=== PATIENT | male | born 1955 | race Caucasian/White ===

== ENCOUNTER 2022-05-26 19:46 | Observation (INO) | payer MEDICARE, SELFPAY ==
--- NOTE | ~2022-05-26 | XR_ITS ---
EXAMINATION: XR CHEST CLINICAL INFORMATION: Altered mental status COMPARISON: Chest radiograph 04/16/2017 TECHNIQUE: Frontal view of the chest was obtained. FINDINGS: Lungs are mildly hypoinflated. No significant abnormality is noted involving the heart, lungs, mediastinum, bony thorax or soft tissues. There has been no interval change when compared to the prior study. XR/XR chest 1V IMPRESSION: No acute intrathoracic disease.
--- NOTE | ~2022-05-26 | CT_ITS ---
EXAMINATION: CT HEAD WITHOUT CONTRAST CLINICAL INFORMATION: Altered mental status. Fall. COMPARISON: None. TECHNIQUE: Contiguous axial imaging was performed from the skull base to vertex without intravenous contrast. This CT examination was performed using dose optimization techniques as appropriate, variously including the following: * Automated exposure control * Adjustment of mA and/or kV according to patient size (this includes techniques or standardized protocols for targeted exams where dose is matched to indication/reason for exam; i.e. extremities or head) Use of iterative reconstruction technique DLP: 839 mGy-cm. FINDINGS: There is no evidence of acute intracranial hemorrhage or territorial infarction. No abnormal mass effect or midline shift is seen. [place] to white matter differentiation is well preserved. No extra-axial fluid collections are identified. No hydrocephalus. Proportional prominence of the ventricles and sulcal spaces is consistent with mild volume loss. Dense calcification of the cerebellum. The osseous structures and soft tissues are normal. Diffuse opacification throughout the paranasal sinuses. The mastoid air cells are well aerated. CT/CT head/brain wo con IMPRESSION: No acute intracranial pathology.
[2022-05-26 20:03] VITALS: BP 138/72; BP 144/86; PULSE 112; PULSE 96; RESP 20; TEMP 37.9; O2SAT 98; BMI 25.1
--- NOTE | 2022-05-26 20:10 | ED_ITS ---
HPI - General Adult General Chief complaint: Fall Stated complaint: weakness fall Time Seen by Provider: 05/26/22 20:06 Source: patient Mode of arrival: EMS Limitations: no limitations History of Present Illness HPI narrative: Patient history of hypertension anxiety lives alone brought by ambulance for increased weakness and found in unkept condition. started 2 days ago PCP gave him Bactrim for sinus infection today felt very weak when tried to get up from the bed fell down without any significant head injury EMS found him soiled in feces and urine patient patient lost his right toenail again to patient prior to taking this medication patient was in good health and since starting medication feeling very weak does not feel any strength Related Data Previous Rx's Medication Instructions Recorded paroxetine HCl 10 mg tablet 10 mg PO DAILY 90 days #90 tabs 08/22/21 irbesartan 150 mg tablet 225 mg PO DAILY 90 days #135 tabs 11/18/21 lorazepam 1 mg tablet 1 mg PO DAILY PRN anxiety 30 days 03/13/22 #30 tabs amoxicillin 875 mg-potassium 1 tab PO BID #14 tabs 04/11/22 clavulanate 125 mg tablet pseudoephedrine HCl 120 mg 120 mg PO BID PRN nasal congestion 04/11/22 tablet,extended release (Sudafed #20 tabs 12 Hour) sodium chloride 0.65 % nasal spray 2 spray intranasal BID PRN 04/11/22 aerosol (Saline Mist) congestion #45 mL sulfamethoxazole 800 1 tab PO BID 10 days #20 tabs 05/20/22 mg-trimethoprim 160 mg tablet (Bactrim DS) Allergies Allergy/AdvReac Type Severity Reaction Status Date / Time atenolol [ATENOLOL] Allergy Unknown SEVERE Verified 04/11/22 15:50 BRADYCARDIA atenolol Allergy Unknown bradycardia Uncoded 04/11/22 15:50 zestril Allergy Unknown facial Uncoded 04/11/22 15:50 swelling Review of Systems Review of Systems: Yes all other systems are reviewed and are negative [facility] Past Medical History Surgical History History of tonsillectomy and adenoidectomy Family History Family History Father No problems noted. Mother No problems noted. Social History Social History (Reviewed 04/11/22 @ 15:10 by MELIZA [place] Housing: House Alcohol intake: current Alcohol intake frequency: a few times a week Alcohol type: beer Patient Tobacco Use Status: Never used Tobacco e-Cigarette/Vaping Use: Never Used Second Hand Smoke Exposure: No Advance Directives: No service: No Current occupational status: retired Cognitive needs: No Hearing needs: No Vision needs: Yes Physical Exam ED Vital Signs: Vital Signs - 24 hr 05/26/22 20:03 05/26/22 21:39 05/27/22 00:00 Temperature 100.3 F 99.9 F 100.9 F H Pulse Rate 112 H 98 101 H Respiratory Rate 20 16 14 Blood Pressure 138/72 142/64 H 122/55 L Pulse Oximetry 98 98 94 Oxygen Delivery Method Room Air Room Air Room Air 05/27/22 02:00 Temperature 99.8 F Pulse Rate 96 Respiratory Rate 21 H Blood Pressure 122/62 Pulse Oximetry 95 Oxygen Delivery Method Room Air BMI result Body Mass Index 25.1 Appearance: Alert. Oriented X3. No acute distress. Unkept condition Eyes: PERRLA, No Nystagmus ENT: Pharynx normal. Oral Mucosa dry Neck: Normal inspection. Neck supple. CVS: Normal heart rate and rhythm. Pulses normal. Respiratory: No respiratory distress. Equal air entry bilateral, no wheezing/rales/rhonchi Abdomen: Soft and nontender. Bowel sounds are present, no mass palpable, no CVA tenderness Skin: Skin warm and dry. Normal skin color. Normal skin turgor. Extremities: No lower extremity edema. No calf tenderness R greater toe loss of nail Neuro: Oriented X 3. No motor deficit. No sensory deficit.No cerebellar signs , cranial nerves II-XII intact Medical Decision Making MDM Narrative Medical decision making narrative: Patient with fever tachycardia source infection not clear started on empirically Rocephin also given IV fluids lactic acid improved from 2.1-to 1.2 CT scan of the head negative for acute showed dense calcification of cerebellum Lab Data Lab results reviewed: Yes I reviewed the patient's lab results. Result diagrams: 05/26/22 20:56 05/26/22 20:56 Labs: Lab Results 05/26/22 05/26/22 05/26/22 Range/Units 20:56 20:56 20:56 WBC 6.1 (4.8-10.8) X10*3/uL RBC 4.29 L (4.60-5.80) X10*6/uL Hgb 14.5 (14.0-18.0) g/dl Hct 43.3 (42.0-52.0) % MCV 100.9 H (80.0-98.0) fL MCH 33.8 H (27.0-33.0) pg MCHC 33.5 (31.0-36.0) g/dl RDW 12.8 (11.0-16.0) % Plt Count 129 L (160-400) X10*3/uL MPV 10.7 (9.4-12.4) fL Immature Gran % (Auto) 1.0 H (0.0-0.4) % Neut % (Auto) 84.0 H (45-73) % Lymph % (Auto) 6.3 L (20-40) % [place] % (Auto) 7.9 (2-11) % Eos % (Auto) 0.3 (0-4) % Baso % (Auto) 0.5 (0-2) % Lymph # (Auto) 0.4 L (1.2-4.9) X10*3/uL [place] # (Auto) 0.5 (0.1-1.2) X10*3/uL Eos # (Auto) 0.0 (0.0-0.4) X10*3/uL Baso # (Auto) 0.0 (0.0-0.2) X10*3/uL Abs Immat Gran (auto) 0.06 H (0.00-0.03) X10*3/uL Absolute Neuts (auto) 5.1 (2.0-8.3) x10*3/uL Absolute Nucleated RBC 0.000 (0.0-0.012) X10*3/uL Nucleated RBC % (auto) 0.0 (0.0-0.2) /100WBC PT (9.9-13.0) SEC INR (0.9-1.1) Sodium 132 L (135-145) mmol/L Potassium 3.9 (3.3-5.1) mmol/L Chloride 103 (96-108) mmol/L Carbon Dioxide 18 L (22-29) mmol/L Anion Gap 15 (12-20) BUN 14 (9-16) mg/dL Creatinine 1.26 (0.5-1.4) mg/dL Estim Creat Clear Calc 58.9 Estimated GFR 57 Random Glucose 148 H (60-115) mg/dL Lactic Acid 2.1 H* (0.5-2.0) mmol/L Lactic Acid F/U @ 2Hr (0.5-2.0) mmol/L Calcium 8.5 (8.4-10.2) mg/dL Magnesium 1.7 (1.6-2.6) mg/dL Total Bilirubin 0.7 (0.0-1.0) mg/dL AST 56 H (5-37) U/L ALT 33 (0-40) U/L Alkaline Phosphatase 83 (39-117) U/L Total Creatine Kinase 227 H (38-174) U/L Troponin I High Sens (<3.5-35.0) ng/L Total Protein 6.5 (6.5-8.0) g/dL Albumin 3.8 (3.5-5.0) g/dL Urine Color Urine Appearance Urine pH (5.0-8.0) Ur Specific [place] (1.005-1.025) Urine Protein (NEG-TRACE) MG/DL Urine Glucose (UA) (NEG) MG/DL Urine Ketones (NEG) MG/DL Urine Blood (NEG) Urine Nitrite (NEG) Ur Leukocyte Esterase (NEG) Urine RBC (0) /HPF Urine WBC (0-4) /HPF Ur Squamous Epith Cells /LPF Urine Bacteria /LPF Urine Mucus /LPF COVID-19 (LUCY) (Negative) COVID-19 Clin Com 05/26/22 05/26/22 05/26/22 Range/Units 20:56 20:56 20:56 WBC (4.8-10.8) X10*3/uL RBC (4.60-5.80) X10*6/uL Hgb (14.0-18.0) g/dl Hct (42.0-52.0) % MCV (80.0-98.0) fL MCH (27.0-33.0) pg MCHC (31.0-36.0) g/dl RDW (11.0-16.0) % Plt Count (160-400) X10*3/uL MPV (9.4-12.4) fL Immature Gran % (Auto) (0.0-0.4) % Neut % (Auto) (45-73) % Lymph % (Auto) (20-40) % [place] % (Auto) (2-11) % Eos % (Auto) (0-4) % Baso % (Auto) (0-2) % Lymph # (Auto) (1.2-4.9) X10*3/uL [place] # (Auto) (0.1-1.2) X10*3/uL Eos # (Auto) (0.0-0.4) X10*3/uL Baso # (Auto) (0.0-0.2) X10*3/uL Abs Immat Gran (auto) (0.00-0.03) X10*3/uL Absolute Neuts (auto) (2.0-8.3) x10*3/uL Absolute Nucleated RBC (0.0-0.012) X10*3/uL Nucleated RBC % (auto) (0.0-0.2) /100WBC PT 11.5 (9.9-13.0) SEC INR 1.0 (0.9-1.1) Sodium (135-145) mmol/L Potassium (3.3-5.1) mmol/L Chloride (96-108) mmol/L Carbon Dioxide (22-29) mmol/L Anion Gap (12-20) BUN (9-16) mg/dL Creatinine (0.5-1.4) mg/dL Estim Creat Clear Calc Estimated GFR Random Glucose (60-115) mg/dL Lactic Acid (0.5-2.0) mmol/L Lactic Acid F/U @ 2Hr (0.5-2.0) mmol/L Calcium (8.4-10.2) mg/dL Magnesium (1.6-2.6) mg/dL Total Bilirubin (0.0-1.0) mg/dL AST (5-37) U/L ALT (0-40) U/L Alkaline Phosphatase (39-117) U/L Total Creatine Kinase (38-174) U/L Troponin I High Sens 30.5 (<3.5-35.0) ng/L Total Protein (6.5-8.0) g/dL Albumin (3.5-5.0) g/dL Urine Color Urine Appearance Urine pH (5.0-8.0) Ur Specific [place] (1.005-1.025) Urine Protein (NEG-TRACE) MG/DL Urine Glucose (UA) (NEG) MG/DL Urine Ketones (NEG) MG/DL Urine Blood (NEG) Urine Nitrite (NEG) Ur Leukocyte Esterase (NEG) Urine RBC (0) /HPF Urine WBC (0-4) /HPF Ur Squamous Epith Cells /LPF Urine Bacteria /LPF Urine Mucus /LPF COVID-19 (LUCY) Negative (Negative) COVID-19 Clin Com See Note 05/26/22 05/26/22 05/27/22 Range/Units 23:38 23:38 00:31 WBC (4.8-10.8) X10*3/uL RBC (4.60-5.80) X10*6/uL Hgb (14.0-18.0) g/dl Hct (42.0-52.0) % MCV (80.0-98.0) fL MCH (27.0-33.0) pg MCHC (31.0-36.0) g/dl RDW (11.0-16.0) % Plt Count (160-400) X10*3/uL MPV (9.4-12.4) fL Immature Gran % (Auto) (0.0-0.4) % Neut % (Auto) (45-73) % Lymph % (Auto) (20-40) % [place] % (Auto) (2-11) % Eos % (Auto) (0-4) % Baso % (Auto) (0-2) % Lymph # (Auto) (1.2-4.9) X10*3/uL [place] # (Auto) (0.1-1.2) X10*3/uL Eos # (Auto) (0.0-0.4) X10*3/uL Baso # (Auto) (0.0-0.2) X10*3/uL Abs Immat Gran (auto) (0.00-0.03) X10*3/uL Absolute Neuts (auto) (2.0-8.3) x10*3/uL Absolute Nucleated RBC (0.0-0.012) X10*3/uL Nucleated RBC % (auto) (0.0-0.2) /100WBC PT (9.9-13.0) SEC INR (0.9-1.1) Sodium (135-145) mmol/L Potassium (3.3-5.1) mmol/L Chloride (96-108) mmol/L Carbon Dioxide (22-29) mmol/L Anion Gap (12-20) BUN (9-16) mg/dL Creatinine (0.5-1.4) mg/dL Estim Creat Clear Calc Estimated GFR Random Glucose (60-115) mg/dL Lactic Acid (0.5-2.0) mmol/L Lactic Acid F/U @ 2Hr 1.2 (0.5-2.0) mmol/L Calcium (8.4-10.2) mg/dL Magnesium (1.6-2.6) mg/dL Total Bilirubin (0.0-1.0) mg/dL AST (5-37) U/L ALT (0-40) U/L Alkaline Phosphatase (39-117) U/L Total Creatine Kinase (38-174) U/L Troponin I High Sens (<3.5-35.0) ng/L Total Protein (6.5-8.0) g/dL Albumin (3.5-5.0) g/dL Urine Color YELLOW Cancelled Urine Appearance CLEAR Cancelled Urine pH 6.0 Cancelled (5.0-8.0) Ur Specific [place] >= 1.030 H Cancelled (1.005-1.025) Urine Protein 1+ H Cancelled (NEG-TRACE) MG/DL Urine Glucose (UA) NEG Cancelled (NEG) MG/DL Urine Ketones 5 Cancelled (NEG) MG/DL Urine Blood TRACE Cancelled (NEG) Urine Nitrite NEG Cancelled (NEG) Ur Leukocyte Esterase NEG Cancelled (NEG) Urine RBC 0-2 (0) /HPF Urine WBC 0-2 (0-4) /HPF Ur Squamous Epith Cells 1+ /LPF Urine Bacteria TRACE /LPF Urine Mucus 1+ /LPF COVID-19 (LUCY) (Negative) COVID-19 Clin Com ECG Data Attestation: I personally reviewed and interpreted this ECG as follows: Interpretation: Patient been feeling very weak taking Bactrim at home close urology only clear unable to ambulate in the ER after hydration recheck temperature oral 100.9 lactic acid level was 2.1 will admit patient for weakness possible bacteremia from unknown source Critical Care Time Critical Care Time Critical Care Time: Yes Total Critical Care Time: 55 Attestation: I spent 55 minutes of critical care, with interventions, assessments, speaking to patient, consultants, and family. Discharge Plan Discharge Clinical Impression: Weakness, Fever Patient Disposition: Admitted As Inpatient
--- NOTE | 2022-05-26 20:12 | ECG_ITS ---
Test Reason : FALL Blood Pressure : / mmHG Vent. Rate : 113 BPM Atrial Rate : 113 BPM P-R Int : 142 ms QRS Dur : 078 ms QT Int : 344 ms P-R-T Axes : 018 -37 -38 degrees QTc Int : 471 ms Sinus tachycardia with Premature atrial complexes with Aberrant conduction Left axis deviation Nonspecific ST and T wave abnormality Abnormal ECG When compared with ECG of 16-APR-2017 10:44, Aberrant conduction is now Present Referred By: Holden Yang Electronically Signed By:THAI DUFF
[2022-05-26] MEDS: 0.9 % Sodium Chloride 1,000 ML 999 ML IV (21:00)
[2022-05-26 21:03] LABS: MANUAL DIFF FLAG NO
[2022-05-26 21:19] LABS: Alanine Aminotransferase 33 U/L (0-40); Albumin Level 3.8 g/dL (3.5-5.0); Alkaline Phosphatase 83 U/L (39-117); Anion Gap 15 (12-20); Aspartate Amino Transferase 56 U/L (5-37); Bilirubin Total 0.7 mg/dL (0.0-1.0); Blood Urea Nitrogen 14 mg/dL (9-16); Calcium 8.5 mg/dL (8.4-10.2); Carbon Dioxide 18 mmol/L (22-29); Chloride 103 mmol/L (96-108); Creatinine Clr Calc Pharmacy 58.9; Estimated Glomerular Filt Rate 57; Glucose Random 148 mg/dL (60-115); Magnesium 1.7 mg/dL (1.6-2.6); Potassium 3.9 mmol/L (3.3-5.1); Sodium 132 mmol/L (135-145); Total Protein 6.5 g/dL (6.5-8.0)
[2022-05-26 21:20] LABS: Prothrombin Time 11.5 SEC (9.9-13.0)
[2022-05-26 21:21] LABS: COVID-19 Test Negative (Negative)
[2022-05-26 21:26] LABS: Troponin-I High Sensitivity 30.5 ng/L (<3.5-35.0)
[2022-05-26 21:30] LABS: Lactic Acid 2.1 mmol/L (0.5-2.0)
[2022-05-26 21:39] VITALS: BP 142/64; PULSE 98; RESP 16; TEMP 37.7; O2SAT 98
[2022-05-26 21:43] LABS: Basophils Percent Auto 0.5 % (0-2); Eosinophils Percent Auto 0.3 % (0-4); Hematocrit 43.3 % (42.0-52.0); Hemoglobin 14.5 g/dl (14.0-18.0); Imm Gran Abs Auto 0.06 X10*3/uL (0.00-0.03); Lymphocytes Absolute Auto 0.4 X10*3/uL (1.2-4.9); Lymphocytes Percent Auto 6.3 % (20-40); Mean Corpuscular HGB Conc 33.5 g/dl (31.0-36.0); Mean Corpuscular Hemoglobin 33.8 pg (27.0-33.0); Mean Corpuscular Volume 100.9 fL (80.0-98.0); Mean Platelet Volume 10.7 fL (9.4-12.4); Monocytes Absolute Auto 0.5 X10*3/uL (0.1-1.2); Monocytes Percent Auto 7.9 % (2-11); Neutrophils Absolute Auto 5.1 x10*3/uL (2.0-8.3); Platelet Count 129 X10*3/uL (160-400); Red Blood Count 4.29 X10*6/uL (4.60-5.80); Red Cell Distribution Width 12.8 % (11.0-16.0); White Blood Count 6.1 X10*3/uL (4.8-10.8)
--- NOTE | 2022-05-26 22:00 | PC.NURSE ---
Addendum entered by Ele Jacobs 05/27/22 07:01: report given to JEFF Garcia Original Note: pt arrived alert and oriented. report weakness. pt full pf stool. incontinent care provided. changed into hospital gown. started on continuos cardiac monitoring. son by bedside
[2022-05-26 23:01] LABS: Reflex Lactate? Lactic Acid Added
[2022-05-26 23:47] LABS: Appearance Urine CLEAR; Color Urine YELLOW; Glucose Urine UA NEG (NEG); Leukocyte Esterase Urine NEG (NEG); Nitrite Urine NEG (NEG); Specific Gravity - Urine >= 1.030 (1.005-1.025); UACC Culture Trigger NO; Urine Blood TRACE (NEG); Urine Ketones 5 MG/DL (NEG); Urine Protein 1+ MG/DL (NEG-TRACE)
[2022-05-26 23:54] LABS: RBC Urine 0-2 /HPF (0); WBC Urine 0-2 /HPF (0-4)
[2022-05-26 23:55] LABS: Bacteria Urine TRACE /LPF; Mucus Urine 1+ /LPF; Squamous Epithelial Cell Urine 1+ /LPF
[2022-05-27] VITALS (9 sets, daily range): BP systolic 119–157; BP diastolic 52–76; PULSE 92–110; RESP 14–27; TEMP 37.1–38.3; O2SAT 94–98
[2022-05-27 00:45] LABS: ~Lactic Acid-LAB USE ONLY 1.2 mmol/L (0.5-2.0)
[2022-05-27] MEDS: 0.9 % Sodium Chloride 1,000 ML 999 ML IV ×2 (00:56→01:23)
[2022-05-27] MEDS: Acetaminophen 325 MG TABLET 975 MG PO (01:10)
[2022-05-27] MEDS: LORazepam 2 MG/ML VIAL 1 MG IVPUSH (01:12)
[2022-05-27] MEDS: cefTRIAXone sodium 1 GM in 0.9 % Sodium Chloride 50 ML IV (01:22)
[2022-05-27 03:00] LABS: Influenza A PCR NEGATIVE (Negative); Influenza B PCR NEGATIVE (Negative); Resp Syncy Virus RNA Qual PCR NEGATIVE (Negative); SARS COV2 PCR INHOUSE NEGATIVE (Negative)
--- NOTE | 2022-05-27 07:52 | P.HPHOSP_ITS ---
History of Present Illness Date of Service: 05/27/22 Chief Complaint: weakness, fall This is a 67-year-old male with past medical history of hypertension as well as anxiety who presents to the hospital with fall. Patient reports that he has been on antibiotics for sinusitis but has been feeling very weak. Patient reports that he had a fall without loss of consciousness , no chest pain, no palpitations, no headache or change in vision. Patient denies any not miss a weakness. Patient reports generalized weakness, poor oral intake. Patient otherwise denies any abdominal pain nausea or vomiting, no diarrhea constipation, no urinary symptoms and no lower extremity edema. Patient's vitals are significant for temperature of a 100.9 degrees, heart rate of 101, vitals otherwise stable Labs are significant for WBC count of 6.1, hemoglobin of 14.5, MCV 100.9, sodium of 132, lactic acid of 2.1, UA negative Head CT negative, chest x-ray negative Review of Systems Review of Systems: Yes all other systems are reviewed and are negative [facility] Medical History (Updated 05/27/22 @ 08:03 by Martha Ulloa MD) Anxiety Hypertension, essential Neuropathy Obesity (BMI 30-39.9) Family History Father No problems noted. Mother No problems noted. Surgical History History of tonsillectomy and adenoidectomy Social History Housing: House Alcohol intake: current Alcohol intake frequency: a few times a week Alcohol type: beer Patient Tobacco Use Status: Never used Tobacco e-Cigarette/Vaping Use: Never Used Second Hand Smoke Exposure: No Advance Directives: No service: No Current occupational status: retired Cognitive needs: No Hearing needs: No Vision needs: Yes Meds Allergies Allergy/AdvReac Type Severity Reaction Status Date / Time atenolol [ATENOLOL] Allergy Unknown SEVERE Verified 04/11/22 15:50 BRADYCARDIA atenolol Allergy Unknown bradycardia Uncoded 04/11/22 15:50 zestril Allergy Unknown facial Uncoded 04/11/22 15:50 swelling Active Medications: Current Medications Acetaminophen (Acetaminophen 325 Mg Tablet) 650 mg PO Q6H PRN PRN Reason: Pain, Mild (Pain Scale 1-3) Docusate Sodium (Docusate Sodium 100 Mg Capsule) 100 mg PO DAILY PRN PRN Reason: Constipation Enoxaparin Sodium (Enoxaparin Sodium 40 Mg/0.4 Ml Syringe) 40 mg SUBCUT Q24H THOMPSON Ondansetron HCl (Ondansetron Hcl 4 Mg/2 Ml Vial) 4 mg IVPUSH Q8H PRN PRN Reason: Nausea and Vomiting Sodium Chloride (0.9 % Sodium Chloride Flush 3 Ml Syringe) 3 ml IVFLUSH QSHIFT THOMPSON Physical Exam Vital Signs and Narrative: Vital Signs: Last Vital Signs Temp 98.7 F 05/27/22 05:38 Pulse 103 H 05/27/22 05:38 Resp 16 05/27/22 05:38 BP 137/65 05/27/22 05:38 Pulse Ox 96 05/27/22 05:38 O2 Del Method 05/27/22 05:38 BMI result Body Mass Index 25.1 Results Labs CBC and Chem 7: 05/26/22 20:56 05/26/22 20:56 Labs: Laboratory Results - last 24 hr 05/26/22 05/26/22 05/26/22 20:56 20:56 20:56 MCV 100.9 H MCH 33.8 H MCHC 33.5 RDW 12.8 Plt Count 129 L MPV 10.7 Immature Gran % (Auto) 1.0 H Neut % (Auto) 84.0 H Lymph % (Auto) 6.3 L [place] % (Auto) 7.9 Eos % (Auto) 0.3 Baso % (Auto) 0.5 Lymph # (Auto) 0.4 L [place] # (Auto) 0.5 Eos # (Auto) 0.0 Baso # (Auto) 0.0 Abs Immat Gran (auto) 0.06 H Absolute Neuts (auto) 5.1 Absolute Nucleated RBC 0.000 Nucleated RBC % (auto) 0.0 PT INR Anion Gap 15 Estim Creat Clear Calc 58.9 Estimated GFR 57 Random Glucose 148 H Lactic Acid 2.1 H* Lactic Acid F/U @ 2Hr Calcium 8.5 Magnesium 1.7 Total Bilirubin 0.7 AST 56 H ALT 33 Alkaline Phosphatase 83 Total Creatine Kinase 227 H Troponin I High Sens Total Protein 6.5 Albumin 3.8 Urine Color Urine Appearance Urine pH Ur Specific [place] Urine Protein Urine Glucose (UA) Urine Ketones Urine Blood Urine Nitrite Ur Leukocyte Esterase Urine RBC Urine WBC Ur Squamous Epith Cells Urine Bacteria Urine Mucus COVID-19 (LUCY) COVID-19 Clin Com Influenza Type A (PCR) Influenza Type B (PCR) RSV RNA Qual (PCR) SARS-CoV-2 RNA (RT-PCR) 05/26/22 05/26/22 05/26/22 20:56 20:56 20:56 MCV MCH MCHC RDW Plt Count MPV Immature Gran % (Auto) Neut % (Auto) Lymph % (Auto) [place] % (Auto) Eos % (Auto) Baso % (Auto) Lymph # (Auto) [place] # (Auto) Eos # (Auto) Baso # (Auto) Abs Immat Gran (auto) Absolute Neuts (auto) Absolute Nucleated RBC Nucleated RBC % (auto) PT 11.5 INR 1.0 Anion Gap Estim Creat Clear Calc Estimated GFR Random Glucose Lactic Acid Lactic Acid F/U @ 2Hr Calcium Magnesium Total Bilirubin AST ALT Alkaline Phosphatase Total Creatine Kinase Troponin I High Sens 30.5 Total Protein Albumin Urine Color Urine Appearance Urine pH Ur Specific [place] Urine Protein Urine Glucose (UA) Urine Ketones Urine Blood Urine Nitrite Ur Leukocyte Esterase Urine RBC Urine WBC Ur Squamous Epith Cells Urine Bacteria Urine Mucus COVID-19 (LUCY) Negative COVID-19 Clin Com See Note Influenza Type A (PCR) Influenza Type B (PCR) RSV RNA Qual (PCR) SARS-CoV-2 RNA (RT-PCR) 05/26/22 05/26/22 05/27/22 23:38 23:38 00:31 MCV MCH MCHC RDW Plt Count MPV Immature Gran % (Auto) Neut % (Auto) Lymph % (Auto) [place] % (Auto) Eos % (Auto) Baso % (Auto) Lymph # (Auto) [place] # (Auto) Eos # (Auto) Baso # (Auto) Abs Immat Gran (auto) Absolute Neuts (auto) Absolute Nucleated RBC Nucleated RBC % (auto) PT INR Anion Gap Estim Creat Clear Calc Estimated GFR Random Glucose Lactic Acid Lactic Acid F/U @ 2Hr 1.2 Calcium Magnesium Total Bilirubin AST ALT Alkaline Phosphatase Total Creatine Kinase Troponin I High Sens Total Protein Albumin Urine Color YELLOW Cancelled Urine Appearance CLEAR Cancelled Urine pH 6.0 Cancelled Ur Specific [place] >= 1.030 H Cancelled Urine Protein 1+ H Cancelled Urine Glucose (UA) NEG Cancelled Urine Ketones 5 Cancelled Urine Blood TRACE Cancelled Urine Nitrite NEG Cancelled Ur Leukocyte Esterase NEG Cancelled Urine RBC 0-2 Urine WBC 0-2 Ur Squamous Epith Cells 1+ Urine Bacteria TRACE Urine Mucus 1+ COVID-19 (LUCY) COVID-19 Clin Com Influenza Type A (PCR) Influenza Type B (PCR) RSV RNA Qual (PCR) SARS-CoV-2 RNA (RT-PCR) 05/27/22 02:15 MCV MCH MCHC RDW Plt Count MPV Immature Gran % (Auto) Neut % (Auto) Lymph % (Auto) [place] % (Auto) Eos % (Auto) Baso % (Auto) Lymph # (Auto) [place] # (Auto) Eos # (Auto) Baso # (Auto) Abs Immat Gran (auto) Absolute Neuts (auto) Absolute Nucleated RBC Nucleated RBC % (auto) PT INR Anion Gap Estim Creat Clear Calc Estimated GFR Random Glucose Lactic Acid Lactic Acid F/U @ 2Hr Calcium Magnesium Total Bilirubin AST ALT Alkaline Phosphatase Total Creatine Kinase Troponin I High Sens Total Protein Albumin Urine Color Urine Appearance Urine pH Ur Specific [place] Urine Protein Urine Glucose (UA) Urine Ketones Urine Blood Urine Nitrite Ur Leukocyte Esterase Urine RBC Urine WBC Ur Squamous Epith Cells Urine Bacteria Urine Mucus COVID-19 (LUCY) COVID-19 Clin Com Influenza Type A (PCR) NEGATIVE Influenza Type B (PCR) NEGATIVE RSV RNA Qual (PCR) NEGATIVE SARS-CoV-2 RNA (RT-PCR) NEGATIVE Imaging Radiologist's Impressions: Impressions Chest X-Ray 05/26/22 21:25 IMPRESSION: No acute intrathoracic disease. Head CT 05/27/22 01:55 IMPRESSION: No acute intracranial pathology. Assessment and Plan (1) Fever: Status: Acute (2) Weakness: Status: Acute (3) Sinusitis: Qualifiers: Sinusitis location: pansinusitis Chronicity: acute Recurrence: non- recurrent Qualified Code(s): J01.40 - Acute pansinusitis, unspecified Status: Acute (4) Fall: Status: Acute Plan 67-year-old male with recently diagnosed sinusitis on antibiotics presents to the hospital with fall and weakness found to have a fever. # fever - unknown source, UA is negative, head CT negative, chest x-ray negative - patient also has tachycardia - at this time will treat with Augmentin for the sinusitis - blood cultures drawn, will follow # weakness - vein the setting of recent infection - PT OT # sinusitis - was on Bactrim 05/09 - will switch to Augmentin # fall - mechanical - PT # hypertension - stable - continue home medications DVT prophylaxis: Lovenox Quality Stroke Does the patient have a stroke diagnosis?: No VTE Prior VTE?: No VTE Risk Level:: Medical - moderate - high VTE Device Contraindication: Treatment Not Indicated VTE Drug Contraindication: N/A - Med Ordered
--- NOTE | 2022-05-27 10:04 | MHC.CM.PN ---
PT REPORTS HE LIVES AT HOME WITH HIS SON HE REPORTS BEING INDEPENDENT WITH CARE HE HAS A CANE AND WALKER AND HIS SON IS GOIGN TO GET HIM A W/C TODAY PT REPORTS HE IS NOT COVID-19 VACCINATED PT COMPLETED A HCP TODAY NAMING HIS SON, DELONTE [phone], HIS AGENT PCP: ROBBIE BILLINGS OBSERVATION NOTICE DELIVERED, COPY SENT TO [facility] CURRENT DC PLAN IS HOME VS HOME WITH [facility] SON TO TRANSPORT
--- NOTE | 2022-05-27 10:13 | PHA.MEDREC ---
Pharmacy Consult ? Medication Reconciliation Pharmacy has completed the medication reconciliation. Spoke to patient themselves. Patient was on Bactrim for 10 doses then stopping because of side effects.
[2022-05-27 10:50] LABS: Basophils Percent Auto 0.5 % (0-2); Hematocrit 41.8 % (42.0-52.0); Hemoglobin 13.7 g/dl (14.0-18.0); Imm Gran Abs Auto 0.04 X10*3/uL (0.00-0.03); Imm Gran Pct Auto 1.1 % (0.0-0.4); Lymphocytes Absolute Auto 0.7 X10*3/uL (1.2-4.9); Lymphocytes Percent Auto 17.4 % (20-40); Mean Corpuscular HGB Conc 32.8 g/dl (31.0-36.0); Mean Corpuscular Hemoglobin 34.3 pg (27.0-33.0); Mean Corpuscular Volume 104.5 fL (80.0-98.0); Monocytes Absolute Auto 0.8 X10*3/uL (0.1-1.2); Monocytes Percent Auto 20.9 % (2-11); Neutrophils Absolute Auto 2.2 x10*3/uL (2.0-8.3); Neutrophils Percent Auto 60.1 % (45-73); Red Cell Distribution Width 12.8 % (11.0-16.0); SCAN SMEAR FLAG 1; White Blood Count 3.7 X10*3/uL (4.8-10.8)
[2022-05-27] MEDS: Amoxicillin/Potassium Clav 875 MG TABLET PO (10:50)
[2022-05-27] MEDS: Enoxaparin Sodium 40 MG/0.4 ML SYRINGE SUBCUT (10:50)
[2022-05-27] MEDS: levoFLOXacin/D5W 750 MG/150 ML PIGGYBACK 100 MG IV (10:50)
[2022-05-27] MEDS: PARoxetine HCL 10 MG TABLET PO (10:50)
[2022-05-27] MEDS: 0.9 % Sodium Chloride Flush 3 ML SYRINGE IVFLUSH ×2 (10:51→15:53)
[2022-05-27 11:01] LABS: Anion Gap 13 (12-20); Blood Urea Nitrogen 10 mg/dL (9-16); Carbon Dioxide 18 mmol/L (22-29); Chloride 109 mmol/L (96-108); Creatinine Clr Calc Pharmacy 97.7; Estimated Glomerular Filt Rate > 60; Glucose Random 106 mg/dL (60-115); MANUAL DIFF FLAG SCAN; Potassium 3.9 mmol/L (3.3-5.1); Sodium 136 mmol/L (135-145)
[2022-05-27 11:13] LABS: Mean Platelet Volume 10.5 fL (9.4-12.4); Platelet Count 89 X10*3/uL (160-400); SLIDE REVIEW VERIFIED
[2022-05-27] MEDS: Valsartan 80 MG TABLET PO (11:51)
--- NOTE | 2022-05-27 11:54 | PC.NURSE ---
Pt is alert,oriented. Needs reminders at times. Diarrhea x3, losse, brown and mucoid in appearance. Oral temp 99.5. AM meds tolerated well. General skin bruising noted, pt reports falling over past 2 days at home. SInus tach on tele, rate 110s.
--- NOTE | 2022-05-27 11:57 | PC.NURSE ---
Right great toe dsg removed, cleaned and bandaid applied. Skin macerated, red to nail bed
[2022-05-27 12:50] LABS: Lactic Acid 1.6 mmol/L (0.5-2.0)
[2022-05-27 17:13] LABS: CDiff Gene PCR NEGATIVE (Negative)
[2022-05-27 17:18] LABS: Leukocytes Stool Qualitative NEGATIVE (NEGATIVE)
--- NOTE | 2022-05-27 17:29 | PM.EVENT ---
Event Note Date of Service: 05/27/22 Event Note: Patient seen and examined-events and labs noted Patient had mild thrombocytopenia also has tachycardia Leukopenia Lactic acid is 1.6. Patient also had few episode of diarrhea . C diff and stool for WBC added Physical exam: Unchanged from before. Assessment and plan coordinated in H&P note fuo vs sepsis sec to sinusitis c diff pcr neg, stool for wbc neg Thrombocytopenia probably related to add Augmentin/Lovenox Blood culture pending Id eval , continue levquin
--- NOTE | 2022-05-27 20:06 | PC.NURSE ---
Addendum entered by Ele Jacobs 05/28/22 07:09: Report given to JEFF Estevez Original Note: report received from JEFF Butler
[2022-05-28] MEDS: LORazepam 1 MG TABLET PO (00:04)
[2022-05-28] MEDS: levoFLOXacin/D5W 750 MG/150 ML PIGGYBACK 100 MG IV (09:01)
[2022-05-28] MEDS: 0.9 % Sodium Chloride Flush 3 ML SYRINGE IVFLUSH (09:03)
[2022-05-28] MEDS: Valsartan 80 MG TABLET PO (09:04)
[2022-05-28] MEDS: PARoxetine HCL 10 MG TABLET PO (09:04)
[2022-05-28 10:22] LABS: Hematocrit 38.4 % (42.0-52.0); Mean Corpuscular HGB Conc 33.9 g/dl (31.0-36.0); Mean Corpuscular Hemoglobin 34.4 pg (27.0-33.0); Mean Corpuscular Volume 101.6 fL (80.0-98.0); Mean Platelet Volume 10.7 fL (9.4-12.4); Platelet Count 108 X10*3/uL (160-400); Red Blood Count 3.78 X10*6/uL (4.60-5.80); Red Cell Distribution Width 12.5 % (11.0-16.0); White Blood Count 3.6 X10*3/uL (4.8-10.8)
[2022-05-28 10:43] LABS: Anion Gap 12 (12-20); Blood Urea Nitrogen 10 mg/dL (9-16); Carbon Dioxide 21 mmol/L (22-29); Chloride 107 mmol/L (96-108); Creatinine Clr Calc Pharmacy 112.5; Estimated Glomerular Filt Rate > 60; Glucose Random 103 mg/dL (60-115); Potassium 3.7 mmol/L (3.3-5.1); Sodium 136 mmol/L (135-145)
[2022-05-28] MEDS: Lactated Ringers 1,000 ML 80 ML IVCONT ×2 (10:48→22:33)
--- NOTE | 2022-05-28 10:52 | PC.NURSE ---
Report received at shift change from Ele AGUILAR. Patient resting on hospital bed and reports comfort. Respirations regular and even. Skin PWD. Patient passing stool frequently on bed bender. Stool is loose and dark brown. Patient sits up on side of bed independently. Able to sit upright for 5-10 minutes at a time before needing to lay back down. Patient able to take AM medications and eat independently without difficulty. LRS infusing at 80mls/hr at this time. Will continue to monitor.
[2022-05-28 11:21] VITALS: BP 102/58; PULSE 88; RESP 18; TEMP 36.8; O2SAT 97
--- NOTE | 2022-05-28 11:57 | P.CNID_ITS ---
History of Present Illness Data of Consult Service Date: 05/27/22 Requesting physician: Cele Foy Primary Care Provider: Brandon Buck MD HPI Reason for consult: sepsis He presents with weakness for last 4-5 days and some vague dizziness and fell and came to hospital. He has sinus pressure and was on Augmentin He has thrombocytopenia and no tick exposure. CT scan bender sinusitis. Review of Systems Review of Systems: Yes all other systems are reviewed and are negative PMFSH Past Medical History Medical History Anxiety Hypertension, essential Neuropathy Obesity (BMI 30-39.9) Family History Family History Father No problems noted. Mother No problems noted. Family history: reviewed and not pertinent Surgical History Surgical History History of tonsillectomy and adenoidectomy Social History Social History Housing: House Alcohol intake: current Alcohol intake frequency: holidays/special occasions only Alcohol type: beer Patient Tobacco Use Status: Never used Tobacco e-Cigarette/Vaping Use: Never Used Second Hand Smoke Exposure: No Use of substances other than those prescribed or required for medical reasons: No Advance Directives: Yes Advance Directives on File: Yes Advance Directives Date on File: 05/27/22 service: No Current occupational status: retired Cognitive needs: No Hearing needs: No Vision needs: Yes Meds Allergies Allergy/AdvReac Type Severity Reaction Status Date / Time atenolol [ATENOLOL] Allergy Unknown SEVERE Verified 04/11/22 15:50 BRADYCARDIA atenolol Allergy Unknown bradycardia Uncoded 04/11/22 15:50 zestril Allergy Unknown facial Uncoded 04/11/22 15:50 swelling Active Medications: Current Medications Acetaminophen (Acetaminophen 325 Mg Tablet) 650 mg PO Q6H PRN PRN Reason: Pain, Mild (Pain Scale 1-3) Docusate Sodium (Docusate Sodium 100 Mg Capsule) 100 mg PO DAILY PRN PRN Reason: Constipation Levofloxacin (Levaquin) 750 mg in 150 mls @ 100 mls/hr IV Q24H [facility] Last Admin: 05/28/22 09:01 Dose: 100 mls/hr Lactated Ringer's (Lr) 1,000 mls @ 80 mls/hr IVCONT .[id number] [facility] Last Admin: 05/28/22 10:48 Dose: 80 mls/hr Lorazepam (Lorazepam 1 Mg Tablet) 1 mg PO DAILY PRN PRN Reason: anxiety Last Admin: 05/28/22 00:04 Dose: 1 mg Ondansetron HCl (Ondansetron Hcl 4 Mg/2 Ml Vial) 4 mg IVPUSH Q8H PRN PRN Reason: Nausea and Vomiting Paroxetine HCl (Paroxetine Hcl 10 Mg Tablet) 10 mg PO DAILY [facility] Last Admin: 05/28/22 09:04 Dose: 10 mg Sodium Chloride (0.9 % Sodium Chloride Flush 3 Ml Syringe) 3 ml IVFLUSH QSHIFT [facility] Last Admin: 05/28/22 09:03 Dose: 3 ml Valsartan (Valsartan 80 Mg Tablet) 80 mg PO DAILY [facility] Last Admin: 05/28/22 09:04 Dose: 80 mg Home Medications Medication Instructions Recorded Confirmed Last Taken Type irbesartan 150 mg tablet 150 mg PO DAILY 05/27/22 05/27/22 05/26/22 History Physical Exam Vital Signs: Vital Signs: Last Vital Signs Temp 98.3 F 05/28/22 11:21 Pulse 88 05/28/22 11:21 Resp 18 05/28/22 11:21 BP 102/58 L 05/28/22 11:21 Pulse Ox 97 05/28/22 11:21 O2 Del Method 05/28/22 11:21 BMI result Body Mass Index 25.1 Const: General: cooperative HEENT: Head: Yes normal to inspection Face and sinus: Yes normal facial exam Mouth: Normal oral and palatal mucosa present Teeth and gingiva: dentition normal Eyes: General: appearance normal, both eyes and all related structures Pupils: Equal, round and reactive pupils present Resp: Effort & Inspection: normal respiratory effort Cardio: Rate: regular rate Rhythm: regular rhythm GI: Palpation (GI): Soft to palpation and nontender : General: Yes no CVA tenderness Back/Spine/Pelvis: Back: no CVA tenderness Skin: General skin exam: no rashes or lesions noted Neuro: General: moves all extremities Cranial nerves: Yes Equal, round and reactive pupils present Extrem: General: Yes normal to inspection Psych: Appearance: grossly normal Results Labs CBC & Chem 7: 05/28/22 09:54 05/28/22 09:54 Labs: Short CBC 05/28/22 Range/Units 09:54 WBC 3.6 L (4.8-10.8) X10*3/uL Hgb 13.0 L (14.0-18.0) g/dl Hct 38.4 L (42.0-52.0) % Plt Count 108 L (160-400) X10*3/uL BMP 05/28/22 09:54 Sodium 136 Potassium 3.7 Chloride 107 Carbon Dioxide 21 L BUN 10 Creatinine 0.66 Calcium 8.0 L Microbiology Microbiology Results: Microbiology 05/26/22 21:07 Blood - Venous Blood Culture - Preliminary No growth after 24 hours. 05/26/22 20:55 Blood - Venous Blood Culture - Preliminary No growth after 24 hours. Assessment and Plan (1) Sepsis: Status: Acute this is likely due to pansinusitis. Sepsis criteria is fever and tachycardia There is no evidence of tick exposure. Rest of exam and CT head unremarkable. No urinary symptoms Plan Can give po Levaquin 750 mg daily for 10 d total and po Doxycycline 100 mg po bid for 10 d in case tick borne/other
[2022-05-28 15:18] VITALS: BP 102/46; PULSE 94; RESP 18; TEMP 37.2; O2SAT 97
--- NOTE | 2022-05-28 15:26 | PC.NURSE ---
Dr. Foy made aware about patients low blood pressure. No further action needed per Dr. Foy.
--- NOTE | 2022-05-28 17:08 | HO.PM.IMPN ---
Subjective Subjective Date of Service: 05/28/22 Interval History: FUO, diarrhea Review of Systems No fever overnight , diarrhea is slightly better than yesterday Physical Exam Vital Signs: Vital Signs: Last Vital Signs Temp 99.0 F 05/28/22 15:18 Pulse 94 05/28/22 15:18 Resp 18 05/28/22 15:18 BP 102/46 L 05/28/22 15:18 Pulse Ox 97 05/28/22 15:18 O2 Del Method 05/28/22 15:18 BMI result Body Mass Index 25.1 Appearance: Alert.? Oriented X3.? not in distress. cvs: rrr, [id number] , no murmur res: clear to auscultation ,no rhonchii or wheezing abd: no rebound or guarding ,nt, bs present. ext pulses present , no cyanosis . neuro: axo3 , nonfocal. Objective Data Active Medications Acetaminophen (Acetaminophen 325 Mg Tablet) 650 mg PO Q6H PRN PRN Reason: Pain, Mild (Pain Scale 1-3) Docusate Sodium (Docusate Sodium 100 Mg Capsule) 100 mg PO DAILY PRN PRN Reason: Constipation Levofloxacin (Levaquin) 750 mg in 150 mls @ 100 mls/hr IV Q24H [facility] Last Admin: 05/28/22 09:01 Dose: 100 mls/hr Documented By: ARLET Lactated Ringer's (Lr) 1,000 mls @ 80 mls/hr IVCONT .[id number] [facility] Last Admin: 05/28/22 10:48 Dose: 80 mls/hr Documented By: ARLET Lorazepam (Lorazepam 1 Mg Tablet) 1 mg PO DAILY PRN PRN Reason: anxiety Last Admin: 05/28/22 00:04 Dose: 1 mg Documented By: FELICITAS-ANICL Ondansetron HCl (Ondansetron Hcl 4 Mg/2 Ml Vial) 4 mg IVPUSH Q8H PRN PRN Reason: Nausea and Vomiting Paroxetine HCl (Paroxetine Hcl 10 Mg Tablet) 10 mg PO DAILY [facility] Last Admin: 05/28/22 09:04 Dose: 10 mg Documented By: ARLET Sodium Chloride (0.9 % Sodium Chloride Flush 3 Ml Syringe) 3 ml IVFLUSH QSHIFT [facility] Last Admin: 05/28/22 15:40 Dose: Not Given Documented By: MISSY Non-Admin Reason: IV Running Valsartan (Valsartan 80 Mg Tablet) 80 mg PO DAILY [facility] Last Admin: 05/28/22 09:04 Dose: 80 mg Documented By: ARLET Labs CBC & Chem 7: 05/28/22 09:54 05/28/22 09:54 Labs: Laboratory Results - last 24 hr 05/27/22 05/27/22 05/28/22 15:37 15:37 09:54 MCV 101.6 H MCH 34.4 H MCHC 33.9 RDW 12.5 Plt Count 108 L MPV 10.7 Absolute Nucleated RBC 0.000 Nucleated RBC % (auto) 0.0 Anion Gap Estim Creat Clear Calc Estimated GFR Random Glucose Calcium Stool Leukocytes, Qual NEGATIVE C. difficile Tox B Gene NEGATIVE 05/28/22 09:54 MCV MCH MCHC RDW Plt Count MPV Absolute Nucleated RBC Nucleated RBC % (auto) Anion Gap 12 Estim Creat Clear Calc 112.5 Estimated GFR > 60 Random Glucose 103 Calcium 8.0 L Stool Leukocytes, Qual C. difficile Tox B Gene Microbiology Microbiology Results: Microbiology 05/26/22 21:07 Blood Culture - Preliminary Blood - Venous No growth after 24 hours. 05/26/22 20:55 Blood Culture - Preliminary Blood - Venous No growth after 24 hours. Assessment and Plan (1) Fall: Status: Acute (2) Fever: Status: Acute (3) Sinusitis: Status: Acute Plan 67-year-old male with recently diagnosed sinusitis on antibiotics presents to the hospital with fall and weakness found to have a fever. fuo vs sepsis sec to sinusitis - unknown source, UA is negative, head CT negative, chest x-ray negative - patient also has tachycardia levquin for the sinusitis, blood cultures@24hrs ID eval # weakness - vein the setting of recent infection - PT OT-str # sinusitis - was on Bactrim 05/09 will continue levaquin # fall - mechanical - PT-str # hypertension - stable - continue home medications thrombocytopenia : probable sec to augmentin , seems improving after dc augmentin diarrhae: c diff and wbc neg, dirrahe still has , will add loperamide. DVT prophylaxis:? Lovenox need for inpatient: Quality Stroke Does the patient have a stroke diagnosis?: No VTE Prior VTE?: No VTE Risk Level:: Medical - moderate - high VTE Device Contraindication: Treatment Not Indicated VTE Drug Contraindication: N/A - Med Ordered
[2022-05-28 21:40] VITALS: BP 138/66; PULSE 88; RESP 18; TEMP 36.7; O2SAT 99
[2022-05-29] VITALS: BP 135/53; PULSE 96; RESP 16; TEMP 36.8; O2SAT 98
--- NOTE | 2022-05-29 00:28 | PC.NURSE ---
patient was help with bedpan ,taught he had to move his bowels ,but did not go ,
--- NOTE | 2022-05-29 00:43 | PC.NURSE ---
SMALL TRASH BAG AND TISSUE GIVEN TO PATIENT .
[2022-05-29] MEDS: Loperamide HCl 2 MG CAPSULE PO (00:46)
[2022-05-29 04:00] VITALS: BP 125/57; PULSE 86; RESP 16; TEMP 36.9; O2SAT 98
[2022-05-29 09:20] LABS: Adenovirus PCR Not Detected (Not Detect.); Bordetella parapertussis PCR Not Detected (Not Detect.); Bordetella pertussis PCR Not Detected (Not Detect.); Chlamydia pneumoniae PCR Not Detected (Not Detect.); Coronavirus 229E PCR Not Detected (Not Detect.); Coronavirus HKU1 PCR Not Detected (Not Detect.); Coronavirus NL63 PCR Not Detected (Not Detect.); Coronavirus OC43 PCR Not Detected (Not Detect.); Human metapneumovirus PCR Not Detected (Not Detect.); Influenza A PCR Not Detected (Not Detect.); Influenza B PCR Not Detected (Not Detect.); Mycoplasma pneumoniae PCR Not Detected (Not Detect.); Parainfluenza 1 PCR Not Detected (Not Detect.); Parainfluenza 2 PCR Not Detected (Not Detect.); Parainfluenza 3 PCR Not Detected (Not Detect.); Parainfluenza 4 PCR Not Detected (Not Detect.); RSV PCR Not Detected (Not Detect.); Rhino/Enterovirus PCR Not Detected (Not Detect.); SARS-CoV-2 PCR Not Detected (Not Detect.)
[2022-05-29] MEDS: PARoxetine HCL 10 MG TABLET PO (09:25)
[2022-05-29] MEDS: levoFLOXacin/D5W 750 MG/150 ML PIGGYBACK 100 MG IV (09:25)
[2022-05-29 11:24] VITALS: BP 129/72; PULSE 76; RESP 12; TEMP 36.4; O2SAT 99
--- NOTE | 2022-05-29 13:05 | MHC.CM.PN ---
Addendum entered by Tiffanie Oliveira 05/29/22 13:19: PT WILL DC HOME TODAY WITH [facility] SON TO TRANSPORT AROUND 1730 HOURS Addendum entered by Tiffanie Oliveira 05/29/22 13:08: SON/DELONTE [phone] Original Note: TRACY LEFT A VM FOR PTS SON REQUESTING A RETURN CALL TO DISCUSS PTS DC PLAN AND ENSURE HE WAS AWARE STR HAD BEEN RECOMMENDED CM LATER RECEIVED A MESSAGE FROM PTS SON INDICATING HE WAS AT WORK HOWEVER HAD SPOKEN TO THE MD AND WOULD LIKE TO TAKE THE PT HOME AT DC. HE INDICATED HE WOULD BE HERE AROUND 1730 TO TRANSPORT
--- NOTE | 2022-05-29 13:11 | P.F2F_ITS ---
Service Date Service Date: 05/29/22 Encounter Date of encounter: 05/29/22 Encounter: Fever, sepsis due to sinusitis Reasons for Services Signs and symptoms assessed: Generalized weak and fall Reason for long-term: CV/CP assess and/or care, medication management, medication treatment and teach disease management Reason for physical therapy: home safety and mobility, therapeutic exercises, restore joint function, gait/transfer training, assess need for DME, ADL training, energy conservation and other MD Overseeing Care: Brandon Buck Homebound: Leaving the home is medically contraindicated at this time without the asist of a device and/or another person due th the listed conditions above and below. Reason homebound: other Homebound supporting statement: Patient came with sepsis secondary sinusitis, generalized weak, fall-declined to go to rehab, will need VNA and PT and also need help to go to appointments. Certification: Based on the above findings, I certify that this patient is confined to the home and needs intermittent long-term care, physical therapy and/or speech therapy, or continues to need occupational therapy. The patient is under my care, and I have initiated the establishment of the plan of care. The patient will be followed by a physician who will periodically review the plan of care.
[2022-05-29 16:10] VITALS: BP 131/61; PULSE 72; RESP 16; TEMP 36.6; O2SAT 98
--- NOTE | 2022-05-30 14:30 | P.DS_ITS ---
DS: Providers Provider Date of Service: 05/29/22 Date of admission: 05/27/22 04:59 Primary care physician: Brandon Buck MD Consults: 05/27/22 12:13 Consult to Infectious Diseases Routine Consulting Provider: Varsha Holguin Reason for consultation: fuo Has provider been notified: No DS: Diagnosis Discharge Diagnosis (1) Fall: Status: Acute (2) Fever: Status: Acute (3) Sinusitis: Status: Acute DS: Summary Hospital Course Hospital Course: 67-year-old male with past medical history of hypertension as well as anxiety who presents to the hospital with fall.? Patient reports that he has been on antibiotics for sinusitis but has been feeling very weak.? Patient reports that he had a fall without loss of consciousness , no chest pain, no palpitations, no headache or change in vision.? Patient denies any not miss a weakness.? Patient reports generalized weakness, poor oral intake.? Patient otherwise denies any abdominal pain nausea or vomiting, no diarrhea constipation, no urinary symptoms and no lower extremity edema. Patient's vitals are significant for temperature of a 100.9 degrees, heart rate of 101, vitals otherwise stable Labs are significant for WBC count of 6.1, hemoglobin of 14.5, MCV 100.9, sodium of 132, lactic acid of 2.1, UA negative Head CT negative, chest x-ray negative. hospital course: Patient came to the hospital because of possible sepsis secondary to sinusitis- seems to be improving with IV antibiotics: Seen by infectious disease recommended to continue levofloxacin and added doxycycline . Blood culture negative. Also had diarrhea probably antibiotic induced which seems to be improved, C diff and stool for WBC negative. Patient was seen by PT-recommended rehab-but patient refused to go to rehab so going home with PT and VNA. plan: Complete the course of antibiotic. If patient's symptoms worsen including fever or shortness of breath or cough or any new symptoms patient is to get evaluated in nearest emergency room. Above management discussed with patient and patient's son in detail length they both understand and in agreement with the above plan, time spent 50 minutes and 50% time spent on counseling. Significant findings: As above. Procedures performed: None. Treatment and response: As above. Complications: None. Time Spent with Patient Time attestation: Total time spent providing and/or coordinating discharge services: Discharge coordination time: Greater than 30 minutes Quality: Safe Use of Opioids Does Pt have an Active Cancer Diagnosis on the Problem List?: No Quality: Stroke Does the patient have a stroke diagnosis?: No Physical Exam Vital Signs: Vital Signs: Last Vital Signs Temp 97.9 F 05/29/22 16:10 Pulse 72 05/29/22 16:10 Resp 16 05/29/22 16:10 BP 131/61 05/29/22 16:10 Pulse Ox 98 05/29/22 16:10 O2 Del Method 05/29/22 16:10 BMI result Body Mass Index 25.1 ?Appearance: Alert.? Oriented X3.? not in distress. cvs: rrr, [id number] , no murmur res: clear to auscultation ,no rhonchii or wheezing abd: no rebound or guarding ,nt, bs present. ext pulses present , no cyanosis . neuro: axo3 , nonfocal. DS: Data Data Completed and Pending Labs on day of discharge: Preliminary micro results at discharge 05/26/22 21:07 Blood Culture - Preliminary Blood - Venous No growth after 48 hours. 05/26/22 20:55 Blood Culture - Preliminary Blood - Venous No growth after 48 hours. 05/27/22 05/27/22 05/28/22 ? 15:37 15:37 09:54 MCV ? ? ?101.6 H MCH ? ? ?34.4 H MCHC ? ? ?33.9 RDW ? ? ?12.5 Plt Count ? ? ?108 L MPV ? ? ?10.7 Absolute Nucleated RBC ? ? ?0.000 Nucleated RBC % (auto) ? ? ?0.0 Anion Gap ? ? ? Estim Creat Clear Calc ? ? ? Estimated GFR ? ? ? Random Glucose ? ? ? Calcium ? ? ? Stool Leukocytes, Qual ?NEGATIVE ? ? C. difficile Tox B Gene ? ?NEGATIVE ? ? 05/28/22 ? 09:54 MCV ? MCH ? MCHC ? RDW ? Plt Count ? MPV ? Absolute Nucleated RBC ? Nucleated RBC % (auto) ? Anion Gap ?12 Estim Creat Clear Calc ?112.5 Estimated GFR ?> 60 Random Glucose ?103 Calcium ?8.0 L Stool Leukocytes, Qual ? C. difficile Tox B Gene ? CT/CT head/brain wo con IMPRESSION: No acute intracranial pathology. Discharge Plan Discharge Patient Disposition: Home Health Service Discharge Diagnosis: fall , sepsis due to sinusitis Referrals: Sum[facility] ROSENTHAL [Outside] - 1 Week Brandon Buck MD [Primary Care Provider] - 1 Week Discharge Medications: New levofloxacin 750 mg tablet 750 mg PO DAILY Qty: 7 0RF doxycycline hyclate 100 mg capsule 100 mg PO BID Qty: 20 0RF Continued paroxetine HCl 10 mg tablet 10 mg PO DAILY 90 Days Qty: 90 3RF irbesartan 150 mg Tablet 150 mg PO DAILY lorazepam 1 mg tablet 1 mg PO DAILY PRN (Reason: anxiety) 30 Days Qty: 30 0RF Rx Instructions: [facility] verified. Partial refill upon request. Saline Mist 0.65 % aerosol,spray 2 spray intranasal BID PRN (Reason: congestion) Qty: 45 0RF Discharge Orders: Discharge Order (Routine); Ordered 05/29/22 Ordered By: Cele Foy Diet: Advance to usual diet Activity on Discharge: As tolerated Stand Alone Forms: Patient Portal Discharge page Care Plan Goals: Patient came to the hospital because of possible sepsis secondary to sinusitis- seems to be improving with IV antibiotics: Seen by infectious disease recommended to continue levofloxacin/doxycycline . Blood culture negative. Also had diarrhea probably antibiotic induced which seems to be improved, C diff and stool for WBC negative. Patient was seen by PT-recommended rehab Health Concerns: Complete the course of antibiotic. If patient's symptoms worsen including fever or shortness of breath or cough or any new symptoms patient is to get evaluated in nearest emergency room. Plan of Treatment: As above. Assessment: As above. Discharge Date/Time: 05/29/22 17:33
== END 2022-05-29 17:33 | disposition home health service (06) ==
LOC: HO.ED 05-27 02:24 → HO.EDOVER 05-27 06:17
PROVIDERS: Admitting Provider Internal Medicine; Emergency Provider Internal Medicine; PCP Internal Medicine; Visit Provider Internal Medicine
DX: J01.40 Acute pansinusitis, unspecified (principal); R53.1 Weakness; R50.9 Fever, unspecified; R19.7 Diarrhea, unspecified; I10 Essential (primary) hypertension; D69.6 Thrombocytopenia, unspecified; R00.0 Tachycardia, unspecified; R42 Dizziness and giddiness; S91.201A Unspecified open wound of right great toe with damage to nail, initial encounter; W06.XXXA Fall from bed, initial encounter; Z20.822 Contact with and (suspected) exposure to COVID-19; E66.9 Obesity, unspecified; F41.9 Anxiety disorder, unspecified; Y93.89 Activity, other specified; Y92.032 Bedroom in apartment as the place of occurrence of the external cause; Y99.9 Unspecified external cause status; Z79.899 Other long term (current) drug therapy
CPT/HCPCS: 0241U; 36415; 70450; 71045; 80048; 80053; 81001; 82550; 83605; 83735; 84484; 85025; 85027; 85610; 87040; 87493; 87633; 87635; 89055; 93005; 96361; 96365; 96367; 96372; 96375; 97162; 99218; 99285; J0696; J1650; J1956; J2060

== ENCOUNTER 2022-07-19 09:07 | Outpatient (REF) | payer MEDICARE, SELFPAY ==
[2022-07-19 09:20] LABS: MANUAL DIFF FLAG NO
[2022-07-19 10:04] LABS: Basophils Percent Auto 0.5 % (0-2); Eosinophils Absolute Auto 0.1 X10*3/uL (0.0-0.4); Eosinophils Percent Auto 0.8 % (0-4); Hematocrit 46.1 % (42.0-52.0); Hemoglobin 15.7 g/dl (14.0-18.0); Imm Gran Abs Auto 0.03 X10*3/uL (0.00-0.03); Imm Gran Pct Auto 0.4 % (0.0-0.4); Lymphocytes Absolute Auto 1.2 X10*3/uL (1.2-4.9); Lymphocytes Percent Auto 16.5 % (20-40); Mean Corpuscular HGB Conc 34.1 g/dl (31.0-36.0); Mean Corpuscular Hemoglobin 33.8 pg (27.0-33.0); Mean Corpuscular Volume 99.1 fL (80.0-98.0); Monocytes Absolute Auto 0.5 X10*3/uL (0.1-1.2); Monocytes Percent Auto 7.2 % (2-11); Neutrophils Absolute Auto 5.5 x10*3/uL (2.0-8.3); Neutrophils Percent Auto 74.6 % (45-73); Platelet Count 194 X10*3/uL (160-400); Red Blood Count 4.65 X10*6/uL (4.60-5.80); Red Cell Distribution Width 13.8 % (11.0-16.0); White Blood Count 7.3 X10*3/uL (4.8-10.8)
[2022-07-19 10:10] LABS: Alanine Aminotransferase 19 U/L (0-40); Alkaline Phosphatase 65 U/L (39-117); Anion Gap 17 (12-20); Aspartate Amino Transferase 24 U/L (5-37); Bilirubin Total 0.7 mg/dL (0.0-1.0); Blood Urea Nitrogen 14 mg/dL (9-16); Calcium 9.2 mg/dL (8.4-10.2); Carbon Dioxide 23 mmol/L (22-29); Chloride 105 mmol/L (96-108); Cholesterol 181 mg/dL; Estimated Glomerular Filt Rate > 60; Glucose Fasting 102 mg/dL (60-99); HDL Cholesterol 72 mg/dL; LDL Cholesterol Calculated 93 mg/dl; Potassium 4.3 mmol/L (3.3-5.1); Sodium 141 mmol/L (135-145); Total Protein 6.8 g/dL (6.5-8.0); Triglycerides 84 mg/dL
[2022-07-19 10:34] LABS: TSH reflex Free T4 1.05 uIU/mL (0.32-4.0)
[2022-07-19 11:08] LABS: Vitamin D 25-OH Total 10.9 ng/mL (>30)
[2022-07-21 07:56] LABS: Folate 12.4 ng/mL (> or = 4.0); Vitamin B12 286 pg/mL (200-900)
== END 2022-07-19 09:08 | disposition home or self-care (01) ==
LOC: HO.LAB 09:07
PROVIDERS: PCP Internal Medicine; Visit Provider Internal Medicine
DX: Z13.89 Encounter for screening for other disorder (principal)
CPT/HCPCS: 36415; 80053; 80061; 82306; 82607; 82746; 84443; 85025

== ENCOUNTER 2022-07-19 21:58 | Emergency (ER) | payer MEDICARE, SELFPAY ==
--- NOTE | ~2022-07-19 | US_ITS ---
EXAMINATION: US VENOUS ULTRASOUND WITH DOPPLER LOWER EXTREMITY, LEFT CLINICAL INFORMATION: This is a 67-year-old male with left leg edema. Possible deep vein thrombosis. COMPARISON: None TECHNIQUE: Ultrasound of the deep veins is performed from the hip to the calf with compression sonography and color and pulse Doppler assessment. Spectral analysis with color-flow imaging is performed. FINDINGS: There is normal venous compression and respiratory variation and augmented flow. The visualized common femoral vein, superficial femoral vein, profunda femoral vein, popliteal vein, and the trifurcation region shows no evidence of deep venous thrombosis. There is no significant popliteal fossa cyst. If the patient's symptoms persist, followup ultrasound in 5 days 7 days might be of value to exclude proximal propagation from a non-visualized calf vein. US/US venous duplex LE IMPRESSION: No DVT demonstrated in the left lower extremity.
[2022-07-19 22:04] VITALS: BP 138/82; PULSE 103; O2SAT 96
[2022-07-19 22:08] VITALS: BP 141/98; PULSE 104; RESP 18; TEMP 36.6; O2SAT 100; BMI 34.2
--- NOTE | 2022-07-19 22:15 | ECG_ITS ---
Test Reason : ABDOMINAL PAIN Blood Pressure : / mmHG Vent. Rate : 106 BPM Atrial Rate : 106 BPM P-R Int : 166 ms QRS Dur : 078 ms QT Int : 344 ms P-R-T Axes : 007 -36 -27 degrees QTc Int : 456 ms Sinus tachycardia Left axis deviation T wave abnormality, consider anterior ischemia Abnormal ECG When compared with ECG of 26-MAY-2022 20:19, Aberrant conduction is no longer Present Referred By: Generic ED Physician Electronically Signed By:JAIRO NERI
[2022-07-19 22:31] LABS: MANUAL DIFF FLAG NO
[2022-07-19 22:33] LABS: Basophils Absolute Auto 0.1 X10*3/uL (0.0-0.2); Basophils Percent Auto 0.5 % (0-2); Eosinophils Absolute Auto 0.1 X10*3/uL (0.0-0.4); Eosinophils Percent Auto 1.1 % (0-4); Hematocrit 43.7 % (42.0-52.0); Imm Gran Abs Auto 0.04 X10*3/uL (0.00-0.03); Imm Gran Pct Auto 0.4 % (0.0-0.4); Lymphocytes Absolute Auto 1.9 X10*3/uL (1.2-4.9); Lymphocytes Percent Auto 20.2 % (20-40); Mean Corpuscular HGB Conc 34.3 g/dl (31.0-36.0); Mean Corpuscular Volume 96.3 fL (80.0-98.0); Mean Platelet Volume 10.1 fL (9.4-12.4); Monocytes Absolute Auto 0.7 X10*3/uL (0.1-1.2); Monocytes Percent Auto 7.8 % (2-11); Neutrophils Absolute Auto 6.4 x10*3/uL (2.0-8.3); Platelet Count 202 X10*3/uL (160-400); Red Blood Count 4.54 X10*6/uL (4.60-5.80); White Blood Count 9.2 X10*3/uL (4.8-10.8)
--- NOTE | 2022-07-19 22:39 | PC.NURSE ---
pt to us at this time.
[2022-07-19 22:46] LABS: COVID-19 Test Negative (Negative); IDNOW Serial# 16C4AD1C
[2022-07-19 22:58] LABS: Alanine Aminotransferase 18 U/L (0-40); Albumin Level 3.8 g/dL (3.5-5.0); Alkaline Phosphatase 58 U/L (39-117); Anion Gap 17 (12-20); Aspartate Amino Transferase 23 U/L (5-37); Bilirubin Total 0.6 mg/dL (0.0-1.0); Blood Urea Nitrogen 12 mg/dL (9-16); Calcium 8.9 mg/dL (8.4-10.2); Carbon Dioxide 20 mmol/L (22-29); Chloride 107 mmol/L (96-108); Creatinine Clr Calc Pharmacy 144.8; Estimated Glomerular Filt Rate > 60; Glucose Random 105 mg/dL (60-115); Potassium 3.9 mmol/L (3.3-5.1); Sodium 140 mmol/L (135-145); Total Protein 6.4 g/dL (6.5-8.0)
[2022-07-19 23:02] LABS: Troponin-I High Sensitivity < 3.5 ng/L (<3.5-35.0)
--- NOTE | 2022-07-19 23:14 | ED_ITS ---
HPI - General Adult General Chief complaint: Weakness Stated complaint: lower leg numbness Time Seen by Provider: 07/19/22 22:44 Source: patient Mode of arrival: ambulatory Limitations: no limitations History of Present Illness HPI narrative: Patient is 67 years old with history of anxiety, hypertension with increased weakness followed by PT OT at home since 16:00 unable to urinate at all. Patient denies any history of retention in the past not on any new medication in triage her bladder scan revealed more than 1 L of urine in the bladder. No vomiting no fever no flank pain patient does have weakness in the lower extremities but for last few days has more weakness on the left side seen by PT at home wooden appreciate any difference as compared in her past Related Data Home Medications Medication Instructions Recorded Confirmed irbesartan 150 mg tablet 150 mg PO DAILY 05/27/22 06/04/22 Previous Rx's Medication Instructions Recorded paroxetine HCl 10 mg tablet 10 mg PO DAILY 90 days #90 tabs 08/22/21 sodium chloride 0.65 % nasal spray 2 spray intranasal BID PRN 04/11/22 aerosol (Saline Mist) congestion #45 mL doxycycline hyclate 100 mg capsule 100 mg PO BID #20 caps 05/29/22 levofloxacin 750 mg tablet 750 mg PO DAILY #7 tabs 05/29/22 lorazepam 1 mg tablet 1 mg PO DAILY PRN anxiety 30 days 07/07/22 #30 tabs Allergies Allergy/AdvReac Type Severity Reaction Status Date / Time atenolol [ATENOLOL] Allergy Unknown SEVERE Verified 06/04/22 11:19 BRADYCARDIA atenolol Allergy Unknown bradycardia Uncoded 06/04/22 11:19 zestril Allergy Unknown facial Uncoded 06/04/22 11:19 swelling Review of Systems Review of Systems: Yes all other systems are reviewed and are negative [facility] [place] Past Medical History Medical History Anxiety Benign essential hypertension Hypertension, essential Neuropathy Obesity (BMI 30-39.9) Surgical History History of tonsillectomy and adenoidectomy Family History Family History Father No problems noted. Mother No problems noted. Social History Social History Housing: House Alcohol intake: current Alcohol intake frequency: holidays/special occasions only Alcohol type: beer Patient Tobacco Use Status: Never used Tobacco e-Cigarette/Vaping Use: Never Used Second Hand Smoke Exposure: No Advance Directives: Yes Advance Directives on File: Yes Advance Directives Date on File: 05/27/22 service: No Current occupational status: retired Cognitive needs: No Hearing needs: No Vision needs: Yes Physical Exam ED Vital Signs: Vital Signs - 24 hr 07/19/22 22:08 07/20/22 00:00 07/20/22 02:00 Temperature 97.8 F Pulse Rate 104 H 77 80 Respiratory Rate 18 16 16 Blood Pressure 141/98 H 123/70 146/75 H Pulse Oximetry 100 98 97 Oxygen Delivery Method Room Air Room Air Room Air BMI result Body Mass Index 34.2 Appearance: Alert. Oriented X3. No acute distress. Eyes: PERRLA, No Nystagmus ENT: Pharynx normal. Oral Mucosa moist Neck: Normal inspection. Neck supple. CVS: Normal heart rate and rhythm. Pulses normal. Respiratory: No respiratory distress. Equal air entry bilateral, no wheezing/rales/rhonchi Abdomen: Soft, suprapubic fullness to the umbilicus with fluid thrill+ Bowel sounds are present, , no CVA tenderness Skin: Skin warm and dry. Normal skin color. Normal skin turgor. Extremities: No lower extremity edema. No calf tenderness no swelling or tenderness of the lower extremity Neuro: Oriented X 3. No motor deficit. No sensory deficit.No cerebellar signs , cranial nerves II-XII intact Medical Decision Making MDM Narrative Medical decision making narrative: patient's acute intervention Banegas catheter was placed to drain about 1400 cc of urine discharge patient home with a leg bag is no significant swelling or weakness noticed in the extremities Lab Data Lab results reviewed: Yes I reviewed the patient's lab results. Result diagrams: 07/19/22 22:26 07/19/22 22:26 Labs: Lab Results 07/19/22 07/19/22 07/19/22 Range/Units 22:26 22:26 22:26 WBC 9.2 (4.8-10.8) X10*3/uL RBC 4.54 L (4.60-5.80) X10*6/uL Hgb 15.0 (14.0-18.0) g/dl Hct 43.7 (42.0-52.0) % MCV 96.3 (80.0-98.0) fL MCH 33.0 (27.0-33.0) pg MCHC 34.3 (31.0-36.0) g/dl RDW 14.0 (11.0-16.0) % Plt Count 202 (160-400) X10*3/uL MPV 10.1 (9.4-12.4) fL Immature Gran % (Auto) 0.4 (0.0-0.4) % Neut % (Auto) 70.0 (45-73) % Lymph % (Auto) 20.2 (20-40) % Gladwin % (Auto) 7.8 (2-11) % Eos % (Auto) 1.1 (0-4) % Baso % (Auto) 0.5 (0-2) % Lymph # (Auto) 1.9 (1.2-4.9) X10*3/uL Gladwin # (Auto) 0.7 (0.1-1.2) X10*3/uL Eos # (Auto) 0.1 (0.0-0.4) X10*3/uL Baso # (Auto) 0.1 (0.0-0.2) X10*3/uL Abs Immat Gran (auto) 0.04 H (0.00-0.03) X10*3/uL Absolute Neuts (auto) 6.4 (2.0-8.3) x10*3/uL Absolute Nucleated RBC 0.000 (0.0-0.012) X10*3/uL Nucleated RBC % (auto) 0.0 (0.0-0.2) /100WBC Sodium 140 (135-145) mmol/L Potassium 3.9 (3.3-5.1) mmol/L Chloride 107 (96-108) mmol/L Carbon Dioxide 20 L (22-29) mmol/L Anion Gap 17 (12-20) BUN 12 (9-16) mg/dL Creatinine 0.61 (0.5-1.4) mg/dL Estim Creat Clear Calc 144.8 Estimated GFR > 60 Random Glucose 105 (60-115) mg/dL Calcium 8.9 (8.4-10.2) mg/dL Total Bilirubin 0.6 (0.0-1.0) mg/dL AST 23 (5-37) U/L ALT 18 (0-40) U/L Alkaline Phosphatase 58 (39-117) U/L Troponin I High Sens < 3.5 D (<3.5-35.0) ng/L Total Protein 6.4 L (6.5-8.0) g/dL Albumin 3.8 (3.5-5.0) g/dL Urine Color Urine Appearance Urine pH (5.0-8.0) Ur Specific Bar[place] (1.005-1.025) Urine Protein (Neg-Trace) mg/dL Urine Glucose (UA) (Negative) mg/dL Urine Ketones (Negative) mg/dL Urine Blood (Negative) Urine Nitrite (Negative) Ur Leukocyte Esterase (Negative) Urine RBC (0-2) /HPF Urine WBC (0-5) /HPF Ur Squamous Epith Cells (0-2) /HPF Urine Bacteria (None Seen) Hyaline Casts (0-2) /LPF COVID-19 (LUCY) (Negative) COVID-19 Clin Com 07/19/22 07/19/22 07/20/22 Range/Units 22:26 23:41 01:11 WBC (4.8-10.8) X10*3/uL RBC (4.60-5.80) X10*6/uL Hgb (14.0-18.0) g/dl Hct (42.0-52.0) % MCV (80.0-98.0) fL MCH (27.0-33.0) pg MCHC (31.0-36.0) g/dl RDW (11.0-16.0) % Plt Count (160-400) X10*3/uL MPV (9.4-12.4) fL Immature Gran % (Auto) (0.0-0.4) % Neut % (Auto) (45-73) % Lymph % (Auto) (20-40) % Gladwin % (Auto) (2-11) % Eos % (Auto) (0-4) % Baso % (Auto) (0-2) % Lymph # (Auto) (1.2-4.9) X10*3/uL Gladwin # (Auto) (0.1-1.2) X10*3/uL Eos # (Auto) (0.0-0.4) X10*3/uL Baso # (Auto) (0.0-0.2) X10*3/uL Abs Immat Gran (auto) (0.00-0.03) X10*3/uL Absolute Neuts (auto) (2.0-8.3) x10*3/uL Absolute Nucleated RBC (0.0-0.012) X10*3/uL Nucleated RBC % (auto) (0.0-0.2) /100WBC Sodium (135-145) mmol/L Potassium (3.3-5.1) mmol/L Chloride (96-108) mmol/L Carbon Dioxide (22-29) mmol/L Anion Gap (12-20) BUN (9-16) mg/dL Creatinine (0.5-1.4) mg/dL Estim Creat Clear Calc Estimated GFR Random Glucose (60-115) mg/dL Calcium (8.4-10.2) mg/dL Total Bilirubin (0.0-1.0) mg/dL AST (5-37) U/L ALT (0-40) U/L Alkaline Phosphatase (39-117) U/L Troponin I High Sens (<3.5-35.0) ng/L Total Protein (6.5-8.0) g/dL Albumin (3.5-5.0) g/dL Urine Color Yellow Yellow Urine Appearance Clear Clear Urine pH 5.5 5.5 (5.0-8.0) Ur Specific [place] <= 1.005 <= 1.005 (1.005-1.025) Urine Protein Negative Negative (Neg-Trace) mg/dL Urine Glucose (UA) Negative Negative (Negative) mg/dL Urine Ketones Negative Negative (Negative) mg/dL Urine Blood Small (1+) H Small (1+) H (Negative) Urine Nitrite Negative Negative (Negative) Ur Leukocyte Esterase Negative Negative (Negative) Urine RBC 0-2 0-2 (0-2) /HPF Urine WBC 0-5 0-5 (0-5) /HPF Ur Squamous Epith Cells 0-2 0-2 (0-2) /HPF Urine Bacteria None Seen None Seen (None Seen) Hyaline Casts 0-2 0-2 (0-2) /LPF COVID-19 (LUCY) Negative (Negative) COVID-19 Clin Com See Note Discharge Plan Discharge Clinical Impression: Acute urinary retention, Weakness Patient Disposition: Home, Self-Care Instructions: Urinary Retention in Men (ED), Banegas Catheter Placement and Care (ED), Weakness (ED) Additional Instructions: Follow-up with urologist/PCP in 2 days for Banegas catheter removal Care as advised Drink plenty of fluids Prescriptions: No Action paroxetine HCl 10 mg tablet 10 mg PO DAILY 90 Days Qty: 90 3RF lorazepam 1 mg tablet 1 mg PO DAILY PRN (Reason: anxiety) 30 Days Qty: 30 0RF Rx Instructions: [facility] verified. Partial refill upon request. irbesartan 150 mg Tablet 150 mg PO DAILY levofloxacin 750 mg tablet 750 mg PO DAILY Qty: 7 0RF doxycycline hyclate 100 mg capsule 100 mg PO BID Qty: 20 0RF Saline Mist 0.65 % aerosol,spray 2 spray intranasal BID PRN (Reason: congestion) Qty: 45 0RF Interventions: ED Discharge Assessment Last Done: 07/20/22 05:12 Discharge Date/Time: 07/20/22 05:16
--- NOTE | 2022-07-19 23:39 | PC.NURSE ---
Pt was retaining about 1 L of urine. I inserted a ibrahim catheter without complications and will be monitoring output until discharge. stated the plan is to give him a leg bag to go home and referral to urology on Thursday.
[2022-07-19 23:52] LABS: Appearance Urine Clear; Color Urine Yellow; Glucose Urine UA Negative (Negative); Leukocyte Esterase Urine Negative (Negative); Nitrite Urine Negative (Negative); PH 5.5 (5.0-8.0); Specific Gravity - Urine <= 1.005 (1.005-1.025); Urine Blood Small (1+) (Negative); Urine Ketones Negative (Negative); Urine Protein Negative (Neg-Trace)
[2022-07-20] VITALS: BP 123/70; PULSE 77; RESP 16; O2SAT 98
[2022-07-20 00:04] LABS: Bacteria Urine None Seen (None Seen); Hyaline Casts Urine 0-2 /LPF (0-2); RBC Urine 0-2 /HPF (0-2); Squamous Epithelial Cell Urine 0-2 /HPF (0-2); WBC Urine 0-5 /HPF (0-5)
[2022-07-20 01:20] LABS: Appearance Urine Clear; Color Urine Yellow; Glucose Urine UA Negative (Negative); Leukocyte Esterase Urine Negative (Negative); Nitrite Urine Negative (Negative); PH 5.5 (5.0-8.0); Specific Gravity - Urine <= 1.005 (1.005-1.025); Urine Blood Small (1+) (Negative); Urine Ketones Negative (Negative); Urine Protein Negative (Neg-Trace)
[2022-07-20 01:28] LABS: Bacteria Urine None Seen (None Seen); Hyaline Casts Urine 0-2 /LPF (0-2); RBC Urine 0-2 /HPF (0-2); Squamous Epithelial Cell Urine 0-2 /HPF (0-2); WBC Urine 0-5 /HPF (0-5)
[2022-07-20 02:00] VITALS: BP 146/75; PULSE 80; RESP 16; O2SAT 97
== END 2022-07-20 05:16 | disposition home or self-care (01) ==
PROVIDERS: Emergency Provider Internal Medicine; PCP Internal Medicine
DX: R33.9 Retention of urine, unspecified (principal); R53.1 Weakness; I10 Essential (primary) hypertension; R60.0 Localized edema; E66.9 Obesity, unspecified; Z68.34 Body mass index [BMI] 34.0-34.9, adult; Z20.822 Contact with and (suspected) exposure to COVID-19
CPT/HCPCS: 36415; 51702; 80053; 80061; 81001; 82306; 82607; 82746; 84443; 84484; 85025; 87635; 93005; 93971; 99284; 99285

== ENCOUNTER 2022-07-26 15:50 | Inpatient (IN) | payer MEDICARE, SELFPAY ==
--- NOTE | ~2022-07-26 | CT_ITS ---
EXAMINATION: CT lumbar spine wo con, CT thoracic spine wo con CLINICAL INFORMATION: Reason for Exam left leg weakness COMPARISON: None. TECHNIQUE: Axial images were obtained through the thoracic and lumbar spine without the administration of intravenous contrast. Coronal and sagittal reformatted images were generated Intravenous Contrast: . None This CT examination was performed using dose optimization techniques as appropriate, variously including the following: *Automated exposure control *Adjustment of mA and/or kV according to patient size (this includes techniques or standardized protocols for targeted exams where dose is matched to indication/reason for exam; i.e. extremities or head) *Use of iterative reconstruction technique DLP: 2271 mGy-cm FINDINGS: CT thoracic spine: Normal alignment. No subluxation. Vertebral body heights are maintained. No acute fracture. No osseous lesion. Mild multilevel degenerative disc disease with relatively preserved intervertebral disc heights. Prominent endplate sclerosis and bulky rightward projecting endplate osteophytes in the mid and lower thoracic spine. 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 Advanced disc degenerative change at C5-C6 noted. Limited assessment of spinal canal contents due to noncontrast CT technique. At T11-T12, there is a disc bulge and facet arthrosis with large right facet osteophyte or partially calcified portion of the right ligamentum flavum contributing to canal stenosis in the moderate to severe range. Multilevel bilateral facet arthrosis noted in the mid lower thoracic spine. No paravertebral soft tissue swelling. Normal caliber abdominal aorta. Extensive LAD coronary calcifications. No mediastinal lymphadenopathy. Imaged portions of the lungs appear clear. CT lumbar spine: Partially lumbarized S1 segment with rudimentary S1-S2 intervertebral disc. Minimal retrolisthesis at L3-L4. No additional subluxation. Vertebral body heights are maintained. No acute fracture. Moderate disc height loss at L4-L5 and L5-S1 endplate sclerosis and proliferative change. Milder disc degenerative changes throughout the remainder the lumbar spine with mild disc height loss at L2-L3 and L3-L4. Multilevel vacuum disc phenomena. No pars defects. Lower lumbar facet arthrosis most prominent on the left at L4-L5. Limited assessment of spinal canal contents. Diffuse disc bulge at L2-L3 at least mild central canal stenosis. At least moderate central canal stenosis at L3-L4 with diffuse disc bulge. Similar findings at L4-L5 and L5-S1. Multilevel neural foraminal stenosis most prominently at L5-S1, moderate in severity bilaterally at that level. No paravertebral soft tissue swelling. Normal caliber abdominal aorta with mild vascular calcifications. Small exophytic left upper pole renal lesion likely a small cyst. Colonic diverticulosis. Mild SI joint degenerative change bilaterally. CT/CT thoracic spine wo con IMPRESSION: 1. No subluxation or fracture in the thoracolumbar spine. 2. Limited assessment is spinal canal contents due to noncontrast CT technique. If concern for myelopathic or radicular pathology, recommend MRI for assessment. 3. Suspected spinal canal stenosis at T11-T12 and at several levels in the lumbar spine, not optimally/reliably evaluated on this study, as above.
--- NOTE | ~2022-07-26 | CT_ITS ---
EXAMINATION: CT ABDOMEN AND PELVIS WITHOUT CONTRAST CLINICAL INFORMATION: Abdominal pain COMPARISON: None TECHNIQUE: Multidetector volumetric imaging was performed from the superior aspect of the liver through the pubic symphysis. Sagittal and coronal reformatted images were obtained on the technologist's workstation. This CT examination was performed using dose optimization techniques as appropriate, variously including the following: *Automated exposure control *Adjustment of mA and/or kV according to patient size (this includes techniques or standardized protocols for targeted exams where dose is matched to indication/reason for exam; i.e. extremities or head) *Use of iterative reconstruction technique DLP: 1497 mGy-cm FINDINGS: LUNG BASES: Minimal bibasilar atelectasis. Extensive LAD coronary calcifications. LIVER, GALLBLADDER, AND BILIARY TREE: Normal hepatic size. No liver lesion. No morphologic features of cirrhosis. No biliary ductal dilation. The gallbladder is prominently distended but otherwise unremarkable with no evidence of radiopaque gallstones, gallbladder wall thickening, or obvious pericholecystic inflammatory changes. PANCREAS: Unremarkable. SPLEEN: Unremarkable. ADRENAL GLANDS: Unremarkable. KIDNEYS AND URETERS: No radiodense renal calculi. No hydronephrosis. Few small lateral parapelvic renal cysts. Small 8 mm exophytic left upper pole renal lesion likely a small cyst as well, too small to accurately characterize. Mild symmetric perirenal fascial stranding/edema. No perinephric collection. BLADDER: Diffusely thick-walled with perifascicular fat stranding. Banegas catheter in place. Limited bladder distention. GASTROINTESTINAL TRACT: Diffuse colonic diverticulosis. No findings of acute diverticulitis. No dilated bowel loops. No bowel wall thickening. Normal appendix. No ascites or free air. ABDOMINAL WALL: Small fat-containing right inguinal hernia. LYMPH NODES: Borderline enlarged portacaval lymph node measuring 1 cm in short axis, nonspecific. No other lymphadenopathy. VASCULAR: Mild atherosclerotic vascular calcification. Normal caliber abdominal aorta. PELVIC VISCERA: Unremarkable. OSSEOUS STRUCTURES: No acute fracture or suspicious osseous lesion. Multilevel degenerative disc disease in the lower thoracic and lumbar spine. CT/CT abdomen pelvis wo con IMPRESSION: 1. Thick-walled urinary bladder with perivesicular fat stranding and Banegas catheter in place. Findings suggest cystitis. Correlate with UA and with history of prior pelvic radiation as possible etiology. 2. No acute intra-abdominal process. 3. Colonic diverticulosis. No evidence of acute diverticulitis.
--- NOTE | ~2022-07-26 | CT_ITS ---
EXAMINATION: CT ANGIOGRAM HEAD AND NECK CLINICAL INFORMATION: Left leg weakness COMPARISON: Head CT 05/19/2022 TECHNIQUE: Test bolus sequences followed by intravenous administration of 70 mL of Omnipaque 300 intravenous contrast. Helical imaging was performed in the axial plane from the mediastinum to the skull vertex. Delayed postcontrast imaging of the head was also performed. The data was processed at the chief ultrasound technologist's workstation for generation of MIP sequences. Three-dimensional volume rendered reformatted images were also generated at an offline 3-D workstation. This CT examination was performed using dose optimization techniques as appropriate, variously including the following: *Automated exposure control *Adjustment of mA and/or kV according to patient size (this includes techniques or standardized protocols for targeted exams where dose is matched to indication/reason for exam; i.e. extremities or head) *Use of iterative reconstruction technique DLP: 2764 mGy-cm FINDINGS: HEAD: No intracranial mass, intercerebral edema, hemorrhage, or midline shift is evident. The ventricles and sulci are stable in size and configuration. No extra-axial collections are appreciated. Mild patchy hypoattenuation in the supratentorial white matter, nonspecific likely sequela of mild chronic small vessel ischemia. No significant cerebral atrophy. Calcifications of the bilateral cerebellar hemispheres and mild basal ganglia calcifications noted. The paranasal sinuses are well aerated and clear. SOFT TISSUES AND LUNG APICES: Major salivary glands and thyroid gland are unremarkable. No mucosal space mass identified. Symmetric normal appearance of the parapharyngeal fat. No cervical lymphadenopathy or mass identified. Extensive LAD coronary calcifications. Visualized upper lungs grossly clear. Multilevel degenerative disc disease most advanced at C5-C6. NECK CTA: Normal caliber aortic arch. Normal three-vessel arch configuration. Arch origins are patent. Cervical segments of the vertebral arteries are widely patent Course calcifications of the bilateral carotid bifurcations. Approximately 30% diameter stenosis of the right ICA origin due to course calcified plaque. Approximately 30-40% diameter stenosis of the distal right common carotid artery at the carotid bifurcation due to calcified plaque. Left common carotid artery widely patent. Cervical segments of the ICAs patent. CRANIAL CTA: Posterior circulation: Vertebral and basilar arteries patent. Patent bilateral AICAs and SCA's. Bilateral immigration consultant and posterior communicating arteries are patent. Anterior circulation: Mild atherosclerotic vascular calcifications of the cavernous ICAs. Petrous and cavernous segments are widely patent. ACAs and MCA's widely patent. No aneurysm. Anterior communicating artery is also patent without aneurysm. No vascular malformation identified. Major dural venous sinuses enhance normally. Left transverse and sigmoid sinus are hypoplastic/atretic. Absent left internal jugular vein. CT/CT angio head neck IMPRESSION: 1. No acute edematous territorial infarct. No intracranial hemorrhage or other acute intracranial abnormality. 2. No hemodynamically significant stenosis within the intracranial or extracranial arterial circulation. No vascular cut off/occlusion. 3. No intracranial aneurysm or vascular malformation.
--- NOTE | 2022-07-26 16:16 | ED_ITS ---
HPI - Weakness General Chief complaint: General Medical Stated complaint: leg numbness unable to walk Time Seen by Provider: 07/26/22 16:15 Source: patient and EMS Mode of arrival: EMS Limitations: no limitations History of Present Illness HPI Narrative: 67-year-old male presents via EMS for numbness and weakness in both legs left worse than the right, intermittent fevers, and feeling of anxiety. Patient states that he has gradually gotten worse over the past week, but today was unable to use his walker to stand. He states that he cannot sit up, and has not eaten all day. He does have a Banegas cath in place. MD Complaint: focal weakness and difficulty walking Onset (ago): week(s) (1) Duration: progressively worsening Location: generalized and LLE Migration: none Severity: moderate Quality: numbness Relieving factors: none Exacerbating factors: movement and exertion Context: recent illness Associated symptoms: fever/chills Related Data Home Medications Medication Instructions Recorded Confirmed irbesartan 150 mg tablet 150 mg PO DAILY 05/27/22 07/22/22 Previous Rx's Medication Instructions Recorded paroxetine HCl 10 mg tablet 10 mg PO DAILY 90 days #90 tabs 08/22/21 sodium chloride 0.65 % nasal spray 2 spray intranasal BID PRN 04/11/22 aerosol (Saline Mist) congestion #45 mL doxycycline hyclate 100 mg capsule 100 mg PO BID #20 caps 05/29/22 levofloxacin 750 mg tablet 750 mg PO DAILY #7 tabs 05/29/22 lorazepam 1 mg tablet 1 mg PO DAILY PRN anxiety 30 days 07/07/22 #30 tabs LIGHTWEIGHT WHEELCHAIR #1 ea 07/22/22 cholecalciferol (vitamin D3) 50 50 mcg PO DAILY 90 days #90 caps 07/22/22 mcg (2,000 unit) capsule tamsulosin 0.4 mg capsule 0.4 mg PO BEDTIME 90 days #90 caps 07/22/22 Allergies Allergy/AdvReac Type Severity Reaction Status Date / Time atenolol [ATENOLOL] Allergy Unknown SEVERE Verified 07/22/22 12:45 BRADYCARDIA atenolol Allergy Unknown bradycardia Uncoded 07/22/22 12:45 zestril Allergy Unknown facial Uncoded 07/22/22 12:45 swelling Review of Systems Review of Systems: Constitutional: Positive Fever, No Chills ENT/Mouth: No Ear Pain, No Hoarseness, No sore throat Eyes: No Eye Pain, No Swelling, No Redness, No Foreign Body Cardiovascular: No Chest Pain, No SOB Respiratory: No Cough, No Dyspnea Gastrointestinal: No Nausea, No Vomiting, No Diarrhea, No abdominal Pain Genitourinary: No Dysuria, No Hematuria Musculoskeletal: No joint pain, No Myalgias, No Joint Swelling Skin: No Skin lacerations, No rash Neuro: Positive Weakness, positive Numbness, positive Paresthesias, No Loss of Consciousness, No Dizziness, No Headache Psych: Positive Anxiety, No Depression Heme/Lymph: no easy bruising, no Lymphadenopathy Endocrine: No Polyuria, No Polydipsia Yes all other systems are reviewed and are negative [facility] Past Medical History Attestation statement: The following information was validated with the patient. Source: old records reviewed Medical History Anxiety Benign essential hypertension Hypertension, essential Neuropathy Obesity (BMI 30-39.9) Vitamin D deficiency Surgical History History of tonsillectomy and adenoidectomy Family History Family History Father No problems noted. Mother No problems noted. Social History Social History Housing: House Alcohol intake: current Alcohol intake frequency: holidays/special occasions only Alcohol type: beer Patient Tobacco Use Status: Never used Tobacco e-Cigarette/Vaping Use: Never Used Second Hand Smoke Exposure: No Use of substances other than those prescribed or required for medical reasons: No Advance Directives: Yes Advance Directives on File: Yes Advance Directives Date on File: 05/27/22 service: No Current occupational status: retired Cognitive needs: No Hearing needs: No Vision needs: Yes Physical Exam Vital Signs: Vital Signs: Last Vital Signs Temp 98.2 F 07/26/22 16:34 Pulse 104 H 07/26/22 16:34 Resp 16 07/26/22 16:34 BP 139/70 07/26/22 16:34 Pulse Ox 95 07/26/22 16:34 O2 Del Method 07/26/22 16:34 BMI result Body Mass Index 34.2 Appearance: Alert. Oriented X3. Moderate distress. Eyes: Pupils equal, round and reactive to light. EOMI. ENT: Pharynx normal. Moist mucous membranes. Neck: Normal inspection. Neck supple. No vertebral tenderness or step-offs. No nuchal rigidity. CVS: Tachycardic heart rate and rhythm. Pulses normal. Respiratory: No respiratory distress. Breath sounds normal. Abdomen: Soft and diffusely tender. Genitourinary: Banegas catheter in place. Skin: Skin warm and dry. Normal skin color. Normal skin turgor. Extremities: No lower extremity edema. Weakness to bilateral lower extremities. Unable to lift his left leg off the bed, is able to bend his knee, able to lift the right leg off of his bed, moves upper extremities without difficulty, equal grasps, brisk capillary refill and equal pulses to all extremities. Neuro: No motor deficit. No sensory deficit. Cranial nerves 2-12 intact. NIH Stroke Scale Internal: Initial- Upon Arrival Level of Consciousness: Alert Level of Consciousness Questions: Answers both questions correctly Level of Consciousness Commands: Performs both tasks correctly Best Gaze: Normal Visual: No visual loss Facial Palsy: Normal Motor Arm (Right): No drift Motor Arm (Left): No drift Motor Leg (Right): Some effort against gravity Motor Leg (Left): No effort against gravity Limb Ataxia: Present in one limb (lle) Sensory: Mild to moderate sensory loss Best Language: No aphasia Dysarthia: Normal Extinction and Inattention: No abnormality Score: 7 Course Course Course Narrative: 67-year-old male presents with chief complaint of weakness and numbness in his extremities particularly his left leg, inability to walk, and fever. Patient has had these symptoms for over a week, have gradually gotten worse, outside of the tPA window. NIH Stroke Scale on arrival is 7. Will order CTA of head and neck, labs, lactic, cultures, CT of thoracic and lumbar spine with abdomen and pelvis. Patient is anxious, requires emotional support from this BACK JOINER as well as RN. 17:53 patient states to have severe significant anxiety going to the CT scan, order for diazepam 2.5 mg IV push. 19:20 CT scan head cervical spine negative for acute findings. Does show some stenosis to the bilateral bifurcations of the carotids. Urinalysis positive for UTI. Order for Levaquin as patient does have cauti 20:20 CT scan of thoracic lumbar and abdomen are negative for acute findings. Does show some spinal canal stenosis, suboptimal study as this did not contain contrast as CT angio of head neck required contrast. Patient requires MRI for further study. 20:37 discussion with hospitalist, plan of care is to admit for catheters so catheter associated UTI, and for MRI for lumbar spine follow-up on spinal stenosis and left lower extremity weakness. Hospitalist requests LP and will manage care and follow CSF, consent obtained by this BACK JOINER with patient, patient did verbalize understanding of and agrees to plan, has significant anxiety regarding the outcome of this procedure. Dr. Gardner in to assist. Dr. Roy in to assist, successful LP. 00:30 protein positive in CSF. I did discuss the details with hospitalist, hospitalist ordered IVIG. MDM - Weakness MDM Narrative Medical decision making narrative: Guillain-[place]ingerfield, ALS, Lyme Differential Diagnosis Differential diagnosis: Likely UTI, hypoglycemia, sepsis and dehydration Medical Records Attestation: I reviewed the patient's medical records. Lab Data Attestation: I reviewed the patient's lab results. Result diagrams: 07/26/22 16:42 07/26/22 16:42 Labs: Lab Results 07/26/22 07/26/22 07/26/22 Range/Units 16:42 16:42 16:42 WBC (4.8-10.8) X10*3/uL RBC (4.60-5.80) X10*6/uL Hgb (14.0-18.0) g/dl Hct (42.0-52.0) % MCV (80.0-98.0) fL MCH (27.0-33.0) pg MCHC (31.0-36.0) g/dl RDW (11.0-16.0) % Plt Count (160-400) X10*3/uL MPV (9.4-12.4) fL Immature Gran % (Auto) (0.0-0.4) % Neut % (Auto) (45-73) % Lymph % (Auto) (20-40) % [place] % (Auto) (2-11) % Eos % (Auto) (0-4) % Baso % (Auto) (0-2) % Lymph # (Auto) (1.2-4.9) X10*3/uL [place] # (Auto) (0.1-1.2) X10*3/uL Eos # (Auto) (0.0-0.4) X10*3/uL Baso # (Auto) (0.0-0.2) X10*3/uL Abs Immat Gran (auto) (0.00-0.03) X10*3/uL Absolute Neuts (auto) (2.0-8.3) x10*3/uL Absolute Nucleated RBC (0.0-0.012) X10*3/uL Nucleated RBC % (auto) (0.0-0.2) /100WBC PT 12.2 (10.0-13.1) SEC INR 1.1 (0.9-1.1) APTT (26.0-36.4) SEC Sodium 135 (135-145) mmol/L Potassium 4.5 (3.3-5.1) mmol/L Chloride 102 (96-108) mmol/L Carbon Dioxide 21 L (22-29) mmol/L Anion Gap 17 (12-20) BUN 10 (9-16) mg/dL Creatinine 0.61 (0.5-1.4) mg/dL Estim Creat Clear Calc 144.8 Estimated GFR > 60 Random Glucose 124 H (60-115) mg/dL Lactic Acid (0.5-2.0) mmol/L Calcium 8.5 (8.4-10.2) mg/dL Magnesium 1.7 (1.6-2.6) mg/dL Total Bilirubin 1.5 H (0.0-1.0) mg/dL Direct Bilirubin 0.4 (0.0-0.5) mg/dL AST 33 D (5-37) U/L ALT 17 (0-40) U/L Alkaline Phosphatase 67 (39-117) U/L Troponin I High Sens 4.5 (<3.5-35.0) ng/L Total Protein 6.6 (6.5-8.0) g/dL Albumin 3.6 (3.5-5.0) g/dL Lipase 6 L (8-78) U/L Urine Color Urine Appearance Urine pH (5.0-8.0) Ur Specific [place] (1.005-1.025) Urine Protein (Neg-Trace) mg/dL Urine Glucose (UA) (Negative) mg/dL Urine Ketones (Negative) mg/dL Urine Blood (Negative) Urine Nitrite (Negative) Ur Leukocyte Esterase (Negative) Urine RBC (0-2) /HPF Urine WBC (0-5) /HPF Ur Squamous Epith Cells (0-2) /HPF Urine Bacteria (None Seen) Hyaline Casts (0-2) /LPF CSF Tube Number CSF Volume ML CSF Appearance CSF Color CSF WBC MM*3 CSF RBC MM*3 CSF Appearance (b) CSF Glucose mg/dL CSF Total Protein (15-45) mg/dL Urine Opiates Screen (Not Detect) Urine Fentanyl Screen (Not Detect) Ur Barbiturates Screen (Not Detect) Ur Phencyclidine Scrn (Not Detect) Ur Amphetamines Screen (Not Detect) U Benzodiazepines Scrn (Not Detect) Urine Cocaine Screen (Not Detect) U Marijuana (THC) Screen (Not Detect) Ethyl Alcohol mg/dL Influenza Type A (PCR) (Negative) Influenza Type B (PCR) (Negative) RSV RNA Qual (PCR) (Negative) SARS-CoV-2 RNA (RT-PCR) (Negative) 07/26/22 07/26/22 07/26/22 Range/Units 16:42 16:42 16:42 WBC 10.9 H (4.8-10.8) X10*3/uL RBC 4.35 L (4.60-5.80) X10*6/uL Hgb 14.2 (14.0-18.0) g/dl Hct 41.6 L (42.0-52.0) % MCV 95.6 (80.0-98.0) fL MCH 32.6 (27.0-33.0) pg MCHC 34.1 (31.0-36.0) g/dl RDW 13.7 (11.0-16.0) % Plt Count 148 L D (160-400) X10*3/uL MPV 10.1 (9.4-12.4) fL Immature Gran % (Auto) 0.3 (0.0-0.4) % Neut % (Auto) 89.2 H (45-73) % Lymph % (Auto) 4.4 L (20-40) % [place] % (Auto) 5.8 (2-11) % Eos % (Auto) 0.2 (0-4) % Baso % (Auto) 0.1 (0-2) % Lymph # (Auto) 0.5 L (1.2-4.9) X10*3/uL [place] # (Auto) 0.6 (0.1-1.2) X10*3/uL Eos # (Auto) 0.0 (0.0-0.4) X10*3/uL Baso # (Auto) 0.0 (0.0-0.2) X10*3/uL Abs Immat Gran (auto) 0.03 (0.00-0.03) X10*3/uL Absolute Neuts (auto) 9.7 H (2.0-8.3) x10*3/uL Absolute Nucleated RBC 0.000 (0.0-0.012) X10*3/uL Nucleated RBC % (auto) 0.0 (0.0-0.2) /100WBC PT (10.0-13.1) SEC INR (0.9-1.1) APTT 33.3 (26.0-36.4) SEC Sodium (135-145) mmol/L Potassium (3.3-5.1) mmol/L Chloride (96-108) mmol/L Carbon Dioxide (22-29) mmol/L Anion Gap (12-20) BUN (9-16) mg/dL Creatinine (0.5-1.4) mg/dL Estim Creat Clear Calc Estimated GFR Random Glucose (60-115) mg/dL Lactic Acid 0.8 (0.5-2.0) mmol/L Calcium (8.4-10.2) mg/dL Magnesium (1.6-2.6) mg/dL Total Bilirubin (0.0-1.0) mg/dL Direct Bilirubin (0.0-0.5) mg/dL AST (5-37) U/L ALT (0-40) U/L Alkaline Phosphatase (39-117) U/L Troponin I High Sens (<3.5-35.0) ng/L Total Protein (6.5-8.0) g/dL Albumin (3.5-5.0) g/dL Lipase (8-78) U/L Urine Color Urine Appearance Urine pH (5.0-8.0) Ur Specific [place] (1.005-1.025) Urine Protein (Neg-Trace) mg/dL Urine Glucose (UA) (Negative) mg/dL Urine Ketones (Negative) mg/dL Urine Blood (Negative) Urine Nitrite (Negative) Ur Leukocyte Esterase (Negative) Urine RBC (0-2) /HPF Urine WBC (0-5) /HPF Ur Squamous Epith Cells (0-2) /HPF Urine Bacteria (None Seen) Hyaline Casts (0-2) /LPF CSF Tube Number CSF Volume ML CSF Appearance CSF Color CSF WBC MM*3 CSF RBC MM*3 CSF Appearance (b) CSF Glucose mg/dL CSF Total Protein (15-45) mg/dL Urine Opiates Screen (Not Detect) Urine Fentanyl Screen (Not Detect) Ur Barbiturates Screen (Not Detect) Ur Phencyclidine Scrn (Not Detect) Ur Amphetamines Screen (Not Detect) U Benzodiazepines Scrn (Not Detect) Urine Cocaine Screen (Not Detect) U Marijuana (THC) Screen (Not Detect) Ethyl Alcohol mg/dL Influenza Type A (PCR) (Negative) Influenza Type B (PCR) (Negative) RSV RNA Qual (PCR) (Negative) SARS-CoV-2 RNA (RT-PCR) (Negative) 07/26/22 07/26/22 07/26/22 Range/Units 16:42 16:42 16:47 WBC (4.8-10.8) X10*3/uL RBC (4.60-5.80) X10*6/uL Hgb (14.0-18.0) g/dl Hct (42.0-52.0) % MCV (80.0-98.0) fL MCH (27.0-33.0) pg MCHC (31.0-36.0) g/dl RDW (11.0-16.0) % Plt Count (160-400) X10*3/uL MPV (9.4-12.4) fL Immature Gran % (Auto) (0.0-0.4) % Neut % (Auto) (45-73) % Lymph % (Auto) (20-40) % [place] % (Auto) (2-11) % Eos % (Auto) (0-4) % Baso % (Auto) (0-2) % Lymph # (Auto) (1.2-4.9) X10*3/uL [place] # (Auto) (0.1-1.2) X10*3/uL Eos # (Auto) (0.0-0.4) X10*3/uL Baso # (Auto) (0.0-0.2) X10*3/uL Abs Immat Gran (auto) (0.00-0.03) X10*3/uL Absolute Neuts (auto) (2.0-8.3) x10*3/uL Absolute Nucleated RBC (0.0-0.012) X10*3/uL Nucleated RBC % (auto) (0.0-0.2) /100WBC PT (10.0-13.1) SEC INR (0.9-1.1) APTT (26.0-36.4) SEC Sodium (135-145) mmol/L Potassium (3.3-5.1) mmol/L Chloride (96-108) mmol/L Carbon Dioxide (22-29) mmol/L Anion Gap (12-20) BUN (9-16) mg/dL Creatinine (0.5-1.4) mg/dL Estim Creat Clear Calc Estimated GFR Random Glucose (60-115) mg/dL Lactic Acid (0.5-2.0) mmol/L Calcium (8.4-10.2) mg/dL Magnesium (1.6-2.6) mg/dL Total Bilirubin (0.0-1.0) mg/dL Direct Bilirubin (0.0-0.5) mg/dL AST (5-37) U/L ALT (0-40) U/L Alkaline Phosphatase (39-117) U/L Troponin I High Sens (<3.5-35.0) ng/L Total Protein (6.5-8.0) g/dL Albumin (3.5-5.0) g/dL Lipase (8-78) U/L Urine Color [place] A Urine Appearance Turbid Urine pH >= 9.0 H (5.0-8.0) Ur Specific [place] 1.020 (1.005-1.025) Urine Protein 100 (2+) H (Neg-Trace) mg/dL Urine Glucose (UA) Negative (Negative) mg/dL Urine Ketones Negative (Negative) mg/dL Urine Blood Large (3+) H (Negative) Urine Nitrite Positive H (Negative) Ur Leukocyte Esterase Large (3+) H (Negative) Urine RBC >20 H (0-2) /HPF Urine WBC 21-50 H (0-5) /HPF Ur Squamous Epith Cells 6-10 (0-2) /HPF Urine Bacteria 4+ (None Seen) Hyaline Casts 11-20 (0-2) /LPF CSF Tube Number CSF Volume ML CSF Appearance CSF Color CSF WBC MM*3 CSF RBC MM*3 CSF Appearance (b) CSF Glucose mg/dL CSF Total Protein (15-45) mg/dL Urine Opiates Screen (Not Detect) Urine Fentanyl Screen (Not Detect) Ur Barbiturates Screen (Not Detect) Ur Phencyclidine Scrn (Not Detect) Ur Amphetamines Screen (Not Detect) U Benzodiazepines Scrn (Not Detect) Urine Cocaine Screen (Not Detect) U Marijuana (THC) Screen (Not Detect) Ethyl Alcohol < 10 mg/dL Influenza Type A (PCR) NEGATIVE (Negative) Influenza Type B (PCR) NEGATIVE (Negative) RSV RNA Qual (PCR) NEGATIVE (Negative) SARS-CoV-2 RNA (RT-PCR) NEGATIVE (Negative) 07/26/22 07/26/22 07/26/22 Range/Units 16:48 23:30 23:30 WBC (4.8-10.8) X10*3/uL RBC (4.60-5.80) X10*6/uL Hgb (14.0-18.0) g/dl Hct (42.0-52.0) % MCV (80.0-98.0) fL MCH (27.0-33.0) pg MCHC (31.0-36.0) g/dl RDW (11.0-16.0) % Plt Count (160-400) X10*3/uL MPV (9.4-12.4) fL Immature Gran % (Auto) (0.0-0.4) % Neut % (Auto) (45-73) % Lymph % (Auto) (20-40) % [place] % (Auto) (2-11) % Eos % (Auto) (0-4) % Baso % (Auto) (0-2) % Lymph # (Auto) (1.2-4.9) X10*3/uL [place] # (Auto) (0.1-1.2) X10*3/uL Eos # (Auto) (0.0-0.4) X10*3/uL Baso # (Auto) (0.0-0.2) X10*3/uL Abs Immat Gran (auto) (0.00-0.03) X10*3/uL Absolute Neuts (auto) (2.0-8.3) x10*3/uL Absolute Nucleated RBC (0.0-0.012) X10*3/uL Nucleated RBC % (auto) (0.0-0.2) /100WBC PT (10.0-13.1) SEC INR (0.9-1.1) APTT (26.0-36.4) SEC Sodium (135-145) mmol/L Potassium (3.3-5.1) mmol/L Chloride (96-108) mmol/L Carbon Dioxide (22-29) mmol/L Anion Gap (12-20) BUN (9-16) mg/dL Creatinine (0.5-1.4) mg/dL Estim Creat Clear Calc Estimated GFR Random Glucose (60-115) mg/dL Lactic Acid (0.5-2.0) mmol/L Calcium (8.4-10.2) mg/dL Magnesium (1.6-2.6) mg/dL Total Bilirubin (0.0-1.0) mg/dL Direct Bilirubin (0.0-0.5) mg/dL AST (5-37) U/L ALT (0-40) U/L Alkaline Phosphatase (39-117) U/L Troponin I High Sens (<3.5-35.0) ng/L Total Protein (6.5-8.0) g/dL Albumin (3.5-5.0) g/dL Lipase (8-78) U/L Urine Color Urine Appearance Urine pH (5.0-8.0) Ur Specific [place] (1.005-1.025) Urine Protein (Neg-Trace) mg/dL Urine Glucose (UA) (Negative) mg/dL Urine Ketones (Negative) mg/dL Urine Blood (Negative) Urine Nitrite (Negative) Ur Leukocyte Esterase (Negative) Urine RBC (0-2) /HPF Urine WBC (0-5) /HPF Ur Squamous Epith Cells (0-2) /HPF Urine Bacteria (None Seen) Hyaline Casts (0-2) /LPF CSF Tube Number 2 4 CSF Volume 1.0 ML CSF Appearance CLEAR CSF Color COLORLESS CSF WBC 0 MM*3 CSF RBC 0 MM*3 CSF Appearance (b) Clear, Colorless CSF Glucose 65 mg/dL CSF Total Protein 63.2 H (15-45) mg/dL Urine Opiates Screen Not Detected (Not Detect) Urine Fentanyl Screen Not Detected (Not Detect) Ur Barbiturates Screen Not Detected (Not Detect) Ur Phencyclidine Scrn Not Detected (Not Detect) Ur Amphetamines Screen Not Detected (Not Detect) U Benzodiazepines Scrn Not Detected (Not Detect) Urine Cocaine Screen Not Detected (Not Detect) U Marijuana (THC) Screen Not Detected (Not Detect) Ethyl Alcohol mg/dL Influenza Type A (PCR) (Negative) Influenza Type B (PCR) (Negative) RSV RNA Qual (PCR) (Negative) SARS-CoV-2 RNA (RT-PCR) (Negative) 07/26/22 Range/Units 23:30 WBC (4.8-10.8) X10*3/uL RBC (4.60-5.80) X10*6/uL Hgb (14.0-18.0) g/dl Hct (42.0-52.0) % MCV (80.0-98.0) fL MCH (27.0-33.0) pg MCHC (31.0-36.0) g/dl RDW (11.0-16.0) % Plt Count (160-400) X10*3/uL MPV (9.4-12.4) fL Immature Gran % (Auto) (0.0-0.4) % Neut % (Auto) (45-73) % Lymph % (Auto) (20-40) % [place] % (Auto) (2-11) % Eos % (Auto) (0-4) % Baso % (Auto) (0-2) % Lymph # (Auto) (1.2-4.9) X10*3/uL [place] # (Auto) (0.1-1.2) X10*3/uL Eos # (Auto) (0.0-0.4) X10*3/uL Baso # (Auto) (0.0-0.2) X10*3/uL Abs Immat Gran (auto) (0.00-0.03) X10*3/uL Absolute Neuts (auto) (2.0-8.3) x10*3/uL Absolute Nucleated RBC (0.0-0.012) X10*3/uL Nucleated RBC % (auto) (0.0-0.2) /100WBC PT (10.0-13.1) SEC INR (0.9-1.1) APTT (26.0-36.4) SEC Sodium (135-145) mmol/L Potassium (3.3-5.1) mmol/L Chloride (96-108) mmol/L Carbon Dioxide (22-29) mmol/L Anion Gap (12-20) BUN (9-16) mg/dL Creatinine (0.5-1.4) mg/dL Estim Creat Clear Calc Estimated GFR Random Glucose (60-115) mg/dL Lactic Acid (0.5-2.0) mmol/L Calcium (8.4-10.2) mg/dL Magnesium (1.6-2.6) mg/dL Total Bilirubin (0.0-1.0) mg/dL Direct Bilirubin (0.0-0.5) mg/dL AST (5-37) U/L ALT (0-40) U/L Alkaline Phosphatase (39-117) U/L Troponin I High Sens (<3.5-35.0) ng/L Total Protein (6.5-8.0) g/dL Albumin (3.5-5.0) g/dL Lipase (8-78) U/L Urine Color Urine Appearance Urine pH (5.0-8.0) Ur Specific [place] (1.005-1.025) Urine Protein (Neg-Trace) mg/dL Urine Glucose (UA) (Negative) mg/dL Urine Ketones (Negative) mg/dL Urine Blood (Negative) Urine Nitrite (Negative) Ur Leukocyte Esterase (Negative) Urine RBC (0-2) /HPF Urine WBC (0-5) /HPF Ur Squamous Epith Cells (0-2) /HPF Urine Bacteria (None Seen) Hyaline Casts (0-2) /LPF CSF Tube Number 1 CSF Volume 1.0 ML CSF Appearance CLEAR CSF Color COLORLESS CSF WBC 0 MM*3 CSF RBC 7 MM*3 CSF Appearance (b) CSF Glucose mg/dL CSF Total Protein (15-45) mg/dL Urine Opiates Screen (Not Detect) Urine Fentanyl Screen (Not Detect) Ur Barbiturates Screen (Not Detect) Ur Phencyclidine Scrn (Not Detect) Ur Amphetamines Screen (Not Detect) U Benzodiazepines Scrn (Not Detect) Urine Cocaine Screen (Not Detect) U Marijuana (THC) Screen (Not Detect) Ethyl Alcohol mg/dL Influenza Type A (PCR) (Negative) Influenza Type B (PCR) (Negative) RSV RNA Qual (PCR) (Negative) SARS-CoV-2 RNA (RT-PCR) (Negative) Imaging Data CT angio head neck, lumbar thoracic and abdominal CT: Attestation: I personally reviewed and interpreted this imaging study as follows: Radiologist's impression: EXAMINATION: CT ABDOMEN AND PELVIS WITHOUT CONTRAST? CLINICAL INFORMATION: Abdominal pain? COMPARISON: None? TECHNIQUE: Multidetector volumetric imaging was performed from the superior aspect of the liver through the pubic symphysis. Sagittal and coronal reformatted images were obtained on the technologist's workstation.? This CT examination was performed using dose optimization techniques as appropriate, variously including the following: *Automated exposure control *Adjustment of mA and/or kV according to patient size (this includes techniques or standardized protocols for targeted exams where dose is matched to indication/reason for exam; i.e. extremities or head) *Use of iterative reconstruction technique DLP: 1497 mGy-cm FINDINGS: LUNG BASES: Minimal bibasilar atelectasis. Extensive LAD coronary calcifications.? LIVER, GALLBLADDER, AND BILIARY TREE: Normal hepatic size. No liver lesion. No morphologic features of cirrhosis. No biliary ductal dilation. The gallbladder is prominently distended but otherwise unremarkable with no evidence of radiopaque gallstones, gallbladder wall thickening, or obvious pericholecystic inflammatory changes.? PANCREAS: Unremarkable.? SPLEEN: Unremarkable.? ADRENAL GLANDS: Unremarkable.? KIDNEYS AND URETERS: No radiodense renal calculi. No hydronephrosis. Few small lateral parapelvic renal cysts. Small 8 mm exophytic left upper pole renal lesion likely a small cyst as well, too small to accurately characterize. Mild symmetric perirenal fascial stranding/edema. No perinephric collection.? BLADDER: Diffusely thick-walled with perifascicular fat stranding. Banegas catheter in place. Limited bladder distention.? GASTROINTESTINAL TRACT: Diffuse colonic diverticulosis. No findings of acute diverticulitis. No dilated bowel loops. No bowel wall thickening. Normal appendix. No ascites or free air.? ABDOMINAL WALL: Small fat-containing right inguinal hernia.? LYMPH NODES: Borderline enlarged portacaval lymph node measuring 1 cm in short axis, nonspecific. No other lymphadenopathy. VASCULAR: Mild atherosclerotic vascular calcification. Normal caliber abdominal aorta. PELVIC VISCERA: Unremarkable.? OSSEOUS STRUCTURES: No acute fracture or suspicious osseous lesion. Multilevel degenerative disc disease in the lower thoracic and lumbar spine.? CT/CT abdomen pelvis wo con IMPRESSION: ? 1. Thick-walled urinary bladder with perivesicular fat stranding and Banegas catheter in place. Findings suggest cystitis. Correlate with UA and with history of prior pelvic radiation as possible etiology. 2. No acute intra-abdominal process. 3. Colonic diverticulosis. No evidence of acute diverticulitis. FINDINGS: CT thoracic spine: Normal alignment. No subluxation. Vertebral body heights are maintained. No acute fracture. No osseous lesion. Mild multilevel degenerative disc disease with relatively preserved intervertebral disc heights. Prominent endplate sclerosis and bulky rightward projecting endplate osteophytes in the mid and lower thoracic spine. 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 Advanced disc degenerative change at C5-C6 noted. Limited assessment of spinal canal contents due to noncontrast CT technique. At T11-T12, there is a disc bulge and facet arthrosis with large right facet osteophyte or partially calcified portion of the right ligamentum flavum contributing to canal stenosis in the moderate to severe range. Multilevel bilateral facet arthrosis noted in the mid lower thoracic spine. No paravertebral soft tissue swelling. Normal caliber abdominal aorta. Extensive LAD coronary calcifications. No mediastinal lymphadenopathy. Imaged portions of the lungs appear clear. CT lumbar spine: Partially lumbarized S1 segment with rudimentary S1-S2 intervertebral disc. Minimal retrolisthesis at L3-L4. No additional subluxation. Vertebral body heights are maintained. No acute fracture. Moderate disc height loss at L4-L5 and L5-S1 endplate sclerosis and proliferative change. Milder disc degenerative changes throughout the remainder the lumbar spine with mild disc height loss at L2-L3 and L3-L4. Multilevel vacuum disc phenomena. No pars defects. Lower lumbar facet arthrosis most prominent on the left at L4-L5. Limited assessment of spinal canal contents. Diffuse disc bulge at L2-L3 at least mild central canal stenosis. At least moderate central canal stenosis at L3-L4 with diffuse disc bulge. Similar findings at L4-L5 and L5-S1. Multilevel neural foraminal stenosis most prominently at L5-S1, moderate in severity bilaterally at that level. No paravertebral soft tissue swelling. Normal caliber abdominal aorta with mild vascular calcifications. Small exophytic left upper pole renal lesion likely a small cyst. Colonic diverticulosis. Mild SI joint degenerative change bilaterally. CT/CT lumbar spine wo con IMPRESSION: ? 1. No subluxation or fracture in the thoracolumbar spine. 2. Limited assessment is spinal canal contents due to noncontrast CT technique. If concern for myelopathic or radicular pathology, recommend MRI for assessment. 3. Suspected spinal canal stenosis at T11-T12 and at several levels in the lumbar spine, not optimally/reliably evaluated on this study, as above.? FINDINGS: LUNG BASES: Minimal bibasilar atelectasis. Extensive LAD coronary calcifications.? LIVER, GALLBLADDER, AND BILIARY TREE: Normal hepatic size. No liver lesion. No morphologic features of cirrhosis. No biliary ductal dilation. The gallbladder is prominently distended but otherwise unremarkable with no evidence of radiopaque gallstones, gallbladder wall thickening, or obvious pericholecystic inflammatory changes.? PANCREAS: Unremarkable.? SPLEEN: Unremarkable.? ADRENAL GLANDS: Unremarkable.? KIDNEYS AND URETERS: No radiodense renal calculi. No hydronephrosis. Few small lateral parapelvic renal cysts. Small 8 mm exophytic left upper pole renal lesion likely a small cyst as well, too small to accurately characterize. Mild symmetric perirenal fascial stranding/edema. No perinephric collection.? BLADDER: Diffusely thick-walled with perifascicular fat stranding. Banegas catheter in place. Limited bladder distention.? GASTROINTESTINAL TRACT: Diffuse colonic diverticulosis. No findings of acute diverticulitis. No dilated bowel loops. No bowel wall thickening. Normal appendix. No ascites or free air.? ABDOMINAL WALL: Small fat-containing right inguinal hernia.? LYMPH NODES: Borderline enlarged portacaval lymph node measuring 1 cm in short axis, nonspecific. No other lymphadenopathy. VASCULAR: Mild atherosclerotic vascular calcification. Normal caliber abdominal aorta. PELVIC VISCERA: Unremarkable.? OSSEOUS STRUCTURES: No acute fracture or suspicious osseous lesion. Multilevel degenerative disc disease in the lower thoracic and lumbar spine.? CT/CT abdomen pelvis wo con IMPRESSION: ? 1. Thick-walled urinary bladder with perivesicular fat stranding and Banegas catheter in place. Findings suggest cystitis. Correlate with UA and with history of prior pelvic radiation as possible etiology. 2. No acute intra-abdominal process. 3. Colonic diverticulosis. No evidence of acute diverticulitis. ? ?? ECG Data Attestation: I personally reviewed and interpreted this ECG as follows: ECG interpretation date: 07/26/22 ECG interpretation time: 16:50 Prior ECG tracings: available for review Interpretation: Vent. rate 107 BPM UT interval 136 ms QRS duration 80 ms QT/QTc 328/437 ms P-R-T axes 0 -19 -57 Sinus tachycardia with Premature atrial complexes T wave abnormality, consider anterolateral ischemia Abnormal ECG When compared with ECG of 19-JUL-2022 22:58, Premature atrial complexes are now Present Critical Care Time Critical Care Time Critical Care Time: Yes Total Critical Care Time: 45 Attestation: I have personally provided critical care time exclusive of time spent on separately billable procedures. Time includes review of laboratory data, radi ology results, discussion with consultants, and monitoring for potential decompensation. Interventions were performed as documented. Discharge Plan Discharge Clinical Impression: Catheter-associated urinary tract infection, Weakness Patient Disposition: Admitted As Inpatient
--- NOTE | 2022-07-26 16:24 | ECG_ITS ---
Test Reason : NUMBNESS Blood Pressure : / mmHG Vent. Rate : 107 BPM Atrial Rate : 107 BPM P-R Int : 136 ms QRS Dur : 080 ms QT Int : 328 ms P-R-T Axes : 000 -19 -57 degrees QTc Int : 437 ms Sinus tachycardia with Premature atrial complexes T wave abnormality, consider anterolateral ischemia Abnormal ECG When compared with ECG of 19-JUL-2022 22:58, Premature atrial complexes are now Present Referred By: Ursula Grove Electronically Signed By:JAIRO NERI
[2022-07-26 16:25] VITALS: BP 139/70; BP 152/90; PULSE 104; PULSE 98; RESP 16; TEMP 36.8; O2SAT 96; O2SAT 99; BMI 34.2
[2022-07-26 16:34] VITALS: BP 139/70; PULSE 104; RESP 16; TEMP 36.8; O2SAT 95
[2022-07-26 16:59] LABS: Appearance Urine Turbid; Color Urine Orange; Glucose Urine UA Negative (Negative); Leukocyte Esterase Urine Large (3+) (Negative); Nitrite Urine Positive (Negative); PH >= 9.0 (5.0-8.0); Urine Blood Large (3+) (Negative); Urine Ketones Negative (Negative); Urine Protein 100 (2+) mg/dL (Neg-Trace)
[2022-07-26 17:00] LABS: MANUAL DIFF FLAG NO
[2022-07-26 17:02] LABS: Basophils Percent Auto 0.1 % (0-2); Eosinophils Percent Auto 0.2 % (0-4); Hematocrit 41.6 % (42.0-52.0); Hemoglobin 14.2 g/dl (14.0-18.0); Imm Gran Abs Auto 0.03 X10*3/uL (0.00-0.03); Imm Gran Pct Auto 0.3 % (0.0-0.4); Lymphocytes Absolute Auto 0.5 X10*3/uL (1.2-4.9); Lymphocytes Percent Auto 4.4 % (20-40); Mean Corpuscular HGB Conc 34.1 g/dl (31.0-36.0); Mean Corpuscular Hemoglobin 32.6 pg (27.0-33.0); Mean Corpuscular Volume 95.6 fL (80.0-98.0); Mean Platelet Volume 10.1 fL (9.4-12.4); Monocytes Absolute Auto 0.6 X10*3/uL (0.1-1.2); Monocytes Percent Auto 5.8 % (2-11); Neutrophils Absolute Auto 9.7 x10*3/uL (2.0-8.3); Neutrophils Percent Auto 89.2 % (45-73); Platelet Count 148 X10*3/uL (160-400); Red Blood Count 4.35 X10*6/uL (4.60-5.80); Red Cell Distribution Width 13.7 % (11.0-16.0); White Blood Count 10.9 X10*3/uL (4.8-10.8)
--- NOTE | 2022-07-26 17:06 | PC.NURSE ---
Pt c/o numbness in his legs and hands. Denies any pain. Pt very anxious. EMS stated that pt normally has visiting nurses but have no longer been providing services.
[2022-07-26 17:14] LABS: INTERNATIONAL NORM RATIO 1.1 (0.9-1.1); Prothrombin Time 12.2 SEC (10.0-13.1)
[2022-07-26 17:16] LABS: Amphetamine Screen Urine Not Detected (Not Detect); Barbiturates, Urine Not Detected (Not Detect); Benzodiazepines Screen Urine Not Detected (Not Detect); Cannabinoid Screen Urine Not Detected (Not Detect); Cocaine Screen Urine Not Detected (Not Detect); Fentanyl, urine Not Detected (Not Detect); Opiate Screen Urine Not Detected (Not Detect); Phencyclidine Screen Urine Not Detected (Not Detect)
[2022-07-26 17:20] LABS: Lactic Acid 0.8 mmol/L (0.5-2.0)
[2022-07-26 17:23] LABS: Bacteria Urine 4+ (None Seen); RBC Urine >20 /HPF (0-2); UACC Culture Trigger YES; WBC Urine 21-50 /HPF (0-5)
[2022-07-26 17:25] LABS: Partial Thromboplastin Time 33.3 SEC (26.0-36.4)
[2022-07-26 17:26] LABS: Ethanol < 10 mg/dL
[2022-07-26 17:30] LABS: Alanine Aminotransferase 17 U/L (0-40); Albumin Level 3.6 g/dL (3.5-5.0); Alkaline Phosphatase 67 U/L (39-117); Anion Gap 17 (12-20); Aspartate Amino Transferase 33 U/L (5-37); Bilirubin Direct 0.4 mg/dL (0.0-0.5); Bilirubin Total 1.5 mg/dL (0.0-1.0); Blood Urea Nitrogen 10 mg/dL (9-16); Calcium 8.5 mg/dL (8.4-10.2); Carbon Dioxide 21 mmol/L (22-29); Chloride 102 mmol/L (96-108); Creatinine Clr Calc Pharmacy 144.8; Estimated Glomerular Filt Rate > 60; Glucose Random 124 mg/dL (60-115); Lipase 6 U/L (8-78); Magnesium 1.7 mg/dL (1.6-2.6); Potassium 4.5 mmol/L (3.3-5.1); Sodium 135 mmol/L (135-145); Total Protein 6.6 g/dL (6.5-8.0)
[2022-07-26 17:31] LABS: Troponin-I High Sensitivity 4.5 ng/L (<3.5-35.0)
[2022-07-26 17:53] LABS: Influenza A PCR NEGATIVE (Negative); Influenza B PCR NEGATIVE (Negative); Resp Syncy Virus RNA Qual PCR NEGATIVE (Negative); SARS COV2 PCR INHOUSE NEGATIVE (Negative)
[2022-07-26] MEDS: iohexoL 350 MG/ML 100 ML INFUS..BTL IV (18:21)
[2022-07-26] MEDS: levoFLOXacin/D5W 750 MG/150 ML PIGGYBACK 100 MG IV (18:22)
[2022-07-26] MEDS: diazePAM 10 MG/2 ML CARTRIDGE 2.5 MG IVPUSH (18:22)
--- NOTE | 2022-07-26 19:50 | PC.NURSE ---
manager wholesale to bedside per [employer] request as IV antibiotics were noted to not be infusing. RN found IV pump off with battery drained. Pump connected to power source and IV antibiotics resumed with 1 hour and 2 mins left
[2022-07-27 00:11] LABS: Glucose CSF 65 mg/dL; Total Protein CSF 63.2 mg/dL (15-45)
[2022-07-27 00:20] LABS: CSF Appearance Clear, Colorless; CSF Tube # 2
[2022-07-27 00:44] LABS: Appearance CSF CLEAR; CSF Tube # 4; Color CSF COLORLESS; Red Blood Cell CSF 0 MM*3
[2022-07-27 00:45] LABS: Appearance CSF CLEAR; CSF Tube # 1; Color CSF COLORLESS; Red Blood Cell CSF 7 MM*3
--- NOTE | 2022-07-27 00:52 | P.HPHOSP_ITS ---
History of Present Illness Date of Service: 07/27/22 Chief Complaint: Lower extremity weakness 67-year-old male with past medical history of HTN, obesity, vitamin-D deficiency, presents to the hospital with complaints of lower extremity weakness bilaterally. Patient reports that his symptoms started about 1 week ago, he was seen in the hospital for urinary retention, was found to have urinary retention, Banegas catheter was placed, and patient was discharged home. He reports that that is when his leg weakness started, the leg weakness worse on the left, he has now gotten to the point where he cannot get up and ambulate around his house. He reports that just a day prior to that he was walking with physical therapy and had very minimal difficulty with ambulating. He reports numbness and tingling in his left upper extremity. No difficulty swallowing, no shortness of breath, no chest pain, no change in vision, no blurry vision or double vision, no headache. No abdominal pain nausea vomiting, he reports that he had a fever and some chills with no urinary symptoms. No diarrhea constipation. He reports no loss of bowel control. Of note patient was discharged from the hospital in May after being treated for sepsis secondary to sinusitis On arrival to the ED patient hemodynamically stable with no significant abnormal vitals Labs are significant for WBC count of 10.9, hemoglobin of 14.2, hematocrit 41.6, total bili of 1.5, UA that is positive for leukocyte esterase, nitrites, WBC, Patient underwent LP which showed normal cell counts and elevated protein of 63.2. CTA head and neck is negative for any acute infarct or hemorrhage, no evidence of significant stenosis within the intracranial or extracranial arterial circulation. CT of the thoracic, lumbar, region showed no subluxation or fracture in the thoracolumbar spine, limited assessment due to lack of contrast, suspected spinal canal stenosis at T11-12 and at several levels in the lumbar spine Review of Systems Review of Systems: Yes all other systems are reviewed and are negative [facility] Medical History Anxiety Benign essential hypertension Hypertension, essential Neuropathy Obesity (BMI 30-39.9) Vitamin D deficiency Family History Father No problems noted. Mother No problems noted. Surgical History History of tonsillectomy and adenoidectomy Social History Household Members: Children Housing: Apartment Do you presently have visiting nurse or other home services: No Alcohol intake: current Alcohol intake frequency: holidays/special occasions only Alcohol type: beer Patient Tobacco Use Status: Never used Tobacco e-Cigarette/Vaping Use: Never Used Second Hand Smoke Exposure: No Use of substances other than those prescribed or required for medical reasons: No Currently Displaying Signs/Symptoms of Drug Intoxication Withdrawal: No Any prior treatment program specific to substance use: No Have you been hit, kicked, punched, or otherwise hurt by someone within the past year? If so, by whom?: No Do you feel safe in your current relationship?: No Current Relationship Is there a partner from a previous relationship who is making you feel unsafe now?: No Are you made to feel afraid or neglected: No Advance Directives: Yes Advance Directives Information Provided: Yes Advance Directives on File: Yes Advance Directives Date on File: 05/27/22 Do you have thoughts of harming others: None Do you have a plan to hurt others: No Plan Recently lost weight without trying: No Eating poorly because of decreased appetite: Yes Nutrition Risks: No Nutritional Risk service: No Current occupational status: retired Cognitive needs: No Hearing needs: No Vision needs: Yes Meds Allergies Allergy/AdvReac Type Severity Reaction Status Date / Time atenolol [ATENOLOL] Allergy Unknown SEVERE Verified 07/22/22 12:45 BRADYCARDIA atenolol Allergy Unknown bradycardia Uncoded 07/22/22 12:45 zestril Allergy Unknown facial Uncoded 07/22/22 12:45 swelling Active Medications: Current Medications Pharmacy Consult (Consult Rx Perform Med Rec) 1 each MISCELLANE ONCE STA Stop: 07/26/22 20:41 Home Medications Medication Instructions Recorded Confirmed Last Taken Type irbesartan 150 mg tablet 150 mg PO DAILY 05/27/22 07/27/22 05/26/22 History Physical Exam Vital Signs and Narrative: Vital Signs: Last Vital Signs Temp 98.2 F 07/26/22 16:34 Pulse 104 H 07/26/22 16:34 Resp 16 07/26/22 16:34 BP 139/70 08/27/22 16:34 Pulse Ox 95 07/26/22 16:34 O2 Del Method 07/26/22 16:34 BMI result Body Mass Index 34.2 Const: General: cooperative and no acute distress Orientation/consciousness: patient oriented x3 Eyes: General: appearance normal, both eyes and all related structures Resp: Effort & Inspection: normal respiratory effort Auscultation: clear to auscultation bilaterally Cardio: Rate: regular rate Rhythm: regular rhythm GI: Palpation (GI): Soft to palpation Auscultation: normal bowel sounds Skin: General skin exam: no rashes or lesions noted Neuro: Other: Diminished reflexes in the lower extremities 2/5 strength in both lower extremities, 4/5 in upper extremities General: patient oriented x3 Cognition (Neuro): normal cognition Extrem: General: Yes normal to inspection and Yes no pedal edema Results Labs CBC and Chem 7: 07/26/22 16:42 07/26/22 16:42 Labs: Laboratory Results - last 24 hr 07/26/22 07/26/22 07/26/22 16:42 16:42 16:42 MCV 95.6 MCH 32.6 MCHC 34.1 RDW 13.7 Plt Count 148 L D MPV 10.1 Immature Gran % (Auto) 0.3 Neut % (Auto) 89.2 H Lymph % (Auto) 4.4 L [place] % (Auto) 5.8 Eos % (Auto) 0.2 Baso % (Auto) 0.1 Lymph # (Auto) 0.5 L [place] # (Auto) 0.6 Eos # (Auto) 0.0 Baso # (Auto) 0.0 Abs Immat Gran (auto) 0.03 Absolute Neuts (auto) 9.7 H Absolute Nucleated RBC 0.000 Nucleated RBC % (auto) 0.0 PT 12.2 INR 1.1 APTT Anion Gap 17 Estim Creat Clear Calc 144.8 Estimated GFR > 60 Random Glucose 124 H Lactic Acid Calcium 8.5 Magnesium 1.7 Total Bilirubin 1.5 H Direct Bilirubin 0.4 AST 33 D ALT 17 Alkaline Phosphatase 67 Total Protein 6.6 Albumin 3.6 Lipase 6 L Urine Color Urine Appearance Urine pH Ur Specific [place] Urine Protein Urine Glucose (UA) Urine Ketones Urine Blood Urine Nitrite Ur Leukocyte Esterase Urine RBC Urine WBC Ur Squamous Epith Cells Urine Bacteria Hyaline Casts CSF Tube Number CSF Volume CSF Appearance CSF Color CSF WBC CSF RBC CSF Appearance (b) CSF Glucose CSF Total Protein Urine Opiates Screen Urine Fentanyl Screen Ur Barbiturates Screen Ur Phencyclidine Scrn Ur Amphetamines Screen U Benzodiazepines Scrn Urine Cocaine Screen U Marijuana (THC) Screen Ethyl Alcohol Influenza Type A (PCR) Influenza Type B (PCR) RSV RNA Qual (PCR) SARS-CoV-2 RNA (RT-PCR) 07/26/22 07/26/22 07/26/22 16:42 16:42 16:42 MCV MCH MCHC RDW Plt Count MPV Immature Gran % (Auto) Neut % (Auto) Lymph % (Auto) [place] % (Auto) Eos % (Auto) Baso % (Auto) Lymph # (Auto) [place] # (Auto) Eos # (Auto) Baso # (Auto) Abs Immat Gran (auto) Absolute Neuts (auto) Absolute Nucleated RBC Nucleated RBC % (auto) PT INR APTT 33.3 Anion Gap Estim Creat Clear Calc Estimated GFR Random Glucose Lactic Acid 0.8 Calcium Magnesium Total Bilirubin Direct Bilirubin AST ALT Alkaline Phosphatase Total Protein Albumin Lipase Urine Color Urine Appearance Urine pH Ur Specific [place] Urine Protein Urine Glucose (UA) Urine Ketones Urine Blood Urine Nitrite Ur Leukocyte Esterase Urine RBC Urine WBC Ur Squamous Epith Cells Urine Bacteria Hyaline Casts CSF Tube Number CSF Volume CSF Appearance CSF Color CSF WBC CSF RBC CSF Appearance (b) CSF Glucose CSF Total Protein Urine Opiates Screen Urine Fentanyl Screen Ur Barbiturates Screen Ur Phencyclidine Scrn Ur Amphetamines Screen U Benzodiazepines Scrn Urine Cocaine Screen U Marijuana (THC) Screen Ethyl Alcohol Influenza Type A (PCR) NEGATIVE Influenza Type B (PCR) NEGATIVE RSV RNA Qual (PCR) NEGATIVE SARS-CoV-2 RNA (RT-PCR) NEGATIVE 07/26/22 07/26/22 07/26/22 16:42 16:47 16:48 MCV MCH MCHC RDW Plt Count MPV Immature Gran % (Auto) Neut % (Auto) Lymph % (Auto) [place] % (Auto) Eos % (Auto) Baso % (Auto) Lymph # (Auto) [place] # (Auto) Eos # (Auto) Baso # (Auto) Abs Immat Gran (auto) Absolute Neuts (auto) Absolute Nucleated RBC Nucleated RBC % (auto) PT INR APTT Anion Gap Estim Creat Clear Calc Estimated GFR Random Glucose Lactic Acid Calcium Magnesium Total Bilirubin Direct Bilirubin AST ALT Alkaline Phosphatase Total Protein Albumin Lipase Urine Color [place] A Urine Appearance Turbid Urine pH >= 9.0 H Ur Specific [place] 1.020 Urine Protein 100 (2+) H Urine Glucose (UA) Negative Urine Ketones Negative Urine Blood Large (3+) H Urine Nitrite Positive H Ur Leukocyte Esterase Large (3+) H Urine RBC >20 H Urine WBC 21-50 H Ur Squamous Epith Cells 6-10 Urine Bacteria 4+ Hyaline Casts 11-20 CSF Tube Number CSF Volume CSF Appearance CSF Color CSF WBC CSF RBC CSF Appearance (b) CSF Glucose CSF Total Protein Urine Opiates Screen Not Detected Urine Fentanyl Screen Not Detected Ur Barbiturates Screen Not Detected Ur Phencyclidine Scrn Not Detected Ur Amphetamines Screen Not Detected U Benzodiazepines Scrn Not Detected Urine Cocaine Screen Not Detected U Marijuana (THC) Screen Not Detected Ethyl Alcohol < 10 Influenza Type A (PCR) Influenza Type B (PCR) RSV RNA Qual (PCR) SARS-CoV-2 RNA (RT-PCR) 07/26/22 07/26/22 07/26/22 23:30 23:30 23:30 MCV MCH MCHC RDW Plt Count MPV Immature Gran % (Auto) Neut % (Auto) Lymph % (Auto) [place] % (Auto) Eos % (Auto) Baso % (Auto) Lymph # (Auto) [place] # (Auto) Eos # (Auto) Baso # (Auto) Abs Immat Gran (auto) Absolute Neuts (auto) Absolute Nucleated RBC Nucleated RBC % (auto) PT INR APTT Anion Gap Estim Creat Clear Calc Estimated GFR Random Glucose Lactic Acid Calcium Magnesium Total Bilirubin Direct Bilirubin AST ALT Alkaline Phosphatase Total Protein Albumin Lipase Urine Color Urine Appearance Urine pH Ur Specific [place] Urine Protein Urine Glucose (UA) Urine Ketones Urine Blood Urine Nitrite Ur Leukocyte Esterase Urine RBC Urine WBC Ur Squamous Epith Cells Urine Bacteria Hyaline Casts CSF Tube Number 2 4 1 CSF Volume 1.0 1.0 CSF Appearance CLEAR CLEAR CSF Color COLORLESS COLORLESS CSF WBC 0 0 CSF RBC 0 7 CSF Appearance (b) Clear, Colorless CSF Glucose 65 CSF Total Protein 63.2 H Urine Opiates Screen Urine Fentanyl Screen Ur Barbiturates Screen Ur Phencyclidine Scrn Ur Amphetamines Screen U Benzodiazepines Scrn Urine Cocaine Screen U Marijuana (THC) Screen Ethyl Alcohol Influenza Type A (PCR) Influenza Type B (PCR) RSV RNA Qual (PCR) SARS-CoV-2 RNA (RT-PCR) Imaging Radiologist's Impressions: Impressions Head/Neck CTA 07/26/22 18:30 IMPRESSION: 1. No acute edematous territorial infarct. No intracranial hemorrhage or other acute intracranial abnormality. 2. No hemodynamically significant stenosis within the intracranial or extracranial arterial circulation. No vascular cut off/occlusion. 3. No intracranial aneurysm or vascular malformation. Abdomen/Pelvis CT 07/26/22 18:51 IMPRESSION: 1. Thick-walled urinary bladder with perivesicular fat stranding and Banegas catheter in place. Findings suggest cystitis. Correlate with UA and with history of prior pelvic radiation as possible etiology. 2. No acute intra-abdominal process. 3. Colonic diverticulosis. No evidence of acute diverticulitis. Lumbar Spine CT 07/26/22 18:52 IMPRESSION: 1. No subluxation or fracture in the thoracolumbar spine. 2. Limited assessment is spinal canal contents due to noncontrast CT technique. If concern for myelopathic or radicular pathology, recommend MRI for assessment. 3. Suspected spinal canal stenosis at T11-T12 and at several levels in the lumbar spine, not optimally/reliably evaluated on this study, as above. Thoracic Spine CT 07/26/22 18:57 IMPRESSION: 1. No subluxation or fracture in the thoracolumbar spine. 2. Limited assessment is spinal canal contents due to noncontrast CT technique. If concern for myelopathic or radicular pathology, recommend MRI for assessment. 3. Suspected spinal canal stenosis at T11-T12 and at several levels in the lumbar spine, not optimally/reliably evaluated on this study, as above. 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 (2) Lower extremity weakness: Status: Acute (3) Catheter-associated urinary tract infection: Status: Acute Plan 67-year-old male with recent hospitalization in May secondary to sinus infection and sepsis, presents to the hospital with complaints of lower extremity weakness found to have likely GBS # lower extremity weakness/GBS - patient has complete diminished reflexes in lower extremities, he has progressive ascending weakness, has elevated protein on CSF study, with recent illness making GBS a very highly likely diagnosis - discussed case with neurologist, who recommended to start IVIG - MRI is also ordered, B12 and folic acid - will continue IVIG x5 days - neurology on consult # UTI - setting of Banegas catheter - retention was likely secondary to above - will treat with IV antibiotics as patient reported fever and has leukocytosis - follow cultures DVT prophylaxis: Lovenox Given the need for IVIG patient will require minimal 5 days hospital stay for further management and treatment Quality Stroke Does the patient have a stroke diagnosis?: No VTE Prior VTE?: No VTE Risk Level:: Medical - moderate - high VTE Device Contraindication: Treatment Not Indicated VTE Drug Contraindication: N/A - Med Ordered
[2022-07-27] MEDS: methylPREDNISolone Sod Succ 125 MG/2 ML VIAL IVPUSH (00:55)
[2022-07-27] MEDS: diphenhydrAMINE HCL 50 MG/ML VIAL IVPUSH (00:55)
[2022-07-27 01:09] LABS: Glucose, Whole Blood 111 mg/dL (60-115)
[2022-07-27] MEDS: Acetaminophen 325 MG TABLET 650 MG PO (02:15)
[2022-07-27 03:51] VITALS: BP 141/65; PULSE 68; RESP 18; TEMP 36.7; O2SAT 95
[2022-07-27] MEDS: 0.9 % Sodium Chloride 1,000 ML 999 ML IVCONT (04:02)
[2022-07-27 04:18] VITALS: BMI 35.5
[2022-07-27] MEDS: Immun Glob G(IgG)/Gly/IGA Ov50 200 ML IV ×2 (05:36→11:15)
[2022-07-27 07:31] LABS: Basophils Percent Auto 0.1 % (0-2); Hemoglobin 13.8 g/dl (14.0-18.0); Imm Gran Abs Auto 0.04 X10*3/uL (0.00-0.03); Imm Gran Pct Auto 0.5 % (0.0-0.4); Lymphocytes Absolute Auto 0.4 X10*3/uL (1.2-4.9); Lymphocytes Percent Auto 4.2 % (20-40); MANUAL DIFF FLAG SCAN; Mean Corpuscular HGB Conc 33.7 g/dl (31.0-36.0); Mean Corpuscular Volume 98.1 fL (80.0-98.0); Mean Platelet Volume 11.1 fL (9.4-12.4); Monocytes Absolute Auto 0.1 X10*3/uL (0.1-1.2); Monocytes Percent Auto 1.6 % (2-11); Neutrophils Absolute Auto 7.7 x10*3/uL (2.0-8.3); Neutrophils Percent Auto 93.6 % (45-73); Platelet Count 133 X10*3/uL (160-400); Red Blood Count 4.18 X10*6/uL (4.60-5.80); SCAN SMEAR FLAG 1; White Blood Count 8.3 X10*3/uL (4.8-10.8)
[2022-07-27 07:39] LABS: Anion Gap 13 (12-20); Blood Urea Nitrogen 9 mg/dL (9-16); Calcium 8.6 mg/dL (8.4-10.2); Carbon Dioxide 23 mmol/L (22-29); Chloride 108 mmol/L (96-108); Creatinine Clr Calc Pharmacy 138.6; Estimated Glomerular Filt Rate > 60; Glucose Random 142 mg/dL (60-115); Potassium 4.2 mmol/L (3.3-5.1); Sodium 140 mmol/L (135-145)
[2022-07-27 07:43] VITALS: BP 136/75; PULSE 60; RESP 20; TEMP 36.2; O2SAT 98
[2022-07-27 07:49] LABS: SLIDE REVIEW VERIFIED
--- NOTE | 2022-07-27 08:42 | PHA.MEDREC ---
Pharmacy Consult ? Medication Reconciliation Pharmacy has completed the medication reconciliation. Spoke with patient on [facility]. Patient take irbesartan 150 mg daily ( not 225 mg like rx is filled for). patient was prescribed tamsulosin and has bottle at home but has not started.
[2022-07-27] MEDS: Heparin Sodium,Porcine 5,000 UNIT/ML VIAL 5000 UNIT SUBCUT ×2 (09:01→20:40)
[2022-07-27] MEDS: 0.9 % Sodium Chloride Flush 3 ML SYRINGE IVFLUSH ×2 (09:02→16:44)
[2022-07-27] MEDS: 0.9 % Sodium Chloride 1,000 ML 999 ML IV (09:07)
--- NOTE | 2022-07-27 11:05 | PM.EVENT ---
Event Note Date of Service: 07/27/22 Event Note: patient seen and evaluated this morning Complaining of bilateral lower extremity weakness more on the left side Able to hold both of his legs against gravity started on IV steroids and IVIG Pending urology consult
[2022-07-27 15:35] VITALS: BP 154/78; PULSE 67; RESP 18; TEMP 36.9; O2SAT 95
[2022-07-27] MEDS: Cyanocobalamin (Vitamin B-12) 1,000 MCG TABLET 1000 MCG PO (16:44)
[2022-07-27] MEDS: Cholecalciferol (Vitamin D3) 25 MCG TABLET 50 MCG PO (16:44)
[2022-07-27 19:21] VITALS: BP 160/89; PULSE 65; RESP 18; TEMP 37.1; O2SAT 98
[2022-07-27] MEDS: Tamsulosin HCL 0.4 MG CAPSULE PO (20:41)
[2022-07-27] MEDS: LORazepam 1 MG TABLET PO (20:42)
[2022-07-27 23:13] VITALS: BP 185/84; PULSE 67; RESP 20; TEMP 37.1; O2SAT 98
[2022-07-27 23:55] VITALS: BP 154/52
[2022-07-28] MEDS: 0.9 % Sodium Chloride Flush 3 ML SYRINGE IVFLUSH ×3 (00:13→21:00)
[2022-07-28 05:40] LABS: Folate 14.4 ng/mL (> or = 4.0); Vitamin B12 360 pg/mL (200-900)
[2022-07-28 05:59] LABS: Hemoglobin 13.3 g/dl (14.0-18.0); Mean Corpuscular HGB Conc 33.3 g/dl (31.0-36.0); Mean Corpuscular Hemoglobin 32.8 pg (27.0-33.0); Mean Corpuscular Volume 98.5 fL (80.0-98.0); Mean Platelet Volume 10.6 fL (9.4-12.4); Platelet Count 148 X10*3/uL (160-400); Red Blood Count 4.06 X10*6/uL (4.60-5.80); Red Cell Distribution Width 13.6 % (11.0-16.0); White Blood Count 7.3 X10*3/uL (4.8-10.8)
[2022-07-28 06:27] LABS: Anion Gap 12 (12-20); Blood Urea Nitrogen 15 mg/dL (9-16); Calcium 8.7 mg/dL (8.4-10.2); Carbon Dioxide 24 mmol/L (22-29); Chloride 110 mmol/L (96-108); Creatinine Clr Calc Pharmacy 147.7; Estimated Glomerular Filt Rate > 60; Glucose Random 100 mg/dL (60-115); Potassium 3.9 mmol/L (3.3-5.1); Sodium 142 mmol/L (135-145)
[2022-07-28 07:47] VITALS: BP 132/66; PULSE 68; RESP 18; TEMP 36.4; O2SAT 97
[2022-07-28 08:45] LABS: White Blood Cell CSF 3 MM*3
[2022-07-28 08:46] LABS: CSF Monos 5 %; Lymphocytes CSF 93 %; Neutrophils CSF 2 %
[2022-07-28 08:47] LABS: CSF Monos 9 %; Lymphocytes CSF 91 %; White Blood Cell CSF 4 MM*3
[2022-07-28] MEDS: Valsartan 80 MG TABLET PO (09:00)
[2022-07-28] MEDS: methylPREDNISolone Sod Succ 40 MG/ML VIAL IVPUSH (09:00)
[2022-07-28] MEDS: PARoxetine HCL 10 MG TABLET PO (09:00)
[2022-07-28] MEDS: Heparin Sodium,Porcine 5,000 UNIT/ML VIAL 5000 UNIT SUBCUT ×2 (09:01→20:59)
[2022-07-28] MEDS: diphenhydrAMINE HCL 50 MG/ML VIAL 25 MG IVPUSH (09:01)
--- NOTE | 2022-07-28 10:03 | MHC.CM.PN ---
met with pt whose son lives with him ,he has no services in his home at this time,he is not covid vaccinated his son is his hcp he will have own transport home
[2022-07-28] MEDS: LORazepam 1 MG TABLET PO ×2 (10:05→18:40)
[2022-07-28] MEDS: Immun Glob G(IgG)/Gly/IGA Ov50 200 ML IV ×2 (10:51→13:46)
--- NOTE | 2022-07-28 12:07 | MHC.CLN ---
RE: CONSULT NOTED REDNESS TO BILAT BUTTOCKS PO INTKAE 50% X 1 MEAL MONITOR PO INTAKE CLOSELY IF PO POOR; RECOMMEND ADDING ENSURE SUPPLEMENT BID TO INCREASE KCALS
--- NOTE | 2022-07-28 12:24 | PM.NEUROCN ---
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 He said that his problem started around October last year. Before that he was suffering from sinus infections. He started having numbness and weakness of his legs, which slowly progressed to the point that he has difficulty walking and doing day-to-day things. He had suffered from back pain in the past treated with prednisone. In emergency room, Guillain-Vaucl[place] syndrome was suspected and a lumbar puncture was performed, which showed high protein and he was treated with IVIG. Review of Systems Review of Systems: No loss of bowel bladder control PMFSH Past Medical History Medical History Anxiety Benign essential hypertension Hypertension, essential Neuropathy Obesity (BMI 30-39.9) Vitamin D deficiency Family History Family History Father No problems noted. Mother No problems noted. Surgical History Surgical History History of tonsillectomy and adenoidectomy Social History Social History Household Members: Children Housing: Apartment Do you presently have visiting nurse or other home services: No Alcohol intake: current Alcohol intake frequency: holidays/special occasions only Alcohol type: beer Patient Tobacco Use Status: Never used Tobacco e-Cigarette/Vaping Use: Never Used Second Hand Smoke Exposure: No Use of substances other than those prescribed or required for medical reasons: No Currently Displaying Signs/Symptoms of Drug Intoxication Withdrawal: No Any prior treatment program specific to substance use: No Have you been hit, kicked, punched, or otherwise hurt by someone within the past year? If so, by whom?: No Do you feel safe in your current relationship?: No Current Relationship Is there a partner from a previous relationship who is making you feel unsafe now?: No Are you made to feel afraid or neglected: No Advance Directives: Yes Advance Directives Information Provided: Yes Advance Directives on File: Yes Advance Directives Date on File: 05/27/22 Do you have thoughts of harming others: None Do you have a plan to hurt others: No Plan Recently lost weight without trying: No Eating poorly because of decreased appetite: Yes Nutrition Risks: No Nutritional Risk service: No Current occupational status: retired Cognitive needs: No Hearing needs: No Vision needs: Yes Meds Allergies Allergy/AdvReac Type Severity Reaction Status Date / Time atenolol [ATENOLOL] Allergy Unknown SEVERE Verified 07/22/22 12:45 BRADYCARDIA atenolol Allergy Unknown bradycardia Uncoded 07/22/22 12:45 zestril Allergy Unknown facial Uncoded 07/22/22 12:45 swelling Active Medications: Current Medications Acetaminophen (Acetaminophen 325 Mg Tablet) 650 mg PO Q6H PRN PRN Reason: Pain, Mild (Pain Scale 1-3) Last Admin: 07/27/22 02:15 Dose: 650 mg Cyanocobalamin (Cyanocobalamin (Vitamin B-12) 1,000 Mcg Tablet) 1,000 mcg PO DAILY@1700 [facility] Last Admin: 07/27/22 16:44 Dose: 1,000 mcg Diphenhydramine HCl (Diphenhydramine Hcl 50 Mg/Ml Vial) 25 mg IVPUSH DAILY@0730 [facility] Stop: 07/31/22 07:31 Last Admin: 07/28/22 09:01 Dose: 25 mg Docusate Sodium (Docusate Sodium 100 Mg Capsule) 100 mg PO DAILY PRN PRN Reason: Constipation Heparin Sodium (Porcine) (Heparin Sodium,Porcine 5,000 Unit/Ml Vial) 5,000 unit SUBCUT Q12H [facility] Last Admin: 07/28/22 09:01 Dose: 5,000 unit Immune Globulin (Gammagard 10%) 50 mls @ 56 mls/hr IV DAILY@0800 [facility] Stop: 07/31/22 08:54 Last Infusion: 07/28/22 10:52 Dose: Infused Immune Globulin (Gammagard 10%) 200 mls @ 56 mls/hr IV DAILY@0900 [facility] Stop: 07/31/22 12:35 Last Admin: 07/28/22 10:51 Dose: 56 mls/hr Immune Globulin (Gammagard 10%) 200 mls @ 56 mls/hr IV DAILY@1235 [facility] Stop: 07/31/22 16:10 Lorazepam (Lorazepam 1 Mg Tablet) 1 mg PO BEDTIME PRN PRN Reason: anxiety Last Admin: 07/27/22 20:42 Dose: 1 mg Lorazepam (Lorazepam 1 Mg Tablet) 1 mg PO ONCE PRN PRN Reason: anxiety/restlessness Last Admin: 07/28/22 10:05 Dose: 1 mg Methylprednisolone Sodium Succinate (Methylprednisolone Sod Succ 40 Mg/Ml Vial) 40 mg IVPUSH DAILY@0730 [facility] Stop: 07/31/22 07:31 Last Admin: 07/28/22 09:00 Dose: 40 mg Ondansetron HCl (Ondansetron Hcl 4 Mg/2 Ml Vial) 4 mg IVPUSH Q8H PRN PRN Reason: Nausea and Vomiting Paroxetine HCl (Paroxetine Hcl 10 Mg Tablet) 10 mg PO DAILY [facility] Last Admin: 07/28/22 09:00 Dose: 10 mg Sodium Chloride (0.9 % Sodium Chloride Flush 3 Ml Syringe) 3 ml IVFLUSH QSHIFT [facility] Last Admin: 07/28/22 09:02 Dose: 3 ml Sodium Chloride (Sodium Chloride 0.65 % Nasal 44 Ml Sprbtl) 2 spray NOSTRIL-B BID PRN PRN Reason: congestion Tamsulosin HCl (Tamsulosin Hcl 0.4 Mg Capsule) 0.4 mg PO BEDTIME [facility] Last Admin: 07/27/22 20:41 Dose: 0.4 mg Valsartan (Valsartan 80 Mg Tablet) 80 mg PO DAILY [facility] Last Admin: 07/28/22 09:00 Dose: 80 mg Vitamin D (Cholecalciferol (Vitamin D3) 25 Mcg Tablet) 50 mcg PO DAILY@1700 [facility] Last Admin: 07/27/22 16:44 Dose: 50 mcg Home Medications Medication Instructions Recorded Confirmed Last Taken Type irbesartan 150 mg tablet 150 mg PO DAILY 05/27/22 07/27/22 05/26/22 History cholecalciferol (vitamin D3) 50 50 mcg PO DAILY@1700 07/27/22 07/27/22 Unknown History mcg (2,000 unit) capsule cyanocobalamin (vitamin B-12) 1,000 mcg PO DAILY@1700 07/27/22 07/27/22 Unknown History 1,000 mcg tablet (Vitamin B-12) lorazepam 1 mg tablet 1 mg PO BEDTIME PRN anxiety 07/27/22 07/27/22 Unknown History Physical Exam Vital Signs: Vital Signs: Last Vital Signs Temp 97.6 F 07/28/22 07:47 Pulse 68 07/28/22 07:47 Resp 18 07/28/22 07:47 BP 132/66 07/28/22 07:47 Pulse Ox 97 07/28/22 07:47 O2 Del Method 07/28/22 07:47 BMI result Body Mass Index 35.5 Neuro: Other: Alert and awake with normal spontaneity of speech fluency comprehension and anxious affect. Face was symmetrical. There was no ptosis. Arm strength was good. He was able to lift his legs against gravity but legs were weak. Deep tendon reflexes were absent with flexor plantars. Hyperflexion deformity of toes was noted. Results Labs CBC & Chem 7: 07/28/22 05:34 07/28/22 05:34 Labs: Short CBC 07/28/22 Range/Units 05:34 WBC 7.3 (4.8-10.8) X10*3/uL Hgb 13.3 L (14.0-18.0) g/dl Hct 40.0 L (42.0-52.0) % Plt Count 148 L (160-400) X10*3/uL BMP 07/28/22 05:34 Sodium 142 Potassium 3.9 Chloride 110 H Carbon Dioxide 24 BUN 15 D Creatinine 0.61 Calcium 8[address] did not reveal any significant abnormality. CT of lumbar and thoracic spine revealed degenerative changes and moderate foraminal stenosis at L5-S1. Microbiology Microbiology Results: Microbiology 07/26/22 Unknown Urine clean catch - Urine [place] top Urine Culture - Preliminary Culture in progress. 07/26/22 23:30 Cerebrospinal Fluid Gram Stain - Final 07/26/22 23:30 Cerebrospinal Fluid CSF Examination - Final 07/26/22 23:30 Cerebrospinal Fluid Fluid Description - Final 07/26/22 23:30 Cerebrospinal Fluid CSF Culture - Preliminary No growth after 1 day 07/26/22 16:59 Blood - Venous Blood Culture - Preliminary No growth after 24 hours. 07/26/22 16:54 Blood - Venous Blood Culture - Preliminary No growth after 24 hours. 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 At this time my recommendation is to continue I IVIG treatment for 5 days and then also start him on prednisone 20 mg twice a day. PT OT consultation possible transfer to rehab might be needed. Any EMG nerve conduction study can help to define nature in a and extent of neuropathy. Procedures Date of Service Date of Service: 07/28/22
--- NOTE | 2022-07-28 12:54 | P.PNIM_ITS ---
Subjective Subjective Date of Service: 07/28/22 Interval History: the patient was seen and evaluated this morning Laying in bed, feels mild improvement in the power of his lower extremities Denies any fever, chills or shortness of breath No reported other overnight events. Systemic review: No fever, chills but reported lower extremities weakness No chest pain, palpitation No shortness of breath or coughing No abdominal pain, nausea or vomiting Banegas catheter in place No any rash or wounds Physical Exam Vital Signs: Vital Signs: Last Vital Signs Temp 97.6 F 07/28/22 07:47 Pulse 68 07/28/22 07:47 Resp 18 07/28/22 07:47 BP 132/66 07/28/22 07:47 Pulse Ox 97 07/28/22 07:47 O2 Del Method 07/28/22 07:47 BMI result Body Mass Index 35.5 Const: Other: Constitutional : Alert, oriented, not in distress Neck : Normal inspection, Supple Cardiovascular : RRR, no JVP, no lower extremity edema Respiratory : fair bilateral air entry, no crackles, wheezes or rhonchi Gastrointestinal: soft, lax, Normal bowel sounds, Non tender Skin : Warm, Dry Neurological : Alert & oriented x3, No focal deficit , normal speech, CN 2-12 within normal, decreased deep tendon reflexes, raise legs against gravity but weak Objective Data Active Medications Acetaminophen (Acetaminophen 325 Mg Tablet) 650 mg PO Q6H PRN PRN Reason: Pain, Mild (Pain Scale 1-3) Last Admin: 07/27/22 02:15 Dose: 650 mg Documented By: ARABELLA Cyanocobalamin (Cyanocobalamin (Vitamin B-12) 1,000 Mcg Tablet) 1,000 mcg PO DAILY@1700 [facility] Last Admin: 07/27/22 16:44 Dose: 1,000 mcg Documented By: DENISSE Diphenhydramine HCl (Diphenhydramine Hcl 50 Mg/Ml Vial) 25 mg IVPUSH DAILY@0730 [facility] Stop: 07/31/22 07:31 Last Admin: 07/28/22 09:01 Dose: 25 mg Documented By: FELICITA Docusate Sodium (Docusate Sodium 100 Mg Capsule) 100 mg PO DAILY PRN PRN Reason: Constipation Heparin Sodium (Porcine) (Heparin Sodium,Porcine 5,000 Unit/Ml Vial) 5,000 unit SUBCUT Q12H [facility] Last Admin: 07/28/22 09:01 Dose: 5,000 unit Documented By: FELICITA Immune Globulin (Gammagard 10%) 50 mls @ 56 mls/hr IV DAILY@0800 [facility] Stop: 07/31/22 08:54 Last Infusion: 07/28/22 10:52 Dose: 0 mls/hr Documented By: FELICITA Immune Globulin (Gammagard 10%) 200 mls @ 56 mls/hr IV DAILY@0900 [facility] Stop: 07/31/22 12:35 Last Admin: 07/28/22 10:51 Dose: 56 mls/hr Documented By: FELICITA Immune Globulin (Gammagard 10%) 200 mls @ 56 mls/hr IV DAILY@1235 [facility] Stop: 07/31/22 16:10 Lorazepam (Lorazepam 1 Mg Tablet) 1 mg PO BEDTIME PRN PRN Reason: anxiety Last Admin: 07/27/22 20:42 Dose: 1 mg Documented By: ALLEN Lorazepam (Lorazepam 1 Mg Tablet) 1 mg PO ONCE PRN PRN Reason: anxiety/restlessness Last Admin: 07/28/22 10:05 Dose: 1 mg Documented By: FELICITA Methylprednisolone Sodium Succinate (Methylprednisolone Sod Succ 40 Mg/Ml Vial) 40 mg IVPUSH DAILY@0730 [facility] Stop: 07/31/22 07:31 Last Admin: 07/28/22 09:00 Dose: 40 mg Documented By: FELICITA Ondansetron HCl (Ondansetron Hcl 4 Mg/2 Ml Vial) 4 mg IVPUSH Q8H PRN PRN Reason: Nausea and Vomiting Paroxetine HCl (Paroxetine Hcl 10 Mg Tablet) 10 mg PO DAILY [facility] Last Admin: 07/28/22 09:00 Dose: 10 mg Documented By: FELICITA Sodium Chloride (0.9 % Sodium Chloride Flush 3 Ml Syringe) 3 ml IVFLUSH QSHIFT [facility] Last Admin: 07/28/22 09:02 Dose: 3 ml Documented By: FELICITA Sodium Chloride (Sodium Chloride 0.65 % Nasal 44 Ml Sprbtl) 2 spray NOSTRIL-B BID PRN PRN Reason: congestion Tamsulosin HCl (Tamsulosin Hcl 0.4 Mg Capsule) 0.4 mg PO BEDTIME [facility] Last Admin: 07/27/22 20:41 Dose: 0.4 mg Documented By: ODRISWilian Valsartan (Valsartan 80 Mg Tablet) 80 mg PO DAILY [facility] Last Admin: 07/28/22 09:00 Dose: 80 mg Documented By: FELICITA Vitamin D (Cholecalciferol (Vitamin D3) 25 Mcg Tablet) 50 mcg PO DAILY@1700 [facility] Last Admin: 07/27/22 16:44 Dose: 50 mcg Documented By: DENISSE Labs CBC & Chem 7: 07/28/22 05:34 07/28/22 05:34 Labs: Laboratory Results - last 24 hr 07/26/22 07/26/22 07/27/22 23:30 23:30 06:23 MCV MCH MCHC RDW Plt Count MPV Absolute Nucleated RBC Nucleated RBC % (auto) Anion Gap Estim Creat Clear Calc Estimated GFR Random Glucose Calcium Vitamin B12 360 Folate 14.4 CSF WBC 4 3 CSF Neutrophils 2 CSF Lymphocytes 91 93 CSF Monocytes % 9 5 07/28/22 07/28/22 05:34 05:34 MCV 98.5 H MCH 32.8 MCHC 33.3 RDW 13.6 Plt Count 148 L MPV 10.6 Absolute Nucleated RBC 0.000 Nucleated RBC % (auto) 0.0 Anion Gap 12 Estim Creat Clear Calc 147.7 Estimated GFR > 60 Random Glucose 100 Calcium 8.7 Vitamin B12 Folate CSF WBC CSF Neutrophils CSF Lymphocytes CSF Monocytes % Microbiology Microbiology Results: Microbiology 07/26/22 Unknown Urine Culture - Preliminary Urine clean catch - Urine latham top Culture in progress. 07/26/22 23:30 Gram Stain - Final Cerebrospinal Fluid CSF Examination - Final Fluid Description - Final CSF Culture - Preliminary No growth after 1 day 07/26/22 16:59 Blood Culture - Preliminary Blood - Venous No growth after 24 hours. 07/26/22 16:54 Blood Culture - Preliminary Blood - Venous No growth after 24 hours. 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 prednisone PT OT to do EMG nerve conduction study # Urine retention Banegas catheter placed Increase tamsulosin to 0.8 mg daily Voiding trials to DC the catheter # UTI urine culture pending continue oral Ceftin DVT prophylaxis Lovenox Given the need for IVIG patient will require minimal 5 days hospital stay for further management and treatment Quality Stroke Does the patient have a stroke diagnosis?: No VTE Prior VTE?: No VTE Risk Level:: Medical - moderate - high VTE Device Contraindication: Treatment Not Indicated VTE Drug Contraindication: N/A - Med Ordered
[2022-07-28 16:00] VITALS: BP 156/95; PULSE 80; RESP 16; TEMP 37; O2SAT 95
[2022-07-28] MEDS: Docusate Sodium 100 MG CAPSULE PO (17:28)
[2022-07-28] MEDS: Cyanocobalamin (Vitamin B-12) 1,000 MCG TABLET 1000 MCG PO (17:28)
[2022-07-28] MEDS: predniSONE 20 MG TABLET PO (17:28)
[2022-07-28] MEDS: Cholecalciferol (Vitamin D3) 25 MCG TABLET 50 MCG PO (17:28)
--- NOTE | 2022-07-28 18:45 | PC.NURSE ---
FC removed at 1050, patient was able to void 300 and felt abd pressure after few hrs . Bladder scanned for over 900 ml, FC reinserted. Dr Martinez notified.
[2022-07-28] MEDS: Tamsulosin HCL 0.4 MG CAPSULE 0.8 MG PO (20:59)
[2022-07-28 23:29] VITALS: BP 156/80; PULSE 62; RESP 20; TEMP 36.4; O2SAT 98
[2022-07-29 06:31] LABS: Hematocrit 38.1 % (42.0-52.0); Hemoglobin 12.7 g/dl (14.0-18.0); Mean Corpuscular HGB Conc 33.3 g/dl (31.0-36.0); Mean Corpuscular Hemoglobin 32.7 pg (27.0-33.0); Mean Corpuscular Volume 98.2 fL (80.0-98.0); Mean Platelet Volume 10.3 fL (9.4-12.4); Platelet Count 168 X10*3/uL (160-400); Red Blood Count 3.88 X10*6/uL (4.60-5.80); Red Cell Distribution Width 13.3 % (11.0-16.0); White Blood Count 5.5 X10*3/uL (4.8-10.8)
[2022-07-29 06:43] LABS: Anion Gap 11 (12-20); Blood Urea Nitrogen 12 mg/dL (9-16); Calcium 8.5 mg/dL (8.4-10.2); Carbon Dioxide 26 mmol/L (22-29); Chloride 108 mmol/L (96-108); Creatinine Clr Calc Pharmacy 152.7; Estimated Glomerular Filt Rate > 60; Glucose Random 105 mg/dL (60-115); Potassium 3.9 mmol/L (3.3-5.1); Sodium 141 mmol/L (135-145)
[2022-07-29 07:12] LABS: Prostate Specific Antigen 5.35 ng/mL (<0.05-4.0)
[2022-07-29 07:36] VITALS: BP 151/87; PULSE 68; RESP 18; TEMP 36.7; O2SAT 98
[2022-07-29] MEDS: Heparin Sodium,Porcine 5,000 UNIT/ML VIAL 5000 UNIT SUBCUT ×2 (07:54→19:54)
[2022-07-29] MEDS: diphenhydrAMINE HCL 50 MG/ML VIAL 25 MG IVPUSH (07:55)
[2022-07-29] MEDS: 0.9 % Sodium Chloride Flush 3 ML SYRINGE IVFLUSH ×3 (07:55→20:00)
[2022-07-29] MEDS: predniSONE 20 MG TABLET PO ×2 (07:56→18:00)
[2022-07-29] MEDS: PARoxetine HCL 10 MG TABLET PO (07:56)
[2022-07-29] MEDS: Valsartan 80 MG TABLET PO (07:56)
[2022-07-29] MEDS: Finasteride 5 MG TABLET PO (09:11)
[2022-07-29] MEDS: Immun Glob G(IgG)/Gly/IGA Ov50 200 ML IV ×2 (09:27→13:07)
--- NOTE | 2022-07-29 11:03 | P.PNIM_ITS ---
Subjective Subjective Date of Service: 07/29/22 Interval History: seen and evaluated this morning Laying in bed, feels mild improvement in the power of his lower extremities Doing better with physical therapy Denies any fever, chills or shortness of breath No reported other overnight events. Systemic review: No fever, chills but reported lower extremities weakness No chest pain, palpitation No shortness of breath or coughing No abdominal pain, nausea or vomiting Banegas catheter placed again after removal for retention of 900 cc No any rash or wounds Physical Exam Vital Signs: Vital Signs: Last Vital Signs Temp 98.0 F 07/29/22 07:36 Pulse 68 07/29/22 07:36 Resp 18 07/29/22 07:36 BP 151/87 H 07/29/22 07:36 Pulse Ox 98 07/29/22 07:36 O2 Del Method 07/29/22 07:36 BMI result Body Mass Index 35.5 Const: Other: Constitutional : Alert, oriented, not in distress Neck : Normal inspection, Supple Cardiovascular : RRR, no JVP, no lower extremity edema Respiratory : fair bilateral air entry, no crackles, wheezes or rhonchi Gastrointestinal: soft, lax, Normal bowel sounds, Non tender Skin : Warm, Dry Neurological : Alert & oriented x3, No focal deficit , normal speech, CN 2-12 within normal, decreased deep tendon reflexes, raise legs against gravity but weak Objective Data Active Medications Acetaminophen (Acetaminophen 325 Mg Tablet) 650 mg PO Q6H PRN PRN Reason: Pain, Mild (Pain Scale 1-3) Last Admin: 07/27/22 02:15 Dose: 650 mg Documented By: ARABELLA Cefuroxime Axetil (Cefuroxime Axetil 250 Mg Tablet) 250 mg PO BID [facility] Stop: 07/31/22 21:01 Last Admin: 07/29/22 07:56 Dose: 250 mg Documented By: ALBA Cyanocobalamin (Cyanocobalamin (Vitamin B-12) 1,000 Mcg Tablet) 1,000 mcg PO DAILY@1700 [facility] Last Admin: 07/28/22 17:28 Dose: 1,000 mcg Documented By: FELICITA Diphenhydramine HCl (Diphenhydramine Hcl 50 Mg/Ml Vial) 25 mg IVPUSH DAILY@0730 [facility] Stop: 07/31/22 07:31 Last Admin: 07/29/22 07:55 Dose: 25 mg Documented By: STACYENOAL Docusate Sodium (Docusate Sodium 100 Mg Capsule) 100 mg PO DAILY PRN PRN Reason: Constipation Last Admin: 07/28/22 17:28 Dose: 100 mg Documented By: FELICITA Finasteride (Finasteride 5 Mg Tablet) 5 mg PO DAILY [facility] Last Admin: 07/29/22 09:11 Dose: 5 mg Documented By: JANINA Heparin Sodium (Porcine) (Heparin Sodium,Porcine 5,000 Unit/Ml Vial) 5,000 unit SUBCUT Q12H [facility] Last Admin: 07/29/22 07:54 Dose: 5,000 unit Documented By: STACYENOAL Immune Globulin (Gammagard 10%) 50 mls @ 56 mls/hr IV DAILY@0800 [facility] Stop: 07/31/22 08:54 Last Infusion: 07/29/22 09:22 Dose: 0 mls/hr Documented By: STACYENOAL Immune Globulin (Gammagard 10%) 200 mls @ 56 mls/hr IV DAILY@0900 [facility] Stop: 07/31/22 12:35 Last Admin: 07/29/22 09:27 Dose: 56 mls/hr Documented By: NGENOAL Immune Globulin (Gammagard 10%) 200 mls @ 56 mls/hr IV DAILY@1235 [facility] Stop: 07/31/22 16:10 Last Infusion: 07/28/22 17:29 Dose: 0 mls/hr Documented By: FELICITA Lorazepam (Lorazepam 1 Mg Tablet) 1 mg PO BEDTIME PRN PRN Reason: anxiety Last Admin: 07/27/22 20:42 Dose: 1 mg Documented By: ODRISM Lorazepam (Lorazepam 1 Mg Tablet) 1 mg PO ONCE PRN PRN Reason: anxiety/restlessness Last Admin: 07/28/22 10:05 Dose: 1 mg Documented By: LYSBird Lorazepam (Lorazepam 1 Mg Tablet) 1 mg PO ONCE PRN PRN Reason: anxiety/restlessness Last Admin: 07/28/22 18:40 Dose: 1 mg Documented By: FELICITA Ondansetron HCl (Ondansetron Hcl 4 Mg/2 Ml Vial) 4 mg IVPUSH Q8H PRN PRN Reason: Nausea and Vomiting Paroxetine HCl (Paroxetine Hcl 10 Mg Tablet) 10 mg PO DAILY [facility] Last Admin: 07/29/22 07:56 Dose: 10 mg Documented By: ALBA Prednisone (Prednisone 20 Mg Tablet) 20 mg PO BIDWM [facility] Last Admin: 07/29/22 07:56 Dose: 20 mg Documented By: ALBA Sodium Chloride (0.9 % Sodium Chloride Flush 3 Ml Syringe) 3 ml IVFLUSH QSHIFT [facility] Last Admin: 07/29/22 07:55 Dose: 3 ml Documented By: ALBA Sodium Chloride (Sodium Chloride 0.65 % Nasal 44 Ml Sprbtl) 2 spray NOSTRIL-B BID PRN PRN Reason: congestion Tamsulosin HCl (Tamsulosin Hcl 0.4 Mg Capsule) 0.8 mg PO BEDTIME [facility] Last Admin: 07/28/22 20:59 Dose: 0.8 mg Documented By: ARIEL Valsartan (Valsartan 80 Mg Tablet) 80 mg PO DAILY [facility] Last Admin: 07/29/22 07:56 Dose: 80 mg Documented By: ALBA Vitamin D (Cholecalciferol (Vitamin D3) 25 Mcg Tablet) 50 mcg PO DAILY@1700 [facility] Last Admin: 07/28/22 17:28 Dose: 50 mcg Documented By: FELICITA Labs CBC & Chem 7: 07/29/22 06:07 07/29/22 06:07 Labs: Laboratory Results - last 24 hr 07/29/22 07/29/22 07/29/22 06:07 06:07 06:07 MCV 98.2 H MCH 32.7 MCHC 33.3 RDW 13.3 Plt Count 168 MPV 10.3 Absolute Nucleated RBC 0.000 Nucleated RBC % (auto) 0.0 Anion Gap 11 L Estim Creat Clear Calc 152.7 Estimated GFR > 60 Random Glucose 105 Calcium 8.5 Prostate Specific Ag Cancelled 5.35 H Microbiology Microbiology Results: Microbiology 07/26/22 23:30 Gram Stain - Final Cerebrospinal Fluid CSF Examination - Final Fluid Description - Final CSF Culture - Preliminary No growth after 2 days 07/26/22 Unknown Urine Culture - Final Urine clean catch - Urine [place] top 07/26/22 16:59 Blood Culture - Preliminary Blood - Venous No growth after 48 hours. 07/26/22 16:54 Blood Culture - Preliminary Blood - Venous No growth after 48 hours. 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 prednisone PT OT to do EMG nerve conduction study as outpatient # Urine retention Failed voiding trials, Banegas catheter placed again Increase tamsulosin to 0.8 mg daily Start finasteride # UTI urine culture pending continue oral Ceftin # physical deconditioning Secondary to ongoing neuropathy PT OT with recommendations for SNF placement DVT prophylaxis Lovenox Given the need for IVIG patient will require minimal 5 days hospital stay for further management and treatment Quality Stroke Does the patient have a stroke diagnosis?: No VTE Prior VTE?: No VTE Risk Level:: Medical - moderate - high VTE Device Contraindication: Treatment Not Indicated VTE Drug Contraindication: N/A - Med Ordered
[2022-07-29 15:29] VITALS: BP 132/74; PULSE 77; RESP 20; TEMP 36.9; O2SAT 98
[2022-07-29] MEDS: Cyanocobalamin (Vitamin B-12) 1,000 MCG TABLET 1000 MCG PO (18:00)
[2022-07-29] MEDS: Cholecalciferol (Vitamin D3) 25 MCG TABLET 50 MCG PO (18:00)
[2022-07-29] MEDS: LORazepam 1 MG TABLET PO (18:06)
[2022-07-29] MEDS: Docusate Sodium 100 MG CAPSULE PO (18:40)
[2022-07-29] MEDS: Tamsulosin HCL 0.4 MG CAPSULE 0.8 MG PO (19:59)
[2022-07-29 23:11] VITALS: BP 177/70; PULSE 53; RESP 20; TEMP 36.4; O2SAT 96
[2022-07-30] VITALS (7 sets, daily range): BP systolic 128–176; BP diastolic 68–92; PULSE 52–96; RESP 16–18; TEMP 36.3–36.9; O2SAT 95–100
[2022-07-30 06:47] LABS: Hematocrit 40.6 % (42.0-52.0); Hemoglobin 13.5 g/dl (14.0-18.0); Mean Corpuscular HGB Conc 33.3 g/dl (31.0-36.0); Mean Corpuscular Hemoglobin 32.8 pg (27.0-33.0); Mean Corpuscular Volume 98.8 fL (80.0-98.0); Mean Platelet Volume 10.3 fL (9.4-12.4); Platelet Count 173 X10*3/uL (160-400); Red Blood Count 4.11 X10*6/uL (4.60-5.80); Red Cell Distribution Width 13.2 % (11.0-16.0); White Blood Count 4.4 X10*3/uL (4.8-10.8)
[2022-07-30 06:58] LABS: Anion Gap 11 (12-20); Blood Urea Nitrogen 13 mg/dL (9-16); Calcium 8.4 mg/dL (8.4-10.2); Carbon Dioxide 25 mmol/L (22-29); Chloride 107 mmol/L (96-108); Creatinine Clr Calc Pharmacy 147.7; Estimated Glomerular Filt Rate > 60; Glucose Random 88 mg/dL (60-115); Potassium 3.7 mmol/L (3.3-5.1); Sodium 139 mmol/L (135-145)
[2022-07-30] MEDS: diphenhydrAMINE HCL 50 MG/ML VIAL 25 MG IVPUSH (08:41)
[2022-07-30] MEDS: 0.9 % Sodium Chloride Flush 3 ML SYRINGE IVFLUSH ×3 (08:41→21:06)
[2022-07-30] MEDS: Finasteride 5 MG TABLET PO (08:41)
[2022-07-30] MEDS: PARoxetine HCL 10 MG TABLET PO (08:42)
[2022-07-30] MEDS: Heparin Sodium,Porcine 5,000 UNIT/ML VIAL 5000 UNIT SUBCUT ×2 (08:42→21:04)
[2022-07-30] MEDS: Valsartan 80 MG TABLET PO (08:42)
[2022-07-30] MEDS: predniSONE 20 MG TABLET PO ×2 (08:42→16:30)
[2022-07-30] MEDS: Acetaminophen 325 MG TABLET 650 MG PO ×2 (08:49→21:10)
[2022-07-30] MEDS: Immun Glob G(IgG)/Gly/IGA Ov50 200 ML IV ×2 (09:46→12:58)
--- NOTE | 2022-07-30 12:39 | HO.PM.IMPN ---
Subjective Subjective Date of Service: 07/30/22 Interval History: seen and evaluated this morning mild improvement in the power of his lower extremities Doing better with physical therapy Denies any fever, chills or shortness of breath No reported other overnight events. Systemic review: No fever, chills but reported lower extremities weakness No chest pain, palpitation No shortness of breath or coughing No abdominal pain, nausea or vomiting Banegas catheter in place No any rash or wounds Physical Exam Vital Signs: Vital Signs: Last Vital Signs Temp 97.8 F 07/30/22 11:32 Pulse 52 07/30/22 11:32 Resp 17 07/30/22 11:32 BP 176/74 H 07/30/22 11:32 Pulse Ox 98 07/30/22 11:32 O2 Del Method 07/30/22 11:32 BMI result Body Mass Index 35.5 Const: Other: Constitutional : Alert, oriented, not in distress Neck : Normal inspection, Supple Cardiovascular : RRR, no JVP, no lower extremity edema Respiratory : fair bilateral air entry, no crackles, wheezes or rhonchi Gastrointestinal: soft, lax, Normal bowel sounds, Non tender Skin : Warm, Dry Urology: Banegas catheter in place, clear urine Neurological : Alert & oriented x3, No focal deficit , normal speech, CN 2-12 within normal, decreased deep tendon reflexes, raise legs against gravity but still weak Objective Data Active Medications Acetaminophen (Acetaminophen 325 Mg Tablet) 650 mg PO Q6H PRN PRN Reason: Pain, Mild (Pain Scale 1-3) Last Admin: 07/30/22 08:49 Dose: 650 mg Documented By: ALBA Cefuroxime Axetil (Cefuroxime Axetil 250 Mg Tablet) 250 mg PO BID [facility] Stop: 07/31/22 21:01 Last Admin: 07/30/22 08:42 Dose: 250 mg Documented By: ALBA Cyanocobalamin (Cyanocobalamin (Vitamin B-12) 1,000 Mcg Tablet) 1,000 mcg PO DAILY@1700 [facility] Last Admin: 07/29/22 18:00 Dose: 1,000 mcg Documented By: JANINA Diphenhydramine HCl (Diphenhydramine Hcl 50 Mg/Ml Vial) 25 mg IVPUSH DAILY@0730 [facility] Stop: 07/31/22 07:31 Last Admin: 07/30/22 08:41 Dose: 25 mg Documented By: ALBA Docusate Sodium (Docusate Sodium 100 Mg Capsule) 100 mg PO DAILY PRN PRN Reason: Constipation Last Admin: 07/29/22 18:40 Dose: 100 mg Documented By: JANINA Finasteride (Finasteride 5 Mg Tablet) 5 mg PO DAILY [facility] Last Admin: 07/30/22 08:41 Dose: 5 mg Documented By: ALBA Heparin Sodium (Porcine) (Heparin Sodium,Porcine 5,000 Unit/Ml Vial) 5,000 unit SUBCUT Q12H [facility] Last Admin: 07/30/22 08:42 Dose: 5,000 unit Documented By: ALBA Immune Globulin (Gammagard 10%) 50 mls @ 56 mls/hr IV DAILY@0800 [facility] Stop: 07/31/22 08:54 Last Infusion: 07/30/22 10:04 Dose: 0 mls/hr Documented By: STACYENOAL Immune Globulin (Gammagard 10%) 200 mls @ 56 mls/hr IV DAILY@0900 [facility] Stop: 07/31/22 12:35 Last Admin: 07/30/22 09:46 Dose: 56 mls/hr Documented By: STACYENOAL Immune Globulin (Gammagard 10%) 200 mls @ 56 mls/hr IV DAILY@1235 [facility] Stop: 07/31/22 16:10 Last Infusion: 07/29/22 17:31 Dose: 56 mls/hr Documented By: JANINA Lorazepam (Lorazepam 1 Mg Tablet) 1 mg PO BEDTIME PRN PRN Reason: anxiety Last Admin: 07/27/22 20:42 Dose: 1 mg Documented By: ODRISM Lorazepam (Lorazepam 1 Mg Tablet) 1 mg PO ONCE PRN PRN Reason: anxiety/restlessness Last Admin: 07/28/22 10:05 Dose: 1 mg Documented By: LYSZ Lorazepam (Lorazepam 1 Mg Tablet) 1 mg PO ONCE PRN PRN Reason: anxiety/restlessness Last Admin: 07/29/22 18:06 Dose: 1 mg Documented By: ALBA Lorazepam (Lorazepam 1 Mg Tablet) 1 mg PO DAILY PRN PRN Reason: anxiety/restlessness Ondansetron HCl (Ondansetron Hcl 4 Mg/2 Ml Vial) 4 mg IVPUSH Q8H PRN PRN Reason: Nausea and Vomiting Paroxetine HCl (Paroxetine Hcl 10 Mg Tablet) 10 mg PO DAILY [facility] Last Admin: 07/30/22 08:42 Dose: 10 mg Documented By: ALBA Prednisone (Prednisone 20 Mg Tablet) 20 mg PO BIDWM [facility] Last Admin: 07/30/22 08:42 Dose: 20 mg Documented By: ALBA Sodium Chloride (0.9 % Sodium Chloride Flush 3 Ml Syringe) 3 ml IVFLUSH QSHIFT [facility] Last Admin: 07/30/22 08:41 Dose: 3 ml Documented By: ALBA Sodium Chloride (Sodium Chloride 0.65 % Nasal 44 Ml Sprbtl) 2 spray NOSTRIL-B BID PRN PRN Reason: congestion Tamsulosin HCl (Tamsulosin Hcl 0.4 Mg Capsule) 0.8 mg PO BEDTIME [facility] Last Admin: 07/29/22 19:59 Dose: 0.8 mg Documented By: MARTINA Valsartan (Valsartan 80 Mg Tablet) 80 mg PO DAILY [facility] Last Admin: 07/30/22 08:42 Dose: 80 mg Documented By: ALBA Vitamin D (Cholecalciferol (Vitamin D3) 25 Mcg Tablet) 50 mcg PO DAILY@1700 [facility] Last Admin: 07/29/22 18:00 Dose: 50 mcg Documented By: JANINA Labs CBC & Chem 7: 07/30/22 06:08 07/30/22 06:08 Labs: Laboratory Results - last 24 hr 07/30/22 07/30/22 06:08 06:08 MCV 98.8 H MCH 32.8 MCHC 33.3 RDW 13.2 Plt Count 173 MPV 10.3 Absolute Nucleated RBC 0.000 Nucleated RBC % (auto) 0.0 Anion Gap 11 L Estim Creat Clear Calc 147.7 Estimated GFR > 60 Random Glucose 88 Calcium 8.4 Microbiology Microbiology Results: Microbiology 07/26/22 23:30 Gram Stain - Final Cerebrospinal Fluid CSF Examination - Final Fluid Description - Final CSF Culture - Preliminary No growth after 2 days Assessment and Plan (1) Urine retention: Status: Acute (2) UTI (urinary tract infection): Status: Acute (3) Lower extremity weakness: Status: Acute Plan 67-year-old male with recent hospitalization in May secondary to sinus infection and sepsis, presents to the hospital with complaints of 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 prednisone PT OT to do EMG nerve conduction study as outpatient # Urine retention Failed voiding trials, Banegas catheter placed again Increase tamsulosin to 0.8 mg daily Start finasteride Patient will need to be discharged on Banegas catheter to finish 2 weeks of the current medical regimen before voiding trials again # UTI urine culture negative continue oral Ceftin # physical deconditioning Secondary to ongoing neuropathy PT OT with recommendations for SNF placement DVT prophylaxis Lovenox Given the need for IVIG patient will require minimal 5 days hospital stay for further management and treatment Quality Stroke Does the patient have a stroke diagnosis?: No VTE Prior VTE?: No VTE Risk Level:: Medical - moderate - high VTE Device Contraindication: Treatment Not Indicated VTE Drug Contraindication: N/A - Med Ordered
--- NOTE | 2022-07-30 15:26 | MHC.CM.PN ---
[facility] accepted [facility] can accept pt tomorrow notified
[2022-07-30] MEDS: Cholecalciferol (Vitamin D3) 25 MCG TABLET 50 MCG PO (16:29)
[2022-07-30] MEDS: Lactulose 20 GM/30 ML SOLUTION PO (16:29)
[2022-07-30] MEDS: Cyanocobalamin (Vitamin B-12) 1,000 MCG TABLET 1000 MCG PO (16:30)
[2022-07-30] MEDS: LORazepam 1 MG TABLET PO (16:30)
[2022-07-30] MEDS: Tamsulosin HCL 0.4 MG CAPSULE 0.8 MG PO (21:04)
[2022-07-31] MEDS: Docusate Sodium 100 MG CAPSULE PO (05:35)
[2022-07-31 07:27] VITALS: BP 172/98; PULSE 73; RESP 20; TEMP 36.7; O2SAT 99
[2022-07-31] MEDS: Heparin Sodium,Porcine 5,000 UNIT/ML VIAL 5000 UNIT SUBCUT ×2 (08:26→20:49)
[2022-07-31] MEDS: 0.9 % Sodium Chloride Flush 3 ML SYRINGE IVFLUSH ×3 (08:28→20:51)
[2022-07-31] MEDS: Finasteride 5 MG TABLET PO (08:28)
[2022-07-31] MEDS: Valsartan 80 MG TABLET PO (08:28)
[2022-07-31] MEDS: diphenhydrAMINE HCL 50 MG/ML VIAL 25 MG IVPUSH (08:28)
[2022-07-31] MEDS: Lactulose 20 GM/30 ML SOLUTION PO (08:29)
[2022-07-31] MEDS: predniSONE 20 MG TABLET PO ×2 (08:29→16:14)
[2022-07-31] MEDS: PARoxetine HCL 10 MG TABLET PO (08:29)
[2022-07-31] MEDS: Immun Glob G(IgG)/Gly/IGA Ov50 200 ML IV ×2 (10:03→14:02)
[2022-07-31 10:45] VITALS: BP 172/98; PULSE 73; O2SAT 99
--- NOTE | 2022-07-31 14:58 | P.PNIM_ITS ---
Subjective Subjective Date of Service: 07/31/22 Interval History: seen and examined this morning follow up for leg weakness, today is day 5 of IVIG Frustrated, does not feel ready to leave the hospital. Does not want to go to acute rehab denies chest pain, shortness of breath, abdominal pain Review of Systems Review of Systems: Yes all other systems are reviewed and are negative Constitutional Constitutional: Denies chills and Denies fever(s) Cardiovascular Cardiovascular: Denies chest pain, Denies palpitations and Denies dyspnea Respiratory Respiratory: Denies cough and Denies dyspnea Gastrointestinal Gastrointestinal: Denies abdominal pain and Reports constipation Endocrine Endocrine: Denies palpitations Physical Exam Vital Signs: Vital Signs: Last Vital Signs Temp 98.0 F 07/31/22 07:27 Pulse 73 07/31/22 10:45 Resp 20 07/31/22 07:27 BP 172/98 H 07/31/22 10:45 Pulse Ox 99 07/31/22 10:45 O2 Del Method 07/30/22 23:19 BMI result Body Mass Index 35.5 Const: General: no acute distress, alert and awake Nutritional Appearance: overweight Orientation/consciousness: patient oriented x3 Resp: Effort & Inspection: normal respiratory effort and able to speak in complete sentences Cardio: Rate: regular rate Heart sounds: S1 normal heart sound present and S2 normal heart sound present GI: Other: ibrahim draining clear urine Inspection: No distended Palpation (GI): Soft to palpation and nontender Neuro: General: patient oriented x3 Extrem: Other: able to move legs but weak General: Yes no pedal edema Objective Data Active Medications Acetaminophen (Acetaminophen 325 Mg Tablet) 650 mg PO Q6H PRN PRN Reason: Pain, Mild (Pain Scale 1-3) Last Admin: 07/30/22 21:10 Dose: 650 mg Documented By: MARTINA Cefuroxime Axetil (Cefuroxime Axetil 250 Mg Tablet) 250 mg PO BID THOMPSON Stop: 07/31/22 21:01 Last Admin: 07/31/22 08:29 Dose: 250 mg Documented By: DENISSE Cyanocobalamin (Cyanocobalamin (Vitamin B-12) 1,000 Mcg Tablet) 1,000 mcg PO DAILY@1700 THOMPSON Last Admin: 07/30/22 16:30 Dose: 1,000 mcg Documented By: ALBA Docusate Sodium (Docusate Sodium 100 Mg Capsule) 100 mg PO DAILY PRN PRN Reason: Constipation Last Admin: 07/31/22 05:35 Dose: 100 mg Documented By: MARTINA Finasteride (Finasteride 5 Mg Tablet) 5 mg PO DAILY [facility] Last Admin: 07/31/22 08:28 Dose: 5 mg Documented By: DENISSE Heparin Sodium (Porcine) (Heparin Sodium,Porcine 5,000 Unit/Ml Vial) 5,000 unit SUBCUT Q12H [facility] Last Admin: 07/31/22 08:26 Dose: 5,000 unit Documented By: DENISSE Immune Globulin (Gammagard 10%) 200 mls @ 56 mls/hr IV DAILY@1235 [facility] Stop: 07/31/22 16:10 Last Admin: 07/31/22 14:02 Dose: 56 mls/hr Documented By: DENISSE Lactulose (Lactulose 20 Gm/30 Ml Solution) 20 gm PO DAILY [facility] Last Admin: 07/31/22 08:29 Dose: 20 gm Documented By: DENISSE Lorazepam (Lorazepam 1 Mg Tablet) 1 mg PO BEDTIME PRN PRN Reason: anxiety Last Admin: 07/30/22 16:30 Dose: 1 mg Documented By: ALBA Lorazepam (Lorazepam 1 Mg Tablet) 1 mg PO ONCE PRN PRN Reason: anxiety/restlessness Last Admin: 07/28/22 10:05 Dose: 1 mg Documented By: FELICITA Lorazepam (Lorazepam 1 Mg Tablet) 1 mg PO ONCE PRN PRN Reason: anxiety/restlessness Last Admin: 07/29/22 18:06 Dose: 1 mg Documented By: ALBA Lorazepam (Lorazepam 1 Mg Tablet) 1 mg PO DAILY PRN PRN Reason: anxiety/restlessness Ondansetron HCl (Ondansetron Hcl 4 Mg/2 Ml Vial) 4 mg IVPUSH Q8H PRN PRN Reason: Nausea and Vomiting Paroxetine HCl (Paroxetine Hcl 10 Mg Tablet) 10 mg PO DAILY [facility] Last Admin: 07/31/22 08:29 Dose: 10 mg Documented By: DENISSE Polyethylene Glycol (Polyethylene Glycol 3350 17 Gm Powd.Pack) 17 gm PO DAILY [facility] Prednisone (Prednisone 20 Mg Tablet) 20 mg PO BIDWM [facility] Last Admin: 07/31/22 08:29 Dose: 20 mg Documented By: DENISSE Sodium Chloride (0.9 % Sodium Chloride Flush 3 Ml Syringe) 3 ml IVFLUSH QSHIFT [facility] Last Admin: 07/31/22 08:28 Dose: 3 ml Documented By: DENISSE Sodium Chloride (Sodium Chloride 0.65 % Nasal 44 Ml Sprbtl) 2 spray NOSTRIL-B BID PRN PRN Reason: congestion Tamsulosin HCl (Tamsulosin Hcl 0.4 Mg Capsule) 0.8 mg PO BEDTIME [facility] Last Admin: 07/30/22 21:04 Dose: 0.8 mg Documented By: MARTINA Valsartan (Valsartan 80 Mg Tablet) 80 mg PO DAILY [facility] Last Admin: 07/31/22 08:28 Dose: 80 mg Documented By: DENISSE Vitamin D (Cholecalciferol (Vitamin D3) 25 Mcg Tablet) 50 mcg PO DAILY@1700 [facility] Last Admin: 07/30/22 16:29 Dose: 50 mcg Documented By: STACYENOOVIDIO Labs CBC & Chem 7: 07/30/22 06:08 07/30/22 06:08 Microbiology Microbiology Results: Microbiology 07/26/22 23:30 Gram Stain - Final Cerebrospinal Fluid CSF Examination - Final Fluid Description - Final CSF Culture - Final No growth after 3 days. 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 prednisone - will discuss with Neurology about need for continuing prednisone on discharge PT OT- rec STR to do EMG nerve conduction study as outpatient # Urine retention Failed voiding trials, Ibrahim catheter placed again Increase tamsulosin to 0.8 mg daily Start finasteride Patient will need to be discharged on Ibrahim catheter to finish 2 weeks of the current medical regimen before voiding trials again # UTI urine culture negative continue oral Ceftin # physical deconditioning Secondary to ongoing neuropathy PT OT with recommendations for SNF placement DVT prophylaxis Lovenox attending - dr. ball patient needs ongoing inpatient hospitalization to receive IVIG, safe dispo Quality Stroke Does the patient have a stroke diagnosis?: No VTE Prior VTE?: No VTE Risk Level:: Medical - moderate - high VTE Device Contraindication: Treatment Not Indicated VTE Drug Contraindication: N/A - Med Ordered
[2022-07-31 15:07] VITALS: BP 159/80; PULSE 77; RESP 17; TEMP 36.7; O2SAT 97
[2022-07-31] MEDS: Cyanocobalamin (Vitamin B-12) 1,000 MCG TABLET 1000 MCG PO (16:14)
[2022-07-31] MEDS: Cholecalciferol (Vitamin D3) 25 MCG TABLET 50 MCG PO (16:14)
--- NOTE | 2022-07-31 16:29 | MHC.CM.PN ---
TRACY MET WITH PT WHO WAS VERY UPSET ABOUT THE IDEA OF BEING DISCHARGED SOON HE DISCUSSED MANY CONCERNS INCLUDING NOT UNDERSTANDING WHAT IS HAPPENING WITH HIM HE ALSO REPORTS HE DOES NOT FEEL HE WILL BE ABLE TO DO THREE HOURS OF THERAPY AT [facility] HOWEVER HE DOES NOT PROVIDE A RESPONSE WHEN TRACY ASKS IF HE WOULD PREFER STR REFERRALS, HE INSTEAD RESTATES HIS CONCERNS ABOUT DC AND THAT HE NEEDS TO STAY. CM ROLE EXPLAINED MULTIPLE TIMES, HOWEVER PT NEVER PROVIDED AN ANSWER TO HIS DC PLANNING PREFERENCE TRACY LATER RECEIVED A MESSAGE FROM THE PROVIDER INDICATING HE HAD STATED A PREFERENCE FOR STR AT [facility] REFERRAL FOR [facility] WAS ALREADY IN, HOWEVER THEY DO NOT EXPECT TO HAVE A BED
[2022-07-31 19:07] VITALS: BP 151/65; PULSE 70; RESP 18; TEMP 36.7; O2SAT 96
[2022-07-31] MEDS: LORazepam 1 MG TABLET PO (20:48)
[2022-07-31] MEDS: Tamsulosin HCL 0.4 MG CAPSULE 0.8 MG PO (20:49)
[2022-08-01] MEDS: PARoxetine HCL 10 MG TABLET PO (07:11)
[2022-08-01] MEDS: Finasteride 5 MG TABLET PO (07:11)
[2022-08-01] MEDS: 0.9 % Sodium Chloride Flush 3 ML SYRINGE IVFLUSH (07:11)
[2022-08-01] MEDS: predniSONE 20 MG TABLET PO (07:11)
[2022-08-01] MEDS: Valsartan 80 MG TABLET PO (07:11)
[2022-08-01] MEDS: Heparin Sodium,Porcine 5,000 UNIT/ML VIAL 5000 UNIT SUBCUT (07:12)
[2022-08-01 07:45] VITALS: BP 150/70; PULSE 89; RESP 20; TEMP 36.5; O2SAT 99
[2022-08-01 09:48] VITALS: BP 150/70; PULSE 89; O2SAT 99
--- NOTE | 2022-08-01 10:42 | P.CDIC_ITS ---
CDI Concurrent Query Documentation Clarification: PHYSICIAN'S DOCUMENTATION REQUEST Date of Query: 08/01/22 1042 Patient Name: Shane Hsu Admit Date: 07/27/22 Dear Doctor, A review of the medical record indicates additional documentation may be needed. Please review below and update the documentation accordingly. Clinical Indicators: Other Clinical Notes Supporting Significance of the BMI: Risk Factors/Clinical Indicators/Treatments Per progress notes & H&P: BMI - 35.5 Height - 5ft 11in Weight - 115.5kg If possible, please provide an associated diagnosis related to the abnormal BMI, such as: BMI: * Obesity * Due to excess calories * Drug induced * Due to other cause * Severe or Morbid Obesity * Overweight Or: * BMI is not significant * Other (please specify) * Unable to determine Use of terms such as suspected, likely, concern for, or probable (associated with a specific diagnosis that is being evaluated, monitored, or treated as if it exists) are acceptable and can be coded in the inpatient setting, when documented at the time of discharge. Thank you, Ailin Prasad MS, RN, CCRN Extension: [phone] Please use your independent medical judgment in providing your response. THIS QUERY IS PART OF THE PERMANENT MEDICAL RECORD Provider Response: Obesity
--- NOTE | 2022-08-01 14:40 | MHC.CM.PN ---
BED OFFERS WERE PRESENTED TO PT AFTER SOME DISCUSSION, HE REQUESTS TRANSFER TO [facility] INFORMED A NEW COVID TEST WILL BE REQUIRED PT WILL BE TRANSPORTED BY [facility] AT 1600 HOURS
--- NOTE | 2022-08-01 15:08 | P.DS_ITS ---
DS: Providers Provider Date of Service: 08/01/22 Date of admission: 07/27/22 00:48 Date of discharge: 08/01/22 Primary care physician: Brandon Buck MD Consults: 07/27/22 00:43 Consult to Neurology Routine Consulting Provider: [facility] Reason for consultation: GBS Has provider been notified: Yes Attending physician on discharge: Ish Reddy Discharging clinician: Mayela Monroy DS: Diagnosis Discharge Diagnosis (1) UTI (urinary tract infection): Status: Acute (2) Lower extremity weakness: Status: Acute DS: Summary Hospital Course Hospital Course: From H&P on day of admission 67-year-old male with past medical history of HTN, obesity, vitamin-D deficiency, presents to the hospital with complaints of lower extremity weakness bilaterally.? Patient reports that his symptoms started about 1 week ago, he was seen in the hospital for urinary retention, was found to have urinary retention, Ibrahim catheter was placed, and patient was discharged home.? He reports that that is when his leg weakness started, the leg weakness worse on the left, he has now gotten to the point where he cannot get up and ambulate around his house. ?He reports that just a day prior to that he was walking with physical therapy and had very minimal difficulty with ambulating.? He reports numbness and tingling in his left upper extremity.? No difficulty swallowing, no shortness of breath, no chest pain, no change in vision, no blurry vision or double vision, n o headache.? No abdominal pain nausea vomiting, he reports that he had a fever and some chills with no urinary symptoms.? No diarrhea constipation.? He reports no loss of bowel control. Of note patient was discharged from the hospital in May after being treated for sepsis secondary to sinusitis On arrival to the ED patient hemodynamically stable with no significant abnormal vitals Labs are significant for WBC count of 10.9, hemoglobin of 14.2, hematocrit 41.6, total bili of 1.5, UA that is positive for leukocyte esterase, nitrites, WBC, Patient underwent LP which showed normal cell counts and elevated protein of 63.2. CTA head and neck is negative for any acute infarct or hemorrhage, no evidence of significant stenosis within the intracranial or extracranial arterial circulation. CT of the thoracic, lumbar, region showed no subluxation or fracture in the thoracolumbar spine, limited assessment due to lack of contrast, suspected spinal canal stenosis at T11-12 and at several levels in the lumbar spine lower extremity weakness.?concerning for possible GBS vs CIDP elevated protein on CSF study. Thoracic, lumbar spine CT scan negative for any acute findings Head and neck CTA negative for any acute findings MRI cancelled as the patient could not tolerate staying in the machine due to claustrophobia seen by Neurology. Was treated with 5 days of IVIG as well as prednisone ?PT OT- was evaluated by Physical therapy who recommended short-term rehab. Was initially offered acute rehab and was accepted at [place] but patient felt that 3 hours of physical therapy daily was too intense and opted for short- term rehab. Patient will need outpatient follow-up with Neurology in 2 weeks. He should continue prednisone 20 mg twice daily until follow-up with Neurology. Will need outpatient EMG studies. Urine retention - Failed voiding trial, Ibrahim catheter placed again Increase tamsulosin to 0.8 mg daily. Started on finasteride Patient will need to be discharged on Ibrahim catheter to finish 2 weeks of the current medical regimen before voiding trials again Anticipate less than 30 day stay at [facility] Time Spent with Patient Time attestation: Total time spent providing and/or coordinating discharge services: Discharge coordination time: Greater than 30 minutes Quality: Safe Use of Opioids Does Pt have an Active Cancer Diagnosis on the Problem List?: No Quality: Stroke Does the patient have a stroke diagnosis?: No Physical Exam Vital Signs: Vital Signs: Last Vital Signs Temp 97.7 F 08/01/22 07:45 Pulse 89 08/01/22 09:48 Resp 20 08/01/22 07:45 BP 150/70 H 08/01/22 09:48 Pulse Ox 99 08/01/22 09:48 O2 Del Method 08/01/22 07:45 BMI result Body Mass Index 35.5 Const: General: no acute distress, alert and awake Nutritional Appearance: overweight Orientation/consciousness: patient oriented x3 Resp: Effort & Inspection: normal respiratory effort and able to speak in complete sentences Cardio: Rate: regular rate Heart sounds: S1 normal heart sound present and S2 normal heart sound present GI: Other: ibrahim draining clear urine Inspection: No distended Palpation (GI): Soft to palpation and nontender Neuro: General: patient oriented x3 Extrem: Other: able to move legs but weak General: Yes no pedal edema Discharge Plan Discharge Patient Disposition: Xfer SNF Discharge Diagnosis: leg weakness urinary retention Referrals: [facility] [Outside] - 1 Week Brandon Buck MD [Primary Care Provider] - 1 Week Donato London MD [Physician] - 2 Weeks Discharge Medications: New prednisone 20 mg Tablet 20 mg PO BIDWM 14 Days Qty: 28 0RF finasteride [Proscar] 5 mg Tablet 5 mg PO DAILY 30 Days Qty: 30 0RF Continued paroxetine HCl 10 mg tablet 10 mg PO DAILY 90 Days Qty: 90 3RF irbesartan 150 mg Tablet 150 mg PO DAILY cyanocobalamin (vitamin B-12) [Vitamin B-12] 1,000 mcg Tablet 1,000 mcg PO DAILY@1700 lorazepam 1 mg tablet 1 mg PO BEDTIME PRN (Reason: anxiety) Rx Instructions: [facility] verified. Partial refill upon request. cholecalciferol (vitamin D3) 50 mcg (2,000 unit) capsule 50 mcg PO DAILY@1700 Saline Mist 0.65 % aerosol,spray 2 spray intranasal BID PRN (Reason: congestion) Qty: 45 0RF Changed tamsulosin 0.4 mg capsule 0.8 mg PO BEDTIME 90 Days Qty: 90 1RF No Action acetaminophen [Tylenol] 325 mg Tablet 650 mg PO Q6H PRN (Reason: Mild Pain (Scale Score 1-4)) Fleet Enema 19-7 gram/118 mL Enema 118 ml DC DAILY PRN (Reason: Constipation) cefuroxime axetil 250 mg tablet 250 mg PO BID 10 Days Qty: 20 0RF (DME) LIGHTWEIGHT WHEELCHAIR See Rx Instructions .Route .MEDSUPPLY Qty: 1 0RF Rx Instructions: As directed Discharge Orders: Discharge Order (Routine); Ordered 08/01/22 Ordered By: Mayela Monroy Activity on Discharge: As tolerated Stand Alone Forms: Patient Portal Discharge page Care Plan Goals: see below Health Concerns: leg weakness- 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 Continue prednisone 20 mg twice daily until follow-up with Neurology. Will need outpatient nerve conduction studies Urinary retention- failed voiding trial. Continue tamsulosin, finasteride. May need outpatient follow-up with Urology UTI-completed course of treatment Assessment: see discharge summary Discharge Date/Time: 08/01/22 16:35
[2022-08-01 15:21] VITALS: BP 130/82; PULSE 76; RESP 18; TEMP 36.6; O2SAT 98
[2022-08-01 16:00] LABS: COVID-19 Test Negative (Negative); IDNOW Serial# 16C4AD1C
== END 2022-08-01 16:35 | disposition skilled nursing facility (03) | DRG 95 ==
LOC: HO.ED 07-27 01:02 → HO.EDOVER 07-27 01:07 → HO.IMC 07-27 01:51
PROVIDERS: Hospitalist; Nurse Practitioner Family; Student in an Organized Health Care Education/Training Program; Admitting Provider Internal Medicine; Emergency Provider Emergency Medicine; PCP Internal Medicine; Visit Provider Physician Assistant Medical
DX: G61.0 Guillain-Barre syndrome (principal); G61.81 Chronic inflammatory demyelinating polyneuritis; T83.511A Infection and inflammatory reaction due to indwelling urethral catheter, initial encounter; N39.0 Urinary tract infection, site not specified; F41.9 Anxiety disorder, unspecified; M48.061 Spinal stenosis, lumbar region without neurogenic claudication; Z20.822 Contact with and (suspected) exposure to COVID-19; E66.9 Obesity, unspecified; Z68.35 Body mass index [BMI] 35.0-35.9, adult; E55.9 Vitamin D deficiency, unspecified; R33.9 Retention of urine, unspecified; Z88.8 Allergy status to other drugs, medicaments and biological substances; Z79.899 Other long term (current) drug therapy
CPT/HCPCS: 0241U; 36415; 70496; 70498; 72128; 72131; 74176; 80048; 80076; 80307; 81001; 81003; 82077; 82607; 82746; 82945; 82947; 83605; 83690; 83735; 84153; 84157; 84484; 85025; 85027; 85610; 85730; 87015; 87040; 87070; 87086; 87205; 87635; 89051; 93005; 94010; 97110; 97163; 97167; 97530; 99285; C1758; J1200; J1569; J1956; J2920; J2930; J3360; Q9967

== ENCOUNTER 2022-08-02 09:58 | Emergency (ER) | payer MEDICARE, SELFPAY ==
--- NOTE | ~2022-08-02 | CT_ITS ---
EXAMINATION: CT ABDOMEN AND PELVIS WITHOUT CONTRAST CLINICAL INFORMATION: Abdominal pain. Constipation. COMPARISON: Previous CT of the abdomen and pelvis most recent June 2022 TECHNIQUE: Multidetector volumetric imaging was performed from the superior aspect of the liver through the pubic symphysis. Sagittal and coronal reformatted images were obtained on the technologist's workstation. This CT examination was performed using dose optimization techniques as appropriate, variously including the following: *Automated exposure control *Adjustment of mA and/or kV according to patient size (this includes techniques or standardized protocols for targeted exams where dose is matched to indication/reason for exam; i.e. extremities or head) *Use of iterative reconstruction technique DLP: 858 mGy-cm FINDINGS: LUNG BASES: The visualized lung bases are unremarkable. LIVER, GALLBLADDER, AND BILIARY TREE: The liver is normal in size, shape, and attenuation. No focal hepatic lesion or biliary ductal dilatation is present. The gallbladder is unremarkable with no evidence of radiopaque gallstones, gallbladder wall thickening, or obvious pericholecystic inflammatory changes. PANCREAS: Unremarkable. SPLEEN: The spleen is slightly enlarged measuring 14 cm in length. ADRENAL GLANDS: Unremarkable. KIDNEYS AND URETERS: The kidneys are normal in size, shape, and attenuation. No hydronephrosis, hydroureter, or calculi seen. Small low-attenuation lesion exophytic to the upper pole of the left kidney probably representing a cyst that is stable. BLADDER: There is a Banegas catheter in the bladder. The bladder is collapsed. There may be mild diffuse bladder wall thickening and some stranding of the perivesicular fat. This is similar to June 2022 exam. GASTROINTESTINAL TRACT: There is diverticulosis of the colon. No evidence of diverticulitis is seen. There is stool throughout the colon suggestive of constipation. There is no evidence of obstruction. The appendix is normal. The stomach is not optimally distended. ABDOMINAL WALL: No significant hernia is appreciated. LYMPH NODES: Normal. VASCULAR: Unremarkable. PELVIC VISCERA: The prostate gland does not appear enlarged. There is mild fat stranding or small amount of fluid in the presacral space. This is increased from previous exam. OSSEOUS STRUCTURES: Degenerative changes of the spine and hip joints. CT/CT abdomen pelvis wo IV con IMPRESSION: Diverticulosis. No evidence of diverticulitis. Constipation. Banegas catheter in the bladder. Small amount of air in the bladder presumably related to Banegas catheter placement. Question mild diffuse bladder wall thickening and stranding of the perivesicular fat similar to previous exam. New small amount of fluid in the posterior pelvis/presacral space. Fleischner guidelines were followed.
--- NOTE | 2022-08-02 10:28 | ED.ANXIETY ---
HPI - Anxiety General Chief Complaint: Abdominal Pain Stated Complaint: ANXIETY Time Seen by Provider: 08/02/22 10:26 Source: patient and old records reviewed Mode of arrival: EMS Limitations: no limitations History of Present Illness HPI narrative: 67 yo male with severe anxiety, UTI, HTN, obesity, recent admission 07/27 to 08/01 for GBS - LE weakness treated with 5 days of IVIG as well as he is on chronic prednisone. Sent to [facility] facility yesterday. He comes in with c/o constipation for 3 days, lower abdominal pain. He also states the staff isn't treating him well or giving him his anxiety medications - he needs his lorazepam. He states he is distraught and no one is helping him. He refuses to go back to [facility]. complaint: anxiety Onset (ago): year(s) Symptoms: other (constipation, recent GBS, has chronic ibrahim in place) Severity: moderate Quality: intermittent Place: other (SNF) History of similar episodes: Yes Provoking factors: emotional stress and other (recent illness) Relieving factors: nothing Exacerbating factors: thinking about event Associated symptoms: other (lower abdominal pain) Related Data Home Medications Medication Instructions Recorded Confirmed irbesartan 150 mg tablet 150 mg PO DAILY 05/27/22 07/27/22 cholecalciferol (vitamin D3) 50 50 mcg PO DAILY@1700 07/27/22 07/27/22 mcg (2,000 unit) capsule cyanocobalamin (vitamin B-12) 1,000 mcg PO DAILY@1700 07/27/22 07/27/22 1,000 mcg tablet (Vitamin B-12) lorazepam 1 mg tablet 1 mg PO BEDTIME PRN anxiety 07/27/22 07/27/22 Previous Rx's Medication Instructions Recorded paroxetine HCl 10 mg tablet 10 mg PO DAILY 90 days #90 tabs 08/22/21 sodium chloride 0.65 % nasal spray 2 spray intranasal BID PRN 04/11/22 aerosol (Saline Mist) congestion #45 mL LIGHTWEIGHT WHEELCHAIR #1 ea 07/22/22 finasteride 5 mg tablet (Proscar) 5 mg PO DAILY 30 days #30 tabs 08/01/22 prednisone 20 mg tablet 20 mg PO BIDWM 14 days #28 tabs 08/01/22 tamsulosin 0.4 mg capsule 0.8 mg PO BEDTIME 90 days #90 caps 08/01/22 Allergies Allergy/AdvReac Type Severity Reaction Status Date / Time atenolol [ATENOLOL] Allergy Unknown SEVERE Verified 07/22/22 12:45 BRADYCARDIA atenolol Allergy Unknown bradycardia Uncoded 07/22/22 12:45 zestril Allergy Unknown facial Uncoded 07/22/22 12:45 swelling Review of Systems Review of Systems: Constitutional : No Weight loss, No Fever, No Chills ENT/Mouth : No sore throat, No Rhinorrhea Eyes: No Swelling, No Redness Cardiovascular : No Chest Pain, No SOB, NoEdema Respiratory : No Cough, No Sputum, No Wheezing Gastrointestinal : no Nausea, no Vomiting, no Diarrhea, positive abdominal Pain, No Hematochezia, No Melena, pos constipation Genitourinary : No Dysuria, No Urinary Frequency, No Hematuria, No Urgency Musculoskeletal : No joint pain, No Myalgias, No Joint Swelling Skin : No Skin Lesions, No rash Neuro : pos Weakness, No Numbness, No Dizziness, No Headache Psych : pos Anxiety/Panic, No Depression Heme/Lymph: No Bruising, No Lymphadenopathy Endocrine : No Polyuria, No Polydipsia All other systems reviewed and are negative. [facility] Past Medical History Attestation statement: The following information was validated with the patient. Medical History Anxiety Benign essential hypertension Catheter-associated urinary tract infection GBS (Guillain Welcome syndrome) Hypertension, essential Neuropathy Obesity (BMI 30-39.9) Vitamin D deficiency Surgical History History of tonsillectomy and adenoidectomy Family History Family History Father No problems noted. Mother No problems noted. Social History Social History Household Members: Children Housing: Apartment Do you presently have visiting nurse or other home services: No Alcohol intake: current Alcohol intake frequency: does not drink Alcohol type: beer Patient Tobacco Use Status: Never used Tobacco e-Cigarette/Vaping Use: Never Used Second Hand Smoke Exposure: No Use of substances other than those prescribed or required for medical reasons: No Advance Directives: Yes Advance Directives on File: Yes Advance Directives Date on File: 05/27/22 service: No Current occupational status: retired Cognitive needs: No Hearing needs: No Vision needs: Yes Physical Exam Vital Signs: Vital Signs: Last Vital Signs Temp 97.9 F 08/02/22 10:31 Pulse 72 08/02/22 10:31 Resp 20 08/02/22 10:31 BP 140/81 H 08/02/22 10:31 Pulse Ox 97 08/02/22 10:31 O2 Del Method 08/02/22 10:31 BMI result Body Mass Index 38.0 Appearance: Alert. Oriented X3. No acute distress. very anxious, upset with [place] Eyes: Pupils equal, round and reactive to light. ENT: Pharynx normal. Neck: Normal inspection. Neck supple. CVS: Normal heart rate and rhythm. Pulses normal. Respiratory: No respiratory distress. Breath sounds normal. Abdomen: Soft and obese, mild lower abdominal ttp no rebound Skin: Skin warm and dry. Normal skin color. Normal skin turgor. Extremities: No lower extremity edema. No calf ttp Neuro: Oriented X 3. weak in lower extremities but he can raise legs and wiggle toes which is improved from when I saw him last. No sensory deficit. Course Course Course Narrative: urine was taken out of ibrahim bag - contaminated no WBC count no fevers CT scan similar - no fevers, no WBC count was on ceftin for UTI but culture negative urine shows mild leuks, no nitrates, CT scan unchanged, no WBC count, no fevers, trace bacteria will wait for culture - taken off of ibrahim Patient placed in physician observation at 1220pm. The indication for observation is that the patient needs more time to for CM to place him at different facility per his request. At this time the patient is well developed well nourished, lungs clear, CV RRR, abd nontender, neuro is improved from prior visit. MDM - Anxiety MDM Narrative Medical decision making narrative: 67 yo male with severe anxiety, UTI, HTN, obesity, recent admission 07/27 to 08/01 for GBS - LE weakness treated with 5 days of IVIG as well as he is on chronic prednisone at this time his main complaint is severe anxiety - PO ativan ordered. He wants a different acute rehab will involve CM. He also c/o lower abdominal pain could be UTI could be constipation - labs, UA and CT scan ordered. Dispo per results and findings. Lab Data Result diagrams: 08/02/22 10:36 08/02/22 10:36 Labs: Lab Results 08/02/22 08/02/22 08/02/22 Range/Units 10:36 10:36 10:36 WBC 7.2 (4.8-10.8) X10*3/uL RBC 4.33 L (4.60-5.80) X10*6/uL Hgb 14.1 (14.0-18.0) g/dl Hct 41.4 L (42.0-52.0) % MCV 95.6 (80.0-98.0) fL MCH 32.6 (27.0-33.0) pg MCHC 34.1 (31.0-36.0) g/dl RDW 13.4 (11.0-16.0) % Plt Count 188 (160-400) X10*3/uL MPV 9.7 (9.4-12.4) fL Immature Gran % (Auto) 1.3 H (0.0-0.4) % Neut % (Auto) 67.6 (45-73) % Lymph % (Auto) 20.9 (20-40) % [place] % (Auto) 9.2 (2-11) % Eos % (Auto) 0.7 (0-4) % Baso % (Auto) 0.3 (0-2) % Lymph # (Auto) 1.5 (1.2-4.9) X10*3/uL [place] # (Auto) 0.7 (0.1-1.2) X10*3/uL Eos # (Auto) 0.1 (0.0-0.4) X10*3/uL Baso # (Auto) 0.0 (0.0-0.2) X10*3/uL Abs Immat Gran (auto) 0.09 H (0.00-0.03) X10*3/uL Absolute Neuts (auto) 4.9 (2.0-8.3) x10*3/uL Absolute Nucleated RBC 0.000 (0.0-0.012) X10*3/uL Nucleated RBC % (auto) 0.0 (0.0-0.2) /100WBC Smear Tech's Comments VERIFIED Sodium 138 (135-145) mmol/L Potassium 3.8 (3.3-5.1) mmol/L Chloride 105 (96-108) mmol/L Carbon Dioxide 23 (22-29) mmol/L Anion Gap 14 (12-20) BUN 14 (9-16) mg/dL Creatinine 0.65 (0.5-1.4) mg/dL Estim Creat Clear Calc 135.2 Estimated GFR > 60 Random Glucose 97 (60-115) mg/dL Calcium 8.5 (8.4-10.2) mg/dL Magnesium 1.8 (1.6-2.6) mg/dL Total Bilirubin 0.4 (0.0-1.0) mg/dL Direct Bilirubin 0.2 (0.0-0.5) mg/dL AST 52 H (5-37) U/L ALT 73 H (0-40) U/L Alkaline Phosphatase 43 D (39-117) U/L Total Protein 7.8 (6.5-8.0) g/dL Albumin 3.1 L (3.5-5.0) g/dL Lipase 20 (8-78) U/L Urine Color Urine Appearance Urine pH (5.0-9.0) Ur Specific Coello (1.005-1.025) Urine Protein (Neg-Trace) mg/dL Urine Glucose (UA) (Negative) mg/dL Urine Ketones (Negative) mg/dL Urine Blood (Negative) Urine Nitrite (Negative) Ur Leukocyte Esterase (Negative) Urine RBC (0-2) /HPF Urine WBC (0-5) /HPF Ur Squamous Epith Cells (0-2) /HPF Urine Bacteria (None Seen) Hyaline Casts (0-2) /LPF COVID-19 (LUCY) Negative (Negative) COVID-19 Clin Com See Note 08/02/22 08/02/22 Range/Units 10:44 11:51 WBC (4.8-10.8) X10*3/uL RBC (4.60-5.80) X10*6/uL Hgb (14.0-18.0) g/dl Hct (42.0-52.0) % MCV (80.0-98.0) fL MCH (27.0-33.0) pg MCHC (31.0-36.0) g/dl RDW (11.0-16.0) % Plt Count (160-400) X10*3/uL MPV (9.4-12.4) fL Immature Gran % (Auto) (0.0-0.4) % Neut % (Auto) (45-73) % Lymph % (Auto) (20-40) % [place] % (Auto) (2-11) % Eos % (Auto) (0-4) % Baso % (Auto) (0-2) % Lymph # (Auto) (1.2-4.9) X10*3/uL [place] # (Auto) (0.1-1.2) X10*3/uL Eos # (Auto) (0.0-0.4) X10*3/uL Baso # (Auto) (0.0-0.2) X10*3/uL Abs Immat Gran (auto) (0.00-0.03) X10*3/uL Absolute Neuts (auto) (2.0-8.3) x10*3/uL Absolute Nucleated RBC (0.0-0.012) X10*3/uL Nucleated RBC % (auto) (0.0-0.2) /100WBC Smear Tech's Comments Sodium (135-145) mmol/L Potassium (3.3-5.1) mmol/L Chloride (96-108) mmol/L Carbon Dioxide (22-29) mmol/L Anion Gap (12-20) BUN (9-16) mg/dL Creatinine (0.5-1.4) mg/dL Estim Creat Clear Calc Estimated GFR Random Glucose (60-115) mg/dL Calcium (8.4-10.2) mg/dL Magnesium (1.6-2.6) mg/dL Total Bilirubin (0.0-1.0) mg/dL Direct Bilirubin (0.0-0.5) mg/dL AST (5-37) U/L ALT (0-40) U/L Alkaline Phosphatase (39-117) U/L Total Protein (6.5-8.0) g/dL Albumin (3.5-5.0) g/dL Lipase (8-78) U/L Urine Color Yellow Yellow Urine Appearance Cloudy Clear Urine pH 7.0 7.5 (5.0-9.0) Ur Specific Coello 1.015 <= 1.005 (1.005-1.025) Urine Protein Negative Negative (Neg-Trace) mg/dL Urine Glucose (UA) Negative Negative (Negative) mg/dL Urine Ketones Negative Negative (Negative) mg/dL Urine Blood Large (3+) H Large (3+) H (Negative) Urine Nitrite Negative Negative (Negative) Ur Leukocyte Esterase Large (3+) H Large (3+) H (Negative) Urine RBC >20 H >20 H (0-2) /HPF Urine WBC >50 H 21-50 H (0-5) /HPF Ur Squamous Epith Cells 0-2 0-2 (0-2) /HPF Urine Bacteria 4+ 1+ (None Seen) Hyaline Casts 0-2 0-2 (0-2) /LPF COVID-19 (LUCY) (Negative) COVID-19 Clin Com Discharge Plan Discharge Clinical Impression: Anxiety, Constipation Patient Disposition: Still a Patient Prescriptions: No Action paroxetine HCl 10 mg tablet 10 mg PO DAILY 90 Days Qty: 90 3RF irbesartan 150 mg Tablet 150 mg PO DAILY cyanocobalamin (vitamin B-12) [Vitamin B-12] 1,000 mcg Tablet 1,000 mcg PO DAILY@1700 lorazepam 1 mg tablet 1 mg PO BEDTIME PRN (Reason: anxiety) Rx Instructions: [facility] verified. Partial refill upon request. cholecalciferol (vitamin D3) 50 mcg (2,000 unit) capsule 50 mcg PO DAILY@1700 prednisone 20 mg Tablet 20 mg PO BIDWM 14 Days Qty: 28 0RF finasteride [Proscar] 5 mg Tablet 5 mg PO DAILY 30 Days Qty: 30 0RF tamsulosin 0.4 mg capsule 0.8 mg PO BEDTIME 90 Days Qty: 90 1RF (DME) LIGHTWEIGHT WHEELCHAIR See Rx Instructions .Route .MEDSUPPLY Qty: 1 0RF Rx Instructions: As directed Saline Mist 0.65 % aerosol,spray 2 spray intranasal BID PRN (Reason: congestion) Qty: 45 0RF
[2022-08-02 10:31] VITALS: BP 140/81; BP 185/77; PULSE 66; PULSE 72; RESP 20; TEMP 36.6; O2SAT 97; O2SAT 98; BMI 38.0
[2022-08-02] MEDS: LORazepam 1 MG TABLET PO (10:45)
[2022-08-02 10:49] LABS: Basophils Percent Auto 0.3 % (0-2); Eosinophils Absolute Auto 0.1 X10*3/uL (0.0-0.4); Eosinophils Percent Auto 0.7 % (0-4); Hematocrit 41.4 % (42.0-52.0); Hemoglobin 14.1 g/dl (14.0-18.0); Imm Gran Abs Auto 0.09 X10*3/uL (0.00-0.03); Imm Gran Pct Auto 1.3 % (0.0-0.4); Lymphocytes Absolute Auto 1.5 X10*3/uL (1.2-4.9); Lymphocytes Percent Auto 20.9 % (20-40); MANUAL DIFF FLAG SCAN; Mean Corpuscular HGB Conc 34.1 g/dl (31.0-36.0); Mean Corpuscular Hemoglobin 32.6 pg (27.0-33.0); Mean Corpuscular Volume 95.6 fL (80.0-98.0); Mean Platelet Volume 9.7 fL (9.4-12.4); Monocytes Absolute Auto 0.7 X10*3/uL (0.1-1.2); Monocytes Percent Auto 9.2 % (2-11); Neutrophils Absolute Auto 4.9 x10*3/uL (2.0-8.3); Neutrophils Percent Auto 67.6 % (45-73); Platelet Count 188 X10*3/uL (160-400); Red Blood Count 4.33 X10*6/uL (4.60-5.80); Red Cell Distribution Width 13.4 % (11.0-16.0); SCAN SMEAR FLAG 1; White Blood Count 7.2 X10*3/uL (4.8-10.8)
[2022-08-02 10:51] LABS: Appearance Urine Cloudy; Color Urine Yellow; Glucose Urine UA Negative (Negative); Leukocyte Esterase Urine Large (3+) (Negative); Nitrite Urine Negative (Negative); Specific Gravity - Urine 1.015 (1.005-1.025); Urine Blood Large (3+) (Negative); Urine Ketones Negative (Negative); Urine Protein Negative (Neg-Trace)
[2022-08-02 10:57] LABS: Bacteria Urine 4+ (None Seen); Hyaline Casts Urine 0-2 /LPF (0-2); RBC Urine >20 /HPF (0-2); Squamous Epithelial Cell Urine 0-2 /HPF (0-2); UACC Culture Trigger YES; WBC Urine >50 /HPF (0-5)
[2022-08-02 11:03] LABS: Alanine Aminotransferase 73 U/L (0-40); Albumin Level 3.1 g/dL (3.5-5.0); Alkaline Phosphatase 43 U/L (39-117); Anion Gap 14 (12-20); Aspartate Amino Transferase 52 U/L (5-37); Bilirubin Direct 0.2 mg/dL (0.0-0.5); Bilirubin Total 0.4 mg/dL (0.0-1.0); Blood Urea Nitrogen 14 mg/dL (9-16); Calcium 8.5 mg/dL (8.4-10.2); Carbon Dioxide 23 mmol/L (22-29); Chloride 105 mmol/L (96-108); Creatinine Clr Calc Pharmacy 135.2; Estimated Glomerular Filt Rate > 60; Glucose Random 97 mg/dL (60-115); Lipase 20 U/L (8-78); Magnesium 1.8 mg/dL (1.6-2.6); Potassium 3.8 mmol/L (3.3-5.1); Sodium 138 mmol/L (135-145); Total Protein 7.8 g/dL (6.5-8.0)
[2022-08-02 11:06] LABS: COVID-19 Test Negative (Negative)
[2022-08-02 11:12] LABS: SLIDE REVIEW VERIFIED
[2022-08-02 12:04] LABS: Appearance Urine Clear; Color Urine Yellow; Glucose Urine UA Negative (Negative); Leukocyte Esterase Urine Large (3+) (Negative); Nitrite Urine Negative (Negative); PH 7.5 (5.0-9.0); Specific Gravity - Urine <= 1.005 (1.005-1.025); Urine Blood Large (3+) (Negative); Urine Ketones Negative (Negative); Urine Protein Negative (Neg-Trace)
[2022-08-02 12:06] LABS: Bacteria Urine 1+ (None Seen); Hyaline Casts Urine 0-2 /LPF (0-2); RBC Urine >20 /HPF (0-2); Squamous Epithelial Cell Urine 0-2 /HPF (0-2); UACC Culture Trigger YES; WBC Urine 21-50 /HPF (0-5)
--- NOTE | 2022-08-02 13:21 | PHA.MEDREC ---
Pharmacy Consult ? Medication Reconciliation Pharmacy has completed the medication reconciliation.
--- NOTE | 2022-08-02 13:31 | MHC.CM.ED ---
PATIENT REFUSES TO RETURN TO [facility]. HE IS AGREEABLE TO [facility] IN [place]. [facility] IS REVIEWING FOR A BED OFFER ON Thursday08/03/22. CASE MANAGEMENT FOLLOWING.
--- NOTE | 2022-08-02 14:57 | MHC.CM.PN ---
[facility] REQUESTING UPDATED P.T. EVAL. MADE MADE AWARE.
[2022-08-02] MEDS: Sennosides 8.6 MG TABLET PO (15:47)
[2022-08-02 15:51] VITALS: BP 148/89; PULSE 62; RESP 18; TEMP 36.8; O2SAT 98
[2022-08-02] MEDS: predniSONE 20 MG TABLET PO (18:57)
[2022-08-02] MEDS: Cyanocobalamin (Vitamin B-12) 1,000 MCG TABLET 1000 MCG PO (18:57)
[2022-08-02] MEDS: Cholecalciferol (Vitamin D3) 25 MCG TABLET 50 MCG PO (18:57)
[2022-08-02 20:00] VITALS: BP 149/68; PULSE 77; RESP 16; TEMP 36.7; O2SAT 96
[2022-08-02] MEDS: Tamsulosin HCL 0.4 MG CAPSULE 0.8 MG PO (21:11)
[2022-08-02] MEDS: Docusate Sodium 100 MG CAPSULE PO (21:11)
[2022-08-02 21:12] VITALS: BP 132/76; PULSE 81; RESP 17; O2SAT 96
[2022-08-03] MEDS: Sodium Phosphate,Mono-Dibasic 133 ML ENEMA PR (00:43)
[2022-08-03] MEDS: Acetaminophen 325 MG TABLET 650 MG PO ×2 (00:48→14:56)
[2022-08-03 02:15] VITALS: BP 160/92; PULSE 87; RESP 16; TEMP 36.7; O2SAT 97
[2022-08-03 06:00] VITALS: BP 144/90; PULSE 78; RESP 16; TEMP 36.5; O2SAT 97
--- NOTE | 2022-08-03 06:06 | PC.NURSE ---
PATIENT FAUST CATHETER OUT PUT WAS 1000 ML .
[2022-08-03] MEDS: Finasteride 5 MG TABLET PO (08:42)
[2022-08-03] MEDS: predniSONE 20 MG TABLET PO (08:42)
[2022-08-03 09:09] VITALS: BP 149/90
[2022-08-03] MEDS: Valsartan 80 MG TABLET PO (09:11)
[2022-08-03] MEDS: PARoxetine HCL 10 MG TABLET PO (09:11)
[2022-08-03 11:22] VITALS: BP 161/96; PULSE 67; RESP 16; O2SAT 95
--- NOTE | 2022-08-03 13:30 | MHC.CM.ED ---
Addendum entered by Shaniqua Sofia 08/03/22 13:32: PATIENT AWARE AND AGREEABLE TO PLAN. Original Note: PATIENT TO TRANSFER TO [facility] IN [place] VIA [facility] SERVICE REQUEST WAS FOR 1330 FROM [facility]; HOWEVER, [facility] IS UNABLE to ARRIVE UNTIL AN ETA OF 1630. CASE MANAGEMENT FOLLOWING ANY CHANGES IN [facility] time.
--- NOTE | 2022-08-03 15:02 | PC.NURSE ---
given prn tylenol for leg pain, pt tolerating po. able to reposition self on own in stretcher.
== END 2022-08-03 17:44 ==
PROVIDERS: Emergency Provider Emergency Medicine; PCP Internal Medicine
DX: F41.9 Anxiety disorder, unspecified (principal); K59.00 Constipation, unspecified; T83.511A Infection and inflammatory reaction due to indwelling urethral catheter, initial encounter; N39.0 Urinary tract infection, site not specified; Z20.822 Contact with and (suspected) exposure to COVID-19; I10 Essential (primary) hypertension; E66.9 Obesity, unspecified; Z68.38 Body mass index [BMI] 38.0-38.9, adult
CPT/HCPCS: 74176; 80048; 80076; 81001; 81003; 83690; 83735; 85025; 87086; 87088; 87186; 87635; 99284; 99285

== ENCOUNTER → 2022-08-26 10:36 | Outpatient (BNVA) | payer MEDICARE, SELFPAY | PROVIDERS: PCP Internal Medicine; Visit Provider Urology | DX: R33.9 Retention of urine, unspecified (principal) | CPT/HCPCS: 51700; 51798 ==

== ENCOUNTER 2023-02-18 10:58 | Outpatient (REF) | payer MEDICARE, SELFPAY ==
[2023-02-18 11:09] LABS: MANUAL DIFF FLAG NO
[2023-02-18 12:01] LABS: Basophils Percent Auto 0.6 % (0-2); Eosinophils Percent Auto 0.4 % (0-4); Hematocrit 42.3 % (42.0-52.0); Imm Gran Abs Auto 0.07 X10*3/uL (0.00-0.03); Imm Gran Pct Auto 1.3 % (0.0-0.4); Lymphocytes Absolute Auto 0.9 X10*3/uL (1.2-4.9); Lymphocytes Percent Auto 17.3 % (20-40); Mean Corpuscular HGB Conc 33.1 g/dl (31.0-36.0); Mean Corpuscular Hemoglobin 35.4 pg (27.0-33.0); Mean Corpuscular Volume 107.1 fL (80.0-98.0); Mean Platelet Volume 10.2 fL (9.4-12.4); Monocytes Absolute Auto 0.7 X10*3/uL (0.1-1.2); Monocytes Percent Auto 12.5 % (2-11); Neutrophils Absolute Auto 3.5 x10*3/uL (2.0-8.3); Neutrophils Percent Auto 67.9 % (45-73); Platelet Count 124 X10*3/uL (160-400); Red Blood Count 3.95 X10*6/uL (4.60-5.80); Red Cell Distribution Width 14.3 % (11.0-16.0); White Blood Count 5.2 X10*3/uL (4.8-10.8)
[2023-02-18 12:50] LABS: Estimated Average Glucose 91 mg/dL; Hemoglobin A1c % 4.8 %
[2023-02-18 14:42] LABS: Alanine Aminotransferase 81 U/L (0-40); Albumin Level 3.5 g/dL (3.5-5.0); Alkaline Phosphatase 82 U/L (39-117); Anion Gap 17 (12-20); Aspartate Amino Transferase 82 U/L (5-37); Bilirubin Total 0.9 mg/dL (0.0-1.0); Blood Urea Nitrogen 21 mg/dL (9-16); Calcium 8.6 mg/dL (8.4-10.2); Carbon Dioxide 22 mmol/L (22-29); Chloride 107 mmol/L (96-108); Cholesterol 264 mg/dL; Estimated Glomerular Filt Rate > 60; Glucose Fasting 73 mg/dL (60-99); HDL Cholesterol 166 mg/dL; Potassium 4.1 mmol/L (3.3-5.1); Sodium 142 mmol/L (135-145); Total Protein 5.7 g/dL (6.5-8.0); Triglycerides 548 mg/dL
[2023-02-18 15:21] LABS: Folate 10.2 ng/mL (> or = 4.0); TSH reflex Free T4 1.18 uIU/mL (0.32-4.0); Vitamin D 25-OH Total 26.5 ng/mL (>30)
[2023-02-19 06:43] LABS: Vitamin B12 360 pg/mL (200-900)
== END 2023-02-18 10:59 | disposition home or self-care (01) ==
LOC: HO.LAB 10:58
PROVIDERS: PCP Internal Medicine; Visit Provider Internal Medicine
DX: E53.8 Deficiency of other specified B group vitamins (principal); I10 Essential (primary) hypertension; E55.9 Vitamin D deficiency, unspecified; R73.9 Hyperglycemia, unspecified; E78.00 Pure hypercholesterolemia, unspecified
CPT/HCPCS: 36415; 80053; 80061; 82306; 82607; 82746; 83036; 84443; 85025

== ENCOUNTER 2023-06-24 09:39 | Outpatient (REF) | payer MEDICARE, SELFPAY ==
[2023-06-24 10:36] LABS: Basophils Absolute Auto 0.1 X10*3/uL (0.0-0.2); Basophils Percent Auto 0.7 % (0-2); Eosinophils Percent Auto 0.3 % (0-4); Hematocrit 43.2 % (42.0-52.0); Hemoglobin 14.5 g/dl (14.0-18.0); Imm Gran Pct Auto 1.2 % (0.0-0.4); Lymphocytes Absolute Auto 1.2 X10*3/uL (1.2-4.9); Lymphocytes Percent Auto 13.7 % (20-40); MANUAL DIFF FLAG SCAN; Mean Corpuscular HGB Conc 33.6 g/dl (31.0-36.0); Mean Corpuscular Hemoglobin 36.3 pg (27.0-33.0); Monocytes Absolute Auto 0.7 X10*3/uL (0.1-1.2); Monocytes Percent Auto 7.5 % (2-11); Neutrophils Absolute Auto 6.7 x10*3/uL (2.0-8.3); Neutrophils Percent Auto 76.6 % (45-73); PLT CLUMP 1; Red Cell Distribution Width 13.6 % (11.0-16.0); SCAN SMEAR FLAG 1
[2023-06-24 10:43] LABS: Platelet Count 120 X10*3/uL (160-400); White Blood Count 8.7 X10*3/uL (4.8-10.8)
[2023-06-24 10:44] LABS: SLIDE REVIEW VERIFIED
[2023-06-24 10:47] LABS: Estimated Average Glucose 80 mg/dL; Hemoglobin A1C 95.9702 umol/L; Hemoglobin A1c % 4.4 %
[2023-06-24 11:26] LABS: Alanine Aminotransferase 103 U/L (0-40); Albumin Level 3.6 g/dL (3.5-5.0); Alkaline Phosphatase 72 U/L (39-117); Anion Gap 16 (12-20); Aspartate Amino Transferase 173 U/L (5-37); Bilirubin Total 1.2 mg/dL (0.0-1.0); Blood Urea Nitrogen 14 mg/dL (9-16); Calcium 9.2 mg/dL (8.4-10.2); Carbon Dioxide 24 mmol/L (22-29); Chloride 104 mmol/L (96-108); Cholesterol 209 mg/dL; Estimated Glomerular Filt Rate > 60; Glucose Fasting 76 mg/dL (60-99); HDL Cholesterol 133 mg/dL; LDL Cholesterol Calculated 59 mg/dl; Potassium 4.2 mmol/L (3.3-5.1); Sodium 140 mmol/L (135-145); Total Protein 6.4 g/dL (6.5-8.0); Triglycerides 87 mg/dL
[2023-06-24 11:29] LABS: TSH reflex Free T4 1.25 uIU/mL (0.32-4.0); Vitamin D 25-OH Total 28.4 ng/mL (>30)
== END 2023-06-24 09:40 | disposition home or self-care (01) ==
LOC: HO.LAB 09:39
PROVIDERS: PCP Internal Medicine; Visit Provider Internal Medicine
DX: E55.9 Vitamin D deficiency, unspecified (principal); E78.00 Pure hypercholesterolemia, unspecified; E11.9 Type 2 diabetes mellitus without complications; I10 Essential (primary) hypertension
CPT/HCPCS: 36415; 80053; 80061; 82306; 83036; 84443; 85025

== ENCOUNTER 2023-06-30 12:03 | Outpatient (AMB) | payer MEDICARE, SELFPAY ==
[2023-06-30 12:32] VITALS: BP 124/80; PULSE 96; O2SAT 98
--- NOTE | 2023-06-30 12:32 | MHC.PC.OV ---
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 Accompanied by: Self / Same As Patient Allergies atenolol [ATENOLOL] Allergy (Unknown, Verified 06/30/23 12:43) SEVERE BRADYCARDIA atenolol Allergy (Unknown, Uncoded 06/30/23 12:43) bradycardia zestril Allergy (Unknown, Uncoded 06/30/23 12:43) facial swelling Medication List - Last Reconciled 06/30/23 by Brandon Buck MD acetaminophen (Tylenol) 650 mg PO Q6H PRN cholecalciferol (vitamin D3) (Vitamin D3) 50 mcg PO DAILY cyanocobalamin (vitamin B-12) (Vitamin B-12) 1,000 mcg PO DAILY@1700 fenofibrate nanocrystallized 48 mg PO DAILY 30 days finasteride (Proscar) 5 mg PO DAILY 90 days irbesartan 75 mg (1/2 x 150 mg) PO DAILY 90 days [LIGHTWEIGHT WHEELCHAIR As directed] lorazepam Take 1 to 1.5 tablets orally at bedtime PRN for increased anxiety paroxetine HCl 10 mg PO DAILY 90 days prednisone 20 mg PO BID 30 days sodium chloride 0.65% (Saline Mist) 2 sprays intranasal BID PRN sodium phosphates 19-7 gram/118 mL (Fleet Enema) 118 mL AL DAILY PRN tamsulosin Take 1 capsule by mouth at bedtime Tobacco use date assessed: 06/30/23 Fall risk assessment: No Falls in past year Last assessed Fall Risk: 06/30/23 Dental Screening Dental Screen Date: 06/30/23 Did you have a dental visit in the last 12 months?: No Did you have a dental problem in the last 6 months where you did not have access to dental care?: No Was dental information given to patient?: No HPI GBS, hyperlipidemia, elevated LFTs HPI Details Patient comes in today for his follow up visit States that he feels okay He denies any headaches or dizziness Denies any chest pains, no SOB No nausea/vomiting, no abdominal pain No change in bowel habits noted States that he continues to have weakness of both legs Is able to get up and walk and move around with a walker but is not able to walk unassisted Received PT/OT last year and states that they were completed sometime last fall and that he has been doing the exercises that he was previously taught on his own regularly since then but still has not recovered/improved enough that he can get up on his own and walk around without the use of assistive devices Is still on Prednisone but states that he has cut back on his dose recently - was on 20 mg QD and started cutting his tablet in half (10 mg QD) about a week ago Needs a couple of his Rx refilled Had his follow up labs done last week - to discuss his results [facility] Medical History Anxiety 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 Mother No problems noted. Social History Household Members: Children Housing: Apartment Do you presently have visiting nurse or other home services: No Alcohol intake: current Alcohol intake frequency: does not drink Alcohol type: beer Patient Tobacco Use Status: Never used Tobacco e-Cigarette/Vaping Use: Never Used Second Hand Smoke Exposure: No Advance Directives Date on File: 05/27/22 service: No Current occupational status: retired Cognitive needs: No Hearing needs: No Vision needs: Yes Questionnaire PHQ-9 Over the last 2 weeks, how often have you been bothered by any of the following problems? 1. Little interest or pleasure in doing things: not at all 2. Feeling down, depressed, or hopeless: not at all 3. Trouble falling or staying asleep, or sleeping too much: not at all 4. Feeling tired or having little energy: not at all 5. Poor appetite or overeating: not at all 6. Feeling bad about yourself - or that you are a failure or have let yourself or your family down: not at all 7. Trouble concentrating on things, such as reading the newspaper or watching television: not at all 8. Moving or speaking so slowly that other people could have noticed. Or the opposite - being so fidgety or restless that you have been moving around a lot more than usual: not at all 9. Thoughts that you would be better off or of hurting yourself in some way: not at all Total score: 0 Depression Screening Interpretation: Negative 08341 - PHQ-9 Billing: Yes Source: Developed by Drs. Umang Rod, Isabella Julien, Marshall Gonzalez and colleagues, with an educational patricia from [employer]. Thrive Questionnaire Date Thrive assessed: 06/30/23 I am a: Patient What is your living situation today?: I have a steady place to live Within the past 12 months, did the food you bought not last and you didn't have the money to get more?: Never true Within the past 12 months, did you worry whether your food would run out before you got money to buy more?: Never true Do you have trouble paying for medicines?: No Do you have trouble getting transportation to medical appointments?: No Do you have trouble paying your heating and electricity bill?: No Do you have trouble taking care of your child, family member or friend?: No Do you have trouble with day-to-day activities such as bathing, preparing meals, shopping, managing finances, etc.?: No Are you currently unemployed and looking for a job?: No Are you interested in more education?: No Please select the resources that you would like help with: None Currently or been in a relationship where the following occur: no concerns reported AUDIT C Alcohol Use Questionnaire (AUDIT-C) 1. How often do you have a drink containing alcohol?: Monthly or less 2. How many drinks containing alcohol do you have on a typical day when you are drinking?: 1 or 2 3. How often do you have six or more drinks on one occasion?: Never Total Score: 1 Score Reviewed/Action Taken: Yes MARIA D-7 AMB Questionnaire MARIA D-7 Date MARIA D - 7 assessed: 06/30/23 Feeling nervous, anxious, or on edge: 0 = Not at all Not being able to stop or control worryin = Not at all Worrying too much about different things: 0 = Not at all Trouble relaxin = Not at all Being so restless that it is hard to sit still: 0 = Not at all Becoming easily annoyed or irritable: 0 = Not at all Feeling afraid as if something awful might happen: 0 = Not at all Total MARIA D-7 score (0-4 normal; 5-9 mild; 10-14 moderate; 15-21 severe): 0 Source: Developed by Drs. Umang Rod, Isabella Julien, Marshall Gonzalez and colleagues, with an educational patricia from [employer]. Review of Systems Const Reports fatigue, Denies fever(s) and Denies headache(s) ENT Denies dysphagia, Denies headache(s), Reports nasal congestion (recurrent - worse in the morning), Denies sinus pain and Denies sore throat Card Denies chest pain, Denies palpitations and Denies dyspnea Resp Denies cough and Denies dyspnea GI Denies abdominal pain, Denies constipation, Denies dysphagia, Denies heartburn, Denies diarrhea, Denies nausea and Denies vomiting Denies hematuria, Denies difficulty urinating (resolved) and Denies urinary frequency Musc Details: unsteady gait; (+) bilateral leg weakness - ambulates with walker but is not able to move around without the use of assistive devices Skin/Breast Denies lesions and Denies rash Neuro Denies headache(s) Endo Reports fatigue and Denies palpitations Physical exam (Primary Care) Vital Signs: Last Vital Signs Pulse 96 06/30/23 12:32 BP 124/80 06/30/23 12:32 Pulse Ox 98 06/30/23 12:32 Oxygen Delivery Method Room Air 06/30/23 12:32 Tobacco/Smoking Status: Tobacco use Status Tobacco use date assessed 06/30/23 06/30/23 12:39 Patient Tobacco Use Status Never used Tobacco 06/30/23 12:39 e-Cigarette/Vaping Use Never Used 06/30/23 12:39 PHQ-9: PHQ-9 Score PHQ-9: Total score 0 06/30/23 12:39 Depression Screening Interpretation: Negative Thrive Assessment: Date of Thrive Assessment Date Thrive assessed 06/30/23 06/30/23 12:39 Currently or been in a relationship where the following occur: no concerns reported Const General: no acute distress and alert Limitations: wheelchair [facility] Ears: TM's normal bilaterally and EAC's normal Throat: Yes posterior oropharynx normal and Yes tonsils normal (no TP congestion) Neck Neck: Yes no lymphadenopathy and Yes supple Resp Auscultation: clear to auscultation bilaterally, no rales and no wheezes Cardio Rate: regular rate Rhythm: regular rhythm Heart sounds: no murmurs GI Palpation (GI): Soft to palpation and nontender Auscultation: normal bowel sounds Skin General skin exam: no rashes or lesions noted Extrem General: Yes no clubbing, cyanosis or edema and No muscle atrophy Results Reviewed Results Reviewed: Laboratory Tests 06/24/23 06/24/23 06/24/23 10:04 10:04 10:04 WBC 8.7 Hgb 14.5 Hct 43.2 Plt Count 120 L Sodium 140 Potassium 4.2 Creatinine 0.67 Estimated GFR > 60 Fasting Glucose 76 Hemoglobin A1c % 4.4 AST 173 H ALT 103 H Triglycerides 87 Cholesterol 209 LDL Cholesterol, Calc 59 HDL Cholesterol 133 25-OH Vitamin D Total 28.4 TSH 1.25 Assessment and Plan Assessment & Plan (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 and he has been repeatedly advised that oral Prednisone is NOT a emt intermediate solution or the recommended treatment for GBS and should work on coming down and off the Rx Was on 20 mg BID previously but states that he has since cut it back to 20 mg QD and started cutting his tablets in half to 10 mg QD last week Is instructed to continue on 10 mg QD for a few days then down to 5 mg QD for another few days then to STOP the Rx completely Was seeing neurology previously but he has not been back to see them in a while Was referred back to neurology for follow up and continuing management a few months ago but states that he has not yet heard back from them about an appointment scheduled for him - will have office staff follow up on this HEATHER as he needs to be seen by neurology for follow up HEATHER for further recommendations regarding his GBS and recovery (2) Neuropathy: Code(s): G62.9 - Polyneuropathy, unspecified Plan: Is most likely contributing to his unsteady gait; his recent bout with GB syndrome also most likely played a role in this States that he has received some physical therapy at home recently that seemed to have helped with his symptoms somewhat and that he continues to do the exercises that he was previously taught regularly on his own (3) Acute urinary retention: Code(s): R33.8 - Other retention of urine Plan: Resolved; no longer has indwelling catheter and states that he has no acute urinary issues Continue Tamsulosin 0.4 mg Q HS and Finasteride 5 mg QD (Rx refilled) Follow up with urology as scheduled (4) Hypertension, essential: Code(s): I10 - Essential (primary) hypertension Plan: Reinforced low sodium diet - goal is systolic BP of at least 130 mm or less Continue Irbesartan 150 mg at 1/2 tablet (75 mg) QD Patient instructed to continue monitoring his blood pressure regularly (5) Mixed hyperlipidemia: Code(s): E78.2 - Mixed hyperlipidemia Plan: Results of his labs done last week reviewed and discussed with patient - lipids have improved significantly from previous Reinforced low cholesterol diet Continue Fenofibrate 48 mg QD Will recheck his labs again in 3 months for follow up (6) Elevated LFTs: Code(s): R79.89 - Other specified abnormal findings of blood chemistry Plan: Advised that his LFTs have increased significantly from previous and both his ALT and AST are over 100 Patient admits to drinking alcohol (beer) regularly lately - is encouraged to quit Will send him for abdominal US for further evaluation (7) Vitamin D deficiency: Code(s): E55.9 - Vitamin D deficiency, unspecified Plan: Continue Vitamin D3 2000 units QD (8) Anxiety: Code(s): F41.9 - Anxiety disorder, unspecified Plan: Continue Paroxetine 10 mg QD and Lorazepam 1 mg QD PRN (9) Obesity (BMI 30-39.9): Code(s): E66.9 - Obesity, unspecified Plan: Reinforced diet and weight loss; exercise is somewhat unrealistic due to patient's unsteadiness and weakness at this time Plan Follow up in 3 months Orders: Orders US abdomen complete Today R79.89 - Other specified abnormal findings of blood chemistry Comprehensive [place]. Panel Fast 3 Months E78.00 - Pure hypercholesterolemia, unspecified Complete Blood Count Auto Diff 3 Months I10 - Essential (primary) hypertension TSH reflex Free T4 3 Months E78.00 - Pure hypercholesterolemia, unspecified UA CC w/rflx Micro + Cult 3 Months R30.0 - Dysuria Vitamin D 25-OH Total 3 Months E55.9 - Vitamin D deficiency, unspecified Lipid Panel 3 Months E78.00 - Pure hypercholesterolemia, unspecified Medications: Refilled finasteride (Proscar) 5 mg PO DAILY 90 days 90 tabs 1RF fenofibrate nanocrystallized 48 mg PO DAILY 30 days 30 tabs 3RF Coding Level of Care Code Est Pt Level 4 (36371) Diagnoses 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
== END 2023-06-30 13:11 | disposition home or self-care (01) ==
PROVIDERS: PCP Internal Medicine; Visit Provider Internal Medicine
DX: G61.0 Guillain-Barre syndrome (principal); G62.9 Polyneuropathy, unspecified; R33.8 Other retention of urine; I10 Essential (primary) hypertension; E78.2 Mixed hyperlipidemia; R79.89 Other specified abnormal findings of blood chemistry; E55.9 Vitamin D deficiency, unspecified; F41.9 Anxiety disorder, unspecified; E66.9 Obesity, unspecified
CPT/HCPCS: 99214

== ENCOUNTER 2023-07-30 10:13 | Outpatient (REF) | payer MEDICARE, SELFPAY ==
--- NOTE | ~2023-07-30 | US_ITS ---
EXAMINATION: US ABDOMEN COMPLETE CLINICAL INFORMATION: Other specified abnormal findings of blood chemistry. COMPARISON: CT abdomen and pelvis 08/02/2022. TECHNIQUE: Real-time imaging of the abdominal viscera. FINDINGS: PANCREAS: Normal. ABDOMINAL AORTA: The proximal, mid, and distal segments are normal in caliber. INFERIOR VENA CAVA: Visualized portions are normal. LIVER: The liver is normal in size. The liver contour is normal. The liver is of increased parenchymal echotexture. No focal hepatic lesion. There is no intrahepatic biliary duct dilatation seen. GALLBLADDER: Normal. The gallbladder is physiologically distended without evidence of stones, sludge, polyps, wall thickening or pericholecystic fluid. COMMON BILE DUCT: The common bile duct is not seen. RIGHT KIDNEY: Normal. No hydronephrosis. No renal calculi or focal parenchymal lesions. The kidney measures 12.5 cm in maximum dimension. LEFT KIDNEY: No hydronephrosis or renal calculi. The kidney measures 10.9 cm in maximum dimension. There is a 1.3 cm cyst upper pole left kidney. SPLEEN: Normal. The spleen measures 11.4 cm in maximum dimension. FREE FLUID: None. US/US abdomen complete IMPRESSION: 1. Fatty infiltration of the liver. 2. No gallstones or biliary dilatation. There is a 1.3 cm simple cyst upper pole left kidney for which follow up is not needed.
== END 2023-07-30 10:14 | disposition home or self-care (01) ==
LOC: HO.US 10:13
PROVIDERS: PCP Internal Medicine; Visit Provider Internal Medicine
DX: R79.89 Other specified abnormal findings of blood chemistry (principal)
CPT/HCPCS: 76700

== ENCOUNTER 2023-12-04 16:56 | Inpatient (IN) | payer MEDICARE, SELFPAY ==
[2023-12-04] VITALS (10 sets, daily range): BP systolic 90–137; BP diastolic 35–80; PULSE 80–98; RESP 16–31; TEMP 36.3–36.6; O2SAT 90–100; BMI 37.2
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
[2023-12-04] MEDS: 0.9 % Sodium Chloride 1,000 ML 999 ML IV (17:59)
--- NOTE | 2023-12-04 18:15 | MHC.EDTECH ---
PT 12.5 INR 0.9. Nurse Davida, and Provide Dr. Roy, both aware. Documentation was sent down to the lab. I requested to have an order put in so I can properly document in the chart. I am waiting on the order. Documented in tech note for now. SG
--- NOTE | 2023-12-04 18:27 | PC.NURSE ---
Patient more alert, reports may have taken BP meds more than once today by accident. Denies SI/HI
--- NOTE | 2023-12-04 18:30 | PC.NURSE ---
x1 attempt made to straight cath- unsuccessful , patient stating he has a large prostate
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
--- NOTE | 2023-12-04 19:37 | PC.NURSE ---
pt in CT
--- NOTE | 2023-12-04 20:08 | PC.NURSE ---
IVF finished, Baneg[place] in place. UA sent
--- NOTE | 2023-12-04 20:32 | PHA.MEDREC ---
Pharmacy Consult ? Medication Reconciliation Pharmacy has completed the medication reconciliation. Patient confused/altered. [employer] claim history and medical record for med rec. Pratibha GnocalvesD
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
--- NOTE | 2023-12-05 01:25 | PC.NURSE ---
RN and additional staff assisted pt to a hospital bed for comfort.
[2023-12-05 02:33] VITALS: BP 119/59; PULSE 103; RESP 20; O2SAT 98
[2023-12-05 06:06] VITALS: BP 129/66; PULSE 98; RESP 18; TEMP 36.8; O2SAT 99
[2023-12-05 07:58] LABS: Anion Gap 16 (12-20); Blood Urea Nitrogen 19 mg/dL (9-16); Calcium 8.5 mg/dL (8.4-10.2); Carbon Dioxide 21 mmol/L (22-29); Chloride 102 mmol/L (96-108); Creatinine Clr Calc Pharmacy 131.8; Estimated Glomerular Filt Rate > 60; Glucose Random 85 mg/dL (60-115); Potassium 4.1 mmol/L (3.3-5.1); Sodium 135 mmol/L (135-145)
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
[2023-12-05 13:08] VITALS: BP 131/67; PULSE 71; O2SAT 96
[2023-12-05 14:01] VITALS: BP 131/77; PULSE 88; RESP 20; TEMP 36.4; O2SAT 97
--- NOTE | 2023-12-05 14:05 | PC.NURSE ---
Patient sleeping, skin pwd, resp even and non labored. awakens easily to verbal stimuli. speaking in full, clear sentences. denies pain. 100cc of dark raman urine drained from ibrahim bag at this time, hospitalist made aware of decreased urine output.
[2023-12-05 19:28] VITALS: BP 157/77; PULSE 84; RESP 18; TEMP 36.5; O2SAT 99
--- NOTE | 2023-12-05 22:24 | PC.NURSE ---
pt only wanted 0.5mg of ativan. 0.5mg wasted.
[2023-12-05 23:25] VITALS: BMI 37.2
[2023-12-06 03:46] VITALS: BP 138/60; PULSE 84; RESP 16; TEMP 36.3; O2SAT 99
[2023-12-06 07:31] VITALS: BP 157/87; PULSE 81; RESP 18; TEMP 36; O2SAT 99
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
--- NOTE | 2023-12-06 15:13 | MHC.CM.PN ---
Interview conducted w/Pt: lives alone, owns 2-wheeled walker, WC, shower chair and BSC, says he does not use BSC and that he can go to the bathroom w/assistance of ADs. New HCP not furnished in chart; Pt had original + copies in his possession, made 2 copies of original, replaced original back in Pt's envelope, furnished 2 copies in paper chart. PT eval recommending STR; Pt adamantly refusing to go to any inpatient rehab. He is requesting to be D/C'd home w/VNA services. Specifically, he is requesting [facility], he states he had them over a year ago and really liked them. Reported his declining STR choice to [facility]. Referral sent to [facility] in the meantime. CM to follow.
--- NOTE | 2023-12-06 15:34 | MHC.CM.PN ---
Upon referring to [facility], was met with an immediate no from the agency (even prior to attaching any clinical material for them because they didn't go through the first time). If the VNA responds to this CM's inquiries as to the why, will note. Notified medical of current outcome. CM to follow.
[2023-12-06 16:00] VITALS: BP 152/84; PULSE 80; RESP 18; TEMP 36.1; O2SAT 99
--- NOTE | 2023-12-06 17:15 | PC.NURSE ---
pt complaining of nausea. Refusing PRN ondansetron. Cold cloth placed on pts forehead at pts request. Pt states some nausea relief after the cold cloth.
[2023-12-06 20:00] VITALS: BP 168/85; PULSE 90; RESP 20; TEMP 36.1; O2SAT 95
[2023-12-07 03:55] VITALS: BP 152/76; PULSE 88; RESP 18; TEMP 36.3; O2SAT 98
[2023-12-07 07:39] VITALS: BP 157/92; PULSE 80; RESP 16; TEMP 36.1; O2SAT 97
--- NOTE | 2023-12-07 08:29 | MHC.CM.PN ---
Addendum entered by Tiffanie Oliveira 12/07/23 09:23: CM AND HOSPITALIST MET WITH PT TO DISCUSS DC PLAN HE IS AWARE HE WILL BE SEEN BY PT HOWEVER CONTINUES TO REFUSE STR PT STATES HE WENT TO [place] IN THE PAST AND THEY HAVE TAUGHT HIM THE CORRECT WAY TO DO THINGS HE ALSO STATES HIS SON WILL TRANSPORT HIM AT DC. HE SAYS HIS SON ASSISTS HIM INTO THE CAR AND HE DOES NOT TRUST OTHERS TO PROVIDE SUCH CARE PT IS AWARE [facility] WILL PROVIDE [facility] SERVICES CM CALLED PTS SON, DELONTE [phone] HE REPORTS HE WAS AWARE THE PT MAY DC TODAY AND WAS EXPECTING THE CALL HE IS AWARE THE PT IS REFUSING STR AND THE PLAN IS HOME WITH VNA DELONTE REPORTS BEING IN AGREEMENT WITH THE CURRENT DC PLAN HE REPORTS HE CAN PICK PT UP AT 1200 HOURS TODAY Addendum entered by Tiffanie Oliveira 12/07/23 08:37: [facility] ACCEPT[facility] REFERRAL Original Note: PER CM NOTES, PT REFUSING STR AND RE[facility]ED [facility] TO [facility] UNABLE TO ACCEPT REFERRAL PT INFORMED, PER DISCUSSION, REFERRAL MADE TO [facility]
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
--- NOTE | 2023-12-07 10:50 | W.MHC.F2F ---
Service Date Service Date: 12/07/23 Encounter Date of encounter: 12/07/23 Reasons for Services Signs and symptoms assessed: UTI, sepsis, weakness Reason for fci: CV/CP assess and/or care Homebound: Leaving the home is medically contraindicated at this time without the asist of a device and/or another person due th the listed conditions above and below. Reason homebound: unsteady gait / fall risk Certification: Based on the above findings, I certify that this patient is confined to the home and needs intermittent fci care, physical therapy and/or speech therapy, or continues to need occupational therapy. The patient is under my care, and I have initiated the establishment of the plan of care. The patient will be followed by a physician who will periodically review the plan of care. Time Spent With Patient Time: Total time managing care of this patient today ____ minutes.
== END 2023-12-07 12:30 | disposition home health service (06) | DRG 872 ==
LOC: HO.ED 20:26 → HO.EDOVER 21:26 → HO.S3 12-05 17:42
PROVIDERS: Admitting Provider Student in an Organized Health Care Education/Training Program; Emergency Provider Emergency Medicine; PCP Internal Medicine; Visit Provider Nurse Practitioner Acute Care
DX: A41.9 Sepsis, unspecified organism (principal); T76.91XA Unspecified adult maltreatment, suspected, initial encounter; E87.21 Acute metabolic acidosis; N39.0 Urinary tract infection, site not specified; E78.2 Mixed hyperlipidemia; N40.1 Benign prostatic hyperplasia with lower urinary tract symptoms; E66.09 Other obesity due to excess calories; Z68.37 Body mass index [BMI] 37.0-37.9, adult; F10.90 Alcohol use, unspecified, uncomplicated; Z71.41 Alcohol abuse counseling and surveillance of alcoholic; I95.9 Hypotension, unspecified; R33.8 Other retention of urine; E83.42 Hypomagnesemia; K76.0 Fatty (change of) liver, not elsewhere classified; Z20.822 Contact with and (suspected) exposure to COVID-19; Z99.3 Dependence on wheelchair; Z79.899 Other long term (current) drug therapy
CPT/HCPCS: 0241U; 36415; 70450; 71250; 76705; 80048; 80076; 80143; 80307; 81001; 82140; 82550; 82803; 82947; 83605; 83690; 83735; 83880; 84145; 84443; 84484; 85025; 85610; 87040; 87086; 93005; 97162; 99285; C1758; J0696; J1650; J2060; J3411; J3475

== ENCOUNTER → 2023-12-04 17:05 | Outpatient (BNV) | payer MEDICARE, SELFPAY | PROVIDERS: Admitting Provider Student in an Organized Health Care Education/Training Program; Emergency Provider Emergency Medicine; Visit Provider Internal Medicine Cardiovascular Disease | DX: I49.1 Atrial premature depolarization (principal) | CPT/HCPCS: 93010 ==

== ENCOUNTER → 2023-12-04 21:23 | Outpatient (BNV) | payer MEDICARE, SELFPAY | PROVIDERS: Admitting Provider Student in an Organized Health Care Education/Training Program; Emergency Provider Emergency Medicine; Visit Provider Student in an Organized Health Care Education/Training Program | DX: E83.42 Hypomagnesemia (principal) | CPT/HCPCS: 99223; 99232; 99239; G0180 ==

== ENCOUNTER 2024-01-06 09:50 | Outpatient (AMB) | payer MEDICARE, SELFPAY ==
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
[2024-01-06 09:53] VITALS: BP 94/60; PULSE 76; O2SAT 98; BMI 35.1
[2024-01-06 10:54] VITALS: BP 80/50; BP 82/46
== END 2024-01-06 11:19 | disposition home or self-care (01) ==
PROVIDERS: PCP Internal Medicine; Visit Provider Physician Assistant
DX: R41.82 Altered mental status, unspecified (principal); R47.81 Slurred speech; N39.0 Urinary tract infection, site not specified; T83.511A Infection and inflammatory reaction due to indwelling urethral catheter, initial encounter
CPT/HCPCS: 99215

== ENCOUNTER 2024-01-06 10:59 | Emergency (ER) | payer MEDICARE, SELFPAY ==
--- NOTE | ~2024-01-06 | XR_ITS ---
EXAMINATION: XR CHEST CLINICAL INFORMATION: Weakness. COMPARISON: CT chest dated 12/04/2023; chest radiograph dated 05/26/2022. TECHNIQUE: Frontal view of the chest was obtained. FINDINGS: No significant abnormality is noted involving the heart, lungs, mediastinum, bony thorax or soft tissues. XR/XR chest 1V IMPRESSION: Unremarkable examination.
--- NOTE | 2024-01-06 11:06 | ECG_ITS ---
Test Reason : HYPOTENSION Blood Pressure : / mmHG Vent. Rate : 098 BPM Atrial Rate : 098 BPM P-R Int : 144 ms QRS Dur : 074 ms QT Int : 358 ms P-R-T Axes : 012 -25 -15 degrees QTc Int : 457 ms Sinus rhythm with marked sinus arrhythmia pvc vs aberrant conduction When compared with ECG of 04-DEC-2023 17:23, No significant change was found Referred By: Amanda Roy Electronically Signed By:THAI DUFF
[2024-01-06 11:12] VITALS: BP 100/58; BP 96/58; PULSE 100; PULSE 118; RESP 16; TEMP 36.8; O2SAT 95; O2SAT 96; BMI 34.9
--- NOTE | 2024-01-06 11:26 | ED_ITS ---
HPI - General Adult General Chief complaint: General Medical Stated complaint: LOW BP 90/42, ?UTI,H/O UTI,FROM MD OFFICE PER EMS Time Seen by Provider: 01/06/24 11:05 Source: patient and old records reviewed Mode of arrival: EMS Limitations: no limitations History of Present Illness HPI narrative: 68 yo male with PMH of HLD, GBS with chronic LE weakness, alcohol use disorder that has worsened since unexpected loss of his end of October, UTI recently treated start on November on ceftin 12/04, just admitted here for weakness, social issues with son, ETOH use and transaminitis, UTI, lactic acidosis. He comes today after going to PCP they report his BP 80s/50s with slurred speech. They wrote a section 12 on him but EMS note he was not hypotensive for him above 90 and alert and oriented x 3. The section 12 wast not filled out just signed. The patient did not want to come to the ED. On arrival to the ED I spoke to Shane as I cared for him last time he states he feels fine but agrees to labs and workup. He denies ETOH use. He states things with his son are not great but he is not being harmed. MD complaint: low BPs Onset (ago): day(s) (today) Radiation: non-radiation Severity: moderate Quality: aching Relieving factors: none Exacerbating factors: none Associated symptoms: denies other symptoms Treatments prior to arrival: none Related Data Home Medications Medication Instructions Recorded Confirmed cyanocobalamin (vitamin B-12) 1,000 mcg PO DAILY@1700 07/27/22 12/04/23 1,000 mcg tablet (Vitamin B-12) lorazepam 1 mg tablet 1 - 1.5 mg PO BEDTIME PRN anxiety 12/04/23 12/04/23 prednisone 20 mg tablet 20 mg PO BID 01/06/24 Previous Rx's Medication Instructions Recorded sodium chloride 0.65 % nasal spray 2 spray intranasal BID PRN 04/11/22 aerosol (Saline Mist) congestion #45 mL LIGHTWEIGHT WHEELCHAIR #1 ea 07/22/22 fenofibrate nanocrystallized 48 mg 48 mg PO DAILY 30 days #30 tabs 06/30/23 tablet finasteride 5 mg tablet (Proscar) 5 mg PO DAILY 90 days #90 tabs 06/30/23 paroxetine HCl 10 mg tablet 10 mg PO DAILY 90 days #90 tabs 10/08/23 cholecalciferol (vitamin D3) 50 50 mcg PO DAILY #90 caps 12/09/23 mcg (2,000 unit) capsule (Vitamin D3) lorazepam 1 mg tablet See Rx Instructions PO BEDTIME PRN 12/09/23 anxiety #40 tabs tamsulosin 0.4 mg capsule 0.4 mg PO BEDTIME #90 caps 12/09/23 irbesartan 75 mg tablet 75 mg PO DAILY 90 days #90 tabs 12/22/23 Allergies Allergy/AdvReac Type Severity Reaction Status Date / Time atenolol [ATENOLOL] Allergy Unknown SEVERE Verified 01/06/24 11:12 BRADYCARDIA atenolol Allergy Unknown bradycardia Uncoded 06/30/23 12:43 zestril Allergy Unknown facial Uncoded 06/30/23 12:43 swelling Review of Systems 2 Review of Systems: Constitutional : No Fever, No Chills, No Fatigue ENT/Mouth : No sore throat, No Rhinorrhea Eyes: No Eye Pain, No Swelling, No Redness Cardiovascular : No Chest Pain, No SOB, No Dyspnea on Exertion Respiratory : No Cough, No Sputum Gastrointestinal : No Nausea, No Vomiting, No Diarrhea, No abdominal Pain Genitourinary : No Dysuria, No Urinary Frequency, No Hematuria, Musculoskeletal : No joint pain, No Myalgias, No Joint Swelling Skin : No Skin Lesions, No rash Neuro : No Weakness, No Numbness, No Dizziness, no Headache Psych : No Anxiety/Panic, No Depression Heme/Lymph: No Bruising, No Bleeding,No Lymphadenopathy Endocrine : No Polyuria, No Polydipsia All other systems reviewed and are negative [facility] Past Medical History Medical History 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 Mother No problems noted. Social History Social History Household Members: None Housing: House Do you presently have visiting nurse or other home services: No Alcohol intake: current Alcohol intake frequency: 0-2 drinks per day Alcohol type: beer Patient Tobacco Use Status: Never used Tobacco Smoked in Last 30 Days: No e-Cigarette/Vaping Use: Never Used Second Hand Smoke Exposure: No Use of substances other than those prescribed or required for medical reasons: No Advance Directives: Yes Advance Directives on File: Yes Advance Directives Date on File: 05/27/22 service: No Current occupational status: retired Cognitive needs: No Hearing needs: No Vision needs: Yes Physical Exam ED Vital Signs: Vital Signs - 24 hr 01/06/24 11:12 01/06/24 12:42 01/06/24 14:00 Temperature 98.2 F 97.5 F 97.9 F Pulse Rate 118 H 87 89 Respiratory Rate 16 18 16 Blood Pressure 100/58 L 131/71 140/80 H Pulse Oximetry 96 98 100 Oxygen Delivery Method Room Air Room Air Room Air 01/06/24 14:38 01/06/24 14:39 Temperature Pulse Rate 85 95 Respiratory Rate Blood Pressure 130/68 132/78 Pulse Oximetry Oxygen Delivery Method BMI result Body Mass Index 34.9 Appearance: Alert. Oriented X3. No acute distress. Eyes: Pupils equal, round and reactive to light. ENT: Pharynx normal. atraumatic Neck: Normal inspection. Neck supple. CVS: Normal heart rate and rhythm. Pulses normal. Respiratory: No respiratory distress. Breath sounds normal. Abdomen: Soft and nontender. Skin: Skin warm and dry. Normal skin color. Normal skin turgor. Extremities: 1+ pitting lower extremity edema. No calf ttp Neuro: Oriented X 3. No motor deficit. No sensory deficit. Course Course Course Narrative: chronic lactic acidosis likely due to ETOH and liver issues not infection or sepsis IVF ordered Medications Administered Discontinued Medications Generic Name Dose Route Start Last Admin Trade Name Freq PRN Reason Stop Dose Admin Thiamine HCl 200 mg/ Sodium 102 mls @ 204 mls/hr 01/06/24 11:05 01/06/24 12:16 Chloride IV 01/06/24 11:34 Infused ONCE ONE Infusion Sodium Chloride 1,000 mls @ 999 mls/hr 01/06/24 12:30 01/06/24 13:46 Ns IV 01/06/24 13:30 Infused .Q1H1M [facility] Infusion Medical Decision Making Medical Decision Making MDM Narrative: 68 yo male with PMH of HLD, GBS with chronic LE weakness, alcohol use disorder that has worsened since unexpected loss of his end of October, UTI here with no complaints - sent on section 12 though not filled out he is alert and oriented x 3 and with EMS BP not low with EMS. He has no complaints he agrees to workup wiht me in the ED as I took care of him last time. Will obtain labs, UA and lytes. Possible dehydration, UTI, lyte abnormality Differential Diagnosis Differential Diagnoses: The differential diagnosis associated with the presentation includes dehydration, UTI, lyte abnormality Admission/Observation Consideration of admission/observation: Escalation of care including admission/observation considered patient is alert and oriented x 3, lactic cleared no UTI, labs reassuring BP stable here he states he is fine and wants to go home has been oriented with me and EMS Lab Data [facility] Lab Attestation statement: I reviewed the patient's lab results. 01/06/24 11:37 01/06/24 11:37 Labs: Lab Results 01/06/24 01/06/24 01/06/24 Range/Units 11:37 12:40 14:21 WBC 11.2 H (4.8-10.8) X10*3/uL RBC 3.98 L (4.60-5.80) X10*6/uL Hgb 14.6 (14.0-18.0) g/dl Hct 42.9 (42.0-52.0) % MCV 107.8 H (80.0-98.0) fL MCH 36.7 H (27.0-33.0) pg MCHC 34.0 (31.0-36.0) g/dl RDW 12.6 (11.0-16.0) % Plt Count 127 L D (160-400) X10*3/uL MPV 11.1 (9.4-12.4) fL Immature Gran % (Auto) 0.4 (0.0-0.4) % Neut % (Auto) 84.0 H (45-73) % Lymph % (Auto) 8.6 L (20-40) % Chambers % (Auto) 6.2 (2-11) % Eos % (Auto) 0.4 (0-4) % Baso % (Auto) 0.4 (0-2) % Lymph # (Auto) 1.0 L (1.2-4.9) X10*3/uL Chambers # (Auto) 0.7 (0.1-1.2) X10*3/uL Eos # (Auto) 0.1 (0.0-0.4) X10*3/uL Baso # (Auto) 0.0 (0.0-0.2) X10*3/uL Abs Immat Gran (auto) 0.05 H (0.00-0.03) X10*3/uL Absolute Neuts (auto) 9.4 H (2.0-8.3) x10*3/uL Absolute Nucleated RBC 0.000 (0.0-0.012) X10*3/uL Nucleated RBC % (auto) 0.0 (0.0-0.2) /100WBC PT 11.5 (11.1-13.3) SEC INR 0.9 (0.9-1.1) Sodium 140 (135-145) mmol/L Potassium 4.4 (3.3-5.1) mmol/L Chloride 106 (96-108) mmol/L Carbon Dioxide 24 (22-29) mmol/L Anion Gap 14 (12-20) BUN 17 H (9-16) mg/dL Creatinine 0.72 (0.5-1.4) mg/dL Estim Creat Clear Calc 122.2 Estimated GFR > 60 Random Glucose 101 (60-115) mg/dL Lactic Acid 2.3 H* (0.5-2.0) mmol/L Lactic Acid F/U @ 2Hr (0.5-2.0) mmol/L Calcium 9.0 (8.4-10.2) mg/dL Magnesium 1.6 (1.6-2.6) mg/dL Total Bilirubin 1.1 H (0.0-1.0) mg/dL Direct Bilirubin 0.4 (0.0-0.5) mg/dL AST 45 H (5-37) U/L ALT 40 (0-40) U/L Alkaline Phosphatase 70 (39-117) U/L Ammonia 33 (13-55) umol/L Troponin I High Sens 3.5 D (<3.5-35.0) ng/L B-Natriuretic Peptide 60 (<100) pg/mL Total Protein 6.0 L (6.5-8.0) g/dL Albumin 3.2 L (3.5-5.0) g/dL Lipase 12 (8-78) U/L Procalcitonin 0.10 ng/mL TSH 1.64 (0.32-4.0) uIU/mL Urine Color Dark Yellow Urine Appearance Clear Urine pH 7.0 (5.0-9.0) Ur Specific [place] 1.020 (1.005-1.025) Urine Protein Trace (Neg-Trace) mg/dL Urine Glucose (UA) Negative (Negative) mg/dL Urine Ketones Negative (Negative) mg/dL Urine Blood Negative (Negative) Urine Nitrite Negative (Negative) Ur Leukocyte Esterase Negative (Negative) Ethyl Alcohol < 10 mg/dL COVID-19 (LUCY) Negative (Negative) COVID-19 Clin Com See Note 01/06/24 Range/Units 14:34 WBC (4.8-10.8) X10*3/uL RBC (4.60-5.80) X10*6/uL Hgb (14.0-18.0) g/dl Hct (42.0-52.0) % MCV (80.0-98.0) fL MCH (27.0-33.0) pg MCHC (31.0-36.0) g/dl RDW (11.0-16.0) % Plt Count (160-400) X10*3/uL MPV (9.4-12.4) fL Immature Gran % (Auto) (0.0-0.4) % Neut % (Auto) (45-73) % Lymph % (Auto) (20-40) % Chambers % (Auto) (2-11) % Eos % (Auto) (0-4) % Baso % (Auto) (0-2) % Lymph # (Auto) (1.2-4.9) X10*3/uL Chambers # (Auto) (0.1-1.2) X10*3/uL Eos # (Auto) (0.0-0.4) X10*3/uL Baso # (Auto) (0.0-0.2) X10*3/uL Abs Immat Gran (auto) (0.00-0.03) X10*3/uL Absolute Neuts (auto) (2.0-8.3) x10*3/uL Absolute Nucleated RBC (0.0-0.012) X10*3/uL Nucleated RBC % (auto) (0.0-0.2) /100WBC PT (11.1-13.3) SEC INR (0.9-1.1) Sodium (135-145) mmol/L Potassium (3.3-5.1) mmol/L Chloride (96-108) mmol/L Carbon Dioxide (22-29) mmol/L Anion Gap (12-20) BUN (9-16) mg/dL Creatinine (0.5-1.4) mg/dL Estim Creat Clear Calc Estimated GFR Random Glucose (60-115) mg/dL Lactic Acid (0.5-2.0) mmol/L Lactic Acid F/U @ 2Hr 1.1 (0.5-2.0) mmol/L Calcium (8.4-10.2) mg/dL Magnesium (1.6-2.6) mg/dL Total Bilirubin (0.0-1.0) mg/dL Direct Bilirubin (0.0-0.5) mg/dL AST (5-37) U/L ALT (0-40) U/L Alkaline Phosphatase (39-117) U/L Ammonia (13-55) umol/L Troponin I High Sens (<3.5-35.0) ng/L B-Natriuretic Peptide (<100) pg/mL Total Protein (6.5-8.0) g/dL Albumin (3.5-5.0) g/dL Lipase (8-78) U/L Procalcitonin ng/mL TSH (0.32-4.0) uIU/mL Urine Color Urine Appearance Urine pH (5.0-9.0) Ur Specific [place] (1.005-1.025) Urine Protein (Neg-Trace) mg/dL Urine Glucose (UA) (Negative) mg/dL Urine Ketones (Negative) mg/dL Urine Blood (Negative) Urine Nitrite (Negative) Ur Leukocyte Esterase (Negative) Ethyl Alcohol mg/dL COVID-19 (LUCY) (Negative) COVID-19 Clin Com Independent Interpretation I performed an independent interpretation of an: EKG and Plain X-Ray Interpretation: Rate: 98 Rhythm: NSR [place]: left Normal P waves. Normal MARIA ALEJANDRA. Normal QRS complex. ST T wave : nonspecific no JOE qTC: 457 prior studies: no acute ischemia The study has been interpreted contemporaneously by me. . Radiology Impression Discussion of test interpretation with radiology: I have reviewed the radiologist's reading. Independent Historian Clinical information obtained from an independent historian. History obtained from or confirmed by: EMS External Record Review External record reviewed: Inpatient record Discharge Plan Discharge Clinical Impression: Acute dehydration Patient Disposition: Home, Self-Care Instructions: Dehydration (ED) Additional Instructions: you were given fluids in the ED. if you feel weak dizzy short of breath have a fever please know you can come back at any time to get checked out. Prescriptions: No Action paroxetine HCl 10 mg tablet 10 mg PO DAILY 90 Days Qty: 90 3RF cholecalciferol (vitamin D3) [Vitamin D3] 50 mcg (2,000 unit) capsule 50 mcg PO DAILY Qty: 90 3RF tamsulosin 0.4 mg capsule 0.4 mg PO BEDTIME Qty: 90 1RF Rx Instructions: Take 1 capsule by mouth at bedtime lorazepam 1 mg tablet See Rx Instructions PO BEDTIME PRN (Reason: anxiety) Qty: 40 0RF Rx Instructions: Take 1 to 1.5 tablets orally at bedtime PRN for increased anxiety irbesartan 75 mg tablet 75 mg PO DAILY 90 Days Qty: 90 1RF cyanocobalamin (vitamin B-12) [Vitamin B-12] 1,000 mcg Tablet 1,000 mcg PO DAILY@1700 lorazepam 1 mg tablet 1 - 1.5 mg PO BEDTIME PRN (Reason: anxiety) Rx Instructions: Take 1 to 1.5 tablets orally at bedtime PRN for increased anxiety (DME) LIGHTWEIGHT WHEELCHAIR See Rx Instructions .Route .MEDSUPPLY Qty: 1 0RF Rx Instructions: As directed finasteride [Proscar] 5 mg tablet 5 mg PO DAILY 90 Days Qty: 90 1RF fenofibrate nanocrystallized 48 mg tablet 48 mg PO DAILY 30 Days Qty: 30 3RF prednisone 20 mg tablet 20 mg PO BID Saline Mist 0.65 % aerosol,spray 2 spray intranasal BID PRN (Reason: congestion) Qty: 45 0RF Interventions: ED Discharge Assessment Last Done: 01/06/24 16:15 Discharge Date/Time: 01/06/24 16:16
[2024-01-06] MEDS: Thiamine HCL 200 MG in 0.9 % Sodium Chloride 100 ML 204 MG IV (11:46)
[2024-01-06 11:49] LABS: MANUAL DIFF FLAG NO
--- NOTE | 2024-01-06 11:50 | PC.NURSE ---
22gIV placed in the right hand - labs obtained/sent to lab. medication administered per provider order.
[2024-01-06 11:52] LABS: Basophils Percent Auto 0.4 % (0-2); Eosinophils Absolute Auto 0.1 X10*3/uL (0.0-0.4); Eosinophils Percent Auto 0.4 % (0-4); Hematocrit 42.9 % (42.0-52.0); Hemoglobin 14.6 g/dl (14.0-18.0); Imm Gran Abs Auto 0.05 X10*3/uL (0.00-0.03); Imm Gran Pct Auto 0.4 % (0.0-0.4); Lymphocytes Percent Auto 8.6 % (20-40); Mean Corpuscular Hemoglobin 36.7 pg (27.0-33.0); Mean Corpuscular Volume 107.8 fL (80.0-98.0); Mean Platelet Volume 11.1 fL (9.4-12.4); Monocytes Absolute Auto 0.7 X10*3/uL (0.1-1.2); Monocytes Percent Auto 6.2 % (2-11); Neutrophils Absolute Auto 9.4 x10*3/uL (2.0-8.3); Platelet Count 127 X10*3/uL (160-400); Red Blood Count 3.98 X10*6/uL (4.60-5.80); Red Cell Distribution Width 12.6 % (11.0-16.0); White Blood Count 11.2 X10*3/uL (4.8-10.8)
[2024-01-06 11:56] LABS: INTERNATIONAL NORM RATIO 0.9 (0.9-1.1); Prothrombin Time 11.5 SEC (11.1-13.3)
[2024-01-06 12:04] LABS: COVID-19 Test Negative (Negative); IDNOW Serial# 152EDE1D
[2024-01-06 12:14] LABS: B Type Natriuretic Peptide 60 pg/mL (<100)
[2024-01-06 12:16] LABS: Lactic Acid 2.3 mmol/L (0.5-2.0); Troponin-I High Sensitivity 3.5 ng/L (<3.5-35.0)
[2024-01-06 12:24] LABS: Alanine Aminotransferase 40 U/L (0-40); Albumin Level 3.2 g/dL (3.5-5.0); Alkaline Phosphatase 70 U/L (39-117); Anion Gap 14 (12-20); Aspartate Amino Transferase 45 U/L (5-37); Bilirubin Direct 0.4 mg/dL (0.0-0.5); Bilirubin Total 1.1 mg/dL (0.0-1.0); Blood Urea Nitrogen 17 mg/dL (9-16); Carbon Dioxide 24 mmol/L (22-29); Chloride 106 mmol/L (96-108); Creatinine Clr Calc Pharmacy 122.2; Estimated Glomerular Filt Rate > 60; Ethanol < 10 mg/dL; Glucose Random 101 mg/dL (60-115); Lipase 12 U/L (8-78); Magnesium 1.6 mg/dL (1.6-2.6); Potassium 4.4 mmol/L (3.3-5.1); Sodium 140 mmol/L (135-145)
[2024-01-06 12:29] LABS: TSH reflex Free T4 1.64 uIU/mL (0.32-4.0)
[2024-01-06 12:42] VITALS: BP 131/71; PULSE 87; RESP 18; TEMP 36.4; O2SAT 98
[2024-01-06] MEDS: 0.9 % Sodium Chloride 1,000 ML 999 ML IV (12:45)
--- NOTE | 2024-01-06 12:46 | PC.NURSE ---
vss and up to date at this time. pt's BP seems to be improving. 2nd set of cultures obtained/sent to lab by tech. IVF administered per provider order. respirations remain even and unlabored. call urban placed within reach.
[2024-01-06 13:21] LABS: Ammonia 33 umol/L (13-55)
[2024-01-06 13:46] LABS: Reflex Lactate? Lactic Acid Added
[2024-01-06 14:00] VITALS: BP 140/80; PULSE 89; RESP 16; TEMP 36.6; O2SAT 100
[2024-01-06 14:30] LABS: Appearance Urine Clear; Color Urine Dark Yellow; Glucose Urine UA Negative (Negative); Leukocyte Esterase Urine Negative (Negative); Nitrite Urine Negative (Negative); Urine Blood Negative (Negative); Urine Ketones Negative (Negative); Urine Protein Trace mg/dL (Neg-Trace)
[2024-01-06 14:38] VITALS: BP 130/68; PULSE 85
[2024-01-06 14:39] VITALS: BP 132/78; PULSE 95
--- NOTE | 2024-01-06 14:53 | PC.NURSE ---
tech attempted to obtain orthostatic vital signs. tech states that orthos were unable to be fully completed d/t pt needing walker to position himself upward. pt seemingly too weak to stand up on his own/complete. ED provider notified at this time. plan of care ongoing.
[2024-01-06 14:57] LABS: ~Lactic Acid-LAB USE ONLY 1.1 mmol/L (0.5-2.0)
== END 2024-01-06 16:16 | disposition home or self-care (01) ==
PROVIDERS: Emergency Provider Emergency Medicine; PCP Internal Medicine
DX: E86.0 Dehydration (principal); Z11.52 Encounter for screening for COVID-19; R47.81 Slurred speech; R41.82 Altered mental status, unspecified; R53.1 Weakness; R60.0 Localized edema; R79.89 Other specified abnormal findings of blood chemistry; E78.2 Mixed hyperlipidemia; I10 Essential (primary) hypertension; G61.0 Guillain-Barre syndrome; Z79.899 Other long term (current) drug therapy
CPT/HCPCS: 36415; 71045; 80048; 80076; 80307; 81003; 82140; 83605; 83690; 83735; 83880; 84145; 84443; 84484; 85025; 85610; 87040; 87635; 93005; 96361; 96365; 99285; J3411

== ENCOUNTER → 2024-01-06 11:06 | Outpatient (BNV) | payer MEDICARE, SELFPAY | PROVIDERS: Emergency Provider Emergency Medicine; PCP Internal Medicine; Visit Provider Internal Medicine | DX: I49.3 Ventricular premature depolarization (principal) | CPT/HCPCS: 93010 ==

== ENCOUNTER 2024-09-06 13:55 | Outpatient (AMB) | payer MEDICARE, SELFPAY ==
[2024-09-06 13:58] VITALS: BP 108/76; PULSE 108; O2SAT 98
--- NOTE | 2024-09-06 13:58 | MHC.PC.OV ---
Vital Signs 09/06/24 13:58 Height 5 ft 11 in BMI Reason not done Patient refused/unable BP 108/76 Blood Pressure Location Lt brachial Position Sitting Pulse 108 H Pulse Source Pulse Oximeter Pulse Oximetry (%) 98 Oxygen Delivery Method Room Air Intake Visit Reasons: nichelle visit [employer] Required: No Accompanied by: Self / Same As Patient Allergies atenolol [ATENOLOL] Allergy (Unknown, Verified 09/06/24 14:33) SEVERE BRADYCARDIA atenolol Allergy (Unknown, Uncoded 09/06/24 14:33) bradycardia zestril Allergy (Unknown, Uncoded 09/06/24 14:33) facial swelling Medication List - Last Reconciled 09/06/24 by Brandon Buck MD cholecalciferol (vitamin D3) (Vitamin D3) 50 mcg PO DAILY cyanocobalamin (vitamin B-12) (Vitamin B-12) 1,000 mcg PO DAILY@1700 fenofibrate nanocrystallized 48 mg PO DAILY 30 days finasteride (Proscar) 5 mg PO DAILY 90 days irbesartan 75 mg PO DAILY 90 days [LIGHTWEIGHT WHEELCHAIR As directed] lorazepam 1 - 1.5 mg PO BEDTIME PRN lorazepam Take 1 to 1.5 tablets orally at bedtime PRN for increased anxiety paroxetine HCl 10 mg PO DAILY 90 days prednisone 20 mg PO BID sodium chloride 0.65% (Saline Mist) 2 sprays intranasal BID PRN tamsulosin 0.4 mg PO BEDTIME Tobacco use date assessed: 09/06/24 Fall risk assessment: No Falls in past year Last assessed Fall Risk: 09/06/24 Dental Screening Dental Screen Date: 09/06/24 Did you have a dental visit in the last 12 months?: No Did you have a dental problem in the last 6 months where you did not have access to dental care?: No Was dental information given to patient?: No HPI rutine visit HPI Details Patient comes in today for his follow up visit - was last seen by me over a year ago on 06/30/2023 Patient states that 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, 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 He is able to get up and walk and move around for a short amount of time with a walker but is not able to move around on his own unassisted He is currently still taking oral Prednisone 20 mg BID that he feels will help keep his GBS from flaring up He has not seen neurology for follow up at all since he was discharged from the hospital earlier this year in November 2023 He presently denies any headaches or dizziness Denies any chest pains, no increased SOB No nausea/vomiting, no abdominal pain No change in bowel habits noted [facility] Medical History (Updated 01/03/25 @ 13:10 by Brandon Buck MD) Mixed hyperlipidemia 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 Mother No problems noted. Social History Household Members: None Housing: House Do you presently have visiting nurse or other home services: No Alcohol intake: current Alcohol intake frequency: 0-2 drinks per day Alcohol type: beer Patient Tobacco Use Status: Never used Tobacco e-Cigarette/Vaping Use: Never Used Second Hand Smoke Exposure: No Advance Directives Date on File: 05/27/22 service: No Current occupational status: retired Cognitive needs: No Hearing needs: No Vision needs: Yes Questionnaire PHQ-9 Over the last 2 weeks, how often have you been bothered by any of the following problems? 1. Little interest or pleasure in doing things: not at all 2. Feeling down, depressed, or hopeless: not at all 3. Trouble falling or staying asleep, or sleeping too much: not at all 4. Feeling tired or having little energy: not at all 5. Poor appetite or overeating: not at all 6. Feeling bad about yourself - or that you are a failure or have let yourself or your family down: not at all 7. Trouble concentrating on things, such as reading the newspaper or watching television: not at all 8. Moving or speaking so slowly that other people could have noticed. Or the opposite - being so fidgety or restless that you have been moving around a lot more than usual: not at all 9. Thoughts that you would be better off or of hurting yourself in some way: not at all Total score: 0 Depression Screening Interpretation: Negative Depression Screening Done: Yes [id number] - PHQ-9 Billing: Yes Source: Developed by Drs. Umang Rod, Isabella Julien, Marshall Gonzalez and colleagues, with an educational patricia from [employer]. Thrive Questionnaire Date Thrive assessed: 09/06/24 I am a: Patient What is your living situation today?: I have a steady place to live Within the past 12 months, did the food you bought not last and you didn't have the money to get more?: Never true Within the past 12 months, did you worry whether your food would run out before you got money to buy more?: Never true Do you have trouble paying for medicines?: No Do you have trouble getting transportation to medical appointments?: No Do you have trouble paying your heating and electricity bill?: No Do you have trouble taking care of your child, family member or friend?: No Do you have trouble with day-to-day activities such as bathing, preparing meals, shopping, managing finances, etc.?: No Are you currently unemployed and looking for a job?: I choose not to answer this question Are you interested in more education?: No Please select the resources that you would like help with: None Currently or been in a relationship where the following occur: No concerns reported THRIVE Score: 0 AUDIT C Alcohol Use Questionnaire (AUDIT-C) 1. How often do you have a drink containing alcohol?: Monthly or less 2. How many drinks containing alcohol do you have on a typical day when you are drinking?: 1 or 2 3. How often do you have six or more drinks on one occasion?: Never Total Score: 1 Score Reviewed/Action Taken: Yes MARIA D-7 AMB Questionnaire MARIA D-7 Date MARIA D - 7 assessed: 09/06/24 Feeling nervous, anxious, or on edge: 3 = Nearly every day Not being able to stop or control worryin = Not at all Worrying too much about different things: 1 = Several days Trouble relaxin = Not at all Being so restless that it is hard to sit still: 0 = Not at all Becoming easily annoyed or irritable: 0 = Not at all Feeling afraid as if something awful might happen: 0 = Not at all Total MARIA D-7 score (0-4 normal; 5-9 mild; 10-14 moderate; 15-21 severe): 4 Source: Developed by Drs. Umang Rod, Isabella Julien, Marshall Gonzalez and colleagues, with an educational patricia from [employer]. Review of Systems Const Denies chills, Reports fatigue, Denies fever(s), Denies headache(s) and Reports weakness (especially in both legs) ENT Denies dysphagia, Denies dizziness, Denies otalgia, Denies headache(s), Denies neck pain, Denies odynophagia and Denies sore throat Card Denies chest pain, Denies palpitations and Reports dyspnea on exertion (mostly due to his overall weakness and weight gain recently) Resp Denies chest congestion, Denies cough and Reports dyspnea on exertion (mostly due to his overall weakness and weight gain recently) GI Denies abdominal pain, Denies constipation, Denies dysphagia, Denies heartburn, Denies diarrhea, Denies nausea, Denies odynophagia and Denies vomiting Denies hematuria, Denies difficulty urinating (resolved) and Denies urinary frequency Musc Details: unsteady gait; (+) bilateral leg weakness - ambulates with walker but is not able to move around without the use of assistive devices Denies back pain, Reports muscle weakness and Denies neck pain Skin/Breast Denies lesions and Denies rash Neuro Denies dizziness, Denies headache(s) and Reports weakness (especially in both legs) Endo Reports fatigue and Denies palpitations Physical exam (Primary Care) Vital Signs: Last Vital Signs Pulse 108 H 09/06/24 13:58 BP 108/76 09/06/24 13:58 Pulse Ox 98 09/06/24 13:58 Oxygen Delivery Method Room Air 09/06/24 13:58 Tobacco/Smoking Status: Tobacco use Status Tobacco use date assessed 09/06/24 09/06/24 14:04 Patient Tobacco Use Status Never used Tobacco 09/06/24 14:04 e-Cigarette/Vaping Use Never Used 09/06/24 14:04 PHQ-9: PHQ-9 Score PHQ-9: Total score 0 01/03/25 12:49 Depression Screening Interpretation: Negative Thrive Assessment: Date of Thrive Assessment Date Thrive assessed 09/06/24 09/06/24 14:04 Currently or been in a relationship where the following occur: No concerns reported Const General: no acute distress and alert Orientation/consciousness: patient oriented x3 Limitations: wheelchair HENMT Ears: TM's normal bilaterally and EAC's normal Throat: Yes posterior oropharynx normal and Yes tonsils normal (no TP congestion) Neck Neck: Yes supple and No lymphadenopathy Thyroid: Thyroid normal Resp Auscultation: clear to auscultation bilaterally, no rales and no wheezes Cardio Rate: regular rate Rhythm: regular rhythm Heart sounds: no murmurs GI Palpation (GI): Soft to palpation and nontender Auscultation: normal bowel sounds Skin Rashes: no rashes Neuro General: patient oriented x3 Cognition (Neuro): normal cognition Extrem General: Yes no clubbing, cyanosis or edema and No muscle atrophy Coding Level of Care Code Est Pt Level 4 (53669) Complex EM visit Add On G2211 Diagnoses 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: Code(s): G61.0 - Guillain-[place] syndrome Category: Medical Plan: Patient is currently still on Prednisone 20 mg BID He has not seen neurology at all since he was discharged from the hospital over the past year Will refer him to neurology for follow up and further recommendations regarding his GBS As he has not had any labs done in a while now, will send him to get some follow up labs done HEATHER (2) Lower extremity weakness: Code(s): R29.898 - Other symptoms and signs involving the musculoskeletal system Category: Medical Qualifiers: Laterality: bilateral Qualified Code(s): R29.898 - Other symptoms and signs involving the musculoskeletal system Plan: Will refer patient to [facility] for in-home PT/OT and gait training/strengthening as he continues to have significant bilateral lower extremity weakness and difficulty with mobility (3) Benign essential hypertension: Code(s): I10 - Essential (primary) hypertension Category: Medical Plan: Reinforced low sodium diet - goal is systolic BP of at least 130 mm or less Continue Irbesartan 150 mg at 1/2 tablet (75 mg) QD Patient is reminded to continue monitoring his blood pressure regularly (4) Mixed hyperlipidemia: Code(s): E78.2 - Mixed hyperlipidemia Category: Medical Plan: Reinforced low cholesterol diet Continue Fenofibrate 48 mg QD Will recheck his labs and fasting lipids HEATHER for follow up (5) Neuropathy: Code(s): G62.9 - Polyneuropathy, unspecified Category: Medical Plan: Patient is again advised that this is also likely contributing to his unsteady gait; his recent bout with GB syndrome also possibly played a role in this States that he has received some physical therapy at home before that seemed to have helped with his symptoms somewhat and that he continues to do the exercises that he was previously taught regularly on his own (6) Elevated LFTs: Code(s): R79.89 - Other specified abnormal findings of blood chemistry Category: Medical Plan: His AST and ALT have improved to 45 and 40 respectively when they were last checked in December 2023 Abdominal US done last year (November 2023) revealed (+) increased hepatic parenchymal echogenicity, which is nonspecific but most commonly on the basis of diffuse hepatocellular disease such as hepatic steatosis. There is also (+) gallbladder sludge without sonographic evidence of acute cholecystitis Patient admitted that drinking alcohol (beer) regularly before and has been able to cut down a lot since Will continue to monitor his LFTs regularly (7) Vitamin D deficiency: Code(s): E55.9 - Vitamin D deficiency, unspecified Category: Medical Plan: Continue Vitamin D3 2000 units QD (8) Urine retention: Code(s): R33.9 - Retention of urine, unspecified Category: Medical Plan: Follow up with urology as scheduled (9) Anxiety: Code(s): F41.9 - Anxiety disorder, unspecified Category: Medical Plan: Continue Paroxetine 10 mg QD and Lorazepam 1 mg QD PRN (10) Obesity (BMI 30-39.9): Code(s): E66.9 - Obesity, unspecified Category: Medical Plan: Reinforced diet and weight loss; exercise is unrealistic due to patient's unsteadiness and weakness at this time Plan Follow up in January 2025 Orders: Orders Complete Blood Count Auto Diff 09/06/24 D64.9 - Anemia, unspecified Lipid Panel 09/06/24 E78.00 - Pure hypercholesterolemia, unspecified UA CC w/rflx Micro + Cult 09/06/24 R30.0 - Dysuria Comprehensive Ellis. Panel Fast 09/06/24 E78.00 - Pure hypercholesterolemia, unspecified Hemoglobin A1c 09/06/24 E11.9 - Type 2 diabetes mellitus without complications TSH reflex Free T4 09/06/24 E78.00 - Pure hypercholesterolemia, unspecified Vitamin D 25-OH Total 09/06/24 E55.9 - Vitamin D deficiency, unspecified Vitamin B12 and Folate 09/06/24 E53.8 - Deficiency of other specified B group vitamins Referrals Neurology Referral G61.0 - Guillain-[place] syndrome [facility] Referral G61.0 - Guillain-[place] syndrome
== END 2024-09-06 14:49 | disposition home or self-care (01) ==
PROVIDERS: PCP Internal Medicine; Visit Provider Internal Medicine
DX: G61.0 Guillain-Barre syndrome (principal); R29.898 Other symptoms and signs involving the musculoskeletal system; I10 Essential (primary) hypertension; E78.2 Mixed hyperlipidemia; G62.9 Polyneuropathy, unspecified; R79.89 Other specified abnormal findings of blood chemistry; E55.9 Vitamin D deficiency, unspecified; R33.9 Retention of urine, unspecified; F41.9 Anxiety disorder, unspecified; E66.9 Obesity, unspecified

== ENCOUNTER → 2024-09-06 13:55 | Outpatient (BNVA) | payer MEDICARE, SELFPAY | PROVIDERS: PCP Internal Medicine; Visit Provider Internal Medicine | DX: G61.0 Guillain-Barre syndrome (principal) | CPT/HCPCS: 96127; 99212 ==

== ENCOUNTER 2025-03-13 15:39 | Inpatient (IN) | payer MEDICARE, SELFPAY ==
[2025-03-13] VITALS (16 sets, daily range): BP systolic 74–147; BP diastolic 38–99; PULSE 56–100; RESP 18–27; TEMP 31.9–37.1; O2SAT 94–100; BMI 38.7
--- NOTE | ~2025-03-13 | XR_ITS ---
CLINICAL HISTORY: CVC placement 1 view chest x-ray Comparison: Chest x-ray from 03/13/2025 Findings: Small bilateral pleural effusions with worsening bibasilar atelectasis/pneumonitis, right worse than left. No pneumothorax. Left IJ region approach central line with indeterminate termination likely in the superior vena cava and right lateral direction of the time of the imaging. Imaged mediastinum is otherwise unchanged No osseous change in the [id number]. IMPRESSION: 1. Laterally directed central line likely terminates in the superior vena cava. Please consider mildly repositioning, if clinically indicated and if clinically able. 2. Worsening bibasilar atelectasis. This document has been electronically signed by: Kulwant Poon MD on 03/13/2025 23:32:14
--- NOTE | ~2025-03-13 | XR_ITS ---
CLINICAL HISTORY: low O2 Single view of the chest. Comparison 01/06/2024. Findings: The lungs are under ventilated. Body habitus limits the study. There is mild elevation right hemidiaphragm. Heart size is upper limits of normal. Impression: Under ventilated lungs. No definite consolidation or pleural effusion. Mild elevation right hemidiaphragm. This document has been electronically signed by: Franco Chambers MD on 03/13/2025 18:26:39
--- NOTE | ~2025-03-13 | CT_ITS ---
CLINICAL HISTORY: L mouth droop, aphasia, dysarthria CT of the head without contrast. Comparison 12/04/2023. Findings: There is mild atrophy and white matter changes. Dense nonspecific parenchymal calcification is seen in the cerebellum. No acute hemorrhage or definite acute infarct is seen. There is no hydrocephalus or mass effect. There is prominent right mastoiditis. Impression: No acute hemorrhage or definite acute infarct. CT angiogram of the head and neck. Multiplanar MIPS were obtained. Comparison 07/26/2022. Findings: Artifact significantly limits the study. The right common carotid artery is suboptimally evaluated. There is densely calcified plaque involving the right carotid bifurcation with possible high-grade stenosis of the carotid bulb and origin of the internal carotid artery. The left common carotid artery is suboptimally evaluated. There is prominent calcified plaque of the bifurcation of the common carotid artery without definite hemodynamically significant stenosis. Artifact significantly limits evaluation of the vertebral arteries. No definite occlusion is seen. The left vertebral artery is dominant. The basilar artery is patent. Motion artifact significantly limits the intracranial portion of the study. No definite large vessel occlusion or focal stenosis is seen. There is a right pleural effusion. Large amount of fluid right mastoid air cells. Impression: Motion artifact significantly limits evaluation. Possible high-grade narrowing right carotid bulb and proximal internal carotid artery. Right pleural effusion. Right mastoiditis. Other findings as above. This document has been electronically signed by: Franco Chambers MD on 03/13/2025 19:13:10
--- NOTE | ~2025-03-13 | FL_ITS ---
EXAMINATION: Modified Barium Swallow. CLINICAL INFORMATION: Dysphagia. COMPARISON: None. TECHNIQUE: Modified barium swallow was performed under lateral fluoroscopy with patient in standing position. Barium mixed with solids and liquids of different consistencies was administered by the speech pathologist. Examination was recorded in the fluoroscopy suite. FINDINGS: No laryngeal penetration, glottic or subglottic aspiration. FLUOROSCOPY TIME: 2 minutes, 0 seconds. Number of Spot Images: N/A DOSE AREA PRODUCT: 1387 uGy-m2 (microgray-meter squared) FL/FL Modified Barium Swallow IMPRESSION: No laryngeal penetration, glottic or subglottic aspiration. Refer to the speech therapy report for further details. Electronically signed by: Jose A Dorado MD 03/23/2025 12:37 PM EDT
--- NOTE | ~2025-03-13 | CT_ITS ---
CLINICAL HISTORY: Sepsis r o obstructive uropathy CT abdomen and pelvis without contrast Comparison: CT of the abdomen and pelvis from 08/02/2022 Findings: New [id number] right and small-minimal left pleural effusions with underlying atelectasis/consolidation, right worse than left. Differential considerations include pneumonia of the lung bases. Mild cardiomegaly by noncontrast imaging. Mild liver surface nodularity as can be seen with cirrhosis. Cholelithiasis versus artifact by CT in the distended gallbladder. Multiple artifacts including related to positioning of the upper extremities. The adrenal glands are normal. The spleen is nonenlarged. Moderate volume loss of the pancreas noted. No hydronephrosis. Perinephric stranding is nonspecific. Mild free fluid in the abdomen pelvis nonspecific. No free intraperitoneal air. Wall thickening of the large intestine is nonspecific and can be seen with colitis. No small bowel obstruction. The appendix is not definitively seen. Mild wall thickening of the urinary bladder is nonspecific and may reflect cystitis with gas and Banegas catheter in the bladder. Transitional vertebral anatomy of the lumbosacral junction with CT findings of spinal stenosis. Facet arthropathy is multifocal. Mild pelvis deformities appear old chronic. 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 Diffuse muscle volume loss noted. IMPRESSION: 1. No hydronephrosis. 2. Nonspecific wall thickening of the urinary bladder. 3. Bilateral pleural effusions with underlying atelectasis/consolidation, right worse than left. Recommend attention on follow-up to ensure resolution. This document has been electronically signed by: Kulwant Poon MD on 03/14/2025 02:06:43
--- NOTE | ~2025-03-13 | XR_ITS ---
EXAMINATION: XR CHEST CLINICAL INFORMATION: ogt placement COMPARISON: 03/13/2025 TECHNIQUE: AP view of the chest was obtained. FINDINGS: Left-sided central venous catheter in place, terminating in the SVC. This is stable. Orogastric tube extends into the stomach, however the sidehole is supradiaphragmatic. This device should be advanced slightly. Cardiomediastinal silhouette is stable. Prominent pulmonary arteries. Rightward rotation. Patchy opacities right base, unchanged. Linear opacity right midlung, unchanged. Small right effusion, and trace left effusion. No perceptible pneumothorax. XR/XR chest 1V IMPRESSION: 1. Stable left central venous catheter terminating in the SVC. 2. Enteric tube, tip just below the GE junction. This should be advanced slightly for optimal placement. 3. Pulmonary abnormalities with right basilar opacity, and right greater than left small effusions unchanged. No pneumothorax. Electronically signed by: Jose A Dorado MD 03/14/2025 10:54 AM EDT
--- NOTE | 2025-03-13 15:56 | ECG_ITS ---
Test Reason : chest pain Blood Pressure : */* mmHG Vent. Rate : 65 BPM Atrial Rate : 65 BPM P-R Int : 196 ms QRS Dur : 92 ms QT Int : 454 ms P-R-T Axes : 84 -9 -23 degrees QTcB Int : 472 ms Sinus rhythm with Premature atrial complexes Low voltage QRS Borderline ECG When compared with ECG of 06-Jan-2024 11:13, Premature atrial complexes are now Present Vent. rate has decreased by 33 bpm Questionable change in QRS duration Referred By: Teresa Gardner Electronically Signed By: MARCELINO STAFFORD MD
--- NOTE | 2025-03-13 16:05 | ED.GENADULT ---
HPI - General Adult General Chief complaint: Altered Mental Status Stated complaint: AMS, SOB, 15L/MIN NRB, bed bugs, POC 67 Time Seen by Provider: 03/13/25 15:45 Source: patient and EMS Mode of arrival: EMS Limitations: altered mental status History of Present Illness ED Provider: Dr. Teresa Gardner HPI narrative: Patient comes to the emergency room via EMS. Her mental status, unable to give significant history. According to EMS, the patient's son called because the patient has been altered for over 2 days, has not moved from the couch. According to EMS, the patient was sitting in stool, covered in sheets and they saw bed bugs crawling. According to EMS, the patient was found in filthy conditions. The house extremely filthy. According to EMS, they have filed multiple times in a different District. However, seems that the patient's family has not allowed any services to get inside of the house to help them evaluate the situation and get him help. Related Data Home Medications ?Medication ?Instructions ?Recorded ?Confirmed cyanocobalamin (vitamin B-12) 1,000 mcg PO DAILY@1700 07/27/22 09/06/24 1,000 mcg tablet (Vitamin B-12) lorazepam 1 mg tablet 1 - 1.5 mg PO BEDTIME PRN anxiety 12/04/23 09/06/24 Previous Rx's ?Medication ?Instructions ?Recorded sodium chloride 0.65 % nasal spray 2 spray intranasal BID PRN 04/11/22 aerosol (Saline Mist) congestion #45 mL LIGHTWEIGHT WHEELCHAIR #1 ea 07/22/22 fenofibrate nanocrystallized 48 mg 48 mg PO DAILY 30 days #30 tabs 10/16/24 tablet cholecalciferol (vitamin D3) 50 50 mcg PO DAILY #90 caps 12/12/24 mcg (2,000 unit) capsule (Vitamin D3) paroxetine HCl 10 mg tablet 10 mg PO DAILY 90 days #90 tabs 01/05/25 tamsulosin 0.4 mg capsule 0.4 mg PO BEDTIME #90 caps 01/31/25 prednisone 20 mg tablet 20 mg PO BID #60 tabs 02/12/25 finasteride 5 mg tablet (Proscar) 5 mg PO DAILY 90 days #90 tabs 02/18/25 irbesartan 75 mg tablet 75 mg PO DAILY 90 days #90 tabs 02/18/25 lorazepam 1 mg tablet See Rx Instructions PO BEDTIME PRN 02/27/25 anxiety #40 tabs Allergies Allergy/AdvReac Type Severity Reaction Status Date / Time atenolol [ATENOLOL] Allergy Unknown SEVERE Verified 03/13/25 17:13 BRADYCARDIA atenolol Allergy Unknown bradycardia Uncoded 03/13/25 17:13 zestril Allergy Unknown facial Uncoded 03/13/25 17:13 swelling Review of Systems Review of Systems: Yes Unobtainable due to mental status [facility] Past Medical History Medical History 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 Mother No problems noted. Social History Social History Household Members: None Housing: House Do you presently have visiting nurse or other home services: No Alcohol intake: current Alcohol intake frequency: 0-2 drinks per day Alcohol type: beer Patient Tobacco Use Status: Never used Tobacco e-Cigarette/Vaping Use: Never Used Second Hand Smoke Exposure: No Advance Directives: Yes Advance Directives on File: Yes Advance Directives Date on File: 05/27/22 service: No Current occupational status: retired Cognitive needs: No Hearing needs: No Vision needs: Yes Physical Exam ED Vital Signs: Vital Signs - 24 hr 03/13/25 17:03 03/13/25 17:12 03/13/25 19:37 Temperature 98.7 F 90.5 F L 89.4 F L Pulse Rate 82 56 67 Respiratory Rate 18 20 27 H Blood Pressure 80/52 L 130/99 H 115/96 H Pulse Oximetry 100 94 94 Oxygen Delivery Method Room Air Room Air Room Air BMI result Body Mass Index 38.7 Const Other: Appearance: Alert. Oriented x1, patient's seems very confused. Patient is disheveled, covered in stool Eyes: Pupils equal, round and reactive to light. ENT: Pharynx normal. Neck: Normal inspection. Neck supple. No lymph nodes noted. No crepitus CVS: Patient bradycardic, very distant heart sounds Respiratory: No respiratory distress. Breath sounds normal. No Wheezing. No rales Abdomen: Soft, slightly distended, does not seem to have pain to palpation in the abdomen Skin: Skin warm with the lower extremities are cool to touch bilaterally, anasarca Extremities: +3 pitting edema bilaterally Neuro: Is noted that patient has significant slurred speech and aphasia. Noted to have left-sided mouth droop, Patient has trouble following commands. Psych: Confused, calm, tries to be cooperative Course Course Course Narrative: It is difficult due do a NIH assessment, patient has trouble following commands. It is obvious that the patient has aphasia , dysarthria and left-sided mouth droop. I reviewed patient's past medical records, there are no records of patient having strokes in the past or residual deficits. Patient is extremely feel the. EMS reports that the patient was covered in bed bugs, they tried to clean him as best as they could before bringing him to the emergency room. I discussed the patient with our clinical case manager Iqra Overall, all of patient's labs and imaging are pending. It is very likely the patient had a stroke within the last couple of days According to EMS, the last time the patient was seen okay was over 2 days ago. Medications Administered Generic Name Dose Route Start Last Admin Trade Name Freq PRN Reason Stop Dose Admin Albumin Human 100 mls @ 133.333 mls/hr 03/13/25 19:30 03/13/25 19:34 Kedbumin 25 % IV 03/13/25 21:14 133.33 mls/hr Q1H THOMPSON Administration Discontinued Medications Generic Name Dose Route Start Last Admin Trade Name Freq PRN Reason Stop Dose Admin Ceftriaxone Sodium 1 gm 03/13/25 17:03 03/13/25 17:28 Ceftriaxone Sodium 1 Gm Vial IVPUSH 03/13/25 17:04 1 gm ONCE ONE Administration Sodium Chloride 1,000 mls @ 999 mls/hr 03/13/25 17:03 03/13/25 17:22 Ns IVCONT 03/13/25 18:03 999 mls/hr .Q1H1M ONE Administration Sodium Chloride 1,500 mls @ 999 mls/hr 03/13/25 17:26 03/13/25 17:31 Ns IVCONT 03/13/25 18:56 999 mls/hr .Q1H31M ONE Administration Medical Decision Making Medical Decision Making [facility] Narrative: 17:05, Patient is empirically being treated with IV fluids and ceftriaxone. Patient is receiving IV fluids based on ideal weight of 72 kg. Patient was also given a dose of ceftriaxone. At this time, 17:25, I was informed by the patient's nurse that the patient's rectal temperature is 90.5 Earlier today, a blood pressure of 80/52 was recorded. However, within a few minutes, I asked the nurse to recheck it and it was 130/99. EMS did not report any episodes of hypotension either. Patient's white blood cell count 24.6, rest of hematology at baseline. Normal coagulation times. Chemistry is still pending at this time 17:45. Lactic acid 1.1, ammonia 53, BNP within normal limits. Urinalysis shows a large amount of blood in the urine, leukocyte esterase and white blood cells, negative for nitrite. Of note, patient's urine always looks like this. Patient has had multiple microbiology reports, no specific growth. The last time the patient had a positive UTI was in 2021 when patient's urine grew Morganella morganii, susceptible to ceftriaxone, gentamicin and Bactrim This x-ray: Under ventilated lungs, no definitive consolidation or pleural effusion, mild elevation of right hemidiaphragm At this time, 19:20, I was informed by the patient's nurse that the blood pressure is in the 60s systolic. All of chemistry still pending. Patient already received IV fluids based on ideal weight and also antibiotics. Zosyn was added to have more broad coverage. At this time we will start patient on Levophed. My colleague MARCO ANTONIO Walters will insert the central line. 19:20, sepsis is suspected. At this time, 19:30 labs are back. Patient's sodium is 116, creatinine 5.6, creatinine 5.95 told him 6.6. Troponin within normal limits, LFTs normal, albumin 1.9 Patient is chemistry had to be drawn several times to do getting hemolyzed. Before we received the chemistry results, patient had already received fluids. I discussed the above-mentioned with Dr. Amador from the ICU, patient being admitted. Charge nurse is aware Head CT: Motion artifact significantly limits evaluation, possible high-grade narrowing by carotid bulb and proximal internal carotid artery, right pleural effusion, right mastoiditis 19:55, focused exam done. At this time, the patient going over to the ICU Differential Diagnosis Differential Diagnoses: The differential diagnosis associated with the presentation includes (CVA, UTI, pneumonia) Admission/Observation Consideration of admission/observation: Escalation of care including admission/observation considered Consult Healthcare Provider Management of the patient was discussed with: Hospitalist Lab Data MDM Lab Attestation statement: I reviewed the patient's lab results. 03/13/25 16:18 03/13/25 18:59 Labs: Lab Results 03/13/25 03/13/25 03/13/25 Range/Units 16:18 16:19 16:56 WBC 24.6 H (4.8-10.8) X10*3/uL RBC 3.80 L (4.60-5.80) X10*6/uL Hgb 13.4 L (14.0-18.0) g/dl Hct 36.5 L (42.0-52.0) % MCV 96.1 (80.0-98.0) fL MCH 35.3 H (27.0-33.0) pg MCHC 36.7 H (31.0-36.0) g/dl RDW 12.3 (11.0-16.0) % Plt Count 178 D (160-400) X10*3/uL MPV 10.3 (9.4-12.4) fL Immature Gran % (Auto) Cancelled Neut % (Auto) Cancelled Lymph % (Auto) Cancelled Titus % (Auto) Cancelled Eos % (Auto) Cancelled Baso % (Auto) Cancelled Lymph # (Auto) Cancelled [place] # (Auto) Cancelled Eos # (Auto) Cancelled Baso # (Auto) Cancelled Abs Immat Gran (auto) Cancelled Absolute Neuts (auto) Cancelled Absolute Nucleated RBC 0.000 (0.0-0.012) X10*3/uL Nucleated RBC % (auto) 0.0 (0.0-0.2) /100WBC Neutrophils % (Manual) 95 H (45-73) % Band Neutrophils % 0 L (3-5) % Lymphocytes % (Manual) 3 L (20-40) % Monocytes % (Manual) 1 L (2-11) % Basophils % (Manual) 1 (0-2) % Abs Neuts (Manual) 23.4 H (2.0-8.3) X10*3/uL Lymphocytes # (Manual) 0.7 L (1.2-4.9) X10*3/uL Monocytes # (Manual) 0.2 (0.1-1.2) X10*3/uL Basophils # (Manual) 0.2 (0.0-0.2) X10*3/uL Toxic Vacuolation PRESENT Platelet Estimate NORMAL (NORMAL) Plt Morphology Comment NORMAL RBC Morphology NOTED Acanthocytes (Spur) 2+ (3-5) /OIF Smear Tech's Comments MANUAL DIFF PT 12.4 (10.9-12.4) SEC INR 1.1 (0.9-1.1) VBG pH (7.32-7.43) VBG pCO2 mmHg VBG pO2 mmHg VBG HCO3 (22-26) mmol/L VBG O2 Saturation % VBG Base Excess mmol/L Sodium (135-145) mmol/L Potassium (3.3-5.1) mmol/L Chloride (96-108) mmol/L Carbon Dioxide (22-29) mmol/L Anion Gap (12-20) BUN (9-16) mg/dL Creatinine (0.5-1.4) mg/dL Estim Creat Clear Calc Estimated GFR POC Glucose (60-115) mg/dL Random Glucose (60-115) mg/dL Lactic Acid 1.4 (0.5-2.0) mmol/L Calcium (8.4-10.2) mg/dL Magnesium (1.6-2.6) mg/dL Total Bilirubin (0.0-1.0) mg/dL Direct Bilirubin (0.0-0.5) mg/dL AST (5-37) U/L ALT (0-40) U/L Alkaline Phosphatase (39-117) U/L Ammonia 53 (13-55) umol/L Troponin I High Sens (<3.5-35.0) ng/L B-Natriuretic Peptide 13 (<100) pg/mL Total Protein (6.5-8.0) g/dL Albumin (3.5-5.0) g/dL TSH (0.32-4.0) uIU/mL Urine Color Dark Yellow Urine Appearance Cloudy Urine pH 5.5 (5.0-9.0) Ur Specific [place] 1.015 (1.005-1.025) Urine Protein 30 (1+) H (Neg-Trace) mg/dL Urine Glucose (UA) Negative (Negative) mg/dL Urine Ketones Trace (Negative) mg/dL Urine Blood Large (3+) H (Negative) Urine Nitrite Negative (Negative) Ur Leukocyte Esterase Large (3+) H (Negative) Urine RBC >20 H (0-2) /HPF Urine WBC >50 H (0-5) /HPF Ur Squamous Epith Cells 0-2 (0-2) /HPF Urine Bacteria None Seen (None Seen) Hyaline Casts 0-2 (0-2) /LPF Urine Opiates Screen Not Detected (Not Detect) Ur Buprenorphine Scrn Not Detected (Not Detect) ng/mL Ur Oxycodone Screen Not Detected (Not Detect) ng/mL Urine Methadone Screen Not Detected (Not Detect) ng/mL Urine Fentanyl Screen Not Detected (Not Detect) Ur Barbiturates Screen Not Detected (Not Detect) Ur Phencyclidine Scrn Not Detected (Not Detect) Ur Amphetamines Screen Not Detected (Not Detect) U Benzodiazepines Scrn Not Detected (Not Detect) Urine Cocaine Screen Not Detected (Not Detect) U Marijuana (THC) Screen Not Detected (Not Detect) Ethyl Alcohol mg/dL Influenza Type A (PCR) NEGATIVE (Negative) Influenza Type B (PCR) NEGATIVE (Negative) RSV RNA Qual (PCR) NEGATIVE (Negative) SARS-CoV-2 RNA (RT-PCR) NEGATIVE (Negative) 03/13/25 03/13/25 03/13/25 Range/Units 17:52 18:59 19:05 WBC (4.8-10.8) X10*3/uL RBC (4.60-5.80) X10*6/uL Hgb (14.0-18.0) g/dl Hct (42.0-52.0) % MCV (80.0-98.0) fL MCH (27.0-33.0) pg MCHC (31.0-36.0) g/dl RDW (11.0-16.0) % Plt Count (160-400) X10*3/uL MPV (9.4-12.4) fL Immature Gran % (Auto) Neut % (Auto) Lymph % (Auto) [place] % (Auto) Eos % (Auto) Baso % (Auto) Lymph # (Auto) [place] # (Auto) Eos # (Auto) Baso # (Auto) Abs Immat Gran (auto) Absolute Neuts (auto) Absolute Nucleated RBC (0.0-0.012) X10*3/uL Nucleated RBC % (auto) (0.0-0.2) /100WBC Neutrophils % (Manual) (45-73) % Band Neutrophils % (3-5) % Lymphocytes % (Manual) (20-40) % Monocytes % (Manual) (2-11) % Basophils % (Manual) (0-2) % Abs Neuts (Manual) (2.0-8.3) X10*3/uL Lymphocytes # (Manual) (1.2-4.9) X10*3/uL Monocytes # (Manual) (0.1-1.2) X10*3/uL Basophils # (Manual) (0.0-0.2) X10*3/uL Toxic Vacuolation Platelet Estimate (NORMAL) Plt Morphology Comment RBC Morphology Acanthocytes (Spur) /OIF Smear Tech's Comments PT (10.9-12.4) SEC INR (0.9-1.1) VBG pH 7.22 L (7.32-7.43) VBG pCO2 21 mmHg VBG pO2 230 mmHg VBG HCO3 9 L (22-26) mmol/L VBG O2 Saturation 99.0 % VBG Base Excess -16.4 mmol/L Sodium 116 L* (135-145) mmol/L Potassium 5.6 H D (3.3-5.1) mmol/L Chloride 93 L (96-108) mmol/L Carbon Dioxide 12 L (22-29) mmol/L Anion Gap 17 (12-20) BUN 132 H (9-16) mg/dL Creatinine 5.95 H* (0.5-1.4) mg/dL Estim Creat Clear Calc 15.1 Estimated GFR 9 POC Glucose 81 (60-115) mg/dL Random Glucose 68 (60-115) mg/dL Lactic Acid (0.5-2.0) mmol/L Calcium 6.6 L D (8.4-10.2) mg/dL Magnesium 1.8 (1.6-2.6) mg/dL Total Bilirubin 0.6 (0.0-1.0) mg/dL Direct Bilirubin 0.4 (0.0-0.5) mg/dL AST 35 (5-37) U/L ALT 11 (0-40) U/L Alkaline Phosphatase 74 (39-117) U/L Ammonia (13-55) umol/L Troponin I High Sens 5.2 (<3.5-35.0) ng/L B-Natriuretic Peptide (<100) pg/mL Total Protein 4.1 L (6.5-8.0) g/dL Albumin 1.9 L (3.5-5.0) g/dL TSH 1.81 (0.32-4.0) uIU/mL Urine Color Urine Appearance Urine pH (5.0-9.0) Ur Specific [place] (1.005-1.025) Urine Protein (Neg-Trace) mg/dL Urine Glucose (UA) (Negative) mg/dL Urine Ketones (Negative) mg/dL Urine Blood (Negative) Urine Nitrite (Negative) Ur Leukocyte Esterase (Negative) Urine RBC (0-2) /HPF Urine WBC (0-5) /HPF Ur Squamous Epith Cells (0-2) /HPF Urine Bacteria (None Seen) Hyaline Casts (0-2) /LPF Urine Opiates Screen (Not Detect) Ur Buprenorphine Scrn (Not Detect) ng/mL Ur Oxycodone Screen (Not Detect) ng/mL Urine Methadone Screen (Not Detect) ng/mL Urine Fentanyl Screen (Not Detect) Ur Barbiturates Screen (Not Detect) Ur Phencyclidine Scrn (Not Detect) Ur Amphetamines Screen (Not Detect) U Benzodiazepines Scrn (Not Detect) Urine Cocaine Screen (Not Detect) U Marijuana (THC) Screen (Not Detect) Ethyl Alcohol < 10 mg/dL Influenza Type A (PCR) (Negative) Influenza Type B (PCR) (Negative) RSV RNA Qual (PCR) (Negative) SARS-CoV-2 RNA (RT-PCR) (Negative) Independent Interpretation I performed an independent interpretation of an: Plain X-Ray and CT Scan Radiology Impression Discussion of test interpretation with radiology: I have reviewed the radiologist's reading. Radiologist Impression: Findings: There is mild atrophy and white matter changes. Dense nonspecific parenchymal calcification is seen in the cerebellum. No acute hemorrhage or definite acute infarct is seen. There is no hydrocephalus or mass effect. There is prominent right mastoiditis. Impression: No acute hemorrhage or definite acute infarct. CT angiogram of the head and neck. Multiplanar MIPS were obtained. Comparison 07/26/2022. Findings: Artifact significantly limits the study. The right common carotid artery is suboptimally evaluated. There is densely calcified plaque involving the right carotid bifurcation with possible high-grade stenosis of the carotid bulb and origin of the internal carotid artery. The left common carotid artery is suboptimally evaluated. There is prominent calcified plaque of the bifurcation of the common carotid artery without definite hemodynamically significant stenosis. Artifact significantly limits evaluation of the vertebral arteries. No definite occlusion is seen. The left vertebral artery is dominant. The basilar artery is patent. Motion artifact significantly limits the intracranial portion of the study. No definite large vessel occlusion or focal stenosis is seen. There is a right pleural effusion. Large amount of fluid right mastoid air cells. Impression: Motion artifact significantly limits evaluation. Possible high-grade narrowing right carotid bulb and proximal internal carotid artery. Right pleural effusion. Right mastoiditis. Other findings as above. The lungs are under ventilated. Body habitus limits the study. There is mild elevation right hemidiaphragm. Heart size is upper limits of normal. Impression: Under ventilated lungs. No definite consolidation or pleural effusion. Mild elevation right hemidiaphragm. Independent Historian Clinical information obtained from an independent historian. History obtained from or confirmed by: EMS Critical Care Time Critical Care Time Critical Care Time: Yes Total Critical Care Time: 75 Attestation: I have personally provided critical care time. Time includes review of lab data, radiology results, discussion with consultants, and monitoring for potential decompensation. Intervention performed as documented. Discharge Plan Discharge Clinical Impression: Acute hyponatremia, Sepsis, Renal failure, Malnutrition Patient Disposition: Admitted As Inpatient Prescriptions: No Action fenofibrate nanocrystallized 48 mg tablet 48 mg PO DAILY 30 Days Qty: 30 2RF amoxicillin 500 mg capsule 500 mg PO Q8H 7 Days Qty: 21 0RF cholecalciferol (vitamin D3) [Vitamin D3] 50 mcg (2,000 unit) capsule 50 mcg PO DAILY Qty: 90 0RF paroxetine HCl 10 mg tablet 10 mg PO DAILY 90 Days Qty: 90 0RF tamsulosin 0.4 mg capsule 0.4 mg PO BEDTIME Qty: 90 0RF Rx Instructions: Take 1 capsule by mouth at bedtime prednisone 20 mg tablet 20 mg PO BID Qty: 60 0RF finasteride [Proscar] 5 mg tablet 5 mg PO DAILY 90 Days Qty: 90 0RF irbesartan 75 mg tablet 75 mg PO DAILY 90 Days Qty: 90 0RF lorazepam 1 mg tablet See Rx Instructions PO BEDTIME PRN (Reason: anxiety) Qty: 40 0RF Rx Instructions: Take 1 to 1.5 tablets orally at bedtime PRN for increased anxiety cyanocobalamin (vitamin B-12) [Vitamin B-12] 1,000 mcg Tablet 1,000 mcg PO DAILY@1700 lorazepam 1 mg tablet 1 - 1.5 mg PO BEDTIME PRN (Reason: anxiety) Rx Instructions: Take 1 to 1.5 tablets orally at bedtime PRN for increased anxiety (DME) LIGHTWEIGHT WHEELCHAIR See Rx Instructions .Route .MEDSUPPLY Qty: 1 0RF Rx Instructions: As directed Saline Mist 0.65 % aerosol,spray 2 spray intranasal BID PRN (Reason: congestion) Qty: 45 0RF Print Language: Romanian
[2025-03-13 16:42] LABS: INTERNATIONAL NORM RATIO 1.1 (0.9-1.1); Prothrombin Time 12.4 SEC (10.9-12.4)
[2025-03-13 16:45] LABS: Hematocrit 36.5 % (42.0-52.0); Hemoglobin 13.4 g/dl (14.0-18.0); Mean Corpuscular HGB Conc 36.7 g/dl (31.0-36.0); Mean Corpuscular Hemoglobin 35.3 pg (27.0-33.0); Mean Corpuscular Volume 96.1 fL (80.0-98.0); Mean Platelet Volume 10.3 fL (9.4-12.4); Platelet Count 178 X10*3/uL (160-400); Red Cell Distribution Width 12.3 % (11.0-16.0); White Blood Count 24.6 X10*3/uL (4.8-10.8)
[2025-03-13 16:46] LABS: Appearance Urine Cloudy; Color Urine Dark Yellow; Glucose Urine UA Negative (Negative); Leukocyte Esterase Urine Large (3+) (Negative); Nitrite Urine Negative (Negative); PH 5.5 (5.0-9.0); Specific Gravity - Urine 1.015 (1.005-1.025); UMIC TRIGGER UACC YES; Urine Blood Large (3+) (Negative); Urine Ketones Trace mg/dL (Negative); Urine Protein 30 (1+) mg/dL (Neg-Trace)
[2025-03-13 16:51] LABS: Bacteria Urine None Seen (None Seen); Hyaline Casts Urine 0-2 /LPF (0-2); RBC Urine >20 /HPF (0-2); Squamous Epithelial Cell Urine 0-2 /HPF (0-2); UACC Culture Trigger YES; WBC Urine >50 /HPF (0-5)
[2025-03-13 16:55] LABS: Amphetamine Screen Urine Not Detected (Not Detect); Barbiturates, Urine Not Detected (Not Detect); Benzodiazepines Screen Urine Not Detected (Not Detect); Buprenorphine Scr Not Detected (Not Detect); Cannabinoid Screen Urine Not Detected (Not Detect); Cocaine Screen Urine Not Detected (Not Detect); Fentanyl, urine Not Detected (Not Detect); Methadone Screen, Urine Not Detected (Not Detect); Opiate Screen Urine Not Detected (Not Detect); Oxycodone Screen Urine Not Detected (Not Detect); Phencyclidine Screen Urine Not Detected (Not Detect)
[2025-03-13 16:57] LABS: B Type Natriuretic Peptide 13 pg/mL (<100)
[2025-03-13 17:09] LABS: SLIDE REVIEW MANUAL DIFF
[2025-03-13 17:12] LABS: Ammonia 53 umol/L (13-55)
[2025-03-13 17:14] LABS: Basophils Abs Manual 0.2 X10*3/uL (0.0-0.2); Basophils Percent Manual 1 % (0-2); Lymphocytes Absolute Manual 0.7 X10*3/uL (1.2-4.9); Lymphocytes Percent Manual 3 % (20-40); Monocytes Absolute Manual 0.2 X10*3/uL (0.1-1.2); Monocytes Percent Manual 1 % (2-11); Neutrophils Percent Manual 95 % (45-73)
[2025-03-13 17:16] LABS: Acanthocytes 2+ (3-5) /OIF; RBC Morphology NOTED; Toxic Vacuolation PRESENT
[2025-03-13 17:17] LABS: Band Neutrophils Percent 0 % (3-5); Neutrophils Absolute Manual 23.4 X10*3/uL (2.0-8.3); Platelet Estimate NORMAL (NORMAL); Platelet Morphology Comment NORMAL
[2025-03-13 17:22] LABS: Influenza A PCR NEGATIVE (Negative); Influenza B PCR NEGATIVE (Negative); Resp Syncy Virus RNA Qual PCR NEGATIVE (Negative); SARS COV2 PCR INHOUSE NEGATIVE (Negative)
[2025-03-13] MEDS: 0.9 % Sodium Chloride 1,000 ML 999 ML IVCONT (17:22)
[2025-03-13] MEDS: cefTRIAXone sodium 1 GM VIAL IVPUSH (17:28)
[2025-03-13] MEDS: 0.9 % Sodium Chloride 1,500 ML 999 ML IVCONT (17:31)
[2025-03-13 17:34] LABS: Lactic Acid 1.4 mmol/L (0.5-2.0)
[2025-03-13 17:57] LABS: Glucose, Whole Blood 81 mg/dL (60-115)
[2025-03-13 19:11] LABS: VBG Base Excess -16.4 mmol/L; VBG HCO3 9 mmol/L (22-26); VBG pCO2 21 mmHg; VBG pH 7.22 (7.32-7.43); VBG pO2 230 mmHg
[2025-03-13 19:12] LABS: Venous Blood Gas Refer to POC result
[2025-03-13 19:22] LABS: Alanine Aminotransferase 11 U/L (0-40); Albumin Level 1.9 g/dL (3.5-5.0); Alkaline Phosphatase 74 U/L (39-117); Anion Gap 17 (12-20); Aspartate Amino Transferase 35 U/L (5-37); Bilirubin Direct 0.4 mg/dL (0.0-0.5); Bilirubin Total 0.6 mg/dL (0.0-1.0); Calcium 6.6 mg/dL (8.4-10.2); Carbon Dioxide 12 mmol/L (22-29); Chloride 93 mmol/L (96-108); Creatinine Clr Calc Pharmacy 15.1; Estimated Glomerular Filt Rate 9; Ethanol < 10 mg/dL; Glucose Random 68 mg/dL (60-115); Magnesium 1.8 mg/dL (1.6-2.6); Potassium 5.6 mmol/L (3.3-5.1); Sodium 116 mmol/L (135-145); Total Protein 4.1 g/dL (6.5-8.0)
[2025-03-13 19:26] LABS: Troponin-I High Sensitivity 5.2 ng/L (<3.5-35.0)
[2025-03-13 19:32] LABS: Blood Urea Nitrogen 132 mg/dL (9-16)
[2025-03-13] MEDS: Albumin Human 25 % 100 ML 133.33 ML IV ×4 (19:34→22:54)
[2025-03-13 19:41] LABS: TSH reflex Free T4 1.81 uIU/mL (0.32-4.0)
--- NOTE | 2025-03-13 19:53 | PC.NURSE ---
verbal nurse to nurse report given to ICU nurse JEFF Ashford
[2025-03-13] MEDS: Norepinephrine Bitartrate/D5W 8 MG/250 ML PLAST..BAG 11.81 MG IVCONT (20:30)
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
[2025-03-13] MEDS: Piperacillin Sodium/Tazobactam 3.375 GM in 0.9 % Sodium Chloride 50 ML IV (21:08)
--- NOTE | 2025-03-13 21:26 | PHA.MEDREC ---
Addendum entered by Antonio Isidro RPh 03/13/25 21:56: MED REC CHECKED BY [facility] Original Note: Pharmacy Consult ? Medication Reconciliation Pharmacy has completed the medication reconciliation. Patient is AMS. Patient had a bag of Rx bottles with him. Utilized claims and Rx bottles to confirm med list.
--- NOTE | 2025-03-13 22:50 | W.PM.CCHP ---
Procedures Date of Service Date of Service: 03/13/25 Central Line Placement Left IJ: Consent for Procedure: Elective - informed consent obtained (from patient's son Tristan over the phone and as a witnessed his RN Justus) Time out performed: Yes Sterile Technique Used: Yes Patient placed on monitor/pulse ox: Yes MD prep: mask, gown, gloves and other Central line prep: Chlorhexidine scrub Local anesthesia used: lidocaine 1% Amount of anesthesia used (ml): 5 Ultrasound used for placement: Yes Central line lumen inserted: triple (16 cm) Post procedure: sutured in place, good blood return, all ports aspirated, flushed, capped and sterile dressing applied Post procedure x-ray: tip of catheter in good position and no pneumothorax seen Patient tolerated procedure: well and no complications Complications: none
[2025-03-13] MEDS: Sodium Bicarbonate 8.4% 150 MEQ in Dextrose 5 % 850 ML 50 MEQ IV (22:52)
[2025-03-13] MEDS: Calcium Gluconate/NaCl,Iso-Osm 1 GM/50 ML PLAST..BAG IV (22:52)
[2025-03-13] MEDS: Lidocaine HCl 2 % Urojet 10 ML JEL.PF.APP TOPICAL (22:53)
[2025-03-13] MEDS: Heparin Sodium,Porcine 5,000 UNIT/ML VIAL 5000 UNIT SUBCUT (22:54)
--- NOTE | 2025-03-13 22:54 | HO.HCP ---
Health Care Proxy Invocation Health Care Proxy Declaration: I, __Leland Walters PAC , on the date cited below, have determined that, Shane Hsu , lacks the capacity to make or communicate, informed health care decision. This determination is made in accordance with accepted standards of medical judgment and pursuant to [place] c. 201[place], the [place] Health Care Proxy Law. The cause, nature, extent and probable duration of the patient's inapacity are described below: Cause: Metabolic encephalopathy Nature: Sepsis Extent: Undetermined but predict improvement Probable Duration of Patient's Incapacity: days The above was discussed with the patient's HCP his son Tristan over the phone, he is aware of the patient's current clinical status, consented for placement of the central line, risks and benefits were discussed in detail with the patient's son, his nurse Justus was the witnessed for this conversation. He also reiterated that the patient is FULL CODE
[2025-03-13] MEDS: Hydrocortisone Sod Succ/PF 100 MG VIAL IVPUSH (22:56)
[2025-03-13] MEDS: Magnesium Sulfate/H2O 2 GM/50 ML PIGGYBACK IV (22:56)
[2025-03-13] MEDS: HYDROmorphone HCl 0.5 MG/0.5 ML SYRINGE IVPUSH (23:40)
[2025-03-13 23:56] LABS: Hematocrit 30.9 % (42.0-52.0); Hemoglobin 11.1 g/dl (14.0-18.0); Mean Corpuscular HGB Conc 35.9 g/dl (31.0-36.0); Mean Corpuscular Volume 97.5 fL (80.0-98.0); Mean Platelet Volume 9.6 fL (9.4-12.4); Platelet Count 169 X10*3/uL (160-400); Red Blood Count 3.17 X10*6/uL (4.60-5.80); Red Cell Distribution Width 12.1 % (11.0-16.0); Venous Blood Gas Refer to POC result
[2025-03-14] VITALS (36 sets, daily range): BP systolic 94–152; BP diastolic 51–84; PULSE 75–104; RESP 16–23; TEMP 33.9–36.4; O2SAT 91–99; BMI 38.7
[2025-03-14 00:17] LABS: B Type Natriuretic Peptide 45 pg/mL (<100)
[2025-03-14 00:19] LABS: Alanine Aminotransferase 13 U/L (0-40); Albumin Level 3.5 g/dL (3.5-5.0); Alkaline Phosphatase 65 U/L (39-117); Anion Gap 21 (12-20); Aspartate Amino Transferase 41 U/L (5-37); Bilirubin Total 0.7 mg/dL (0.0-1.0); Calcium 7.4 mg/dL (8.4-10.2); Carbon Dioxide 10 mmol/L (22-29); Chloride 92 mmol/L (96-108); Creatinine Clr Calc Pharmacy 15.8; Estimated Glomerular Filt Rate 10; Glucose Random 96 mg/dL (60-115); Potassium 5.5 mmol/L (3.3-5.1); Sodium 117 mmol/L (135-145); Total Protein 5.5 g/dL (6.5-8.0)
[2025-03-14] MEDS: Lactated Ringers 1,000 ML 50 ML IVCONT (00:19)
[2025-03-14] MEDS: Norepinephrine Bitartrate/D5W 8 MG/250 ML PLAST..BAG 44.89 MG IVCONT ×2 (00:26→05:13)
[2025-03-14 00:30] LABS: Blood Urea Nitrogen 123 mg/dL (9-16)
[2025-03-14 00:37] LABS: Band Neutrophils Percent 25 % (3-5); Lymphocytes Absolute Manual 0.6 X10*3/uL (1.2-4.9); Lymphocytes Percent Manual 2 % (20-40); Metamyelocytes Absolute 0.6 X10*3/uL; Metamyelocytes Percent 2 %; Monocytes Absolute Manual 1.2 X10*3/uL (0.1-1.2); Monocytes Percent Manual 4 % (2-11); Neutrophils Absolute Manual 27.6 X10*3/uL (2.0-8.3); Neutrophils Percent Manual 67 % (45-73)
[2025-03-14 00:38] LABS: Burr Cells 2+ (3-5) /OIF; Platelet Estimate NORMAL (NORMAL); Platelet Morphology Comment NORMAL; RBC Morphology NOTED; Toxic Vacuolation PRESENT
[2025-03-14] MEDS: HYDROmorphone HCl 1 MG/ML SYRINGE IVPUSH (01:30)
[2025-03-14] MEDS: Piperacillin Sodium/Tazobactam 2.25 GM in 0.9 % Sodium Chloride 50 ML IV ×4 (01:31→17:35)
--- NOTE | 2025-03-14 03:21 | HO.SKINPHOTO ---
Location: B/L buttocks and upper posterior thighs Category: ?MASD/IAD Provider aware of skin integrity- wound consult placed. Barrier cream applied, repositioned in bed q2hr with wedges/pillows
[2025-03-14 04:31] LABS: VBG Base Excess -13.9 mmol/L; VBG HCO3 12 mmol/L (22-26); VBG pCO2 29 mmHg; VBG pH 7.21 (7.32-7.43); VBG pO2 55 mmHg
[2025-03-14 05:11] LABS: Venous Blood Gas Refer to POC result
[2025-03-14 05:13] LABS: Hematocrit 32.1 % (42.0-52.0); Hemoglobin 11.5 g/dl (14.0-18.0); Mean Corpuscular HGB Conc 35.8 g/dl (31.0-36.0); Mean Corpuscular Hemoglobin 35.2 pg (27.0-33.0); Mean Corpuscular Volume 98.2 fL (80.0-98.0); Mean Platelet Volume 9.7 fL (9.4-12.4); Platelet Count 200 X10*3/uL (160-400); Red Blood Count 3.27 X10*6/uL (4.60-5.80); Red Cell Distribution Width 12.1 % (11.0-16.0)
[2025-03-14] MEDS: Pantoprazole Sodium 40 MG/10 ML VIAL IVPUSH (05:13)
[2025-03-14] MEDS: Hydrocortisone Sod Succ/PF 100 MG VIAL IVPUSH ×3 (05:13→21:09)
[2025-03-14 05:17] LABS: White Blood Count 34.2 X10*3/uL (4.8-10.8)
[2025-03-14 05:43] LABS: Alanine Aminotransferase 13 U/L (0-40); Albumin Level 3.4 g/dL (3.5-5.0); Alkaline Phosphatase 66 U/L (39-117); Anion Gap 21 (12-20); Aspartate Amino Transferase 38 U/L (5-37); Bilirubin Total 0.7 mg/dL (0.0-1.0); Calcium 7.1 mg/dL (8.4-10.2); Carbon Dioxide 10 mmol/L (22-29); Chloride 93 mmol/L (96-108); Creatinine Clr Calc Pharmacy 17.8; Estimated Glomerular Filt Rate 11; Glucose Random 125 mg/dL (60-115); Magnesium 2.1 mg/dL (1.6-2.6); Phosphorus 8.3 mg/dL (2.7-4.5); Potassium 5.5 mmol/L (3.3-5.1); Sodium 118 mmol/L (135-145); Total Protein 5.4 g/dL (6.5-8.0)
[2025-03-14 05:48] LABS: Blood Urea Nitrogen 130 mg/dL (9-16)
[2025-03-14 05:53] LABS: Band Neutrophils Percent 14 % (3-5); Monocytes Absolute Manual 0.7 X10*3/uL (0.1-1.2); Monocytes Percent Manual 2 % (2-11); Neutrophils Absolute Manual 33.5 X10*3/uL (2.0-8.3); Neutrophils Percent Manual 84 % (45-73)
[2025-03-14 05:55] LABS: Platelet Estimate NORMAL (NORMAL); Platelet Morphology Comment NORMAL; RBC Morphology NOTED; Spherocytes 1+ (0-2) /OIF
[2025-03-14 05:56] LABS: Burr Cells 2+ (3-5) /OIF; Pappenheimer Bodies PRESENT; Tear Drop Cells 1+ (0-2) /OIF; Toxic Vacuolation PRESENT
--- NOTE | 2025-03-14 06:45 | PC.ADMIT ---
Pt admitted to ICU from ED at approx 1999. Upon initial assessment- pt A&Ox1/2, garbled speech, reaching for lines/tubes but increasing lethargic throughout shift. Moaning in pain, given dilaudid IV x2 per JAN. Temp 89.4 rectally, be hugger applied. +3 BLE edema to thighs. NSR on tele, HR 70-90s. SBP 70s, MAP 50s- levophed gtt ordered and titrated per JAN. TLC placed to L IJ by MARCO ANTONIO Walters at approx 2245. Given albumin 100mL IV x3, magnesium sulfate 2 mg IV x1, calcium gluconate 1 gm IV x1, and bicarb gtt ordered and administered per JAN. Bladder scan done for approx 1400 mL, ibrahim catheter inserted per MARCO ANTONIO. Tea-colored urine upon insertion, but becoming bloody throughout shift and becoming oliguric- PA aware. Brought for abd/pelvis CT at approx 0045 without incident. NPO d/t AMS. No BM. Multiple skin integrity concerns- wound consult placed and picture upload to chart. Repositioned in bed q2hrs with wedges/pillows. Bed locked in lowest position, alarm on. See EMR/flowsheet for further details.
--- NOTE | 2025-03-14 07:00 | CA_ITS ---
Transthoracic Echocardiogram Patient (Last, First, Middle): Shane Hsu J Gender: Male Date of : 1955 Age: 70 Procedure Date: 03/14/2025 Procedure Type: Transthoracic Echocardiogram Location: ICU Height: 180.34 cm Weight: 125.65 kg BSA: 2.42 m2 Heart Rate: bpm BP: 114 / 68 mmHg Biomedical Specialist: ROSEMARY Referring MD: Leland BERNARD Cleater: Francisco Vicente MD Symptoms: ANTIONETTE edema EJ valvs Study Quality: Technically Difficult, contrast ECG Rhythm: Sinus Conclusions: - 1. Normal LV ejection fraction of 65-70% with impaired relaxation filling pattern 2. Mild aortic regurgitation 3. Mildly dilated ascending aorta at 3.9 cm 4. Normal RV systolic pressure 5. No pericardial effusion Findings Procedure Information Contrast agent, definity, is being given per protocol without apparent complications. Left Ventricle Normal left ventricular size, thickness, and systolic function. The visually estimated ejection fraction is between 65-70%. Spectral Doppler is indicative of an impaired relaxation filling pattern. E/E prime ratio is between 8 and 15 consistent with indeterminate filling pressures. Right Ventricle Mildly increased right ventricular cavity size. There is normal right ventricular systolic function. Atria The left atrium is normal in size. Interatrial shunt cannot be excluded. The right atrium was not well visualized. Aortic Valve There is mild calcification of the aortic valve. There is no aortic valve stenosis. There is mild aortic valve regurgitation. Mitral Valve There is mild anterior mitral leaflet thickening. There is mild mitral valve regurgitation. There is no mitral valve stenosis. Pulmonic Valve The pulmonic valve was not well visualized. Tricuspid Valve Likely normal tricuspid valve structure and function. There is mild tricuspid valve regurgitation. The right ventricular systolic pressure is normal. The right ventricular systolic pressure is 30 mmHg. Normal right atrial pressure. There is no evidence of pulmonary hypertension. Great Vessels The pulmonary artery was not well visualized. There is mild dilatation of the ascending aorta measuring 3.90 cm. Venous The inferior vena cava is normal in size and collapses greater than 50% with inspiration. Pericardium/Pleural There is no evidence of pericardial effusion. Prior Study Comparison No prior study available for comparison. Measurements 2D Linear Measurements IVSd: 1.03 0.6-0.9/0.6-1.0 cm LVIDd: 5.26 3.9-5.3/4.2-5.9 cm LVIDd Index: 2.17 2.4-3.2/2.2-3.1 cm/m2 LVIDs: 3.44 2.0-3.6 cm LA Diam: 3.60 2.7-3.8/3.0-4.0 cm LAIDs Index: 1.49 1.5-2.3 cm/m2 LVOT Diam: 2.60 3.0+(-)1.3 cm 2D Systolic Function EF 4C: 65.40 >55% EF 2C: 72.20 >55% EF BiP: 68.30 >55% Mitral Valve MV Pk E: 0.64 MV PK A: 1.15 MV Decel Time: 104.00 E/A: 0.60 E'Lateral: 5.11 E'Medial: 5.44 E/E' Med: 11.70 E/E' Lat: 12.50 PHT: 31.00 MVA PHT: 7.10 Decel [place]: 6.12 Aortic Valve AoV Pk Singh: 1.54 AoV Pk Grad: 9.00 LVOT LVOT Pk Singh: 1.09 LVOT Mn Singh: 0.72 LVOT VTI: 0.20 LVOT Pk Grad: 5.00 LVOT Mn Grad: 2.00 LVOT Diam: 2.60 LVOT Area: 5.31 Diastolic Function MV Pk E: 0.64 MV Pk A: 1.15 E/A: 0.60 E'Medial: 5.44 E/E' Med: 11.70 E' Laterial: 5.11 E/E' Lat: 12.50 Right Ventricle TVS' Singh: 12.70 Tricuspid Valve TR Pk Singh: 2.35 TR Pk Grad: 22.00 RA Press: 8.00 RVSP: 30.00 Great Vessels Aorta Sinus of Valsalva: 4.40 2.0-3.5 cm Ao Asc: 3.90 2.1-3.4 cm Pulmonary Valve PV Pk Singh: 1.07 Peak PV Grad: 5.00 NM Pk Singh: 2.17 Updated in Other Vendor System with Status of Final Francisco Vicente MD electronically signed on 03/14/2025 10:20:55 AM with status of Final
[2025-03-14] MEDS: 0.9 % Sodium Chloride Flush 3 ML SYRINGE IVFLUSH ×2 (07:32→14:39)
--- NOTE | 2025-03-14 08:12 | PM.CNNEP ---
History of Present Illness Reason for Consult Consult date: 03/14/25 Reason for consult: ANTIONETTE Chief Complaint Chief complaint: septic shock History of Present Illness Narrative: 70-year-old patient with underlying history of morbid obesity, malnutrition, hypertension, left lower extremity wound, Guillain-Lovell syndrome and lower extremity weakness, UTIs, urinary retention, hyperlipidemia, presented to the emergency room via EMS with reported complaints of acute mental status changes, shortness of breath blood glucose of 69 and possible bedbug infestation.? According to EMS personnel, the patient had mental status changes for the past 2 days and [facility] Upon arrival they noted the patient was sitting in his own stools and covered with sheets the had bedbugs in it. At admission, pt found to have ANTIONETTE with severe hyponatremia- Na 116.with acidosis and hyperkalemia Overnight, Na is up to 118 K is 5.5 Urien is drak/bloody Currently on both LR and Bicarb drip Review of Systems Review of Systems Yes Unobtainable due to mental status PMFSH Past Medical History Medical History Mixed hyperlipidemia 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 Vitamin D deficiency Benign essential hypertension Obesity (BMI 30-39.9) Neuropathy Hypertension, essential Anxiety Family History Family History Father No problems noted. Mother No problems noted. Family history: reviewed and not pertinent Surgical History Surgical History History of tonsillectomy and adenoidectomy Social History Social History Household Members: Family Housing: House Do you presently have visiting nurse or other home services: No Alcohol intake: current Alcohol intake frequency: 0-2 drinks per day Alcohol type: beer Patient Tobacco Use Status: Never used Tobacco e-Cigarette/Vaping Use: Never Used Second Hand Smoke Exposure: No Use of substances other than those prescribed or required for medical reasons: Unknown Currently Displaying Signs/Symptoms of Drug Intoxication Withdrawal: No Advance Directives: Yes Advance Directives on File: Yes Advance Directives Date on File: 05/27/22 Poor oral hygiene: Yes service: No Current occupational status: retired Cognitive needs: No Hearing needs: No Vision needs: Yes Meds Allergies Allergy/AdvReac Type Severity Reaction Status Date / Time atenolol [ATENOLOL] Allergy Unknown SEVERE Verified 03/13/25 17:13 BRADYCARDIA atenolol Allergy Unknown bradycardia Uncoded 03/13/25 17:13 zestril Allergy Unknown facial Uncoded 03/13/25 17:13 swelling Active Medications: Current Medications Heparin Sodium (Porcine) (Heparin Sodium,Porcine 5,000 Unit/Ml Vial) 5,000 unit SUBCUT Q8H [facility] Last Admin: 03/14/25 02:05 Dose: Not Given Hydrocortisone Sodium Succinate (Hydrocortisone Sod Succ/Pf 100 Mg Vial) 100 mg IVPUSH Q8H [facility] Last Admin: 03/14/25 05:13 Dose: 100 mg Norepinephrine Bitartrate (Levophed) 8 mg in 250 mls @ 0 mls/hr IVCONT .Q0M [facility]; Protocol Last Titration: 03/14/25 06:01 Dose: 0.17 mcg/kg/min, 40.16 mls/hr Piperacillin Sod/Tazobactam (Sod 2.25 gm/ Sodium Chloride) 50 mls @ 100 mls/hr IV Q6H [facility] [place] Last Infusion: 03/14/25 05:25 Dose: Infused Sodium Bicarbonate 150 meq/ (Dextrose) 1,000 mls @ 100 mls/hr IV .Q10H [facility] [place] Last Infusion: 03/14/25 06:30 Dose: 100 mls/hr Lactated Ringer's (Lr) 1,000 mls @ 80 mls/hr IVCONT .[id number] [facility] [place] Last Infusion: 03/14/25 07:49 Dose: 0 mls/hr Pantoprazole Sodium (Pantoprazole Sodium 40 Mg/10 Ml Vial) 40 mg IVPUSH DAILY@0630 [facility] [place] Last Admin: 03/14/25 05:13 Dose: 40 mg Sodium Chloride (0.9 % Sodium Chloride Flush 3 Ml Syringe) 3 ml IVFLUSH QSHIFT [facility] [place] Last Admin: 03/14/25 07:32 Dose: 3 ml Home Medications ?Medication ?Instructions ?Recorded ?Confirmed ?Last Taken ?Type lorazepam 1 mg tablet 1 - 1.5 mg PO BEDTIME PRN anxiety 12/04/23 03/13/25 Unknown History Physical Exam Vital Signs: Last Vital Signs Temp 96.6 F L 03/14/25 08:00 Pulse 92 03/14/25 08:00 Resp 20 03/14/25 08:00 BP 135/69 03/14/25 08:00 Pulse Ox 97 03/14/25 08:00 O2 Del Method Nasal Cannula 03/14/25 08:00 O2 Flow Rate 1 03/14/25 08:00 Oxygen Flow Rate 1 03/14/25 07:16 BMI result Body Mass Index 38.7 Const General: ill appearing Neck Neck: Yes supple Cardio Palpation: no palpable S3 Heart sounds: no rubs GI Palpation (GI): Soft to palpation Auscultation: normal bowel sounds Neuro Motor exam (neuro): no asterixis Results Lab Results 03/14/25 04:26 03/14/25 04:26 Lab results: Chemistry 03/13/25 03/13/25 03/14/25 18:59 23:46 04:26 Sodium 116 L* 117 L* 118 L* Potassium 5.6 H D 5.5 H 5.5 H Carbon Dioxide 12 L 10 L* 10 L* BUN 132 H 123 H 130 H Creatinine 5.95 H* 5.70 H* 5.05 H* Calcium 6.6 L D 7.4 L D 7.1 L Phosphorus 8.3 H Hematology 03/13/25 03/13/25 03/14/25 16:18 23:46 04:26 WBC 24.6 H 30.0 H* 34.2 H* Hgb 13.4 L 11.1 L 11.5 L Plt Count 178 D 169 200 Urinalysis 03/13/25 16:19 Urine Color Dark Yellow Urine Appearance Cloudy Urine pH 5.5 Ur Specific [place] 1.015 Urine Protein 30 (1+) H Urine Glucose (UA) Negative Urine Ketones Trace Urine Blood Large (3+) H Urine Nitrite Negative Ur Leukocyte Esterase Large (3+) H Urine RBC >20 H Urine WBC >50 H Ur Squamous Epith Cells 0-2 Hyaline Casts 0-2 Assessment and Plan (1) ANTIONETTE (acute kidney injury): Status: Acute Plan 70 yr old man with ANTIONETTE and severe acidosis in a setting of GB syndrome and sepsis and hypotension along with severe hyponatremia and hyperkalemia Suggest Check urine Na/Cr/ osm Serum osm , cortisol TSH IVF: Agree with current bicarb drip DC LR Keep I > O Check BMP stat ( last reading of 118 was at 4.26 AM) Goal is to corrent pNa at a rate ot 0.5 to 1 mmol/hr and not to exceed > 10 mmol in 24 hr period Lokelma if K > 5.5 Watch urine output Avoid hypotension and k\eep SBP > 100 mmHG No absolute indication for dialysis at the present time and shall watch closely Procedures Date of Service Date of Service: 03/14/25
--- NOTE | 2025-03-14 08:38 | P.PNCC_ITS ---
Subjective Subjective Date of Service: 03/14/25 Interval History: Mental status slowly improving Critical Care Time (minutes): 35 Physical Exam 2 Vital Signs: Vital Signs: Last Vital Signs Temp 96.6 F L 03/14/25 08:00 Pulse 92 03/14/25 08:00 Resp 20 03/14/25 08:00 BP 135/69 03/14/25 08:00 Pulse Ox 97 03/14/25 08:00 O2 Del Method Nasal Cannula 03/14/25 08:00 O2 Flow Rate 1 03/14/25 08:00 Oxygen Flow Rate 1 03/14/25 07:16 BMI result Body Mass Index 38.7 General: Elderly male chronically ill and tired appearing lying in the bed Nutritional Appearance: well nourished and overweight Eyes: appearance normal, both eyes and all related structures; Alignment and Position: alignment normal and position normal Neck: No lymphadenopathy, no thyromegaly Resp: bilateral air entry equal, occasional added sounds present Cardio: Regular rate, regular rhythm; Heart sounds: S1 normal heart sound present and S2 normal heart sound present GI: soft, nontender, no guarding, no hepatosplenomegaly : bladder normal to inspection, bladder normal to palpation, no renal angle tenderness Skin: no rashes or lesions noted and elasticity normal Neuro: Objective Data Labs 03/14/25 04:26 03/14/25 04:26 Labs: Laboratory Results - last 24 hr 03/13/25 03/13/25 03/13/25 16:18 16:19 16:56 WBC 24.6 H RBC 3.80 L Hgb 13.4 L Hct 36.5 L MCV 96.1 MCH 35.3 H MCHC 36.7 H RDW 12.3 Plt Count 178 D MPV 10.3 Immature Gran % (Auto) Cancelled Neut % (Auto) Cancelled Lymph % (Auto) Cancelled [place] % (Auto) Cancelled Eos % (Auto) Cancelled Baso % (Auto) Cancelled Lymph # (Auto) Cancelled [place] # (Auto) Cancelled Eos # (Auto) Cancelled Baso # (Auto) Cancelled Abs Immat Gran (auto) Cancelled Absolute Neuts (auto) Cancelled Absolute Nucleated RBC 0.000 Nucleated RBC % (auto) 0.0 Neutrophils % (Manual) 95 H Band Neutrophils % 0 L Lymphocytes % (Manual) 3 L Monocytes % (Manual) 1 L Basophils % (Manual) 1 Metamyelocytes % Abs Neuts (Manual) 23.4 H Lymphocytes # (Manual) 0.7 L Monocytes # (Manual) 0.2 Basophils # (Manual) 0.2 Metamyelocytes # Toxic Vacuolation PRESENT Platelet Estimate NORMAL Plt Morphology Comment NORMAL RBC Morphology NOTED Spherocytes Pappenheimer Bodies Tear Drop Cells [place] Cells Acanthocytes (Spur) 2+ (3-5) Smear Tech's Comments MANUAL DIFF PT 12.4 INR 1.1 VBG pH VBG pCO2 VBG pO2 VBG HCO3 VBG O2 Saturation VBG Base Excess Sodium Potassium Chloride Carbon Dioxide Anion Gap BUN Creatinine Estim Creat Clear Calc Estimated GFR POC Glucose Random Glucose Lactic Acid 1.4 Calcium Phosphorus Magnesium Total Bilirubin Direct Bilirubin AST ALT Alkaline Phosphatase Ammonia 53 Troponin I High Sens B-Natriuretic Peptide 13 Total Protein Albumin TSH Urine Color Dark Yellow Urine Appearance Cloudy Urine pH 5.5 Ur Specific [place] 1.015 Urine Protein 30 (1+) H Urine Glucose (UA) Negative Urine Ketones Trace Urine Blood Large (3+) H Urine Nitrite Negative Ur Leukocyte Esterase Large (3+) H Urine RBC >20 H Urine WBC >50 H Ur Squamous Epith Cells 0-2 Urine Bacteria None Seen Hyaline Casts 0-2 Urine Opiates Screen Not Detected Ur Buprenorphine Scrn Not Detected Ur Oxycodone Screen Not Detected Urine Methadone Screen Not Detected Urine Fentanyl Screen Not Detected Ur Barbiturates Screen Not Detected Ur Phencyclidine Scrn Not Detected Ur Amphetamines Screen Not Detected U Benzodiazepines Scrn Not Detected Urine Cocaine Screen Not Detected U Marijuana (THC) Screen Not Detected Ethyl Alcohol Influenza Type A (PCR) NEGATIVE Influenza Type B (PCR) NEGATIVE RSV RNA Qual (PCR) NEGATIVE SARS-CoV-2 RNA (RT-PCR) NEGATIVE 03/13/25 03/13/25 03/13/25 17:52 18:59 19:05 WBC RBC Hgb Hct MCV MCH MCHC RDW Plt Count MPV Immature Gran % (Auto) Neut % (Auto) Lymph % (Auto) [place] % (Auto) Eos % (Auto) Baso % (Auto) Lymph # (Auto) [place] # (Auto) Eos # (Auto) Baso # (Auto) Abs Immat Gran (auto) Absolute Neuts (auto) Absolute Nucleated RBC Nucleated RBC % (auto) Neutrophils % (Manual) Band Neutrophils % Lymphocytes % (Manual) Monocytes % (Manual) Basophils % (Manual) Metamyelocytes % Abs Neuts (Manual) Lymphocytes # (Manual) Monocytes # (Manual) Basophils # (Manual) Metamyelocytes # Toxic Vacuolation Platelet Estimate Plt Morphology Comment RBC Morphology Spherocytes Pappenheimer Bodies Tear Drop Cells [place] Cells Acanthocytes (Spur) Smear Tech's Comments PT INR VBG pH 7.22 L VBG pCO2 21 VBG pO2 230 VBG HCO3 9 L VBG O2 Saturation 99.0 VBG Base Excess -16.4 Sodium 116 L* Potassium 5.6 H D Chloride 93 L Carbon Dioxide 12 L Anion Gap 17 BUN 132 H Creatinine 5.95 H* Estim Creat Clear Calc 15.1 Estimated GFR 9 POC Glucose 81 Random Glucose 68 Lactic Acid Calcium 6.6 L D Phosphorus Magnesium 1.8 Total Bilirubin 0.6 Direct Bilirubin 0.4 AST 35 ALT 11 Alkaline Phosphatase 74 Ammonia Troponin I High Sens 5.2 B-Natriuretic Peptide Total Protein 4.1 L Albumin 1.9 L TSH 1.81 Urine Color Urine Appearance Urine pH Ur Specific [place] Urine Protein Urine Glucose (UA) Urine Ketones Urine Blood Urine Nitrite Ur Leukocyte Esterase Urine RBC Urine WBC Ur Squamous Epith Cells Urine Bacteria Hyaline Casts Urine Opiates Screen Ur Buprenorphine Scrn Ur Oxycodone Screen Urine Methadone Screen Urine Fentanyl Screen Ur Barbiturates Screen Ur Phencyclidine Scrn Ur Amphetamines Screen U Benzodiazepines Scrn Urine Cocaine Screen U Marijuana (THC) Screen Ethyl Alcohol < 10 Influenza Type A (PCR) Influenza Type B (PCR) RSV RNA Qual (PCR) SARS-CoV-2 RNA (RT-PCR) 03/13/25 03/14/25 03/14/25 23:46 04:26 04:27 WBC 30.0 H* 34.2 H* RBC 3.17 L 3.27 L Hgb 11.1 L 11.5 L Hct 30.9 L 32.1 L MCV 97.5 98.2 H MCH 35.0 H 35.2 H MCHC 35.9 35.8 RDW 12.1 12.1 Plt Count 169 200 MPV 9.6 9.7 Immature Gran % (Auto) Cancelled Cancelled Neut % (Auto) Cancelled Cancelled Lymph % (Auto) Cancelled Cancelled [place] % (Auto) Cancelled Cancelled Eos % (Auto) Cancelled Cancelled Baso % (Auto) Cancelled Cancelled Lymph # (Auto) Cancelled Cancelled [place] # (Auto) Cancelled Cancelled Eos # (Auto) Cancelled Cancelled Baso # (Auto) Cancelled Cancelled Abs Immat Gran (auto) Cancelled Cancelled Absolute Neuts (auto) Cancelled Cancelled Absolute Nucleated RBC 0.000 0.000 Nucleated RBC % (auto) 0.0 0.0 Neutrophils % (Manual) 67 84 H Band Neutrophils % 25 H 14 H Lymphocytes % (Manual) 2 L Monocytes % (Manual) 4 2 Basophils % (Manual) Metamyelocytes % 2 Abs Neuts (Manual) 27.6 H 33.5 H Lymphocytes # (Manual) 0.6 L Monocytes # (Manual) 1.2 0.7 Basophils # (Manual) Metamyelocytes # 0.6 Toxic Vacuolation PRESENT PRESENT Platelet Estimate NORMAL NORMAL Plt Morphology Comment NORMAL NORMAL RBC Morphology NOTED NOTED Spherocytes 1+ (0-2) Pappenheimer Bodies PRESENT Tear Drop Cells 1+ (0-2) [place] Cells 2+ (3-5) 2+ (3-5) Acanthocytes (Spur) Smear Tech's Comments PT INR VBG pH 7.21 L VBG pCO2 29 VBG pO2 55 VBG HCO3 12 L VBG O2 Saturation 83.0 VBG Base Excess -13.9 Sodium 117 L* 118 L* Potassium 5.5 H 5.5 H Chloride 92 L 93 L Carbon Dioxide 10 L* 10 L* Anion Gap 21 H 21 H BUN 123 H 130 H Creatinine 5.70 H* 5.05 H* Estim Creat Clear Calc 15.8 17.8 Estimated GFR 10 11 POC Glucose Random Glucose 96 125 H Lactic Acid Calcium 7.4 L D 7.1 L Phosphorus 8.3 H Magnesium 2.1 Total Bilirubin 0.7 0.7 Direct Bilirubin AST 41 H 38 H ALT 13 13 Alkaline Phosphatase 65 66 Ammonia Troponin I High Sens B-Natriuretic Peptide 45 Total Protein 5.5 L 5.4 L Albumin 3.5 3.4 L TSH Urine Color Urine Appearance Urine pH Ur Specific [place] Urine Protein Urine Glucose (UA) Urine Ketones Urine Blood Urine Nitrite Ur Leukocyte Esterase Urine RBC Urine WBC Ur Squamous Epith Cells Urine Bacteria Hyaline Casts Urine Opiates Screen Ur Buprenorphine Scrn Ur Oxycodone Screen Urine Methadone Screen Urine Fentanyl Screen Ur Barbiturates Screen Ur Phencyclidine Scrn Ur Amphetamines Screen U Benzodiazepines Scrn Urine Cocaine Screen U Marijuana (THC) Screen Ethyl Alcohol Influenza Type A (PCR) Influenza Type B (PCR) RSV RNA Qual (PCR) SARS-CoV-2 RNA (RT-PCR) Progress Note: A&P Assessment and plan (1) Renal failure: Status: Acute (2) ANTIONETTE (acute kidney injury): Status: Acute (3) Acute hyponatremia: Status: Acute (4) Neuropathy: Status: Acute (5) Vitamin D deficiency: Status: Acute Plan Neuro: Acute encephalopathy possibly due to metabolic encephalopathy Close neurological status monitoring in the ICU every hour CTA suggestive of high grade stenosis of right carotid artery, will need further evaluation once more stable Cardiac: Septic Shock: Possibly secondary to urinary tract infection and unspecified pneumonia On Levophed support 0.13, titrate Levophed to keep map above 65 mm Hg On hydrocortisone for the management of septic shock Respiratory: Bilateral pneumonia right more than left possibly secondary to aspiration pneumonia secondary to encephalopathy We will closely monitor respiratory status, currently on 1litres of nasal canula GI: We will start on tube feeds Renal: Acute kidney injury possibly secondary to ATN from sepsis and septic shock, creatinine slowly improving down to 5.0 this morning Baseline creatinine normal, creatinine today is We will closely monitor I's and O's Avoid nephrotoxic medications Acute hyponatremia: Sodium improving up to 118 from 116 last night Continue LR Heme: Chronic anemia, closely monitor H&H, transfuse for hemoglobin less than 7 grams/deciliter Endocrine: Blood sugars under control Sliding scale insulin as needed Infectious disease: As urinary tract infection and bilateral pneumonia right more than left. Pending pancultures Continue Zosyn, we will get MRSA nares Musculoskeletal: Decubitus ulcer prevention protocol Lines: left IJ TLC Prophylaxis: Heparin, pantoprazole Quality Stroke Does the patient have a stroke diagnosis?: No VTE Prior VTE?: No VTE Risk Level:: Medical - moderate - high VTE Device Contraindication: N/A - Device Ordered VTE Drug Contraindication: N/A - Med Ordered
[2025-03-14 10:11] LABS: Anion Gap 20 (12-20); Calcium 7.3 mg/dL (8.4-10.2); Carbon Dioxide 14 mmol/L (22-29); Chloride 92 mmol/L (96-108); Estimated Glomerular Filt Rate 13; Glucose Random 172 mg/dL (60-115); Potassium 5.2 mmol/L (3.3-5.1); Sodium 121 mmol/L (135-145)
--- NOTE | 2025-03-14 10:50 | MHC.CLN ---
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
[2025-03-14 11:01] LABS: MRSA Nasal PCR NEGATIVE (Negative); SA Nasal PCR POSITIVE (Negative)
[2025-03-14 11:02] LABS: Blood Urea Nitrogen 127 mg/dL (9-16)
[2025-03-14] MEDS: Norepinephrine Bitartrate/D5W 8 MG/250 ML PLAST..BAG 35.44 MG IVCONT (11:17)
[2025-03-14] MEDS: Sodium Bicarbonate 8.4% 150 MEQ in Dextrose 5 % 850 ML 100 MEQ IV (12:13)
[2025-03-14 12:27] LABS: Hemoglobin 12.3 g/dl (14.0-18.0); Mean Corpuscular HGB Conc 37.3 g/dl (31.0-36.0); Mean Corpuscular Hemoglobin 35.3 pg (27.0-33.0); Mean Corpuscular Volume 94.8 fL (80.0-98.0); Mean Platelet Volume 9.4 fL (9.4-12.4); Platelet Count 206 X10*3/uL (160-400); Red Blood Count 3.48 X10*6/uL (4.60-5.80); Red Cell Distribution Width 12.5 % (11.0-16.0); White Blood Count 27.3 X10*3/uL (4.8-10.8)
[2025-03-14] MEDS: Lidocaine HCl 2 % Urojet 10 ML JEL.PF.APP TOPICAL (12:33)
[2025-03-14 14:10] LABS: Hematocrit 33.4 % (42.0-52.0); Hemoglobin 12.4 g/dl (14.0-18.0); Mean Corpuscular HGB Conc 37.1 g/dl (31.0-36.0); Mean Corpuscular Hemoglobin 35.2 pg (27.0-33.0); Mean Corpuscular Volume 94.9 fL (80.0-98.0); Mean Platelet Volume 9.4 fL (9.4-12.4); Platelet Count 209 X10*3/uL (160-400); Red Blood Count 3.52 X10*6/uL (4.60-5.80); Red Cell Distribution Width 12.3 % (11.0-16.0); White Blood Count 26.7 X10*3/uL (4.8-10.8)
[2025-03-14 14:42] LABS: Alanine Aminotransferase 12 U/L (0-40); Albumin Level 3.3 g/dL (3.5-5.0); Anion Gap 18 (12-20); Aspartate Amino Transferase 39 U/L (5-37); Bilirubin Total 0.6 mg/dL (0.0-1.0); Blood Urea Nitrogen 116 mg/dL (9-16); Calcium 7.5 mg/dL (8.4-10.2); Carbon Dioxide 17 mmol/L (22-29); Chloride 93 mmol/L (96-108); Creatinine Clr Calc Pharmacy 24.5; Estimated Glomerular Filt Rate 16; Glucose Random 191 mg/dL (60-115); Potassium 4.5 mmol/L (3.3-5.1); Sodium 123 mmol/L (135-145); Total Protein 5.6 g/dL (6.5-8.0)
--- NOTE | 2025-03-14 15:00 | MHC.CM.PN ---
Addendum entered by Makeda Iniguez 03/14/25 15:42: Received callback from pt's son Tristan: he states that he has been assisting pt with cleaning his home and feels it's better than it has been. Discussed pt possibly going to STR for maximization of functional abilities: he would like to wait for pt's mental status to improve. Pt does not have services or DME per son. D/C planning will be ongoing at this time. Original Note: Attempted to meet with pt to review d/c planning needs: pt confused and not able to participate in assessment: Message left for pt's son Tristan (HCP) to call back for assistance. Per EMR and discussion w/ICU care team, pt resides alone with no services. Call placed to [facility] to discuss condition of pt's home as notes report unsanitary conditions including insect infestation. Per EMT who responded to pt's home, the home was cluttered and extremely dirty/odorous. She notes the presence of insects on furniture. She states they have responded to calls many time in the past and have filed with protective services. She notes that pt and other family would never let anyone in the home to conduct investigation. [facility] has filed with elder protective services re: this latest transport. Review of EMR notes pt's HCP has been invoked. Will await callback from son Tristan to discuss above and assist w/d/c planning. Pt will likely need PT and possible psych eval then placement in [facility]. IMM in chart : HCP on file
--- NOTE | 2025-03-14 15:16 | PC.NURSE ---
Assumed care at 0700. Levo gtt titrated per JAN. Increased hematuria w/ clots - hand irrigated x1- Uro consulted - CBI ordered and started w/ some improvement. BUTCHT Anshu reddy placed VO Dr Amador for nutrition - CXR ordered and completed - see report. Care ongoing.
--- NOTE | 2025-03-14 15:40 | PM.UROCN ---
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 BUN 132 and creatinine of 5.95.? Lactic acid 1.4.? Urinalysis nitrite negative, large leukocytes 3+, large blood 3+, urine c/s sent. Ibrahim. CT findings -- bladder wall thickening and suggestive for cysitis. Per nursing had to irrigated for clots. Called for gross hematuria. CBI started. CTAP: No hydronephrosis. No urolithiasis. Nonspecific wall thickening of the urinary bladder. 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 Mother No problems noted. Family history: reviewed and not pertinent Surgical History Surgical History History of tonsillectomy and adenoidectomy Social History Social History Household Members: Family Housing: House Do you presently have visiting nurse or other home services: No Alcohol intake: current Alcohol intake frequency: 0-2 drinks per day Alcohol type: beer Patient Tobacco Use Status: Never used Tobacco e-Cigarette/Vaping Use: Never Used Second Hand Smoke Exposure: No Use of substances other than those prescribed or required for medical reasons: Unknown Currently Displaying Signs/Symptoms of Drug Intoxication Withdrawal: No Advance Directives: Yes Advance Directives on File: Yes Advance Directives Date on File: 05/27/22 Poor oral hygiene: Yes service: No Current occupational status: retired Cognitive needs: No Hearing needs: No Vision needs: Yes Meds Allergies Allergy/AdvReac Type Severity Reaction Status Date / Time atenolol [ATENOLOL] Allergy Unknown SEVERE Verified 03/13/25 17:13 BRADYCARDIA atenolol Allergy Unknown bradycardia Uncoded 03/13/25 17:13 zestril Allergy Unknown facial Uncoded 03/13/25 17:13 swelling Active Medications: Current Medications Heparin Sodium (Porcine) (Heparin Sodium,Porcine 5,000 Unit/Ml Vial) 5,000 unit SUBCUT Q8H [facility] Last Admin: 03/14/25 02:05 Dose: Not Given Hydrocortisone Sodium Succinate (Hydrocortisone Sod Succ/Pf 100 Mg Vial) 100 mg IVPUSH Q8H [facility] Last Admin: 03/14/25 13:44 Dose: 100 mg Norepinephrine Bitartrate (Levophed) 8 mg in 250 mls @ 0 mls/hr IVCONT .Q0M [facility]; Protocol Last Titration: 03/14/25 14:58 Dose: 0.07 mcg/kg/min, 16.54 mls/hr Piperacillin Sod/Tazobactam (Sod 2.25 gm/ Sodium Chloride) 50 mls @ 100 mls/hr IV Q6H [facility] Last Infusion: 03/14/25 11:48 Dose: Infused Sodium Bicarbonate 150 meq/ (Dextrose) 1,000 mls @ 50 mls/hr IV .Q20H [facility] Last Admin: 03/14/25 12:13 Dose: 100 mls/hr Pantoprazole Sodium (Pantoprazole Sodium 40 Mg/10 Ml Vial) 40 mg IVPUSH DAILY@0630 [facility] Last Admin: 03/14/25 05:13 Dose: 40 mg Sodium Chloride (0.9 % Sodium Chloride Flush 3 Ml Syringe) 3 ml IVFLUSH QSHIFT [facility] Last Admin: 03/14/25 14:39 Dose: 3 ml Home Medications ?Medication ?Instructions ?Recorded ?Confirmed ?Last Taken ?Type lorazepam 1 mg tablet 1 - 1.5 mg PO BEDTIME PRN anxiety 12/04/23 03/13/25 Unknown History Physical Exam Vital Signs: Vital Signs: Last Vital Signs Temp 97.3 F 03/14/25 12:00 Pulse 100 03/14/25 15:00 Resp 19 03/14/25 15:00 BP 139/73 03/14/25 15:00 Pulse Ox 99 03/14/25 15:00 O2 Del Method Nasal Cannula 03/14/25 15:00 O2 Flow Rate 1 03/14/25 15:00 Oxygen Flow Rate 1 03/14/25 07:16 BMI result Body Mass Index 38.7 Resp: Other: intubated : Other: ibrahim - continuous bladder irrigation, urine strawberry Results Labs 03/14/25 13:56 03/14/25 13:56 Labs: Abnormal lab results 03/13/25 03/13/25 03/13/25 Range/Units 16:18 16:19 18:59 WBC 24.6 H (4.8-10.8) X10*3/uL RBC 3.80 L (4.60-5.80) X10*6/uL Hgb 13.4 L (14.0-18.0) g/dl Hct 36.5 L (42.0-52.0) % MCV (80.0-98.0) fL MCH 35.3 H (27.0-33.0) pg MCHC 36.7 H (31.0-36.0) g/dl Neutrophils % (Manual) 95 H (45-73) % Band Neutrophils % 0 L (3-5) % Lymphocytes % (Manual) 3 L (20-40) % Monocytes % (Manual) 1 L (2-11) % Abs Neuts (Manual) 23.4 H (2.0-8.3) X10*3/uL Lymphocytes # (Manual) 0.7 L (1.2-4.9) X10*3/uL VBG pH (7.32-7.43) VBG HCO3 (22-26) mmol/L Sodium 116 L* (135-145) mmol/L Potassium 5.6 H D (3.3-5.1) mmol/L Chloride 93 L (96-108) mmol/L Carbon Dioxide 12 L (22-29) mmol/L Anion Gap (12-20) BUN 132 H (9-16) mg/dL Creatinine 5.95 H* (0.5-1.4) mg/dL Random Glucose (60-115) mg/dL Calcium 6.6 L D (8.4-10.2) mg/dL Phosphorus (2.7-4.5) mg/dL AST (5-37) U/L Total Protein 4.1 L (6.5-8.0) g/dL Albumin 1.9 L (3.5-5.0) g/dL Urine Protein 30 (1+) H (Neg-Trace) mg/dL Urine Blood Large (3+) H (Negative) Ur Leukocyte Esterase Large (3+) H (Negative) Urine RBC >20 H (0-2) /HPF Urine WBC >50 H (0-5) /HPF Nasal S. aureus Screen (Negative) 03/13/25 03/13/25 03/14/25 Range/Units 19:05 23:46 04:26 WBC 30.0 H* 34.2 H* (4.8-10.8) X10*3/uL RBC 3.17 L 3.27 L (4.60-5.80) X10*6/uL Hgb 11.1 L 11.5 L (14.0-18.0) g/dl Hct 30.9 L 32.1 L (42.0-52.0) % MCV 98.2 H (80.0-98.0) fL MCH 35.0 H 35.2 H (27.0-33.0) pg MCHC (31.0-36.0) g/dl Neutrophils % (Manual) 84 H (45-73) % Band Neutrophils % 25 H 14 H (3-5) % Lymphocytes % (Manual) 2 L (20-40) % Monocytes % (Manual) (2-11) % Abs Neuts (Manual) 27.6 H 33.5 H (2.0-8.3) X10*3/uL Lymphocytes # (Manual) 0.6 L (1.2-4.9) X10*3/uL VBG pH 7.22 L (7.32-7.43) VBG HCO3 9 L (22-26) mmol/L Sodium 117 L* 118 L* (135-145) mmol/L Potassium 5.5 H 5.5 H (3.3-5.1) mmol/L Chloride 92 L 93 L (96-108) mmol/L Carbon Dioxide 10 L* 10 L* (22-29) mmol/L Anion Gap 21 H 21 H (12-20) BUN 123 H 130 H (9-16) mg/dL Creatinine 5.70 H* 5.05 H* (0.5-1.4) mg/dL Random Glucose 125 H (60-115) mg/dL Calcium 7.4 L D 7.1 L (8.4-10.2) mg/dL Phosphorus 8.3 H (2.7-4.5) mg/dL AST 41 H 38 H (5-37) U/L Total Protein 5.5 L 5.4 L (6.5-8.0) g/dL Albumin 3.4 L (3.5-5.0) g/dL Urine Protein (Neg-Trace) mg/dL Urine Blood (Negative) Ur Leukocyte Esterase (Negative) Urine RBC (0-2) /HPF Urine WBC (0-5) /HPF Nasal S. aureus Screen (Negative) 03/14/25 03/14/25 03/14/25 Range/Units 04:27 08:56 09:32 WBC (4.8-10.8) X10*3/uL RBC (4.60-5.80) X10*6/uL Hgb (14.0-18.0) g/dl Hct (42.0-52.0) % MCV (80.0-98.0) fL MCH (27.0-33.0) pg MCHC (31.0-36.0) g/dl Neutrophils % (Manual) (45-73) % Band Neutrophils % (3-5) % Lymphocytes % (Manual) (20-40) % Monocytes % (Manual) (2-11) % Abs Neuts (Manual) (2.0-8.3) X10*3/uL Lymphocytes # (Manual) (1.2-4.9) X10*3/uL VBG pH 7.21 L (7.32-7.43) VBG HCO3 12 L (22-26) mmol/L Sodium 121 L (135-145) mmol/L Potassium 5.2 H (3.3-5.1) mmol/L Chloride 92 L (96-108) mmol/L Carbon Dioxide 14 L (22-29) mmol/L Anion Gap (12-20) BUN 127 H (9-16) mg/dL Creatinine 4.50 H* (0.5-1.4) mg/dL Random Glucose 172 H (60-115) mg/dL Calcium 7.3 L (8.4-10.2) mg/dL Phosphorus (2.7-4.5) mg/dL AST (5-37) U/L Total Protein (6.5-8.0) g/dL Albumin (3.5-5.0) g/dL Urine Protein (Neg-Trace) mg/dL Urine Blood (Negative) Ur Leukocyte Esterase (Negative) Urine RBC (0-2) /HPF Urine WBC (0-5) /HPF Nasal S. aureus Screen POSITIVE A (Negative) 03/14/25 03/14/25 Range/Units 11:48 13:56 WBC 27.3 H 26.7 H (4.8-10.8) X10*3/uL RBC 3.48 L 3.52 L (4.60-5.80) X10*6/uL Hgb 12.3 L 12.4 L (14.0-18.0) g/dl Hct 33.0 L 33.4 L (42.0-52.0) % MCV (80.0-98.0) fL MCH 35.3 H 35.2 H (27.0-33.0) pg MCHC 37.3 H 37.1 H (31.0-36.0) g/dl Neutrophils % (Manual) (45-73) % Band Neutrophils % (3-5) % Lymphocytes % (Manual) (20-40) % Monocytes % (Manual) (2-11) % Abs Neuts (Manual) (2.0-8.3) X10*3/uL Lymphocytes # (Manual) (1.2-4.9) X10*3/uL VBG pH (7.32-7.43) VBG HCO3 (22-26) mmol/L Sodium 123 L (135-145) mmol/L Potassium (3.3-5.1) mmol/L Chloride 93 L (96-108) mmol/L Carbon Dioxide 17 L (22-29) mmol/L Anion Gap (12-20) BUN 116 H (9-16) mg/dL Creatinine 3.68 H (0.5-1.4) mg/dL Random Glucose 191 H (60-115) mg/dL Calcium 7.5 L (8.4-10.2) mg/dL Phosphorus (2.7-4.5) mg/dL AST 39 H (5-37) U/L Total Protein 5.6 L (6.5-8.0) g/dL Albumin 3.3 L (3.5-5.0) g/dL Urine Protein (Neg-Trace) mg/dL Urine Blood (Negative) Ur Leukocyte Esterase (Negative) Urine RBC (0-2) /HPF Urine WBC (0-5) /HPF Nasal S. aureus Screen (Negative) Short CBC 03/13/25 03/13/25 03/14/25 Range/Units 16:18 23:46 04:26 WBC 24.6 H 30.0 H* 34.2 H* (4.8-10.8) X10*3/uL Hgb 13.4 L 11.1 L 11.5 L (14.0-18.0) g/dl Hct 36.5 L 30.9 L 32.1 L (42.0-52.0) % Plt Count 178 D 169 200 (160-400) X10*3/uL 03/14/25 03/14/25 Range/Units 11:48 13:56 WBC 27.3 H 26.7 H (4.8-10.8) X10*3/uL Hgb 12.3 L 12.4 L (14.0-18.0) g/dl Hct 33.0 L 33.4 L (42.0-52.0) % Plt Count 206 209 (160-400) X10*3/uL BMP 03/13/25 03/13/25 03/14/25 18:59 23:46 04:26 Sodium 116 L* 117 L* 118 L* Potassium 5.6 H D 5.5 H 5.5 H Chloride 93 L 92 L 93 L Carbon Dioxide 12 L 10 L* 10 L* BUN 132 H 123 H 130 H Creatinine 5.95 H* 5.70 H* 5.05 H* Calcium 6.6 L D 7.4 L D 7.1 L 03/14/25 03/14/25 08:56 13:56 Sodium 121 L 123 L Potassium 5.2 H 4.5 Chloride 92 L 93 L Carbon Dioxide 14 L 17 L BUN 127 H 116 H Creatinine 4.50 H* 3.68 H Calcium 7.3 L 7.5 L Liver Function 03/13/25 03/13/25 03/14/25 Range/Units 18:59 23:46 04:26 Total Bilirubin 0.6 0.7 0.7 (0.0-1.0) mg/dL Direct Bilirubin 0.4 (0.0-0.5) mg/dL AST 35 41 H 38 H (5-37) U/L ALT 11 13 13 (0-40) U/L Alkaline Phosphatase 74 65 66 (39-117) U/L Albumin 1.9 L 3.5 3.4 L (3.5-5.0) g/dL 03/14/25 Range/Units 13:56 Total Bilirubin 0.6 (0.0-1.0) mg/dL Direct Bilirubin (0.0-0.5) mg/dL AST 39 H (5-37) U/L ALT 12 (0-40) U/L Alkaline Phosphatase (39-117) U/L Albumin 3.3 L (3.5-5.0) g/dL Urine 03/13/25 Range/Units 16:19 Urine Color Dark Yellow Urine Appearance Cloudy Urine pH 5.5 (5.0-9.0) Ur Specific [place] 1.015 (1.005-1.025) Urine Protein 30 (1+) H (Neg-Trace) mg/dL Urine Glucose (UA) Negative (Negative) mg/dL Imaging Additional studies: Date of Service: 03/14/25 CLINICAL HISTORY: Sepsis r o obstructive uropathy CT abdomen and pelvis without contrast Comparison: CT of the abdomen and pelvis from 08/02/2022 Findings: New [id number] right and small-minimal left pleural effusions with underlying atelectasis/consolidation, right worse than left. Differential considerations include pneumonia of the lung bases. Mild cardiomegaly by noncontrast imaging. Mild liver surface nodularity as can be seen with cirrhosis. Cholelithiasis versus artifact by CT in the distended gallbladder. Multiple artifacts including related to positioning of the upper extremities. The adrenal glands are normal. The spleen is nonenlarged. Moderate volume loss of the pancreas noted. No hydronephrosis. Perinephric stranding is nonspecific. Mild free fluid in the abdomen pelvis nonspecific. No free intraperitoneal air. Wall thickening of the large intestine is nonspecific and can be seen with colitis. No small bowel obstruction. The appendix is not definitively seen. Mild wall thickening of the urinary bladder is nonspecific and may reflect cystitis with gas and Ibrahim catheter in the bladder. Transitional vertebral anatomy of the lumbosacral junction with CT findings of spinal stenosis. Facet arthropathy is multifocal. Mild pelvis deformities appear old chronic. 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 Diffuse muscle volume loss noted. IMPRESSION: 1. No hydronephrosis. 2. Nonspecific wall thickening of the urinary bladder. 3. Other findings detailed above Assessment and Plan (1) Septic shock: Status: Acute (2) Renal failure: Status: Acute (3) Cystitis: Status: Acute (4) Gross hematuria: Status: Acute Plan Continue CBI. Irrigate prn. on Broad spectrum IV abx. C/s pending Procedures Date of Service Date of Service: 03/14/25
--- NOTE | 2025-03-14 17:01 | HO.WOUND ---
Wound Consult: Initial 70yr old?male admitted to [facility] on 03[place]13/25 - See progress notes and H&P for detailed history.? Wound consult placed for Buttock, Perineal and Posterior thighs.? Chart review completed discussed with direct care nurse and photo reviewed. Sacrum, Buttock, Intergluteal, Posterior thighs and Perianal area Etiology: ??MASD-IAD (Moisture Associated Skin Damage - Incontinence Associated Dermatitis) Present on Admission Wound Bed: red blanchable tissue per direct care team report - appears to be scattered areas of open tissue Edges: ? irregular Ambar wound: ? No Induration, Fluctuance or Warmth noted Goals of Treatment: ? Barrier cream to protect from friction, moisture - Off loading and BRAYAN to be ordered Recommendations: 1. Turn and Reposition every 2 hours and as needed for patient comfort.? Use pillows or wedges to support off loading positions. 2. Off Load all bony prominences with use of pillows and heel boots if needed.? Apply Preventative foams where needed. ? 3. Monitor for incontinence and moisture control, use barrier creams when needed for prevention and treatment. 4. Provide adequate and supplemental nutrition.? 5. Order low air loss mattress. 6. When applicable maintain blood glucose levels per Providers order. Sacrum, Buttock, Intergluteal, Posterior thighs and Perienal area - Off Load Pressure with Q2 hr turns and use of pillows - Cleanse with PH balance spray or wipes, pat dry. ?Apply thin layer of Barrier cream / Triad to wound bed - only pat and dab no scrub and rub when soiling occurs. Reapply thin layer PRN after each episode of incontinence. Re-consult wound care Nurse for wound deterioration or wound changes.
[2025-03-14 17:21] LABS: Alkaline Phosphatase 71 U/L (39-117)
[2025-03-14 21:24] LABS: Alanine Aminotransferase 15 U/L (0-40); Albumin Level 3.1 g/dL (3.5-5.0); Alkaline Phosphatase 79 U/L (39-117); Anion Gap 18 (12-20); Aspartate Amino Transferase 40 U/L (5-37); Bilirubin Total 0.7 mg/dL (0.0-1.0); Blood Urea Nitrogen 109 mg/dL (9-16); Calcium 7.4 mg/dL (8.4-10.2); Carbon Dioxide 18 mmol/L (22-29); Chloride 98 mmol/L (96-108); Creatinine Clr Calc Pharmacy 32.5; Estimated Glomerular Filt Rate 23; Glucose Random 185 mg/dL (60-115); Potassium 4.1 mmol/L (3.3-5.1); Sodium 130 mmol/L (135-145); Total Protein 5.2 g/dL (6.5-8.0)
[2025-03-15] VITALS (34 sets, daily range): BP systolic 79–124; BP diastolic 33–71; PULSE 76–105; RESP 11–19; TEMP 36.1–36.4; O2SAT 92–100; BMI 37.7
[2025-03-15] MEDS: Piperacillin Sodium/Tazobactam 2.25 GM in 0.9 % Sodium Chloride 50 ML IV ×5 (00:18→23:46)
[2025-03-15] MEDS: 0.9 % Sodium Chloride Flush 3 ML SYRINGE IVFLUSH ×3 (00:18→18:20)
[2025-03-15] MEDS: Sodium Bicarbonate 8.4% 150 MEQ in Dextrose 5 % 850 ML 50 MEQ IV (03:04)
[2025-03-15] MEDS: Norepinephrine Bitartrate/D5W 8 MG/250 ML PLAST..BAG 2.36 MG IVCONT (03:06)
[2025-03-15 04:48] LABS: VBG Base Excess -0.6 mmol/L; VBG HCO3 21 mmol/L (22-26); VBG pCO2 29 mmHg; VBG pH 7.48 (7.32-7.43); VBG pO2 31 mmHg
[2025-03-15 04:53] LABS: Basophils Percent Auto 0.2 % (0-2); Eosinophils Percent Auto 0.2 % (0-4); Hematocrit 29.4 % (42.0-52.0); Imm Gran Abs Auto 0.18 X10*3/uL (0.00-0.03); Imm Gran Pct Auto 1.5 % (0.0-0.4); Lymphocytes Absolute Auto 0.2 X10*3/uL (1.2-4.9); Lymphocytes Percent Auto 1.5 % (20-40); MANUAL DIFF FLAG SCAN; Mean Corpuscular Volume 96.1 fL (80.0-98.0); Mean Platelet Volume 9.1 fL (9.4-12.4); Monocytes Absolute Auto 0.3 X10*3/uL (0.1-1.2); Monocytes Percent Auto 2.4 % (2-11); Neutrophils Absolute Auto 11.7 x10*3/uL (2.0-8.3); Neutrophils Percent Auto 94.2 % (45-73); Platelet Count 113 X10*3/uL (160-400); Red Blood Count 3.06 X10*6/uL (4.60-5.80); Red Cell Distribution Width 12.5 % (11.0-16.0); SCAN SMEAR FLAG 1; White Blood Count 12.4 X10*3/uL (4.8-10.8)
[2025-03-15 05:02] LABS: Venous Blood Gas Refer to POC result
[2025-03-15 05:09] LABS: Alanine Aminotransferase 10 U/L (0-40); Albumin Level 2.7 g/dL (3.5-5.0); Anion Gap 16 (12-20); Aspartate Amino Transferase 34 U/L (5-37); Bilirubin Total 0.5 mg/dL (0.0-1.0); Blood Urea Nitrogen 100 mg/dL (9-16); Calcium 7.2 mg/dL (8.4-10.2); Carbon Dioxide 19 mmol/L (22-29); Chloride 99 mmol/L (96-108); Creatinine Clr Calc Pharmacy 42.5; Estimated Glomerular Filt Rate 31; Glucose Random 188 mg/dL (60-115); Magnesium 2.1 mg/dL (1.6-2.6); Phosphorus 4.3 mg/dL (2.7-4.5); Potassium 3.5 mmol/L (3.3-5.1); Sodium 130 mmol/L (135-145); Total Protein 4.7 g/dL (6.5-8.0)
[2025-03-15 05:19] LABS: Alkaline Phosphatase 70 U/L (39-117)
[2025-03-15 05:27] LABS: Hemoglobin 9.9 g/dl (14.0-18.0); Mean Corpuscular Hemoglobin 32.4 pg (27.0-33.0)
[2025-03-15 05:28] LABS: Mean Corpuscular HGB Conc 33.7 g/dl (31.0-36.0); SLIDE REVIEW VERIFIED
[2025-03-15] MEDS: Pantoprazole Sodium 40 MG/10 ML VIAL IVPUSH (05:51)
[2025-03-15] MEDS: Hydrocortisone Sod Succ/PF 100 MG VIAL IVPUSH (05:51)
--- NOTE | 2025-03-15 08:28 | P.PNCC_ITS ---
Subjective Subjective Date of Service: 03/15/25 Interval History: Tapering vasopressor requirement, mentation improved Critical Care Time (minutes): 35 Physical Exam 2 Vital Signs: Vital Signs: Last Vital Signs Temp 97.2 F 03/15/25 08:00 Pulse 81 03/15/25 08:00 Resp 16 03/15/25 08:00 BP 118/71 03/15/25 08:00 Pulse Ox 93 03/15/25 08:00 O2 Del Method Nasal Cannula 03/15/25 08:00 O2 Flow Rate 1 03/15/25 08:00 Oxygen Flow Rate 1 03/14/25 07:16 BMI result Body Mass Index 37.7 General: Elderly male chronically ill and tired appearing, lying in the bed Nutritional Appearance: well nourished and overweight, edematous Eyes: appearance normal, both eyes and all related structures; Alignment and Position: alignment normal and position normal Neck: No lymphadenopathy, no thyromegaly Resp: bilateral air entry equal, occasional added sounds present Cardio: Regular rate, regular rhythm; Heart sounds: S1 normal heart sound present and S2 normal heart sound present GI: soft, nontender, no guarding, no hepatosplenomegaly : bladder normal to inspection, bladder normal to palpation, no renal angle tenderness Skin: no rashes or lesions noted and elasticity normal Neuro: oriented to person, and moves all extremities Objective Data Labs 03/15/25 04:37 03/15/25 04:37 Labs: Laboratory Results - last 24 hr 03/14/25 03/14/25 03/14/25 08:56 09:32 11:48 WBC 27.3 H RBC 3.48 L Hgb 12.3 L Hct 33.0 L MCV 94.8 MCH 35.3 H MCHC 37.3 H RDW 12.5 Plt Count 206 MPV 9.4 Immature Gran % (Auto) Neut % (Auto) Lymph % (Auto) [place] % (Auto) Eos % (Auto) Baso % (Auto) Lymph # (Auto) [place] # (Auto) Eos # (Auto) Baso # (Auto) Abs Immat Gran (auto) Absolute Neuts (auto) Absolute Nucleated RBC 0.000 Nucleated RBC % (auto) 0.0 Smear Tech's Comments VBG pH VBG pCO2 VBG pO2 VBG HCO3 VBG O2 Saturation VBG Base Excess Sodium 121 L Potassium 5.2 H Chloride 92 L Carbon Dioxide 14 L Anion Gap 20 BUN 127 H Creatinine 4.50 H* Estim Creat Clear Calc 20.0 Estimated GFR 13 Random Glucose 172 H Calcium 7.3 L Phosphorus Magnesium Total Bilirubin AST ALT Alkaline Phosphatase Total Protein Albumin Nasal Screen MRSA (PCR) NEGATIVE Nasal S. aureus Screen POSITIVE A Nasal MRSA/S.aureus Interp SEE NOTE 03/14/25 03/14/25 03/15/25 13:56 20:43 04:37 WBC 26.7 H 12.4 H RBC 3.52 L 3.06 L Hgb 12.4 L 9.9 L D Hct 33.4 L 29.4 L MCV 94.9 96.1 MCH 35.2 H 32.4 MCHC 37.1 H 33.7 RDW 12.3 12.5 Plt Count 209 113 L D MPV 9.4 9.1 L Immature Gran % (Auto) 1.5 H Neut % (Auto) 94.2 H Lymph % (Auto) 1.5 L [place] % (Auto) 2.4 Eos % (Auto) 0.2 Baso % (Auto) 0.2 Lymph # (Auto) 0.2 L [place] # (Auto) 0.3 Eos # (Auto) 0.0 Baso # (Auto) 0.0 Abs Immat Gran (auto) 0.18 H Absolute Neuts (auto) 11.7 H Absolute Nucleated RBC 0.000 0.000 Nucleated RBC % (auto) 0.0 0.0 Smear Tech's Comments VERIFIED VBG pH VBG pCO2 VBG pO2 VBG HCO3 VBG O2 Saturation VBG Base Excess Sodium 123 L 130 L 130 L Potassium 4.5 4.1 3.5 Chloride 93 L 98 99 Carbon Dioxide 17 L 18 L 19 L Anion Gap 18 18 16 BUN 116 H 109 H 100 H Creatinine 3.68 H 2.77 H 2.12 H Estim Creat Clear Calc 24.5 32.5 42.5 Estimated GFR 16 23 31 Random Glucose 191 H 185 H 188 H Calcium 7.5 L 7.4 L 7.2 L Phosphorus 4.3 Magnesium 2.1 Total Bilirubin 0.6 0.7 0.5 AST 39 H 40 H 34 ALT 12 15 10 Alkaline Phosphatase 71 79 70 Total Protein 5.6 L 5.2 L 4.7 L Albumin 3.3 L 3.1 L 2.7 L Nasal Screen MRSA (PCR) Nasal S. aureus Screen Nasal MRSA/S.aureus Interp 03/15/25 04:44 WBC RBC Hgb Hct MCV MCH MCHC RDW Plt Count MPV Immature Gran % (Auto) Neut % (Auto) Lymph % (Auto) [place] % (Auto) Eos % (Auto) Baso % (Auto) Lymph # (Auto) [place] # (Auto) Eos # (Auto) Baso # (Auto) Abs Immat Gran (auto) Absolute Neuts (auto) Absolute Nucleated RBC Nucleated RBC % (auto) Smear Tech's Comments VBG pH 7.48 H VBG pCO2 29 VBG pO2 31 VBG HCO3 21 L VBG O2 Saturation 52.0 VBG Base Excess -0.6 Sodium Potassium Chloride Carbon Dioxide Anion Gap BUN Creatinine Estim Creat Clear Calc Estimated GFR Random Glucose Calcium Phosphorus Magnesium Total Bilirubin AST ALT Alkaline Phosphatase Total Protein Albumin Nasal Screen MRSA (PCR) Nasal S. aureus Screen Nasal MRSA/S.aureus Interp Microbiology Microbiology Results: Microbiology 03/13/25 16:43 Blood - Venous Blood Culture - Preliminary No growth after 24 hours. 03/13/25 16:19 Blood - Venous Blood Culture - Preliminary No growth after 24 hours. 03/13/25 Unknown Urine Catheterized - Banegas Catheter Urine Culture - Preliminary Culture too young to evaluate. 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: Acute Plan Neuro: Acute encephalopathy possibly due to metabolic encephalopathy, improving with correction of sodium and infection Close neurological status monitoring in the ICU every hour CTA suggestive of high grade stenosis of right carotid artery, will need further evaluation once more stable Cardiac: Septic Shock: Possibly secondary to urinary tract infection and unspecified pneumonia On Levophed support down 0.0 2, titrate Levophed to keep map above 65 mm Hg On hydrocortisone for the management of septic shock- we will discontinue as shock has improved, will get AM cortisol levels to rule out hypoadrenalism. Respiratory: Bilateral pneumonia right more than left possibly secondary to aspiration pneumonia secondary to encephalopathy We will closely monitor respiratory status, currently on 1litres of nasal canula GI: We will start on tube feeds Renal: Acute kidney injury possibly secondary to ATN from sepsis and septic shock, creatinine slowly improving down to 2.0 this morning Baseline creatinine normal, creatinine today is We will closely monitor I's and O's Avoid nephrotoxic medications Acute hyponatremia: Sodium improving up to 118 from 130 this morning Fluids stopped Heme: Chronic anemia, closely monitor H&H, transfuse for hemoglobin less than 7 grams/deciliter Endocrine: Blood sugars under control Sliding scale insulin as needed Infectious disease: As urinary tract infection and bilateral pneumonia right more than left. Negative pancultures so far Continue Zosyn, negative MRSA nares Musculoskeletal: Decubitus ulcer prevention protocol Lines: left IJ TLC Prophylaxis: Heparin, pantoprazole Quality Stroke Does the patient have a stroke diagnosis?: No VTE Prior VTE?: No VTE Risk Level:: Medical - moderate - high VTE Device Contraindication: N/A - Device Ordered VTE Drug Contraindication: N/A - Med Ordered
--- NOTE | 2025-03-15 10:01 | MHC.CM.PN ---
Addendum entered by Makeda Iniguez 03/16/25 12:06: LATE ENTRY Sly from [facility] in to meet with pt on 03/15 at 3:30pm in response to EMS filing an elder at risk report. CM present during interview: pt remains confused at times d/t medical condition but was able to correctly answer some questions. SS will update CM as needed on progress of investigation. Addendum entered by Makeda Iniguez 03/15/25 11:23: Received call from Nadine at [employer]: She states she is an officer as well as MH counselor and is very familiar with pt. She notes a long history of wellness checks, filing with [facility] and reporting home conditions to [facility]. She states pt is very resistive to help and has begun to exhibit cognitive decline. She also states pt's son Tristan talks a good game but has done little to assist pt including with the condition of the home. Pt does not dexter but the home is, per Nadine, beyond filthy and not safe for living persons Pt and son have never allowed [facility] or the [facility] into the home which has placed barriers on getting pt services he needs. She states she is willing and available to assist with any information that would help pt receive services and care. Original Note: Pt with slowly improving mentation: A&O x 2: weak, CBI running and on Levo: referrals made for [facility] SNF placement: CM to follow
--- NOTE | 2025-03-15 10:33 | MHC.CLN ---
F/U DISCUSSED AT ROUNDS WITH MD ARET INSERTED AND TF TO START RECOMMEND JEVITY 1.0 AT MAX GOAL RATE 85ML/HR TO PROVIDE 2162KCALS (28KCALS/KG), 90G PROTEIN (1.15G/KG), 1703ML FREE WATER FROM FORMULA HOLDING FREE WATER FLUSHES R/T HYPONATREMIA MONITOR TOLERANCE AND LYTES
--- NOTE | 2025-03-15 12:19 | MHC.SL.SWA ---
Speech Pathologist Impression: Mild oral, moderate pharyngeal dysphagia d/t weakness, ? 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 Compensatory Strategies and Precautions to be Taken for Safe Swallow: Supervision While Eating and Drinking for Safe Swallow: PO with EMERGENCY ROOM SPECIALIST Foods to Avoid: Swallowing Recommended Treatments: Compens. Strategy Educat. Recommendation for Speech: Inpatient Speech Therapy Comment: Pt presents with weakness, oral phase mildly impacted d/t lip closure weakness and missing dentition. Pharyngeal phase dysphagia moderate d/t delayed coordination, overt s/s of aspiration wtih trials of thins, pt not considered safe for trials with other consistencies. Pt has NG tube in place for nutrition, EMERGENCY ROOM SPECIALIST to re-assess daily. Ice chips permitted for oral hydration. MD and RN consulted, RD following. Frequency/Duration: Daily M-F Date Range for Service Req: Timeline to reassess: Manager Technical Training Clinican/Clinical Fellow: No Supervisory Statement: I have reviewed and agree with the student/clinical fellow's documentation: N/A Speech Language Pathologist: Mercedes Daugherty M.S., [facility])-EMERGENCY ROOM SPECIALIST
[2025-03-15] MEDS: Norepinephrine Bitartrate/D5W 8 MG/250 ML PLAST..BAG 4.6 MG IVCONT (12:47)
[2025-03-15] MEDS: Midodrine HCl 10 MG TABLET PO ×2 (13:56→20:32)
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
[2025-03-15 18:49] LABS: Hematocrit 29.4 % (42.0-52.0); Hemoglobin 10.7 g/dl (14.0-18.0); Mean Corpuscular HGB Conc 36.4 g/dl (31.0-36.0); Mean Corpuscular Hemoglobin 35.2 pg (27.0-33.0); Mean Corpuscular Volume 96.7 fL (80.0-98.0); Mean Platelet Volume 9.9 fL (9.4-12.4); Platelet Count 139 X10*3/uL (160-400); Red Blood Count 3.04 X10*6/uL (4.60-5.80); Red Cell Distribution Width 12.6 % (11.0-16.0); White Blood Count 17.6 X10*3/uL (4.8-10.8)
--- NOTE | 2025-03-15 19:05 | PC.NURSE ---
Assumed care of pt at 1500. Pt is drowsy but awakens easily and is alert to person and place, not situation. He will at times call out and say he feels like screaming. Needs frequent reassurance. Bp borderline. Levophed remains off. Sys BP 80's but MAP 62-68. Dr Amador aware of BPand also that urine is quite bloody. CBI in place and rate of fluid increased to maintain a pink urine output. CBC drawn and results pending. No acute resp distress. Sleep apnea noted and oximask applied at 2L and later increased to 3L.
--- NOTE | 2025-03-15 21:10 | PM.PNNEP ---
Subjective Subjective Date of Service: 03/15/25 Interval history: Tapering vasopressor requirement, mentation improved. All recent data reviewed Physical Exam Vital Signs: Vital Signs: Last Vital Signs Temp 97.2 F 03/15/25 20:59 Pulse 84 03/15/25 20:59 Resp 17 03/15/25 20:59 BP 100/60 03/15/25 20:59 Pulse Ox 94 03/15/25 20:59 O2 Del Method CPAP 03/15/25 20:59 O2 Flow Rate 3 03/15/25 20:59 Oxygen Flow Rate 1 03/14/25 07:16 BMI result Body Mass Index 37.7 Const: General: no acute distress Neck: Neck: Yes supple Resp: Auscultation: diminished lung sounds Cardio: Rate: regular rate GI: Palpation (GI): Soft to palpation Neuro: General: moves all extremities Objective Data Labs 03/15/25 18:14 03/15/25 04:37 Labs: Laboratory Results - last 24 hr 03/14/25 03/15/25 03/15/25 20:43 04:37 04:44 WBC 12.4 H RBC 3.06 L Hgb 9.9 L D Hct 29.4 L MCV 96.1 MCH 32.4 MCHC 33.7 RDW 12.5 Plt Count 113 L D MPV 9.1 L Immature Gran % (Auto) 1.5 H Neut % (Auto) 94.2 H Lymph % (Auto) 1.5 L [place] % (Auto) 2.4 Eos % (Auto) 0.2 Baso % (Auto) 0.2 Lymph # (Auto) 0.2 L [place] # (Auto) 0.3 Eos # (Auto) 0.0 Baso # (Auto) 0.0 Abs Immat Gran (auto) 0.18 H Absolute Neuts (auto) 11.7 H Absolute Nucleated RBC 0.000 Nucleated RBC % (auto) 0.0 Smear Tech's Comments VERIFIED VBG pH 7.48 H VBG pCO2 29 VBG pO2 31 VBG HCO3 21 L VBG O2 Saturation 52.0 VBG Base Excess -0.6 Sodium 130 L 130 L Potassium 4.1 3.5 Chloride 98 99 Carbon Dioxide 18 L 19 L Anion Gap 18 16 BUN 109 H 100 H Creatinine 2.77 H 2.12 H Estim Creat Clear Calc 32.5 42.5 Estimated GFR 23 31 Random Glucose 185 H 188 H Calcium 7.4 L 7.2 L Phosphorus 4.3 Magnesium 2.1 Total Bilirubin 0.7 0.5 AST 40 H 34 ALT 15 10 Alkaline Phosphatase 79 70 Total Protein 5.2 L 4.7 L Albumin 3.1 L 2.7 L 03/15/25 18:14 WBC 17.6 H RBC 3.04 L Hgb 10.7 L Hct 29.4 L MCV 96.7 MCH 35.2 H MCHC 36.4 H RDW 12.6 Plt Count 139 L MPV 9.9 Immature Gran % (Auto) Neut % (Auto) Lymph % (Auto) [place] % (Auto) Eos % (Auto) Baso % (Auto) Lymph # (Auto) [place] # (Auto) Eos # (Auto) Baso # (Auto) Abs Immat Gran (auto) Absolute Neuts (auto) Absolute Nucleated RBC 0.000 Nucleated RBC % (auto) 0.0 Smear Tech's Comments VBG pH VBG pCO2 VBG pO2 VBG HCO3 VBG O2 Saturation VBG Base Excess Sodium Potassium Chloride Carbon Dioxide Anion Gap BUN Creatinine Estim Creat Clear Calc Estimated GFR Random Glucose Calcium Phosphorus Magnesium Total Bilirubin AST ALT Alkaline Phosphatase Total Protein Albumin Microbiology Microbiology Results: Microbiology 03/13/25 16:43 Blood - Venous Blood Culture - Preliminary No growth after 48 hours. 03/13/25 16:19 Blood - Venous Blood Culture - Preliminary No growth after 48 hours. 03/13/25 Unknown Urine Catheterized - Banegas Catheter Urine Culture - Final Procedures Date of Service Date of Service: 03/15/25 Assessment & Plan Assessment and plan (1) ANTIONETTE (acute kidney injury): Status: Acute Plan Acute Kidney Injury due to tubular injury Urine output improved. Serum creatinine better No reason to even consider renal replacement Continue current supportive management Progress Note: Quality Stroke Does the patient have a stroke diagnosis?: No
[2025-03-15 23:59] LABS: Alanine Aminotransferase 21 U/L (0-40); Albumin Level 2.8 g/dL (3.5-5.0); Alkaline Phosphatase 77 U/L (39-117); Anion Gap 13 (12-20); Aspartate Amino Transferase 56 U/L (5-37); Bilirubin Total 0.6 mg/dL (0.0-1.0); Blood Urea Nitrogen 97 mg/dL (9-16); Calcium 7.6 mg/dL (8.4-10.2); Carbon Dioxide 23 mmol/L (22-29); Chloride 101 mmol/L (96-108); Creatinine Clr Calc Pharmacy 49.4; Estimated Glomerular Filt Rate 37; Glucose Random 133 mg/dL (60-115); Potassium 3.3 mmol/L (3.3-5.1); Sodium 134 mmol/L (135-145); Total Protein 4.9 g/dL (6.5-8.0)
[2025-03-16] VITALS (36 sets, daily range): BP systolic 88–129; BP diastolic 44–75; PULSE 69–106; RESP 12–22; TEMP 36–36.6; O2SAT 92–100; BMI 36.1
[2025-03-16 05:30] LABS: VBG Base Excess 0.8 mmol/L; VBG HCO3 23 mmol/L (22-26); VBG pCO2 30 mmHg; VBG pH 7.48 (7.32-7.43); VBG pO2 38 mmHg
[2025-03-16 05:30] LABS: VBG Base Excess 0.6 mmol/L; VBG HCO3 23 mmol/L (22-26); VBG pCO2 30 mmHg; VBG pH 7.48 (7.32-7.43); VBG pO2 35 mmHg
[2025-03-16] MEDS: Piperacillin Sodium/Tazobactam 2.25 GM in 0.9 % Sodium Chloride 50 ML IV ×4 (05:45→23:33)
[2025-03-16] MEDS: Pantoprazole Sodium 40 MG/10 ML VIAL IVPUSH (05:46)
--- NOTE | 2025-03-16 05:55 | PC.NURSE ---
assumed care 1900 pt alert & forgetful, anxious, Per PA BPs borderline despite starting midodrine, levo restarted per emar. wean as tolerated see emar. PA order cpap for pt destating in sleep with periods of apnea. pt only able to tolerate for a few hours before refusing despite education from RN and RT, PA aware. tube feeds advancing to goal rate as tolerated. CBI infusing well,small closts at times. repo q2, barrier cream applied. bed locked in lowest position. plan of care kristofer
[2025-03-16 05:57] LABS: Hematocrit 30.5 % (42.0-52.0); Hemoglobin 10.9 g/dl (14.0-18.0); Mean Corpuscular HGB Conc 35.7 g/dl (31.0-36.0); Mean Corpuscular Hemoglobin 35.2 pg (27.0-33.0); Mean Corpuscular Volume 98.4 fL (80.0-98.0); Platelet Count 162 X10*3/uL (160-400); Red Cell Distribution Width 12.7 % (11.0-16.0); White Blood Count 25.8 X10*3/uL (4.8-10.8)
[2025-03-16 06:06] LABS: Alanine Aminotransferase 27 U/L (0-40); Albumin Level 2.8 g/dL (3.5-5.0); Anion Gap 14 (12-20); Aspartate Amino Transferase 76 U/L (5-37); Bilirubin Total 0.6 mg/dL (0.0-1.0); Blood Urea Nitrogen 96 mg/dL (9-16); Calcium 7.6 mg/dL (8.4-10.2); Carbon Dioxide 22 mmol/L (22-29); Chloride 101 mmol/L (96-108); Creatinine Clr Calc Pharmacy 50.5; Estimated Glomerular Filt Rate 38; Glucose Random 138 mg/dL (60-115); Magnesium 2.2 mg/dL (1.6-2.6); Potassium 3.2 mmol/L (3.3-5.1); Sodium 134 mmol/L (135-145); Total Protein 4.9 g/dL (6.5-8.0)
[2025-03-16 06:12] LABS: Alkaline Phosphatase 84 U/L (39-117)
[2025-03-16 06:20] LABS: Venous Blood Gas Refer to POC result
[2025-03-16] MEDS: Norepinephrine Bitartrate/D5W 8 MG/250 ML PLAST..BAG 6.9 MG IVCONT (06:22)
[2025-03-16] MEDS: Potassium Chloride/H20 40 MEQ/100 ML PIGGYBACK 100 MEQ IV (07:12)
[2025-03-16] MEDS: 0.9 % Sodium Chloride Flush 3 ML SYRINGE IVFLUSH ×2 (07:12→17:08)
[2025-03-16 07:13] LABS: Band Neutrophils Percent 5 % (3-5); Lymphocytes Absolute Manual 0.3 X10*3/uL (1.2-4.9); Lymphocytes Percent Manual 1 % (20-40); Neutrophils Absolute Manual 25.3 X10*3/uL (2.0-8.3); Neutrophils Percent Manual 93 % (45-73); Promyelocytes Absolute 0.3 X10*3/uL; Promyelocytes Percent 1 %
[2025-03-16 07:14] LABS: Basophilic Stippling 1+ (0-2) /OIF; Burr Cells 1+ (0-2) /OIF; Platelet Estimate NORMAL (NORMAL); Platelet Morphology Comment NORMAL; RBC Morphology NOTED; Smudge Cells PRESENT; Toxic Vacuolation PRESENT
[2025-03-16] MEDS: Midodrine HCl 10 MG TABLET PO (07:52)
--- NOTE | 2025-03-16 08:54 | PM.CCPN ---
Subjective Subjective Date of Service: 03/16/25 Interval History: Still requiring very small dose of Levophed support this morning Mentation improved, renal function Critical Care Time (minutes): 35 Physical Exam Vital Signs: Vital Signs: Last Vital Signs Temp 97.1 F 03/16/25 08:00 Pulse 92 03/16/25 08:00 Resp 17 03/16/25 08:00 BP 88/59 L 03/16/25 08:00 Pulse Ox 100 03/16/25 08:00 O2 Del Method Oxymask 03/16/25 08:00 O2 Flow Rate 3 03/16/25 08:00 Oxygen Flow Rate 1 03/14/25 07:16 BMI result Body Mass Index 36.1 General: Elderly male chronically ill-appearing Nutritional Appearance: well nourished and overweight Eyes: appearance normal, both eyes and all related structures; Alignment and Position: alignment normal and position normal Neck: No lymphadenopathy, no thyromegaly Resp: bilateral air entry equal, occasional added sounds present in the lung bases Cardio: Regular rate, regular rhythm; Heart sounds: S1 normal heart sound present and S2 normal heart sound present GI: soft, nontender, no guarding, no hepatosplenomegaly : bladder normal to inspection, bladder normal to palpation, no renal angle tenderness Skin: no rashes or lesions noted and elasticity normal Neuro: oriented to person, oriented to place, oriented to time and moves all extremities Objective Data Labs 03/16/25 04:29 03/16/25 04:35 Labs: Laboratory Results - last 24 hr 03/15/25 03/15/25 03/16/25 18:14 23:36 04:29 WBC 17.6 H 25.8 H RBC 3.04 L 3.10 L Hgb 10.7 L 10.9 L Hct 29.4 L 30.5 L MCV 96.7 98.4 H MCH 35.2 H 35.2 H MCHC 36.4 H 35.7 RDW 12.6 12.7 Plt Count 139 L 162 MPV 9.9 10.0 Immature Gran % (Auto) Cancelled Neut % (Auto) Cancelled Lymph % (Auto) Cancelled [place] % (Auto) Cancelled Eos % (Auto) Cancelled Baso % (Auto) Cancelled Lymph # (Auto) Cancelled [place] # (Auto) Cancelled Eos # (Auto) Cancelled Baso # (Auto) Cancelled Abs Immat Gran (auto) Cancelled Absolute Neuts (auto) Cancelled Absolute Nucleated RBC 0.000 0.000 Nucleated RBC % (auto) 0.0 0.0 Neutrophils % (Manual) 93 H Band Neutrophils % 5 Lymphocytes % (Manual) 1 L Promyelocytes % 1 Abs Neuts (Manual) 25.3 H Lymphocytes # (Manual) 0.3 L Promyelocytes # 0.3 Smudge Cells PRESENT Toxic Vacuolation PRESENT Platelet Estimate NORMAL Plt Morphology Comment NORMAL RBC Morphology NOTED Basophilic Stippling 1+ (0-2) Sellers Cells 1+ (0-2) VBG pH VBG pCO2 VBG pO2 VBG HCO3 VBG O2 Saturation VBG Base Excess Sodium 134 L Potassium 3.3 Chloride 101 Carbon Dioxide 23 Anion Gap 13 BUN 97 H Creatinine 1.80 H Estim Creat Clear Calc 49.4 Estimated GFR 37 Random Glucose 133 H Calcium 7.6 L Phosphorus Magnesium Total Bilirubin 0.6 AST 56 H ALT 21 Alkaline Phosphatase 77 Total Protein 4.9 L Albumin 2.8 L 03/16/25 03/16/25 03/16/25 04:35 04:38 04:49 WBC RBC Hgb Hct MCV MCH MCHC RDW Plt Count MPV Immature Gran % (Auto) Neut % (Auto) Lymph % (Auto) [place] % (Auto) Eos % (Auto) Baso % (Auto) Lymph # (Auto) [place] # (Auto) Eos # (Auto) Baso # (Auto) Abs Immat Gran (auto) Absolute Neuts (auto) Absolute Nucleated RBC Nucleated RBC % (auto) Neutrophils % (Manual) Band Neutrophils % Lymphocytes % (Manual) Promyelocytes % Abs Neuts (Manual) Lymphocytes # (Manual) Promyelocytes # Smudge Cells Toxic Vacuolation Platelet Estimate Plt Morphology Comment RBC Morphology Basophilic Stippling Sellers Cells VBG pH 7.48 H 7.48 H VBG pCO2 30 30 VBG pO2 35 38 VBG HCO3 23 23 VBG O2 Saturation 60.0 67.0 VBG Base Excess 0.6 0.8 Sodium 134 L Potassium 3.2 L Chloride 101 Carbon Dioxide 22 Anion Gap 14 BUN 96 H Creatinine 1.76 H Estim Creat Clear Calc 50.5 Estimated GFR 38 Random Glucose 138 H Calcium 7.6 L Phosphorus 3.0 Magnesium 2.2 Total Bilirubin 0.6 AST 76 H ALT 27 Alkaline Phosphatase 84 Total Protein 4.9 L Albumin 2.8 L Microbiology Microbiology Results: Microbiology 03/13/25 16:43 Blood - Venous Blood Culture - Preliminary No growth after 48 hours. 03/13/25 16:19 Blood - Venous Blood Culture - Preliminary No growth after 48 hours. 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 Plan Neuro: Acute encephalopathy possibly due to metabolic encephalopathy, improving with correction of sodium and infection Close neurological status monitoring in the ICU every hour CTA suggestive of high grade stenosis of right carotid artery, will need further evaluation once more stable Cardiac: Septic Shock: Possibly secondary to urinary tract infection and unspecified pneumonia On Levophed support down 0.03, titrate Levophed to keep map above 65 mm Hg On midodrine 10 mg TID, we will increase to 15 mg q.6 hours On hydrocortisone for the management of septic shock- we will discontinue as shock has improved, will get AM cortisol levels to rule out hypoadrenalism. will do albumin followed by christina TID today Respiratory: Bilateral pneumonia right more than left possibly secondary to aspiration pneumonia secondary to encephalopathy We will closely monitor respiratory status, currently on 1litres of nasal canula GI: continue on tube feeds Renal: Acute kidney injury possibly secondary to ATN from sepsis and septic shock, creatinine slowly improving down to 1.76 this morning Baseline creatinine normal, creatinine today is We will closely monitor I's and O's Avoid nephrotoxic medications Acute hyponatremia: Slowly improving, up to 134 this morning Heme: Chronic anemia, closely monitor H&H, transfuse for hemoglobin less than 7 grams/deciliter Endocrine: Blood sugars under control Sliding scale insulin as needed Infectious disease: As urinary tract infection and bilateral pneumonia right more than left. WBC count worsening up to 25,000, still requiring Levophed support. We will look into other etiologies Negative pancultures so far Continue Zosyn, negative MRSA nares Musculoskeletal: Decubitus ulcer prevention protocol Lines: left IJ TLC Prophylaxis: Heparin, pantoprazole Quality Stroke Does the patient have a stroke diagnosis?: No VTE Prior VTE?: No VTE Risk Level:: Medical - moderate - high VTE Device Contraindication: N/A - Device Ordered VTE Drug Contraindication: N/A - Med Ordered
--- NOTE | 2025-03-16 09:06 | P.PNNP_ITS ---
Subjective Subjective Date of Service: 03/16/25 Interval history: . Events noted More awake. Creatinine is trending down Physical Exam 2 Vital Signs: Vital Signs: Last Vital Signs Temp 97.1 F 03/16/25 08:00 Pulse 92 03/16/25 08:00 Resp 17 03/16/25 08:00 BP 88/59 L 03/16/25 08:00 Pulse Ox 100 03/16/25 08:00 O2 Del Method Oxymask 03/16/25 08:00 O2 Flow Rate 3 03/16/25 08:00 Oxygen Flow Rate 1 03/14/25 07:16 BMI result Body Mass Index 36.1 Const: General: ill appearing Neck: Neck: Yes supple Cardio: Palpation: no palpable S3 Heart sounds: no rubs GI: Palpation (GI): Soft to palpation Auscultation: normal bowel sounds Neuro: Motor exam (neuro): no asterixis Objective Data Labs 03/16/25 04:29 03/16/25 04:35 Labs: Laboratory Results - last 24 hr 03/15/25 03/15/25 03/16/25 18:14 23:36 04:29 WBC 17.6 H 25.8 H RBC 3.04 L 3.10 L Hgb 10.7 L 10.9 L Hct 29.4 L 30.5 L MCV 96.7 98.4 H MCH 35.2 H 35.2 H MCHC 36.4 H 35.7 RDW 12.6 12.7 Plt Count 139 L 162 MPV 9.9 10.0 Immature Gran % (Auto) Cancelled Neut % (Auto) Cancelled Lymph % (Auto) Cancelled [place] % (Auto) Cancelled Eos % (Auto) Cancelled Baso % (Auto) Cancelled Lymph # (Auto) Cancelled [place] # (Auto) Cancelled Eos # (Auto) Cancelled Baso # (Auto) Cancelled Abs Immat Gran (auto) Cancelled Absolute Neuts (auto) Cancelled Absolute Nucleated RBC 0.000 0.000 Nucleated RBC % (auto) 0.0 0.0 Neutrophils % (Manual) 93 H Band Neutrophils % 5 Lymphocytes % (Manual) 1 L Promyelocytes % 1 Abs Neuts (Manual) 25.3 H Lymphocytes # (Manual) 0.3 L Promyelocytes # 0.3 Smudge Cells PRESENT Toxic Vacuolation PRESENT Platelet Estimate NORMAL Plt Morphology Comment NORMAL RBC Morphology NOTED Basophilic Stippling 1+ (0-2) [place] Cells 1+ (0-2) VBG pH VBG pCO2 VBG pO2 VBG HCO3 VBG O2 Saturation VBG Base Excess Sodium 134 L Potassium 3.3 Chloride 101 Carbon Dioxide 23 Anion Gap 13 BUN 97 H Creatinine 1.80 H Estim Creat Clear Calc 49.4 Estimated GFR 37 Random Glucose 133 H Calcium 7.6 L Phosphorus Magnesium Total Bilirubin 0.6 AST 56 H ALT 21 Alkaline Phosphatase 77 Total Protein 4.9 L Albumin 2.8 L 03/16/25 03/16/25 03/16/25 04:35 04:38 04:49 WBC RBC Hgb Hct MCV MCH MCHC RDW Plt Count MPV Immature Gran % (Auto) Neut % (Auto) Lymph % (Auto) [place] % (Auto) Eos % (Auto) Baso % (Auto) Lymph # (Auto) [place] # (Auto) Eos # (Auto) Baso # (Auto) Abs Immat Gran (auto) Absolute Neuts (auto) Absolute Nucleated RBC Nucleated RBC % (auto) Neutrophils % (Manual) Band Neutrophils % Lymphocytes % (Manual) Promyelocytes % Abs Neuts (Manual) Lymphocytes # (Manual) Promyelocytes # Smudge Cells Toxic Vacuolation Platelet Estimate Plt Morphology Comment RBC Morphology Basophilic Stippling [place] Cells VBG pH 7.48 H 7.48 H VBG pCO2 30 30 VBG pO2 35 38 VBG HCO3 23 23 VBG O2 Saturation 60.0 67.0 VBG Base Excess 0.6 0.8 Sodium 134 L Potassium 3.2 L Chloride 101 Carbon Dioxide 22 Anion Gap 14 BUN 96 H Creatinine 1.76 H Estim Creat Clear Calc 50.5 Estimated GFR 38 Random Glucose 138 H Calcium 7.6 L Phosphorus 3.0 Magnesium 2.2 Total Bilirubin 0.6 AST 76 H ALT 27 Alkaline Phosphatase 84 Total Protein 4.9 L Albumin 2.8 L Microbiology Microbiology Results: Microbiology 03/13/25 16:43 Blood - Venous Blood Culture - Preliminary No growth after 48 hours. 03/13/25 16:19 Blood - Venous Blood Culture - Preliminary No growth after 48 hours. 03/13/25 Unknown Urine Catheterized - Banegas Catheter Urine Culture - Final Procedures Date of Service Date of Service: 03/16/25 Assessment & Plan Assessment and plan (1) ANTIONETTE (acute kidney injury): Status: Acute Plan 70 yr old man with ANTIONETTE and severe acidosis in a setting of GB syndrome and sepsis and hypotension along with severe hyponatremia and hyperkalemia ANTIONETTE primarily due to tubular injury Serum sodium is gradually increasing. Rate of correction acceptable. Restrict hypotonic fluids. Renal function is improving. No indication for dialysis. Time Spent With Patient Time: Total time managing care of this patient today ____ minutes. Progress Note: Quality Stroke Does the patient have a stroke diagnosis?: No
[2025-03-16] MEDS: Albumin Human 25 % 100 ML IV ×2 (10:22→17:08)
[2025-03-16] MEDS: Midodrine HCl 5 MG TABLET 15 MG PO ×3 (11:45→23:33)
--- NOTE | 2025-03-16 12:21 | MHC.SL.SWA ---
Speech Pathologist Impression: Aspiration Risk Risk of Aspiration Due to: Weak Cough Weak Voice Dysphasia Diet Status: NPO Liquid Consistency and Strategies for Safe Swallow: Liquid Intake Recommendation: NPO Liquid Intake Strategies: Solid Food Consistency: Dietary Recommendations: NPO Additional Modifications to Solid Foods: Oral Medication Intake: NPO Please contact the pharmacy regarding appropriate crushable or liquid drug formulations that are available whenever modified delivery is recommended. Compensatory Strategies and Precautions to be Taken for Safe Swallow: Supervision While Eating and Drinking for Safe Swallow: PO with PIPE WRAPPING MACHINE OPERATOR Foods to Avoid: Swallowing Recommended Treatments: Compens. Strategy Educat. Recommendation for Speech: Inpatient Speech Therapy Comment: Patient seen for repeat assessment this morning. Patient seen yesterday for initial assessment with recommendation continued NPO due to high risk of aspiration, secondary to Guillame Waldron Syndrome. Patient receiving nutrition, medication through NG tube, with RN providing meds by this means during this assessment. Patient was awake, alert, communicating about discomfort in legs. Patient able to follow directions, demonstrated understanding of this re-assessment. Patient also tolerated having bed raised to 90 degrees today. Patient initially given Ice Chip, which he dissolved in mouth then propelled for swallow. Patient given sips of water by spoon, producing a timely oral and pharyngeal phase, mildly reduced laryngeal elevation on swallow. Patient expressed discomfort from medication given through NG tube, produced some coughing after swallow of water, and RN noted drop in 02 sats with rebound. Patient given small bites of apple sauced, noted to have a mildly prolonged oral phase of swallow, with mastication of the puree, timely swallow after bolus propelled, with drop of 02 sats noted directly after swallow, with rebound after mild delay. This pattern noted times X before discontinuation of the assessment. Recommend continue NPO at this time, due to risk of aspiration. Allow patient small sips of liquid or ice chips for comfort. Frequency/Duration: Daily M-F Date Range for Service Req: Timeline to reassess: Computer Systems Technician Clinican/Clinical Fellow: No Supervisory Statement: I have reviewed and agree with the student/clinical fellow's documentation: N/A Speech Language Pathologist: Alana Childers M.A., [facility]-PIPE WRAPPING MACHINE OPERATOR
[2025-03-16] MEDS: Furosemide 40 MG/4 ML VIAL IVPUSH ×2 (12:44→17:55)
[2025-03-16] MEDS: HYDROcodone Bit/Acetam 7.5/325 TABLET 1 TAB NG-TUBE (17:56)
--- NOTE | 2025-03-16 19:22 | PC.NURSE ---
p: alteration in genitourinary function i: per nursing care plan e: remains on CBI flowing wide open to keep urine clear. hand flushed catheter 4-5 times with multiple clots coming out. MD aware. p: alteration in cardiac function i: per nursing care plan e: remained on small dose levophed to maintain map > 65. p: alteration in integumentary i: per nursing care plan e: turned and repositioned frequently. barrier cream applied to prevent moisture breakdown in groin/buttock. bilateral arm dressings changed.
[2025-03-16 22:04] LABS: Alanine Aminotransferase 32 U/L (0-40); Albumin Level 3.2 g/dL (3.5-5.0); Alkaline Phosphatase 77 U/L (39-117); Aspartate Amino Transferase 69 U/L (5-37); Bilirubin Total 0.5 mg/dL (0.0-1.0); Blood Urea Nitrogen 87 mg/dL (9-16); Creatinine Clr Calc Pharmacy 61.3; Estimated Glomerular Filt Rate 49; Glucose Random 138 mg/dL (60-115); Total Protein 4.9 g/dL (6.5-8.0)
[2025-03-16 23:36] LABS: Anion Gap 14 (12-20); Carbon Dioxide 22 mmol/L (22-29); Chloride 104 mmol/L (96-108); Potassium 3.5 mmol/L (3.3-5.1); Sodium 136 mmol/L (135-145)
[2025-03-17] VITALS (23 sets, daily range): BP systolic 93–125; BP diastolic 51–72; PULSE 69–91; RESP 14–27; TEMP 36.1–36.9; O2SAT 91–98; BMI 37.0
[2025-03-17] MEDS: 0.9 % Sodium Chloride Flush 3 ML SYRINGE IVFLUSH ×2 (00:25→07:46)
[2025-03-17] MEDS: Furosemide 40 MG/4 ML VIAL IVPUSH ×3 (01:40→16:23)
[2025-03-17] MEDS: Albumin Human 25 % 100 ML IV ×2 (01:44→08:39)
[2025-03-17] MEDS: Midodrine HCl 5 MG TABLET 15 MG PO ×3 (04:44→16:22)
[2025-03-17] MEDS: HYDROcodone Bit/Acetam 7.5/325 TABLET 1 TAB NG-TUBE (04:44)
[2025-03-17 05:00] LABS: VBG Base Excess 5.8 mmol/L; VBG HCO3 30 mmol/L (22-26); VBG pCO2 43 mmHg; VBG pH 7.44 (7.32-7.43); VBG pO2 35 mmHg
[2025-03-17 05:21] LABS: Venous Blood Gas Refer to POC result
[2025-03-17 05:45] LABS: Basophils Percent Auto 0.1 % (0-2); Eosinophils Absolute Auto 0.1 X10*3/uL (0.0-0.4); Eosinophils Percent Auto 0.3 % (0-4); Hematocrit 23.8 % (42.0-52.0); Hemoglobin 8.3 g/dl (14.0-18.0); Imm Gran Abs Auto 0.25 X10*3/uL (0.00-0.03); Imm Gran Pct Auto 1.6 % (0.0-0.4); Lymphocytes Absolute Auto 0.7 X10*3/uL (1.2-4.9); Lymphocytes Percent Auto 4.3 % (20-40); Mean Corpuscular HGB Conc 34.9 g/dl (31.0-36.0); Mean Corpuscular Hemoglobin 35.2 pg (27.0-33.0); Mean Corpuscular Volume 100.8 fL (80.0-98.0); Mean Platelet Volume 9.7 fL (9.4-12.4); Monocytes Absolute Auto 0.9 X10*3/uL (0.1-1.2); Monocytes Percent Auto 5.6 % (2-11); Neutrophils Absolute Auto 13.5 x10*3/uL (2.0-8.3); Neutrophils Percent Auto 88.1 % (45-73); Red Blood Count 2.36 X10*6/uL (4.60-5.80); Red Cell Distribution Width 12.9 % (11.0-16.0); White Blood Count 15.3 X10*3/uL (4.8-10.8)
[2025-03-17 05:53] LABS: MANUAL DIFF FLAG SCAN
[2025-03-17] MEDS: Piperacillin Sodium/Tazobactam 2.25 GM in 0.9 % Sodium Chloride 50 ML IV ×3 (05:54→17:22)
[2025-03-17] MEDS: Pantoprazole Sodium 40 MG/10 ML VIAL IVPUSH (05:54)
[2025-03-17 06:06] LABS: Platelet Count 89 X10*3/uL (160-400)
[2025-03-17 06:07] LABS: SLIDE REVIEW VERIFIED
[2025-03-17 06:09] LABS: Alanine Aminotransferase 26 U/L (0-40); Albumin Level 3.3 g/dL (3.5-5.0); Anion Gap 13 (12-20); Aspartate Amino Transferase 54 U/L (5-37); Bilirubin Total 0.5 mg/dL (0.0-1.0); Blood Urea Nitrogen 75 mg/dL (9-16); Calcium 8.1 mg/dL (8.4-10.2); Carbon Dioxide 26 mmol/L (22-29); Chloride 104 mmol/L (96-108); Creatinine Clr Calc Pharmacy 84.6; Estimated Glomerular Filt Rate > 60; Glucose Random 122 mg/dL (60-115); Magnesium 1.9 mg/dL (1.6-2.6); Phosphorus 2.1 mg/dL (2.7-4.5); Potassium 3.3 mmol/L (3.3-5.1); Sodium 140 mmol/L (135-145)
[2025-03-17 06:22] LABS: Alkaline Phosphatase 77 U/L (39-117)
--- NOTE | 2025-03-17 06:48 | PC.NURSE ---
Assumed care of patient at 19:00. Pt remains drowsy, pleasantly confused, and disoriented overnight. Reoriented though forgetful. Continues on scheduled midodrine. Weaned off of levo with map maintained >65 per PA goal. Pt transitioned to cpap around shift change in the evening. Tolerated with even and unlabored breathing, no distress noted. Pt slept for about five hours in the evening on cpap before he requested to remove it. Spo2 maintained with pt keeps spo2 probe on. Continues with in-room camera to assist with lines safety. Tolerating tube feeds via NGT at goal without any s/s of intolerance. Aspiration precautions in place. No BM this shift. Abdomen soft. No n/v. Continues with triple lumen ibrahim with CBI, functioning and patent of pink-tinged urine without clots. No hand irrigation needed this shift. Pt denies pevlic pain/pressure/discomfort. Skin care provided, q2hr repositioning on low air loss bed. Bed alarm on and safety measures in place. Please see shift assessments, tasks, and MAR for full details.
[2025-03-17] MEDS: Potassium Phosphate/NS 15 MMOL/250 ML PLAST..BAG 62.5 MMOL IV ×2 (07:42→11:43)
--- NOTE | 2025-03-17 08:42 | PM.CCPN ---
Subjective Subjective Date of Service: 03/17/25 Interval History: Remains off vasopressor support Mental status has improved Critical Care Time (minutes): 35 Physical Exam Vital Signs: Vital Signs: Last Vital Signs Temp 97.1 F 03/17/25 08:00 Pulse 70 03/17/25 08:00 Resp 18 03/17/25 08:00 BP 97/57 L 03/17/25 08:39 Pulse Ox 97 03/17/25 08:00 O2 Del Method Room Air 03/17/25 08:00 O2 Flow Rate 3 03/16/25 15:00 Oxygen Flow Rate 1 03/14/25 07:16 BMI result Body Mass Index 37.0 General: Elderly male chronically ill appearing and tired appearing Nutritional Appearance: well nourished and overweight Eyes: appearance normal, both eyes and all related structures; Alignment and Position: alignment normal and position normal Neck: No lymphadenopathy, no thyromegaly Resp: bilateral air entry equal, crackles heard in lung bases Cardio: Regular rate, regular rhythm; Heart sounds: S1 normal heart sound present and S2 normal heart sound present GI: soft, nontender, no guarding, no hepatosplenomegaly : bladder normal to inspection, bladder normal to palpation, no renal angle tenderness Skin: no rashes or lesions noted and elasticity normal Neuro: Follows commands Objective Data Labs 03/17/25 04:52 03/17/25 04:52 Labs: Laboratory Results - last 24 hr 03/16/25 03/17/25 03/17/25 20:56 04:52 04:56 WBC 15.3 H RBC 2.36 L D Hgb 8.3 L D Hct 23.8 L D MCV 100.8 H MCH 35.2 H MCHC 34.9 RDW 12.9 Plt Count 89 L D MPV 9.7 Immature Gran % (Auto) 1.6 H Neut % (Auto) 88.1 H Lymph % (Auto) 4.3 L [place] % (Auto) 5.6 Eos % (Auto) 0.3 Baso % (Auto) 0.1 Lymph # (Auto) 0.7 L [place] # (Auto) 0.9 Eos # (Auto) 0.1 Baso # (Auto) 0.0 Abs Immat Gran (auto) 0.25 H Absolute Neuts (auto) 13.5 H Absolute Nucleated RBC 0.000 Nucleated RBC % (auto) 0.0 Smear Tech's Comments VERIFIED VBG pH 7.44 H VBG pCO2 43 VBG pO2 35 VBG HCO3 30 H VBG O2 Saturation 62.0 VBG Base Excess 5.8 Sodium 136 140 Potassium 3.5 3.3 Chloride 104 104 Carbon Dioxide 22 26 Anion Gap 14 13 BUN 87 H 75 H Creatinine 1.42 H 1.04 Estim Creat Clear Calc 61.3 84.6 Estimated GFR 49 > 60 Random Glucose 138 H 122 H Calcium 8.0 L 8.1 L Phosphorus 2.1 L Magnesium 1.9 Total Bilirubin 0.5 0.5 AST 69 H 54 H ALT 32 26 Alkaline Phosphatase 77 77 Total Protein 4.9 L 5.0 L Albumin 3.2 L 3.3 L Microbiology Microbiology Results: Microbiology 03/13/25 16:43 Blood - Venous Blood Culture - Preliminary No growth after 48 hours. 03/13/25 16:19 Blood - Venous Blood Culture - Preliminary No growth after 48 hours. 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 Continue albumin followed by lasix TID for today Respiratory: Bilateral pneumonia right more than left possibly secondary to aspiration pneumonia secondary to encephalopathy We will closely monitor respiratory status, currently on 1litres of nasal canula GI: continue on tube feeds Renal: Acute kidney injury resolved Baseline creatinine normal We will closely monitor I's and O's Avoid nephrotoxic medications Acute hyponatremia: Resolved, sodium up to 140 this morning hematuria: on continuous bladder irrigation urology consulted Heme: Chronic anemia, closely monitor H&H, transfuse for hemoglobin less than 7 grams/deciliter Thrombocytopenia: Secondary to sepsis and medications, platelet count down to 89k Endocrine: Blood sugars under control Sliding scale insulin as needed Infectious disease: As urinary tract infection and bilateral pneumonia right more than left. WBC count down to 15,000 today. Negative pancultures so far Continue Zosyn, negative MRSA nares Musculoskeletal: Decubitus ulcer prevention protocol Lines: left IJ TLC Prophylaxis: Heparin, pantoprazole Quality Stroke Does the patient have a stroke diagnosis?: No VTE Prior VTE?: No VTE Risk Level:: Medical - moderate - high VTE Device Contraindication: N/A - Device Ordered VTE Drug Contraindication: N/A - Med Ordered
--- NOTE | 2025-03-17 11:12 | MHC.CLN ---
F/U DISCUSSED AT ROUNDS WITH RECEIVING JEVITY 1.0 AT MAX GOAL RATE 85ML/HR PROVIDES 2162KCALS (28KCALS/KG), 90G PROTEIN (1.15G/KG), 1703ML FREE WATER FROM FORMULA HOLDING FREE WATER FLUSHES R/T HYPONATREMIA-CAN START 240ML FREE WATER Q 8 HRS TO PROVIDE 2423ML TOTAL FREE WATER FROM FORMULA AND FLUSHES NSG REPORTED PT TOLERATING AT MAX GOAL RATE MONITOR TOLERANCE AND LYTES
--- NOTE | 2025-03-17 12:49 | MHC.CM.PN ---
Pt continues to make progress in ICU: Mentation slowly improving but still w/periods of vagueness. Pt has been referred to [facility] - will need PT eval. Plan for the day is to transfer to the medical floor for continued tx of sepsis r/t UTI. CM to follow: Of note, pt does not have any skin integrity issues r/t insects (please see initial notes re: pt home)
[2025-03-17] MEDS: LORazepam 1 MG TABLET PO (16:22)
--- NOTE | 2025-03-17 16:59 | P.EN_ITS ---
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 was on hydrocortisone resume prednisone Acute blood loss anemia Due to hematuria Follow CBC Acute thrombocytopenia Due to sepsis CBC Acute toxic metabolic encephalopathy Due to above Improving narrowing of right carotid vascular consult likely as outaptient Hyponatremia Resolved Hypokalemia Resolved ANTIONETTE Resolved HTN irbesartan on hold for shock/antionette Resume when appropriate BPH/obstructive uropathy Tamsulosin/proscar on hold for hypotension HLD fenofibrate on hold continue tube feeds dvt ppx - heparin gi ppx - protonix Time Spent With Patient Time: Total time managing care of this patient today ____ minutes.
[2025-03-17] MEDS: predniSONE 20 MG TABLET PO (17:23)
--- NOTE | 2025-03-17 17:37 | MHC.SL.SWA ---
Speech Pathologist Impression: Risk of Aspiration Due to: Weak Cough Weak Voice Dysphasia Diet Status: Liquid Consistency and Strategies for Safe Swallow: Liquid Intake Recommendation: NPO Liquid Intake Strategies: Solid Food Consistency: Dietary Recommendations: NPO Additional Modifications to Solid Foods: Oral Medication Intake: NPO Please contact the pharmacy regarding appropriate crushable or liquid drug formulations that are available whenever modified delivery is recommended. Compensatory Strategies and Precautions to be Taken for Safe Swallow: Supervision While Eating and Drinking for Safe Swallow: PO with RADIOLOGY TECHNICIAN Foods to Avoid: Swallowing Recommended Treatments: Compens. Strategy Educat. Recommendation for Speech: Inpatient Speech Therapy Patient seen for repeat swallow assessment this PM. Patient did not have 02 sensor on for this evaluation, had just finished with Bi-pap treatment. Patient was given ice chip to hold and dissolve, which he tolerated well. Patient given 1/4 tsp of water, noted moderate delay initiating swallow, with coughing noted after swallow. Patient given trial of puree, demonstrated moderate oral delay, followed by moderate delay before initiating swallow. mildly reduced laryngeal elevation palpated. Patient with c/o after swallow sensation that tongue was coated, given another ice chip which he reported improved sensation in mouth. Patient still presenting with risk of aspiration due to clinical signs on small amounts of water, moderate of delay of swallow on puree, vulnerable respiratory system, and Guillame [place] syndrome, all of which presents aspiration risk. Recommend continued NPO, with alternative nutrition through NG Tube Feeds. Recommend re-assessment/determination of readiness for MBSS study (instrumental swallow eval) on 03/20 for advancement to diet. RADIOLOGY TECHNICIAN [employer] construction worker over weekend if patient evidencing improvement in status, need for re-assessment. Patient can have ice chips for comfort, provide frequent oral care. Comment: Frequency/Duration: Daily M-F Date Range for Service Req: Timeline to reassess: Corporate Intern Clinican/Clinical Fellow: No Supervisory Statement: I have reviewed and agree with the student/clinical fellow's documentation: N/A Speech Language Pathologist: Alana Childers M.A., [facility]-RADIOLOGY TECHNICIAN
[2025-03-18] VITALS (7 sets, daily range): BP systolic 103–140; BP diastolic 54–79; PULSE 70–84; RESP 16–20; TEMP 36.2–37.6; O2SAT 95–98; BMI 36.6
[2025-03-18] MEDS: Midodrine HCl 5 MG TABLET 15 MG PO (00:56)
[2025-03-18] MEDS: Piperacillin Sodium/Tazobactam 2.25 GM in 0.9 % Sodium Chloride 50 ML IV ×4 (00:57→17:59)
[2025-03-18] MEDS: 0.9 % Sodium Chloride Flush 3 ML SYRINGE IVFLUSH ×3 (01:01→18:04)
[2025-03-18] MEDS: Furosemide 40 MG/4 ML VIAL IVPUSH ×3 (03:29→22:04)
[2025-03-18] MEDS: Omeprazole/Na Bicarb Oral Susp 20 MG/10 ML UD Cup NG-TUBE (05:57)
[2025-03-18 07:40] LABS: MANUAL DIFF FLAG NO
[2025-03-18] MEDS: Midodrine HCl 5 MG TABLET 15 MG NG-TUBE ×3 (07:54→18:00)
[2025-03-18 07:55] LABS: Basophils Percent Auto 0.2 % (0-2); Eosinophils Absolute Auto 0.2 X10*3/uL (0.0-0.4); Eosinophils Percent Auto 1.1 % (0-4); Hematocrit 24.7 % (42.0-52.0); Hemoglobin 8.3 g/dl (14.0-18.0); Imm Gran Pct Auto 3.7 % (0.0-0.4); Lymphocytes Absolute Auto 0.9 X10*3/uL (1.2-4.9); Lymphocytes Percent Auto 6.3 % (20-40); Mean Corpuscular HGB Conc 33.6 g/dl (31.0-36.0); Mean Corpuscular Hemoglobin 34.3 pg (27.0-33.0); Mean Corpuscular Volume 102.1 fL (80.0-98.0); Monocytes Percent Auto 7.5 % (2-11); Neutrophils Percent Auto 81.2 % (45-73); Platelet Count 87 X10*3/uL (160-400); Red Blood Count 2.42 X10*6/uL (4.60-5.80); Red Cell Distribution Width 12.9 % (11.0-16.0); White Blood Count 13.6 X10*3/uL (4.8-10.8)
[2025-03-18] MEDS: predniSONE 20 MG TABLET NG-TUBE (09:38)
[2025-03-18 10:24] LABS: Anion Gap 16 (12-20); Blood Urea Nitrogen 46 mg/dL (9-16); Calcium 8.4 mg/dL (8.4-10.2); Carbon Dioxide 24 mmol/L (22-29); Chloride 109 mmol/L (96-108); Creatinine Clr Calc Pharmacy 125.2; Estimated Glomerular Filt Rate > 60; Glucose Random 129 mg/dL (60-115); Magnesium 1.6 mg/dL (1.6-2.6); Sodium 145 mmol/L (135-145)
--- NOTE | 2025-03-18 13:05 | HO.PM.IMPN ---
Subjective Subjective Date of Service: 03/18/25 Interval History: Seen and examined this morning Follow-up for septic shock, ANTIONETTE, hematuria. Downgraded from the ICU yesterday afternoon Patient is awake, alert oriented to person and place but vague with situation no specific complaints Review of Systems Review of Systems: Yes all other systems are reviewed and are negative Constitutional Constitutional: Denies chills and Denies fever(s) Physical Exam Vital Signs: Vital Signs: Last Vital Signs Temp 97.2 F 03/18/25 11:16 Pulse 78 03/18/25 11:16 Resp 20 03/18/25 11:16 BP 127/56 L 03/18/25 11:16 Pulse Ox 96 03/18/25 11:16 O2 Del Method Room Air 03/18/25 11:16 O2 Flow Rate 3 03/16/25 15:00 Oxygen Flow Rate 1 03/14/25 07:16 BMI result Body Mass Index 36.6 Const: General: comfortable, alert and awake Nutritional Appearance: overweight Orientation/consciousness: oriented to person and oriented to place Resp: Effort & Inspection: normal respiratory effort, able to speak in complete sentences, no respiratory distress and no use of accessory muscles Cardio: Rate: regular rate GI: Inspection: No distended Palpation (GI): Soft to palpation and nontender Skin: Other: bruises to b/l arms Neuro: General: oriented to person and oriented to place Extrem: Other: legs in off loading boots Objective Data Active Medications Hydrocodone Bitart/Acetaminophen (Hydrocodone Bit/Acetam 7.5/325 Tablet) 1 tab NG-TUBE Q4H PRN PRN Reason: Pain, Moderate(Pain Scale 4-6) Last Admin: 03/17/25 04:44 Dose: 1 tab Documented By: HARINDER Furosemide (Furosemide 40 Mg/4 Ml Vial) 40 mg IVPUSH Q8H [facility]; Protocol Last Admin: 03/18/25 09:38 Dose: 40 mg Documented By: BENITO Piperacillin Sod/Tazobactam (Sod 2.25 gm/ Sodium Chloride) 50 mls @ 100 mls/hr IV Q6H [facility] Last Admin: 03/18/25 11:57 Dose: 100 mls/hr Documented By: NARINDER Lorazepam (Lorazepam 1 Mg Tablet) 1 mg NG-TUBE Q6H PRN PRN Reason: Anxiety Midodrine (Midodrine Hcl 5 Mg Tablet) 15 mg NG-TUBE Q6H [facility] Last Admin: 03/18/25 07:54 Dose: 15 mg Documented By: NARINDER Omeprazole (Omeprazole/Na Bicarb Oral Susp 20 Mg/10 Ml Ud Cup) 20 mg NG-TUBE DAILY@0630 [facility] Last Admin: 03/18/25 05:57 Dose: 20 mg Documented By: BE Prednisone (Prednisone 20 Mg Tablet) 20 mg NG-TUBE DAILY [facility] Last Admin: 03/18/25 09:38 Dose: 20 mg Documented By: BENITO Sodium Chloride (0.9 % Sodium Chloride Flush 3 Ml Syringe) 3 ml IVFLUSH QSHIFT [facility] Last Admin: 03/18/25 07:54 Dose: 3 ml Documented By: NARINDER Labs 03/18/25 06:39 03/18/25 06:39 Labs: Laboratory Results - last 24 hr 03/18/25 06:39 MCV 102.1 H MCH 34.3 H MCHC 33.6 RDW 12.9 Plt Count 87 L MPV 10.0 Immature Gran % (Auto) 3.7 H Neut % (Auto) 81.2 H Lymph % (Auto) 6.3 L [place] % (Auto) 7.5 Eos % (Auto) 1.1 Baso % (Auto) 0.2 Lymph # (Auto) 0.9 L [place] # (Auto) 1.0 Eos # (Auto) 0.2 Baso # (Auto) 0.0 Abs Immat Gran (auto) 0.50 H Absolute Neuts (auto) 11.0 H Absolute Nucleated RBC 0.000 Nucleated RBC % (auto) 0.0 Anion Gap 16 Estim Creat Clear Calc 125.2 Estimated GFR > 60 Random Glucose 129 H Calcium 8.4 Magnesium 1.6 Assessment and Plan (1) Gross hematuria: Status: Acute (2) ANTIONETTE (acute kidney injury): Status: Acute (3) Septic shock: Status: Acute (4) Renal failure: Status: Acute (5) Acute hyponatremia: Status: Acute Plan This is a 70-year-old male with history of left lower extremity wound, Guillain-[place] syndrome, UTI, urinary retention, hyperlipidemia who was brought to the emergency department with altered mental status after being found encephalopathic and covered in stool admitted to the ICU for management of septic shock due to aspiration pneumonia and UTI, weaned off of pressors and downgraded to the medical floor on March 17. NSVT Had 8 beat episode of NSVT Patient asleep during episode Potassium 4.0, magnesium low, we will replace Echocardiogram obtained March 14 showing preserved ejection fraction Follow magnesium levels Continue tele monitoring Septic shock due to aspiration pneumonia/UTI white count trending down. afebrile Urine culture mixed bam Blood cultures negative to date Has been treated with Zosyn hypotension due to septic shock, weaned off pressors as above but started on midodrine weaned off hydrocortisone and back on po prednisone (on chronically for Guillain-[place]) am cortisol pending on chronic steroids which had been held, now resumed follow bp closely dysphagia failed swallow eval continue tube feeds via NGT repeat speech eval on thursday may need MBSS when medically appropriate generalized fluid overload/anasarca due to fluids and low albumiun getting IV lasix Hematuria Continue CBI - urine clearing seen by urology H/H stable 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 - resumed on prednisone Acute blood loss anemia Due to hematuria Follow CBC Acute thrombocytopenia Due to sepsis follow CBC Acute toxic metabolic encephalopathy Due to above Improving but still vague narrowing of right carotid vascular consult as outaptient Hyponatremia Resolved free water flushes held for low na, sodium now normalized, will resume free water flushes Hypokalemia Resolved ANTIONETTE Likely Due to ATN from sepsis and obstructive uropathy Resolved HTN irbesartan on hold for shock/antionette Resume when appropriate BPH/obstructive uropathy Tamsulosin/proscar on hold for hypotension HLD fenofibrate on hold nutrition - continue tube feeds Skin-sacrum, buttock, intergluteal, posterior thighs, perianal area with moisture associated skin damage/incontinence associated dermatitis. Present on admission Seen by wound care nurse Continue local wound care Severe obesity BMI 36.6 Disposition-likely short-term rehab, we will need PT eval when medically appropriate. Patient primarily bed-bound at baseline previously was transferring to wheelchair per patient. dvt ppx - heparin gi ppx - protonix Patient requires ongoing inpatient stay for management of multiple acute medical problems which can not be managed in the a lesser acute setting as well as needed for safe disposition Quality Stroke Does the patient have a stroke diagnosis?: No VTE Prior VTE?: No VTE Risk Level:: Medical - moderate - high VTE Device Contraindication: N/A - Device Ordered VTE Drug Contraindication: N/A - Med Ordered
[2025-03-18] MEDS: Magnesium Sulfate/H2O 2 GM/50 ML PIGGYBACK IV (14:53)
[2025-03-19] VITALS (7 sets, daily range): BP systolic 129–150; BP diastolic 56–75; PULSE 74–100; RESP 16–18; TEMP 36.1–37.2; O2SAT 94–98; BMI 38.4
[2025-03-19] MEDS: Piperacillin Sodium/Tazobactam 2.25 GM in 0.9 % Sodium Chloride 50 ML IV ×4 (01:10→17:44)
[2025-03-19] MEDS: 0.9 % Sodium Chloride Flush 3 ML SYRINGE IVFLUSH ×3 (01:11→17:14)
[2025-03-19] MEDS: Midodrine HCl 5 MG TABLET 15 MG NG-TUBE (01:11)
[2025-03-19] MEDS: Omeprazole/Na Bicarb Oral Susp 20 MG/10 ML UD Cup NG-TUBE (05:47)
[2025-03-19 07:56] LABS: Hematocrit 25.8 % (42.0-52.0); Hemoglobin 8.7 g/dl (14.0-18.0); Mean Corpuscular HGB Conc 33.7 g/dl (31.0-36.0); Mean Corpuscular Hemoglobin 35.8 pg (27.0-33.0); Mean Corpuscular Volume 106.2 fL (80.0-98.0); Mean Platelet Volume 9.7 fL (9.4-12.4); Red Blood Count 2.43 X10*6/uL (4.60-5.80); Red Cell Distribution Width 13.2 % (11.0-16.0); White Blood Count 12.9 X10*3/uL (4.8-10.8)
[2025-03-19 08:03] LABS: Platelet Count 81 X10*3/uL (160-400)
[2025-03-19 08:21] LABS: Anion Gap 12 (12-20); Blood Urea Nitrogen 37 mg/dL (9-16); Calcium 8.7 mg/dL (8.4-10.2); Carbon Dioxide 30 mmol/L (22-29); Chloride 109 mmol/L (96-108); Creatinine Clr Calc Pharmacy 138.2; Estimated Glomerular Filt Rate > 60; Glucose Random 149 mg/dL (60-115); Magnesium 1.9 mg/dL (1.6-2.6); Potassium 3.4 mmol/L (3.3-5.1); Sodium 148 mmol/L (135-145)
--- NOTE | 2025-03-19 09:09 | HO.PM.IMPN ---
Subjective Subjective Date of Service: 03/19/25 Interval History: Seen and examined this morning Follow-up for shock, antionette, hematuria hematuria clearing pt awake and alert, but remains confused, forgetful he denies any specific complaints Review of Systems Review of Systems: Yes all other systems are reviewed and are negative Constitutional Constitutional: Denies chills and Denies fever(s) Cardiovascular Cardiovascular: Denies chest pain Physical Exam Vital Signs: Vital Signs: Last Vital Signs Temp 97.0 F 03/19/25 07:54 Pulse 86 03/19/25 07:54 Resp 18 03/19/25 07:54 BP 129/61 03/19/25 07:54 Pulse Ox 98 03/19/25 07:54 O2 Del Method Room Air 03/19/25 07:54 O2 Flow Rate 3 03/16/25 15:00 Oxygen Flow Rate 1 03/14/25 07:16 BMI result Body Mass Index 38.4 Const: General: comfortable, alert and awake Nutritional Appearance: overweight Orientation/consciousness: oriented to person and oriented to place Resp: Other: no wheezes, rhonchi or rales Effort & Inspection: normal respiratory effort, able to speak in complete sentences, no respiratory distress and no use of accessory muscles Cardio: Rate: regular rate GI: Inspection: No distended Palpation (GI): Soft to palpation and nontender Skin: Other: bruises to b/l arms Neuro: General: oriented to person and oriented to place Extrem: Other: legs in off loading boots; b/l upper extremity edema Objective Data Active Medications Hydrocodone Bitart/Acetaminophen (Hydrocodone Bit/Acetam 7.5/325 Tablet) 1 tab NG-TUBE Q4H PRN PRN Reason: Pain, Moderate(Pain Scale 4-6) Last Admin: 03/17/25 04:44 Dose: 1 tab Documented By: HARINDER Furosemide (Furosemide 40 Mg/4 Ml Vial) 40 mg IVPUSH Q12H [facility]; Protocol Last Admin: 03/18/25 22:04 Dose: 40 mg Documented By: ARON Piperacillin Sod/Tazobactam (Sod 2.25 gm/ Sodium Chloride) 50 mls @ 100 mls/hr IV Q6H [facility] Last Infusion: 03/19/25 07:17 Dose: Infused Documented By: ARON Magnesium Sulfate (Magnesium Sulfate/H2o) 2 gm in 50 mls @ 25 mls/hr IV ONCE ONE Stop: 03/19/25 11:07 Lorazepam (Lorazepam 1 Mg Tablet) 1 mg NG-TUBE Q6H PRN PRN Reason: Anxiety Midodrine (Midodrine Hcl 10 Mg Tablet) 10 mg NG-TUBE Q8H [facility] Omeprazole (Omeprazole/Na Bicarb Oral Susp 20 Mg/10 Ml Ud Cup) 20 mg NG-TUBE DAILY@0630 [facility] Last Admin: 03/19/25 05:47 Dose: 20 mg Documented By: ARON Prednisone (Prednisone 20 Mg Tablet) 20 mg NG-TUBE DAILY [facility] Last Admin: 03/18/25 09:38 Dose: 20 mg Documented By: BENITO Sodium Chloride (0.9 % Sodium Chloride Flush 3 Ml Syringe) 3 ml IVFLUSH QSHIFT [facility] Last Admin: 03/19/25 01:11 Dose: 3 ml Documented By: ARON Labs 03/19/25 07:06 03/19/25 07:06 Labs: Laboratory Results - last 24 hr 03/18/25 03/19/25 06:39 07:06 MCV 106.2 H MCH 35.8 H MCHC 33.7 RDW 13.2 Plt Count 81 L MPV 9.7 Absolute Nucleated RBC 0.000 Nucleated RBC % (auto) 0.0 Anion Gap 16 12 Estim Creat Clear Calc 125.2 138.2 Estimated GFR > 60 > 60 Random Glucose 129 H 149 H Calcium 8.4 8.7 Magnesium 1.6 1.9 Microbiology Microbiology Results: Microbiology 03/13/25 16:43 Blood Culture - Final Blood - Venous No growth after 5 days. 03/13/25 16:19 Blood Culture - Final Blood - Venous No growth after 5 days. 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 NSVT another 5 beat NSVT, asymptomatic Echocardiogram obtained March 14 showing preserved ejection fraction will give additional dose of IV magnesium Continue tele monitoring Septic shock due to possible aspiration pneumonia/UTI white count trending down. afebrile Urine culture mixed bam Blood cultures negative to date Has been treated with Zosyn started 03/14 hypotension due to septic shock, weaned off pressors as above but started on midodrine weaned off hydrocortisone and back on po prednisone (on chronically for Guillain-[place]) am cortisol pending bp seems to be improving, will begin to wean midodrine down to 10q8h follow bp closely dysphagia failed swallow eval continue tube feeds via NGT repeat speech eval on thursday may need MBSS when medically appropriate generalized fluid overload/anasarca due to fluids and low albumiun BUN, bicarb and sodium trending up, stop lasix give albumin Hematuria urine clearing, will clamp cbi seen by urology H/H stable 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 - resumed on prednisone Acute blood loss anemia Due to hematuria CBC stable Acute thrombocytopenia Due to sepsis, plt fairly stable ?zosyn contributing; consider alternate antibiotic if platelets continue to drop follow CBC Acute toxic metabolic encephalopathy Due to above Improving per ICU, pt alert and oriented to person and place, but still vague on situation, forgetful; impaired insight HCP has been invoked narrowing of right carotid d/w vascular- outpatient follow up Hyponatremia Resolved free water flushes held for low na, sodium now normalized, will resume free water flushes Hypokalemia Resolved ANTIONETTE Likely Due to ATN from sepsis and obstructive uropathy Resolved HTN irbesartan on hold for shock/antionette Resume when appropriate BPH/obstructive uropathy Tamsulosin/proscar on hold for hypotension HLD fenofibrate on hold nutrition - continue tube feeds Skin-sacrum, buttock, intergluteal, posterior thighs, perianal area with moisture associated skin damage/incontinence associated dermatitis. Present on admission Seen by wound care nurse Continue local wound care Severe obesity BMI 36.6 Disposition-likely short-term rehab, we will need PT eval when medically appropriate. Patient primarily bed-bound at baseline previously was transferring to wheelchair per patient. dvt ppx - heparin gi ppx - protonix Patient requires ongoing inpatient stay for management of multiple acute medical problems which can not be managed in the a lesser acute setting as well as needed for safe disposition Quality Stroke Does the patient have a stroke diagnosis?: No VTE Prior VTE?: No VTE Risk Level:: Medical - moderate - high VTE Device Contraindication: N/A - Device Ordered VTE Drug Contraindication: N/A - Med Ordered
[2025-03-19] MEDS: predniSONE 20 MG TABLET NG-TUBE (09:16)
[2025-03-19] MEDS: Midodrine HCl 10 MG TABLET NG-TUBE ×2 (09:16→17:13)
[2025-03-19] MEDS: Magnesium Sulfate/H2O 2 GM/50 ML PIGGYBACK IV (09:31)
[2025-03-19] MEDS: Albumin Human 25 % 100 ML IV ×2 (13:09→19:36)
[2025-03-20] VITALS (7 sets, daily range): BP systolic 122–145; BP diastolic 64–84; PULSE 73–95; RESP 16–22; TEMP 36.7–37.3; O2SAT 94–98; BMI 38.4
[2025-03-20] MEDS: Piperacillin Sodium/Tazobactam 2.25 GM in 0.9 % Sodium Chloride 50 ML IV ×5 (00:19→23:37)
[2025-03-20] MEDS: Midodrine HCl 10 MG TABLET NG-TUBE ×3 (00:37→17:44)
[2025-03-20] MEDS: 0.9 % Sodium Chloride Flush 3 ML SYRINGE IVFLUSH ×4 (00:55→23:42)
[2025-03-20] MEDS: Omeprazole/Na Bicarb Oral Susp 20 MG/10 ML UD Cup NG-TUBE (06:06)
[2025-03-20 08:23] LABS: Anion Gap 10 (12-20); Blood Urea Nitrogen 26 mg/dL (9-16); Calcium 8.7 mg/dL (8.4-10.2); Carbon Dioxide 31 mmol/L (22-29); Chloride 111 mmol/L (96-108); Creatinine Clr Calc Pharmacy 147.3; Estimated Glomerular Filt Rate > 60; Glucose Random 150 mg/dL (60-115); Magnesium 1.8 mg/dL (1.6-2.6); Potassium 3.3 mmol/L (3.3-5.1); Sodium 149 mmol/L (135-145)
[2025-03-20 08:25] LABS: Hematocrit 25.2 % (42.0-52.0); Mean Corpuscular HGB Conc 31.7 g/dl (31.0-36.0); Mean Corpuscular Hemoglobin 34.2 pg (27.0-33.0); Mean Corpuscular Volume 107.7 fL (80.0-98.0); NRBC Pct Auto 0.2 /100WBC (0.0-0.2); Red Blood Count 2.34 X10*6/uL (4.60-5.80); Red Cell Distribution Width 13.3 % (11.0-16.0); White Blood Count 9.8 X10*3/uL (4.8-10.8)
[2025-03-20 08:41] LABS: Platelet Count 93 X10*3/uL (160-400)
[2025-03-20 09:00] LABS: Folate 9.4 ng/mL (> or = 4.0)
[2025-03-20 09:18] LABS: Vitamin B12 608 pg/mL (200-900)
[2025-03-20] MEDS: predniSONE 20 MG TABLET NG-TUBE (09:48)
--- NOTE | 2025-03-20 10:00 | MHC.CLN ---
Addendum entered by Lady Butts, IVAN 03/20/25 10:04: CORRECTION; WILL START 240ML FREE WATER FLUSHES Q 6 HRS TO PROVIDE 2663ML TOTAL WATER FROM FORMULA AND FLUSHES (34ML/KG) Original Note: F/U PT TOLERATING TF AT MAX GOAL RATE REVIEWED LABS NOTED HYPERNATREMIA-WILL ADD WATER FLUSHES RECEIVING JEVITY 1.0 AT MAX GOAL RATE 85ML/HR PROVIDES 2162KCALS (28KCALS/KG), 90G PROTEIN (1.15G/KG), 1703ML FREE WATER FROM FORMULA RECOMMEND STARTING 240ML FREE WATER Q 8 HRS TO PROVIDE 2423ML TOTAL FREE WATER FROM FORMULA AND FLUSHES DISPATCHER SERVICE CHIEF FOLLOWING FOR APPROPRIATE DIET CONSISTENCY MONITOR TOLERANCE AND LYTES
--- NOTE | 2025-03-20 10:50 | HO.PM.IMPN ---
Subjective Subjective Date of Service: 03/20/25 Interval History: Seen and examined this morning Follow-up for shock, antionette, hematuria hematuria resolved pt awake and alert, but remains confused, forgetful he denies any specific complaints Review of Systems Review of Systems: Yes all other systems are reviewed and are negative Constitutional Constitutional: Denies chills and Denies fever(s) Cardiovascular Cardiovascular: Denies chest pain Physical Exam Vital Signs: Vital Signs: Last Vital Signs Temp 98.7 F 03/20/25 08:00 Pulse 94 03/20/25 08:00 Resp 22 H 03/20/25 08:00 BP 122/64 03/20/25 08:00 Pulse Ox 94 03/20/25 08:00 O2 Del Method Room Air 03/20/25 08:00 O2 Flow Rate 3 03/16/25 15:00 Oxygen Flow Rate 1 03/14/25 07:16 BMI result Body Mass Index 38.4 Objective Data Active Medications Hydrocodone Bitart/Acetaminophen (Hydrocodone Bit/Acetam 7.5/325 Tablet) 1 tab NG-TUBE Q4H PRN PRN Reason: Pain, Moderate(Pain Scale 4-6) Last Admin: 03/17/25 04:44 Dose: 1 tab Documented By: HARINDER Piperacillin Sod/Tazobactam (Sod 2.25 gm/ Sodium Chloride) 50 mls @ 100 mls/hr IV Q6H [facility] Last Infusion: 03/20/25 06:39 Dose: Infused Documented By: DEDRA Lorazepam (Lorazepam 1 Mg Tablet) 1 mg NG-TUBE Q6H PRN PRN Reason: Anxiety Midodrine (Midodrine Hcl 10 Mg Tablet) 10 mg NG-TUBE Q8H [facility] Last Admin: 03/20/25 09:48 Dose: 10 mg Documented By: BENITO Omeprazole (Omeprazole/Na Bicarb Oral Susp 20 Mg/10 Ml Ud Cup) 20 mg NG-TUBE DAILY@0630 [facility] Last Admin: 03/20/25 06:06 Dose: 20 mg Documented By: DEDRA Prednisone (Prednisone 20 Mg Tablet) 20 mg NG-TUBE DAILY [facility] Last Admin: 03/20/25 09:48 Dose: 20 mg Documented By: BENITO Sodium Chloride (0.9 % Sodium Chloride Flush 3 Ml Syringe) 3 ml IVFLUSH QSHIFT [facility] Last Admin: 03/20/25 09:48 Dose: 3 ml Documented By: BENITO Labs 03/20/25 08:03 03/20/25 08:03 Labs: Laboratory Results - last 24 hr 03/20/25 08:03 MCV 107.7 H MCH 34.2 H MCHC 31.7 RDW 13.3 Plt Count 93 L MPV 10.0 Absolute Nucleated RBC 0.020 H Nucleated RBC % (auto) 0.2 Anion Gap 10 L Estim Creat Clear Calc 147.3 Estimated GFR > 60 Random Glucose 150 H Calcium 8.7 Magnesium 1.8 Vitamin B12 608 Folate 9.4 Assessment and Plan (1) Gross hematuria: Status: Acute (2) Septic shock: Status: Acute (3) 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 Dysphagia failed swallow eval continue tube feeds via NGT repeat speech eval today may need MBSS Hematuria. Resolved CBI clamped seen by urology H/H stable NSVT. Resolved another 5 beat NSVT, asymptomatic Echocardiogram obtained March 14 showing preserved ejection fraction IV magnesium Continue tele monitoring Septic shock due to possible aspiration pneumonia/UTI. Resolved white count trending down. afebrile Urine culture mixed bam Blood cultures negative to date s/p Zosyn started 03/14 Hypotension. 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 - resumed on prednisone Acute blood loss anemia Due to hematuria CBC stable Acute thrombocytopenia Due to sepsis, plt fairly stable ?zosyn contributing; consider alternate antibiotic if platelets continue to drop follow CBC Acute toxic metabolic encephalopathy Due to above pt alert and oriented to person and place, but still vague on situation, forgetful; impaired insight HCP has been invoked narrowing of right carotid d/w vascular- outpatient follow up Hyponatremia Resolved free water flushes held for low na, sodium now normalized, will resume free water flushes Hypokalemia Resolved ANTIONETTE Likely Due to ATN from sepsis and obstructive uropathy Resolved HTN irbesartan on hold for shock/antionette Resume when appropriate BPH/obstructive uropathy Tamsulosin/proscar on hold for hypotension HLD fenofibrate on hold Skin-sacrum, buttock, intergluteal, posterior thighs, perianal area with moisture associated skin damage/incontinence associated dermatitis. Present on admission Seen by wound care nurse Continue local wound care Severe obesity BMI 38.4 Disposition-likely short-term rehab, we will need PT eval when medically appropriate. Patient primarily bed-bound at baseline previously was transferring to wheelchair per patient. dvt ppx - heparin gi ppx - protonix Patient requires ongoing inpatient stay for management of multiple acute medical problems which can not be managed in the a lesser acute setting as well as needed for safe disposition Quality Stroke Does the patient have a stroke diagnosis?: No VTE Prior VTE?: No VTE Risk Level:: Medical - moderate - high VTE Device Contraindication: N/A - Device Ordered VTE Drug Contraindication: N/A - Med Ordered
--- NOTE | 2025-03-20 14:43 | MHC.SL.SWA ---
Speech Pathologist Impression: Oropharyngeal coordination mildly reduced in anterior to posterior transit and laryngeal elevation, secondary to weakness. Risk of Aspiration Due to: Weak Cough Weak Voice Dysphasia Diet Status: Liquid Consistency and Strategies for Safe Swallow: Liquid Intake Recommendation: Thin Liquid Intake Strategies: Solid Food Consistency: Dietary Recommendations: Pureed (NDD1) Additional Modifications to Solid Foods: Oral Medication Intake: Crushed with Puree Please contact the pharmacy regarding appropriate crushable or liquid drug formulations that are available whenever modified delivery is recommended. Compensatory Strategies and Precautions to be Taken for Safe Swallow: Sitting Upright (90 deg) Alternate Liquids/Solids Rate of Ingestion Change Supervision While Eating and Drinking for Safe Swallow: Total Assistance (1:1) Foods to Avoid: Swallowing Recommended Treatments: Compens. Strategy Educat. Recommendation for Speech: Inpatient Speech Therapy Comment: Pt seen for dysphagia re-assessment. Pt alert, conversant, denied pain. Trials of thins by cup and straw, and 1/2 tsps of puree were implemented during this visit. Pt still has NG tube feeds. Pt elicited cough x2 across trials, considered WFL as NG tube remains in place and trace residual material visualized in pt pharynx upon eliciting /ah/. Pt voicing absent of wetness. Pt able to use double swallow strategy to clear trace material from surface of NG tube in pharyngeal space. Anticipate NG tube to be removed; pt in agreement with pureed diet/thin liquids pending further assessment when appropriate. MBSS recommended when pt status more stable d/t nature of dysphagia with regard to GB diagnosis. Frequency/Duration: Daily M-F Date Range for Service Req: Timeline to reassess: Gill Box Fixer Clinican/Clinical Fellow: No Supervisory Statement: I have reviewed and agree with the student/clinical fellow's documentation: N/A Speech Language Pathologist: Mercedes Daugherty M.S., CCC-NUMERICAL TOOL PROGRAMMER
[2025-03-21] VITALS (11 sets, daily range): BP systolic 123–162; BP diastolic 58–84; PULSE 61–144; RESP 16–20; TEMP 36.3–37.2; O2SAT 95–97; BMI 38.3
[2025-03-21] MEDS: Dextrose 5 % 1,000 ML 50 ML IVCONT ×2 (01:43→23:23)
--- NOTE | 2025-03-21 02:48 | PC.NURSE ---
0100 pt's HR went up into the 150's then back down into the teens. notified started pt on D5W at 50cc/hr.
[2025-03-21] MEDS: LORazepam 1 MG TABLET NG-TUBE (03:36)
[2025-03-21] MEDS: Piperacillin Sodium/Tazobactam 2.25 GM in 0.9 % Sodium Chloride 50 ML IV ×4 (05:52→23:29)
[2025-03-21] MEDS: predniSONE 20 MG TABLET NG-TUBE (08:32)
[2025-03-21] MEDS: 0.9 % Sodium Chloride Flush 3 ML SYRINGE IVFLUSH ×2 (08:32→22:00)
--- NOTE | 2025-03-21 08:57 | MHC.CM.PN ---
Addendum entered by Miriam Madrid 03/21/25 12:41: Return call received from pts son Tristan, pt states he needs to speak with his dad to discuss STR, and will call us back later today. Addendum entered by Miriam Madrid 03/21/25 12:30: This CM placed a second call to pts son/HCP xena Hudson, awaiting return call. Original Note: PT evaluated pt and recommended STR. This CM met with pt to discuss, pt states he would like to speak with his son Tristan about it, but that he feels he would like to do the rehab at home with his son. Pt gave verbal permission for this CM to speak with his son Tristan to discuss this further. This CM placed a phone call to xena Hudson, awaiting return call.
--- NOTE | 2025-03-21 09:01 | P.PNNP_ITS ---
Subjective Subjective Date of Service: 03/21/25 Interval history: Seen and examined this morning Follow-up for shock, antionette, hematuria hematuria resolved pt awake and alert, but remains confused, forgetful he denies any specific complaints Physical Exam 2 Vital Signs: Vital Signs: Last Vital Signs Temp 98.0 F 03/21/25 07:41 Pulse 73 03/21/25 07:41 Resp 18 03/21/25 07:41 BP 147/70 H 03/21/25 07:41 Pulse Ox 96 03/21/25 07:41 O2 Del Method Room Air 03/21/25 07:41 O2 Flow Rate 3 03/16/25 15:00 Oxygen Flow Rate 1 03/14/25 07:16 BMI result Body Mass Index 38.3 Const: General: no acute distress Neck: Neck: Yes supple Resp: Auscultation: diminished lung sounds Cardio: Palpation: no palpable S3 Rate: regular rate Heart sounds: no rubs GI: Palpation (GI): Soft to palpation Auscultation: normal bowel sounds Neuro: General: moves all extremities Motor exam (neuro): no asterixis Objective Data Labs 03/20/25 08:03 03/20/25 08:03 Labs: Laboratory Results - last 24 hr 03/20/25 08:03 Vitamin B12 608 Microbiology Microbiology Results: Microbiology 03/13/25 16:43 Blood - Venous Blood Culture - Final No growth after 5 days. 03/13/25 16:19 Blood - Venous Blood Culture - Final No growth after 5 days. 03/13/25 Unknown Urine Catheterized - Banegas Catheter Urine Culture - Final Procedures Date of Service Date of Service: 03/21/25 Assessment & Plan Assessment and plan (1) ANTIONETTE (acute kidney injury): Status: Acute Plan 70 yr old man with ANTIONETTE and severe acidosis in a setting of GB syndrome and sepsis and hypotension along with severe hyponatremia and hyperkalemia ANTIONETTE primarily due to tubular injury Hyponatremia resolved Now with hypernatremia Could be due to free water deficit induced by loop diuretics Off Lasix now Keep I > O with Hypotonic fluids Agree with D5W for now Elevated tCO2 Probably has contraction alkalosis Check urine chloride ( ordered) Renal function is improving Cr back to baseline Time Spent With Patient Time: Total time managing care of this patient today ____ minutes. Progress Note: Quality Stroke Does the patient have a stroke diagnosis?: No
--- NOTE | 2025-03-21 11:11 | MHC.CLN ---
F/U DIET ADVANCED TO PUREED THIS AM PER COMMUNITY DEVELOPMENT OFFICER TF D/C RECOMMEND ADDING ENSURE BID TO INCREASE KCALS SUPP TO PROVIDE 700KCALS, 40G PROTEIN MONITOR PO INTAKE AND ENCOURAGE SUPPLEMENTS AND FLUIDS
--- NOTE | 2025-03-21 11:26 | HO.PM.IMPN ---
Subjective Subjective Date of Service: 03/21/25 Interval History: Follow-up for shock, antionette, hematuria hematuria resolved NGT ouy pt awake and alert, but remains confused, forgetful he denies any specific complaints Review of Systems Review of Systems: Yes all other systems are reviewed and are negative Constitutional Constitutional: Denies chills and Denies fever(s) Cardiovascular Cardiovascular: Denies chest pain Physical Exam Vital Signs: Vital Signs: Last Vital Signs Temp 98.0 F 03/21/25 07:41 Pulse 73 03/21/25 07:41 Resp 18 03/21/25 07:41 BP 147/70 H 03/21/25 07:41 Pulse Ox 96 03/21/25 07:41 O2 Del Method Room Air 03/21/25 07:41 O2 Flow Rate 3 03/16/25 15:00 Oxygen Flow Rate 1 03/14/25 07:16 BMI result Body Mass Index 38.3 Appearing in no acute distress lung sounds are clear to auscultation heart regular rate rhythm, clear S1, S2 positive bowel sounds, abdomen is soft, nontender neuro patient is alert x3, no focal deficits Diffuse brusing to arms, thin skin Objective Data Active Medications Hydrocodone Bitart/Acetaminophen (Hydrocodone Bit/Acetam 7.5/325 Tablet) 1 tab NG-TUBE Q4H PRN PRN Reason: Pain, Moderate(Pain Scale 4-6) Last Admin: 03/17/25 04:44 Dose: 1 tab Documented By: HARINDER Piperacillin Sod/Tazobactam (Sod 2.25 gm/ Sodium Chloride) 50 mls @ 100 mls/hr IV Q6H [facility] Last Infusion: 03/21/25 06:27 Dose: Infused Documented By: KATIANA Dextrose (D5w) 1,000 mls @ 50 mls/hr IVCONT .Q20H [facility] Last Admin: 03/21/25 01:43 Dose: 50 mls/hr Documented By: KATIANA Lorazepam (Lorazepam 1 Mg Tablet) 1 mg NG-TUBE Q6H PRN PRN Reason: Anxiety Last Admin: 03/21/25 03:36 Dose: 1 mg Documented By: KATIANA Midodrine (Midodrine Hcl 10 Mg Tablet) 10 mg NG-TUBE Q8H [facility] Last Admin: 03/21/25 00:42 Dose: Not Given Documented By: KATIANA Non-Admin Reason: Elevated Blood Pressure Omeprazole (Omeprazole/Na Bicarb Oral Susp 20 Mg/10 Ml Ud Cup) 20 mg NG-TUBE DAILY@0630 [facility] Last Admin: 03/21/25 05:56 Dose: Not Given Documented By: KATIANA Non-Admin Reason: Patient Refused Prednisone (Prednisone 20 Mg Tablet) 20 mg NG-TUBE DAILY [facility] Last Admin: 03/21/25 08:32 Dose: 20 mg Documented By: GWEN Sodium Chloride (0.9 % Sodium Chloride Flush 3 Ml Syringe) 3 ml IVFLUSH QSHIFT [facility] Last Admin: 03/21/25 08:32 Dose: 3 ml Documented By: GWEN Labs 03/20/25 08:03 03/20/25 08:03 Assessment and Plan (1) Gross hematuria: Status: Acute (2) Septic shock: Status: Acute (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 Dysphagia swallow eval>NDD1 with thin liquids s/p tube feeds via NGT (removed today) may need MBSS Hematuria. Resolved CBI removed seen by urology H/H stable NSVT. Resolved another 5 beat NSVT, asymptomatic Echocardiogram obtained March 14 showing preserved ejection fraction IV magnesium Continue tele monitoring Septic shock due to possible aspiration pneumonia/UTI. Resolved white count trending down. afebrile Urine culture mixed bam Blood cultures negative to date s/p Zosyn started 03/14 Hypotension. Resolved due to septic shock, weaned off pressors as above but started on midodrine weaned off hydrocortisone and back on po prednisone (on chronically for Guillain-[place]) bp seems to be improving, wean midodrine down to 5 TID follow bp closely Generalized fluid overload/anasarca. 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 Resolved Likely Due to ATN from sepsis and obstructive uropathy Resolved BPH/obstructive uropathy Tamsulosin/proscar resumed HLD fenofibrate on hold Mental health Resume paroxetine Skin-sacrum, buttock, intergluteal, posterior thighs, perianal area with moisture associated skin damage/incontinence associated dermatitis. Present on admission Seen by wound care nurse Continue local wound care Severe obesity BMI 38.3 DVT prophylaxis with pneumatic compression boots due to hematuria Quality Stroke Does the patient have a stroke diagnosis?: No VTE Prior VTE?: No VTE Risk Level:: Medical - moderate - high VTE Device Contraindication: N/A - Device Ordered VTE Drug Contraindication: N/A - Med Ordered
[2025-03-21] MEDS: PARoxetine HCL 10 MG TABLET PO (14:53)
[2025-03-21] MEDS: Midodrine HCl 5 MG TABLET PO ×2 (14:53→21:56)
[2025-03-21] MEDS: Finasteride 5 MG TABLET PO (14:53)
--- NOTE | 2025-03-21 19:39 | HO.SKINPHOTO ---
Location: Category: Stage: Length: Width: Depth: cm Location: Category: Stage: Length: Width: Depth: cm Location: Category: Stage: Length: Width: Depth: cm Location: Category: Stage: Length: Width: Depth: cm Location: Category: Stage: Length: Width: Depth: cm Location: Category: Stage: Length: Width: Depth: cm
--- NOTE | 2025-03-21 19:40 | PC.NURSE ---
NGT removed 0930, pt tolerating diet well. aspiration precautions. CBI indwelling ibrahim removed at 1040. bladder scanned for 296, per provider straight cath. 260mL of dark yellow urine removed. next bladder scan for 223
[2025-03-21] MEDS: Tamsulosin HCL 0.4 MG CAPSULE PO (21:57)
[2025-03-22 03:11] VITALS: BP 129/63; PULSE 91; RESP 18; TEMP 36.1; O2SAT 95
[2025-03-22 05:57] VITALS: BMI 37.7
[2025-03-22] MEDS: Piperacillin Sodium/Tazobactam 2.25 GM in 0.9 % Sodium Chloride 50 ML IV ×4 (06:04→23:51)
[2025-03-22 07:13] VITALS: BP 126/67; PULSE 82; RESP 18; TEMP 36.4; O2SAT 97
[2025-03-22 09:45] LABS: Chloride Urine Random < 20.0 mmol/L
[2025-03-22] MEDS: PARoxetine HCL 10 MG TABLET PO (10:29)
[2025-03-22] MEDS: predniSONE 20 MG TABLET PO (10:29)
[2025-03-22] MEDS: Finasteride 5 MG TABLET PO (10:29)
--- NOTE | 2025-03-22 10:39 | MHC.CLN ---
F/U PO INTAKE 50% X2 MEALS DIET RX: PUREED THIS AM PER COIL TESTER RECEIVING ENSURE BID TO INCREASE KCALS SUPP TO PROVIDE 700KCALS, 40G PROTEIN MONITOR PO INTAKE AND ENCOURAGE SUPPLEMENTS
[2025-03-22 10:44] VITALS: BP 114/64; PULSE 100; RESP 16; TEMP 36.7; O2SAT 96
--- NOTE | 2025-03-22 12:50 | HO.WOUND ---
Wound Consult: Initial 70yr old?male admitted to [facility] on 03/13/25 - See progress notes and H&P for detailed history.? Wound consult placed for Buttock, Perineal and Posterior thighs.? Chart review completed discussed with direct care nurse and photo reviewed. 03/14/25 03/22/25 - Overall Improving skin integrity Sacrum, Buttock, Intergluteal, Posterior thighs and Perianal area Etiology: ??MASD-IAD (Moisture Associated Skin Damage - Incontinence Associated Dermatitis) Present on Admission Wound Bed: red blanchable tissue scattered open areas Edges: ? irregular Ambar wound: ? No Induration, Fluctuance or Warmth noted Goals of Treatment: ? Barrier cream to protect from friction, moisture No new topical recommendations needed at this time. Patient heels assessed for redness - no pressure injury noted at this time recommend foam dressing and heel protector boots for prevention. Bilateral arms are noted for swelling and skin tears with moderate serous drainage on the left arm - recommend continue with Skin tear treatment of xeroform and gauze wrap. Recommendations: 1. Turn and Reposition every 2 hours and as needed for patient comfort.? Use pillows or wedges to support off loading positions. 2. Off Load all bony prominences with use of pillows and heel boots if needed.? Apply Preventative foams where needed. ? 3. Monitor for incontinence and moisture control, use barrier creams when needed for prevention and treatment. 4. Provide adequate and supplemental nutrition.? 5. Continue low air loss mattress. 6. When applicable maintain blood glucose levels per Providers order. Sacrum, Buttock, Intergluteal, Posterior thighs and Perienal area - Off Load Pressure with Q2 hr turns and use of pillows - Cleanse with PH balance spray or wipes, pat dry. ?Apply thin layer of Barrier cream / Triad to wound bed - only pat and dab no scrub and rub when soiling occurs. Reapply thin layer PRN after each episode of incontinence. Bilateral Heels - Elevate heels off of bed surface with heel protector boots. Apply foam dressing for prevention. Peel back and assess Q shift and change every 5 days and PRN. Bilateral Arms - Cleanse with normal saline, pat dry. ?Apply Xeroform secure with Abd pads, gauze wrap and tape. Change Daily. ?Do not apply tape to patient?s skin.? Avoid Adhesive application to skin - when necessary, apply skin prep prior.? Re-consult wound care Nurse for wound deterioration or wound changes.
--- NOTE | 2025-03-22 13:12 | MHC.SL.SWA ---
Speech Pathologist Impression: Mild oropharyngeal dysphagia, tolerating purees and thins without difficulty, MBSS recc to visualize physiological function of swallow d/t PMH GB Risk of Aspiration Due to: Weak Cough Weak Voice Dx Guillain-[place] Dysphasia Diet Status: NO CHANGE Liquid Consistency and Strategies for Safe Swallow: Liquid Intake Recommendation: Thin Liquid Intake Strategies: Solid Food Consistency: Dietary Recommendations: Pureed (NDD1) Additional Modifications to Solid Foods: Oral Medication Intake: Crushed with Puree Please contact the pharmacy regarding appropriate crushable or liquid drug formulations that are available whenever modified delivery is recommended. Compensatory Strategies and Precautions to be Taken for Safe Swallow: Sitting Upright (90 deg) Small Bites and Sips Alternate Liquids/Solids Rate of Ingestion Change Supervision While Eating and Drinking for Safe Swallow: Total Assistance (1:1) Foods to Avoid: Swallowing Recommended Treatments: Compens. Strategy Educat. Recommendation for Speech: Inpatient Speech Therapy Comment: Pt more alert and conversant, NG tube has been removed, pt tolerating diet as ordered, expressed his satisfaction with current diet and agrees with recc MBSS to visualize physiological function of swallow Frequency/Duration: Daily M-F Date Range for Service Req: Timeline to reassess: Shot Core Drill Operator Helper Clinican/Clinical Fellow: No Supervisory Statement: I have reviewed and agree with the student/clinical fellow's documentation: N/A Speech Language Pathologist: Mercedes Daugherty M.S., CCC-TAG MARKER
[2025-03-22 15:57] VITALS: BP 122/57; PULSE 102; RESP 18; TEMP 37.1; O2SAT 93
--- NOTE | 2025-03-22 16:15 | P.PNIM_ITS ---
Subjective Subjective Date of Service: 03/22/25 Interval History: Continues to have urinary retention by bladder scan. States he does not not feel the urge to void. No acute issues overnight Review of Systems Denies chest pain Denies shortness of breath Denies nausea vomiting diarrhea Denies fever chills Physical Exam 2 Vital Signs: Vital Signs: Last Vital Signs Temp 98.7 F 03/22/25 15:57 Pulse 102 H 03/22/25 15:57 Resp 18 03/22/25 15:57 BP 122/57 L 03/22/25 15:57 Pulse Ox 93 03/22/25 15:57 O2 Del Method Room Air 03/22/25 15:57 O2 Flow Rate 3 03/16/25 15:00 Oxygen Flow Rate 1 03/14/25 07:16 BMI result Body Mass Index 37.7 Const: Other: Awake alert no acute distress Resp: Other: Clear to auscultation bilaterally no rales rhonchi or wheezes Cardio: Other: No S4; positive S1-S2; no S3 murmurs rubs or gallops GI: Other: Soft nontender nondistended normoactive bowel sounds Extrem: Other: No edema bilaterally Objective Data Active Medications Finasteride (Finasteride 5 Mg Tablet) 5 mg PO DAILY [facility] Last Admin: 03/22/25 10:29 Dose: 5 mg Documented By: GWEN Piperacillin Sod/Tazobactam (Sod 2.25 gm/ Sodium Chloride) 50 mls @ 100 mls/hr IV Q6H [facility] Last Infusion: 03/22/25 14:09 Dose: Infused Documented By: GWEN Dextrose (D5w) 1,000 mls @ 50 mls/hr IVCONT .Q20H [facility] Last Admin: 03/21/25 23:23 Dose: 50 mls/hr Documented By: DOLORES Lorazepam (Lorazepam 1 Mg Tablet) 1 mg PO Q6H PRN PRN Reason: Anxiety Midodrine (Midodrine Hcl 5 Mg Tablet) 5 mg PO TID [facility] Last Admin: 03/22/25 13:21 Dose: Not Given Documented By: GWEN Non-Admin Reason: to close to next dose Omeprazole (Omeprazole/Na Bicarb Oral Susp 20 Mg/10 Ml Ud Cup) 20 mg PO DAILY@0630 [facility] Last Admin: 03/22/25 06:07 Dose: Not Given Documented By: DOLORES Non-Admin Reason: Patient Refused Paroxetine HCl (Paroxetine Hcl 10 Mg Tablet) 10 mg PO DAILY [facility] Last Admin: 03/22/25 10:29 Dose: 10 mg Documented By: GWEN Prednisone (Prednisone 20 Mg Tablet) 20 mg PO DAILY [facility] Last Admin: 03/22/25 10:29 Dose: 20 mg Documented By: GWEN Sodium Chloride (0.9 % Sodium Chloride Flush 3 Ml Syringe) 3 ml IVFLUSH QSHIFT [facility] Last Admin: 03/22/25 10:33 Dose: Not Given Documented By: GWEN Non-Admin Reason: IV Running Tamsulosin HCl (Tamsulosin Hcl 0.4 Mg Capsule) 0.4 mg PO BEDTIME [facility] Last Admin: 03/21/25 21:57 Dose: 0.4 mg Documented By: DOLORES Labs 03/20/25 08:03 03/20/25 08:03 Labs: Laboratory Results - last 24 hr 03/22/25 09:19 Ur Random Chloride < 20.0 Assessment and Plan (1) Dysphagia: Status: Acute (2) Pneumonia: Status: Acute (3) 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 1.Dysphagia -swallow eval>NDD1 with thin liquids -speech recommending modified barium. .. We will order 2. Urinary retention (by bladder scan) -insert Banegas 3.Pneumonia/UTI. -blood cultures negative to date -Zosyn(9)... DC after tomorrow's dosing 4.History of Guillain-Alger -stable and well compensated -continue oral steroid dosing 5.Acute blood loss anemia -hematuria resolved -follow daily CBC 6.Acute thrombocytopenia (related to sepsis) -platelet count stable with minimal increase -follow daily CBC 7.HTN -acceptable control off therapies -add back when appropriate Pneumatics Full code Quality Stroke Does the patient have a stroke diagnosis?: No VTE Prior VTE?: No VTE Risk Level:: Medical - moderate - high VTE Device Contraindication: N/A - Device Ordered VTE Drug Contraindication: N/A - Med Ordered
[2025-03-22] MEDS: Midodrine HCl 5 MG TABLET PO ×2 (16:19→19:51)
[2025-03-22] MEDS: Dextrose 5 % 1,000 ML 50 ML IVCONT (18:24)
[2025-03-22 19:02] VITALS: BP 127/57; PULSE 89; RESP 20; TEMP 36.3; O2SAT 98
[2025-03-22] MEDS: Tamsulosin HCL 0.4 MG CAPSULE PO (19:51)
[2025-03-22] MEDS: 0.9 % Sodium Chloride Flush 3 ML SYRINGE IVFLUSH (19:56)
[2025-03-22 23:29] VITALS: BP 123/60; PULSE 84; RESP 18; TEMP 36.1; O2SAT 97
[2025-03-23 04:00] VITALS: BP 123/57; PULSE 86; RESP 18; TEMP 36.1; O2SAT 97
[2025-03-23] MEDS: Piperacillin Sodium/Tazobactam 2.25 GM in 0.9 % Sodium Chloride 50 ML IV ×2 (05:29→12:24)
[2025-03-23] MEDS: Omeprazole/Na Bicarb Oral Susp 20 MG/10 ML UD Cup PO (05:31)
[2025-03-23 06:00] VITALS: BMI 37.8
[2025-03-23 07:05] VITALS: BP 133/53; PULSE 99; RESP 18; TEMP 36.3; O2SAT 97
[2025-03-23] MEDS: predniSONE 20 MG TABLET PO (08:21)
[2025-03-23] MEDS: Finasteride 5 MG TABLET PO (08:21)
[2025-03-23] MEDS: Midodrine HCl 5 MG TABLET PO (08:21)
[2025-03-23] MEDS: LORazepam 1 MG TABLET PO (08:21)
[2025-03-23] MEDS: PARoxetine HCL 10 MG TABLET PO (08:21)
[2025-03-23] MEDS: 0.9 % Sodium Chloride Flush 3 ML SYRINGE IVFLUSH ×3 (08:28→20:14)
[2025-03-23 09:18] LABS: MANUAL DIFF FLAG NO
[2025-03-23 09:23] LABS: Basophils Percent Auto 0.2 % (0-2); Eosinophils Absolute Auto 0.2 X10*3/uL (0.0-0.4); Eosinophils Percent Auto 2.1 % (0-4); Hematocrit 22.7 % (42.0-52.0); Hemoglobin 7.4 g/dl (14.0-18.0); Imm Gran Abs Auto 0.08 X10*3/uL (0.00-0.03); Imm Gran Pct Auto 0.9 % (0.0-0.4); Lymphocytes Absolute Auto 0.8 X10*3/uL (1.2-4.9); Lymphocytes Percent Auto 9.2 % (20-40); Mean Corpuscular HGB Conc 32.6 g/dl (31.0-36.0); Mean Corpuscular Hemoglobin 34.4 pg (27.0-33.0); Mean Corpuscular Volume 105.6 fL (80.0-98.0); Mean Platelet Volume 10.2 fL (9.4-12.4); Monocytes Absolute Auto 0.5 X10*3/uL (0.1-1.2); Monocytes Percent Auto 4.9 % (2-11); Neutrophils Absolute Auto 7.5 x10*3/uL (2.0-8.3); Neutrophils Percent Auto 82.7 % (45-73); Platelet Count 171 X10*3/uL (160-400); Red Blood Count 2.15 X10*6/uL (4.60-5.80); Red Cell Distribution Width 13.4 % (11.0-16.0); White Blood Count 9.1 X10*3/uL (4.8-10.8)
[2025-03-23 09:41] LABS: Alanine Aminotransferase 24 U/L (0-40); Alkaline Phosphatase 54 U/L (39-117); Aspartate Amino Transferase 34 U/L (5-37); Bilirubin Total 0.7 mg/dL (0.0-1.0); Blood Urea Nitrogen 10 mg/dL (9-16); Calcium 8.4 mg/dL (8.4-10.2); Estimated Glomerular Filt Rate > 60; Glucose Fasting 116 mg/dL (60-99); Total Protein 5.2 g/dL (6.5-8.0)
[2025-03-23 09:57] LABS: Anion Gap 10 (12-20); Carbon Dioxide 28 mmol/L (22-29); Chloride 102 mmol/L (96-108); Potassium 2.9 mmol/L (3.3-5.1); Sodium 137 mmol/L (135-145)
[2025-03-23] MEDS: Potassium Chloride/H20 10 MEQ/100 ML PIGGYBACK 100 MEQ IV ×4 (10:34→14:19)
[2025-03-23] MEDS: Potassium Chloride Packet 20 MEQ PACKET 40 MEQ PO (10:35)
[2025-03-23 10:39] LABS: Magnesium 1.5 mg/dL (1.6-2.6)
[2025-03-23 12:00] VITALS: BP 110/55; PULSE 90; RESP 16; TEMP 36.8; O2SAT 96
--- NOTE | 2025-03-23 14:31 | HO.PM.IMPN ---
Subjective Subjective Date of Service: 03/23/25 Interval History: does not want to go to rehab but he is very weak requiring max assist tolerating purees Review of Systems Review of Systems: Yes all other systems are reviewed and are negative Physical Exam Vital Signs: Vital Signs: Last Vital Signs Temp 98.3 F 03/23/25 12:00 Pulse 90 03/23/25 12:00 Resp 16 03/23/25 12:00 BP 110/55 L 03/23/25 12:00 Pulse Ox 96 03/23/25 12:00 O2 Del Method Room Air 03/23/25 12:00 O2 Flow Rate 3 03/16/25 15:00 Oxygen Flow Rate 1 03/14/25 07:16 BMI result Body Mass Index 37.8 Gen: in no acute distress HEENT: sclera anicteric, moist mucus membranes Neck: supple Lungs: clear to auscultation bilaterally Heart: regular rate and rhythm, no murmurs Abd: soft, non-tender, non-distended Ext: no edema Skin: warm/well-perfused Neuro: alert and oriented x3, no focal findings Psych: appropriate affect Objective Data Active Medications Finasteride (Finasteride 5 Mg Tablet) 5 mg PO DAILY [facility] Last Admin: 03/23/25 08:21 Dose: 5 mg Documented By: INO Piperacillin Sod/Tazobactam (Sod 4.5 gm/ Sodium Chloride) 100 mls @ 200 mls/hr IV Q6H [facility] Lorazepam (Lorazepam 1 Mg Tablet) 1 mg PO Q6H PRN PRN Reason: Anxiety Last Admin: 03/23/25 08:21 Dose: 1 mg Documented By: INO Midodrine (Midodrine Hcl 2.5 Mg Tablet) 2.5 mg PO TID [facility] Stop: 03/24/25 14:59 Omeprazole (Omeprazole/Na Bicarb Oral Susp 20 Mg/10 Ml Ud Cup) 20 mg PO DAILY@0630 [facility] Last Admin: 03/23/25 05:31 Dose: 20 mg Documented By: EDISON Paroxetine HCl (Paroxetine Hcl 10 Mg Tablet) 10 mg PO DAILY [facility] Last Admin: 03/23/25 08:21 Dose: 10 mg Documented By: INO Prednisone (Prednisone 20 Mg Tablet) 20 mg PO DAILY [facility] Last Admin: 03/23/25 08:21 Dose: 20 mg Documented By: INO Sodium Chloride (0.9 % Sodium Chloride Flush 3 Ml Syringe) 3 ml IVFLUSH QSHIFT [facility] Last Admin: 03/23/25 08:28 Dose: 3 ml Documented By: INO Tamsulosin HCl (Tamsulosin Hcl 0.4 Mg Capsule) 0.4 mg PO BEDTIME [facility] Last Admin: 03/22/25 19:51 Dose: 0.4 mg Documented By: EDISON Labs 03/23/25 08:48 03/23/25 08:48 Labs: Laboratory Results - last 24 hr 03/23/25 08:48 MCV 105.6 H MCH 34.4 H MCHC 32.6 RDW 13.4 Plt Count 171 D MPV 10.2 Immature Gran % (Auto) 0.9 H Neut % (Auto) 82.7 H Lymph % (Auto) 9.2 L [place] % (Auto) 4.9 Eos % (Auto) 2.1 Baso % (Auto) 0.2 Lymph # (Auto) 0.8 L [place] # (Auto) 0.5 Eos # (Auto) 0.2 Baso # (Auto) 0.0 Abs Immat Gran (auto) 0.08 H Absolute Neuts (auto) 7.5 Absolute Nucleated RBC 0.000 Nucleated RBC % (auto) 0.0 Hold Purple Top SEE NOTE Anion Gap 10 L Estim Creat Clear Calc 212.0 Estimated GFR > 60 Fasting Glucose 116 H Calcium 8.4 Magnesium 1.5 L Total Bilirubin 0.7 AST 34 ALT 24 Alkaline Phosphatase 54 Total Protein 5.2 L Albumin 3.0 L Hold Yellow Top See Note Assessment and Plan (1) Dysphagia: Status: Acute (2) Pneumonia: Status: Acute (3) 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: Status: Acute Plan d11 for 70yo M with chronic LLE wound, Guillain-Paragonah syndrome, hx UTI, urinary retention, HLD presented with AMS and covered in stool admitted to ICU for septic shock due to UTI + aspiration PNA stepped down to telemetry 03/17 septic shock due to aspiration PNA and UTI - completed 10d of piperacillin-tazobactam today - wean off midodrine by tomorrow dysphagia - ORTHO RN: NDD1 solids, thin liquids, MBSS today hypoK - replete IV/PO, recheck level in AM hypoMg - replete PO, recheck level in AM acute blood loss anemia - hematuria resolved; monitor H+H and transfuse if Hb <7 - CBI completed thrombocytopenia - probably due to sepsis; resolved urinary retention - Banegas NSVT - TTE 03/14: 1. Normal LV ejection fraction of 65-70% with impaired relaxation filling pattern 2. Mild aortic regurgitation 3. Mildly dilated ascending aorta at 3.9 cm 4. Normal RV systolic pressure 5. No pericardial effusion - replete K/Mg as above ANTIONETTE, resolved - due to ATN from sepsis + obstructive uropathy anasarca - resolving after furosemide + albumin acute encephalopathy due to infection - HCP invoked R carotid narrowing - outpt Vascular Surgery consult BPH/obstructive uropathy - tamsulosin + finasteride hx GBS - continue prednisone HTN - off irbesartan due to septic shock; weaning midodrine as above mood disorder - paroxetine MASD/incontinence-associated dermatitis - Wound Care VTE ppx - SCDs dispo - will need STR In my clinical judgment, the patient requires continued inpatient hospitalization for the following reasons: MBSS, hypoK Total time managing care of this patient today: 45 minutes. Quality Stroke Does the patient have a stroke diagnosis?: No VTE Prior VTE?: No VTE Risk Level:: Medical - moderate - high VTE Device Contraindication: N/A - Device Ordered VTE Drug Contraindication: N/A - Med Ordered
[2025-03-23 14:54] VITALS: BP 117/71; PULSE 93; RESP 18; TEMP 36.8; O2SAT 97
[2025-03-23] MEDS: Magnesium Oxide 400 MG TABLET 800 MG PO (14:54)
[2025-03-23] MEDS: Midodrine HCl 2.5 MG TABLET PO ×2 (14:54→20:08)
--- NOTE | 2025-03-23 15:10 | MHC.CM.PN ---
EMR reviewed and per MD rounds, pt is not medically cleared for discharge at this time, MBSS today. Pt will need STR at discharge, multiple local STR's following.
--- NOTE | 2025-03-23 15:45 | MHC.SL.IMP ---
Date of Plan of Treatment: 03/23/25 Onset of Symptoms/Illness: 03/15/25 Date Treatment Started: 03/15/25 Admitting Diagnosis: Dysphagia, PNA, Guillain Jackson Syndrome Primary Speech & Language Diagnosis: R13.12 Oropharyngeal Phase Dysphagia Reason for Today's Visit: 04735 Modified Barium Swallow Study Pre-evaluation Dietary Consistencies: Pureed (NDD1) Pre-evaluation Liquid Consistency: Thin Pre-evaluation Medication Administration: Crushed with Puree Medical History: Modified Barium Swallow Study Fluoroscopic Evaluation of Swallowing Function CPT Code 99460 Evaluation Year: 2024 Reason for Study: Difficulty swallowing Referring Physician: Matias Brown DO Evaluating Clinician: Yessenia Pantoja MA, CCC-TIE BUCKER Study Number: 1 Patient Name: Shane Hsu Status: Inpatient, Stretcher Age: 70 Gender: Male Medical History Medical History Mixed hyperlipidemia 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 He was admitted to the ICU for management of septic shock d/t aspiration PNA and UTI. He was weaned off pressors and transferred to [facility] on 03/17, NGT was removed 03/21. Patient was started on a pureed diet and thin liquids per TIE BUCKER and recommended further instrumental assessment of the pharyngeal swallow with this MBSS. Oral Motor Exam Facial Symmetry: Symmetrical Facial Movement: Controlled Mouth Occlusion: Normal Oral-Facial Teeth Characteristics: Intact/Normal Oral-Facial Lip Pucker Description: Normal Oral-Facial Smile (Lips) Description: Normal Oral-Facial Puff Cheeks Description: Reduced Strength Tongue Size: Normal Tongue Excursion Description: Normal Tongue Range of Movement Description: Normal Tongue Speed of Movement Description: Normal Tongue Strength of Movement (against opposing pressure): Reduced to R-side Tongue Movement Characteristics: Normal/Absent Is patient able to manage secretions?: Yes Is patient able to produce volitional cough?: Yes Food and Liquid Trials: Oral Impairment: Lip Closure: 0=No labial escape Oral Impairment: Tongue Control During Bolus Hold: 2=Posterior escape of less than half of bolus Oral Impairment: Bolus Preparation/Mastication: 1=Slow prolonged chewing/mashing with complete re-collection Oral Impairment: Bolus Transport/Lingual Motion: 2=Slowed tongue motion Oral Impairment: Oral Residue: 2=Residue collection on oral structures Oral Impairment:Initiation of Pharyngeal Swallow: 3=Bolus head in pyriforms Pharyngeal Impairment: Soft Palate Elevation: 0=No bolus between soft palate (SP)/pharyngeal wall (PW) Pharyngeal Impairment: Laryngeal Elevation: 1=Partial thyroid cartilage/arytenoids to epiglottic petiole movement Pharyngeal Impairment: Anterior Hyoid Excursion: 1=Partial anterior movement Pharyngeal Impairment: Epiglottic Movement: 0=Complete inversion Pharyngeal Impairment: Laryngeal Vestibular Closure:: 0=Complete: no air/contrast in laryngeal vestibule Pharyngeal Impairment: Pharyngeal Stripping Wave: 1=Present: diminished Pharyngeal Impairment: Pharyngeal Contraction: Did not test Pharyngeal Impairment: Pharyngoesophageal Segment Openin=Complete distension and complete duration: no obstruction of flow Pharyngeal Impairment: Tongue Base (TB) Retraction: 1=Trace column of contrast/air between TB and posterior PW Pharyngeal Impairment: Pharyngeal Residue: 2=Collection of residue within or on pharyngeal structures Pharyngeal Impairment: Esophageal Clearance Upright Position: Did not test Impressions and Recommendations Clinical Observations: OBJECTIVE: Time-out: performed at 11:45 Evaluation Start: 11:30; Stop: 11:35 Patient Positioning: Seated 70-90 degrees Viewing Planes: LATERAL ONLY Contrast: MBSImP? Standardized Protocol using commercially prepared, standardized Barium viscosities, including: Varibar? THIN LIQUID (40% w/v, <15 cps) , Varibar? PUDDING (40% w/v, <1391-5774 cps) , 1/2 Shortbread Cookie (1 x1 x.25 ) MBSImP ID: [id number] MBSImP Results: Lip closure for intraoral bolus containment resulted in no labial escape. Tongue control during bolus hold resulted in posterior escape of less than half of the bolus. Bolus preparation and mastication resulted in slow, prolonged chewing/mashing but with complete re-collection. Bolus transport/lingual motion was with slowed tongue motion. Oral residue was a collection on oral structures. Initiation of the pharyngeal swallow occurred when the bolus head was in the pyriform sinuses. Soft palate elevation resulted in no bolus between the soft palate and the pharyngeal wall. Laryngeal elevation was decreased, with partial superior movement of the thyroid cartilage/partial approximation of the arytenoids to the epiglottic petiole. Anterior hyoid excursion demonstrated partial anterior movement. Epiglottic movement resulted in complete inversion. Laryngeal vestibular closure was complete, as indicated by no air or contrast within the laryngeal vestibule at the height of the swallow. Pharyngeal stripping wave was present, but diminished. Pharyngeal contraction could not be determined due to logistical reasons not related to physiologic impairment. Pharyngoesophageal segment opening was completely distended for complete duration with no obstruction of bolus flow. Tongue base retraction allowed a trace column of contrast or air between the retracted tongue base and the posterior pharyngeal wall. Pharyngeal residue was a collection of residue within or on pharyngeal structures. Esophageal clearance in the upright position could not be assessed due to logistical reasons not related to physiologic impairment. Oral Impairment Score: 10 Pharyngeal Impairment Score: 5 (absence of score, component 13) Esophageal Impairment Score: --- (absence of score, component 17) Laryngeal Penetration and Aspiration: Neither penetration nor aspiration was observed in today's study with Cookie, Pudding-thick, Thin. ASSESSMENT: This exam was performed by the speech pathologist and the radiologist. Patient was seated upright in a stretcher with HoB elevated to 90 degrees for lateral view only. Patient was able to feed himself without difficulty and trialed the following consistencies: thin (via individual cup sips), puree, and regular solid. Patient displayed adequate lip closure with no anterior loss of bolus. Poor tongue control with premature posterior spillage to the valleculae and pyriforms. Mastication was slowed and prolonged, with delayed posterior lingual movement. Pharyngeal swallow trigger was also delayed, initiated as the bolus head reached the pyriforms. No evidence of nasopharyngeal reflux. Partial laryngeal elevation, but with complete epiglottic inversion and complete laryngeal vestibular closure. No evidence of aspiration or penetration during this exam. Minimal collection of residue seen on the tongue base and in the valleculae, which entirely cleared with a cued dry swallow. Liquid Intake Recommendation: Thin Liquid Intake Strategies: Small Sips Dietary Recommendations: Regular Medication Administration: Whole with Liquid Please contact the pharmacy regarding appropriate crushable or liquid drug formulations that are available whenever modified delivery is recommended. Compensatory Strategies Recommended: Sitting Upright (90 deg), Double Swallow, Small Bites and Sips, Alternate Liquids/Solids, Rate of Ingestion Change Supervision during eating and or drinking: Total Supervision (1:1) Recommended Treatments: Compens. Strategy Educat. Recommendation for Speech Therapy: Inpatient Speech Therapy Text Comment: Intake Recommendations: Route: PO Diet Grade: Regular Liquid Consistencies: Thin Post-Study Functional Oral Intake Scale (FOIS): 7- Total oral intake with no restrictions No evidence of aspiration or penetration during this exam. There was minimal coating of residue on the blade and base of tongue and in the valleculae, to which patient did not seem to have a sensory response. Patient did follow commands for a volitional dry swallow, which completely cleared residuals. Patient is at risk for aspiration on retained material after the swallow. He is recommended an upgrade to REGULAR solids and THIN liquids with strategies to promote oral clearance: -Take small bites and chew food well -Dry swallow after each bite -Alternate with liquids as needed -Maintain upright 90 degree position during PO intake and for at least 30 minutes afterwards Therapy Recommendations: Therapy will be continued- TIE BUCKER will follow up with patient at bedside 1-2x to review MBSS findings and recommended strategies. The following compensatory strategies and/or therapeutic exercises will be part of the upcoming therapy/management plan: Additional Swallow(s) per Bolus Correction Goals: ? The patient will tolerate the least restrictive diet with a safe/efficient swallow to maintain adequate nutrition and hydration. ? The patient and/or family will participate in further education for swallowing goals. Short Term Goals: ? Diet - The patient will tolerate a regular diet with thin liquids without signs or symptoms of penetration/aspiration 100% of the time. - The patient will participate in therapeutic PO trials with the TIE BUCKER. ? Guidelines - The patient will comply with/recall the following guidelines/strategies 100% of the time with minimal cuing: Bolus Volume Change, Rate of Ingestion Change, Additional Swallow(s) per Bolus. ? Education - The patient, caregiver, nurse will verbalize/demonstrate understanding of the results of this evaluation, the above recommendations, and the swallowing guidelines. Frequency/Duration: 1-2 f/u Date Range for Service Requested: Timeline to reassess: PRN Clinician - Supplemental, Miscellaneous Communication: It is important to note MBSS objective studies are snapshots in time and Patient function might vary with factors such as time of day or concomitant medical conditions. For this reason, the final treatment plan for this patient should rest with their medical care team. Additional recommendations should be considered with the totality of the Patient in mind. Thank for the opportunity to participate in the care of this patient. If you have any questions about the content of this report, please contact the [facility]. Education: Education regarding findings from today's study and plans for therapy were provided to Patient only through Verbal Instruction. Understanding was expressed by the Patient only. Director Client Services Clinician/Clinical Fellow: No Supervisory Statement: N/A Speech Language Pathologist: Yessenia Pantoja M.A., CCC-TIE BUCKER
[2025-03-23] MEDS: Piperacillin Sodium/Tazobactam 4.5 GM in 0.9 % Sodium Chloride 100 ML IV ×2 (17:15→23:32)
[2025-03-23 19:29] VITALS: BP 135/82; PULSE 86; RESP 20; TEMP 36.1; O2SAT 100
[2025-03-23] MEDS: Tamsulosin HCL 0.4 MG CAPSULE PO (20:08)
[2025-03-23 22:55] VITALS: BP 137/65; PULSE 87; RESP 18; TEMP 36.4; O2SAT 96
[2025-03-24] VITALS (7 sets, daily range): BP systolic 104–148; BP diastolic 59–82; PULSE 81–99; RESP 16–22; TEMP 36.3–37.2; O2SAT 95–98; BMI 36.0
[2025-03-24] MEDS: Piperacillin Sodium/Tazobactam 4.5 GM in 0.9 % Sodium Chloride 100 ML IV ×3 (05:33→17:19)
[2025-03-24] MEDS: Omeprazole/Na Bicarb Oral Susp 20 MG/10 ML UD Cup PO (05:35)
[2025-03-24 07:24] LABS: Hematocrit 23.4 % (42.0-52.0); Hemoglobin 7.6 g/dl (14.0-18.0); Mean Corpuscular HGB Conc 32.5 g/dl (31.0-36.0); Mean Corpuscular Hemoglobin 34.9 pg (27.0-33.0); Mean Corpuscular Volume 107.3 fL (80.0-98.0); Mean Platelet Volume 10.1 fL (9.4-12.4); Platelet Count 214 X10*3/uL (160-400); Red Blood Count 2.18 X10*6/uL (4.60-5.80); Red Cell Distribution Width 13.5 % (11.0-16.0); White Blood Count 7.8 X10*3/uL (4.8-10.8)
[2025-03-24 07:37] LABS: Anion Gap 12 (12-20); Blood Urea Nitrogen 9 mg/dL (9-16); Calcium 8.2 mg/dL (8.4-10.2); Carbon Dioxide 26 mmol/L (22-29); Chloride 105 mmol/L (96-108); Estimated Glomerular Filt Rate > 60; Glucose Random 111 mg/dL (60-115); Magnesium 1.5 mg/dL (1.6-2.6); Potassium 3.7 mmol/L (3.3-5.1); Sodium 139 mmol/L (135-145)
[2025-03-24] MEDS: predniSONE 20 MG TABLET PO (09:58)
[2025-03-24] MEDS: Finasteride 5 MG TABLET PO (09:58)
[2025-03-24] MEDS: PARoxetine HCL 10 MG TABLET PO (09:58)
[2025-03-24] MEDS: Midodrine HCl 2.5 MG TABLET PO (09:58)
--- NOTE | 2025-03-24 10:57 | HO.PM.IMPN ---
Subjective Subjective Date of Service: 03/24/25 Interval History: No acute issues overnight. Still resistant to rehab Review of Systems Denies chest pain Denies shortness of breath Denies nausea vomiting diarrhea Denies fever chills Physical Exam Vital Signs: Vital Signs: Last Vital Signs Temp 98.5 F 03/24/25 07:33 Pulse 88 03/24/25 07:33 Resp 16 03/24/25 07:33 BP 104/59 L 03/24/25 07:33 Pulse Ox 97 03/24/25 07:33 O2 Del Method Room Air 03/24/25 07:33 O2 Flow Rate 3 03/16/25 15:00 Oxygen Flow Rate 1 03/14/25 07:16 BMI result Body Mass Index 36.0 Const: Other: Awake alert no acute distress Resp: Other: Clear to auscultation bilaterally no rales rhonchi or wheezes Cardio: Other: No S4; positive S1-S2; no S3 murmurs rubs or gallops GI: Other: Soft nontender nondistended normoactive bowel sounds Extrem: Other: No edema bilaterally Objective Data Active Medications Finasteride (Finasteride 5 Mg Tablet) 5 mg PO DAILY [facility] Last Admin: 03/24/25 09:58 Dose: 5 mg Documented By: NINO Piperacillin Sod/Tazobactam (Sod 4.5 gm/ Sodium Chloride) 100 mls @ 200 mls/hr IV Q6H [facility] Last Infusion: 03/24/25 06:22 Dose: Infused Documented By: EDISON Lorazepam (Lorazepam 1 Mg Tablet) 1 mg PO Q6H PRN PRN Reason: Anxiety Last Admin: 03/23/25 08:21 Dose: 1 mg Documented By: INO Midodrine (Midodrine Hcl 2.5 Mg Tablet) 2.5 mg PO TID [facility] Stop: 03/24/25 14:59 Last Admin: 03/24/25 09:58 Dose: 2.5 mg Documented By: NINO Omeprazole (Omeprazole/Na Bicarb Oral Susp 20 Mg/10 Ml Ud Cup) 20 mg PO DAILY@0630 [facility] Last Admin: 03/24/25 05:35 Dose: 20 mg Documented By: EDISON Paroxetine HCl (Paroxetine Hcl 10 Mg Tablet) 10 mg PO DAILY [facility] Last Admin: 03/24/25 09:58 Dose: 10 mg Documented By: NINO Prednisone (Prednisone 20 Mg Tablet) 20 mg PO DAILY [facility] Last Admin: 03/24/25 09:58 Dose: 20 mg Documented By: NINO Sodium Chloride (0.9 % Sodium Chloride Flush 3 Ml Syringe) 3 ml IVFLUSH QSHIFT [facility] Last Admin: 03/24/25 10:18 Dose: Not Given Documented By: NINO Non-Admin Reason: IV Running Tamsulosin HCl (Tamsulosin Hcl 0.4 Mg Capsule) 0.4 mg PO BEDTIME [facility] Last Admin: 03/23/25 20:08 Dose: 0.4 mg Documented By: EDISON Labs 03/24/25 06:37 03/24/25 06:37 Labs: Laboratory Results - last 24 hr 03/24/25 06:37 MCV 107.3 H MCH 34.9 H MCHC 32.5 RDW 13.5 Plt Count 214 D MPV 10.1 Absolute Nucleated RBC 0.000 Nucleated RBC % (auto) 0.0 Anion Gap 12 Estim Creat Clear Calc 189.0 Estimated GFR > 60 Random Glucose 111 Calcium 8.2 L Magnesium 1.5 L Blood Type O Positive Antibody Screen NEGATIVE Assessment and Plan (1) Pneumonia: Status: Acute (2) Cystitis: Status: Acute Plan This is a 70-year-old male with history of left lower extremity wound, Guillain-Gowen syndrome, UTI, urinary retention, hyperlipidemia who was brought to the emergency department with altered mental status after being found encephalopathic and covered in stool admitted to the ICU for management of septic shock due to aspiration pneumonia and UTI, weaned off of pressors and downgraded to the medical floor on March 17. 1.Dysphagia -swallow eval>NDD1 with thin liquids -speech recommending modified barium. .. We will order 2. Urinary retention (by bladder scan) -insert Banegas 3.Pneumonia/UTI. -blood cultures negative to date -KENDRA Azar(10)... 4.History of Guillain-Gowen -stable and well compensated -continue oral steroid dosing 5.Acute blood loss anemia -hematuria resolved -follow daily CBC 6.Acute thrombocytopenia (related to sepsis) -platelet count stable with minimal increase -follow daily CBC 7.HTN -acceptable control off therapies -add back when appropriate Pneumatics Full code Quality Stroke Does the patient have a stroke diagnosis?: No VTE Prior VTE?: No VTE Risk Level:: Medical - moderate - high VTE Device Contraindication: N/A - Device Ordered VTE Drug Contraindication: N/A - Med Ordered
--- NOTE | 2025-03-24 11:12 | MHC.SL.SWA ---
Speech Pathologist Impression: Oropharyngeal Dysphagia Risk of Aspiration Due to: Neurological Condition Dysphasia Diet Status: No Change Liquid Consistency and Strategies for Safe Swallow: Liquid Intake Recommendation: Thin Liquid Intake Strategies: Double Swallow Solid Food Consistency: Dietary Recommendations: Regular Additional Modifications to Solid Foods: -Take small bites and chew food well -Dry swallow after each bite -Alternate with liquids as needed -Maintain upright 90 degree position during PO intake and for at least 30 minutes afterwards Oral Medication Intake: Whole with Liquid Please contact the pharmacy regarding appropriate crushable or liquid drug formulations that are available whenever modified delivery is recommended. Compensatory Strategies and Precautions to be Taken for Safe Swallow: Sitting Upright (90 deg) Double Swallow Small Bites and Sips Alternate Liquids/Solids Rate of Ingestion Change Supervision While Eating and Drinking for Safe Swallow: Total Supervision (1:1) Recommendation for Speech: D/C Inpatient ST- Please re-refer with any further concerns. Bank President Clinican/Clinical Fellow: No Supervisory Statement: I have reviewed and agree with the student/clinical fellow's documentation: N/A Speech Language Pathologist: Yessenia Pantoja M.A., CCC-MUSEUM INFORMATICS SPECIALIST
[2025-03-24] MEDS: Magnesium Sulfate/H2O 2 GM/50 ML PIGGYBACK IV (12:01)
--- NOTE | 2025-03-24 15:23 | MHC.CLN ---
F/U DIET ADVANCED FROM PUREE TO REGULAR PER [facility] 03/23. INTAKE VARIABLE, 25-75%. CONTINUE ENSURE BID TO INCREASE NUTRITIONAL INTAKE. SUPPLEMENT PROVIDES 700 KCALS, 40 G PROTEIN. MONITOR PO INTAKE AND ENCOURAGE SUPPLEMENTS.
[2025-03-24] MEDS: 0.9 % Sodium Chloride Flush 3 ML SYRINGE IVFLUSH ×2 (17:22→20:32)
[2025-03-24] MEDS: Tamsulosin HCL 0.4 MG CAPSULE PO (20:30)
[2025-03-25] MEDS: Piperacillin Sodium/Tazobactam 4.5 GM in 0.9 % Sodium Chloride 100 ML IV ×4 (00:13→17:08)
[2025-03-25 03:57] VITALS: BP 129/58; PULSE 86; RESP 16; TEMP 36.5; O2SAT 96
[2025-03-25] MEDS: Omeprazole/Na Bicarb Oral Susp 20 MG/10 ML UD Cup PO (05:54)
[2025-03-25 06:00] VITALS: BMI 38.4
[2025-03-25 07:19] LABS: MANUAL DIFF FLAG NO
[2025-03-25 07:28] VITALS: BP 121/63; PULSE 87; RESP 18; TEMP 36.8; O2SAT 96
[2025-03-25 07:28] LABS: Basophils Percent Auto 0.3 % (0-2); Eosinophils Absolute Auto 0.1 X10*3/uL (0.0-0.4); Eosinophils Percent Auto 1.6 % (0-4); Hemoglobin 7.4 g/dl (14.0-18.0); Imm Gran Abs Auto 0.04 X10*3/uL (0.00-0.03); Imm Gran Pct Auto 0.6 % (0.0-0.4); Lymphocytes Absolute Auto 0.9 X10*3/uL (1.2-4.9); Lymphocytes Percent Auto 13.3 % (20-40); Mean Corpuscular HGB Conc 32.2 g/dl (31.0-36.0); Mean Corpuscular Hemoglobin 34.3 pg (27.0-33.0); Mean Corpuscular Volume 106.5 fL (80.0-98.0); Monocytes Absolute Auto 0.5 X10*3/uL (0.1-1.2); Monocytes Percent Auto 7.4 % (2-11); Neutrophils Absolute Auto 5.2 x10*3/uL (2.0-8.3); Neutrophils Percent Auto 76.8 % (45-73); Platelet Count 243 X10*3/uL (160-400); Red Blood Count 2.16 X10*6/uL (4.60-5.80); Red Cell Distribution Width 14.4 % (11.0-16.0); White Blood Count 6.8 X10*3/uL (4.8-10.8)
[2025-03-25 07:39] LABS: Alanine Aminotransferase 19 U/L (0-40); Albumin Level 2.9 g/dL (3.5-5.0); Alkaline Phosphatase 55 U/L (39-117); Anion Gap 11 (12-20); Aspartate Amino Transferase 23 U/L (5-37); Bilirubin Total 0.5 mg/dL (0.0-1.0); Blood Urea Nitrogen 8 mg/dL (9-16); Calcium 8.3 mg/dL (8.4-10.2); Carbon Dioxide 23 mmol/L (22-29); Chloride 108 mmol/L (96-108); Creatinine Clr Calc Pharmacy 183.4; Estimated Glomerular Filt Rate > 60; Glucose Fasting 113 mg/dL (60-99); Magnesium 1.7 mg/dL (1.6-2.6); Potassium 3.6 mmol/L (3.3-5.1); Sodium 138 mmol/L (135-145)
[2025-03-25] MEDS: Finasteride 5 MG TABLET PO (08:06)
[2025-03-25] MEDS: predniSONE 20 MG TABLET PO (08:06)
[2025-03-25] MEDS: PARoxetine HCL 10 MG TABLET PO (08:06)
--- NOTE | 2025-03-25 08:06 | HO.PM.IMPN ---
Subjective Subjective Date of Service: 03/25/25 Interval History: Seen in follow-up for dysphagia, urinary retention, aspiration pneumonia Interval history: Continues to refuse short-term rehab. He has no complaints at this time. No overnight events. Review of Systems Review of Systems: Yes all other systems are reviewed and are negative Physical Exam Vital Signs: Vital Signs: Last Vital Signs Temp 98.3 F 03/25/25 07:28 Pulse 87 03/25/25 07:28 Resp 18 03/25/25 07:28 BP 121/63 03/25/25 07:28 Pulse Ox 96 03/25/25 07:28 O2 Del Method Room Air 03/25/25 07:28 O2 Flow Rate 3 03/16/25 15:00 Oxygen Flow Rate 1 03/14/25 07:16 BMI result Body Mass Index 38.4 Objective Data Active Medications Finasteride (Finasteride 5 Mg Tablet) 5 mg PO DAILY [facility] Last Admin: 03/24/25 09:58 Dose: 5 mg Documented By: NINO Piperacillin Sod/Tazobactam (Sod 4.5 gm/ Sodium Chloride) 100 mls @ 200 mls/hr IV Q6H [facility] Last Infusion: 03/25/25 06:18 Dose: Infused Documented By: EDISON Lorazepam (Lorazepam 1 Mg Tablet) 1 mg PO Q6H PRN PRN Reason: Anxiety Last Admin: 03/23/25 08:21 Dose: 1 mg Documented By: INO Omeprazole (Omeprazole/Na Bicarb Oral Susp 20 Mg/10 Ml Ud Cup) 20 mg PO DAILY@0630 [facility] Last Admin: 03/25/25 05:54 Dose: 20 mg Documented By: EDISON Paroxetine HCl (Paroxetine Hcl 10 Mg Tablet) 10 mg PO DAILY [facility] Last Admin: 03/24/25 09:58 Dose: 10 mg Documented By: NINO Prednisone (Prednisone 20 Mg Tablet) 20 mg PO DAILY [facility] Last Admin: 03/24/25 09:58 Dose: 20 mg Documented By: NINO Sodium Chloride (0.9 % Sodium Chloride Flush 3 Ml Syringe) 3 ml IVFLUSH QSHIFT [facility] Last Admin: 03/24/25 20:32 Dose: 3 ml Documented By: EDISON Tamsulosin HCl (Tamsulosin Hcl 0.4 Mg Capsule) 0.4 mg PO BEDTIME [facility] Last Admin: 03/24/25 20:30 Dose: 0.4 mg Documented By: EDISON Labs 03/25/25 06:35 03/25/25 06:36 Labs: Laboratory Results - last 24 hr 03/24/25 03/25/25 03/25/25 06:37 06:35 06:36 MCV 106.5 H MCH 34.3 H MCHC 32.2 RDW 14.4 Plt Count 243 MPV 10.0 Immature Gran % (Auto) 0.6 H Neut % (Auto) 76.8 H Lymph % (Auto) 13.3 L [place] % (Auto) 7.4 Eos % (Auto) 1.6 Baso % (Auto) 0.3 Lymph # (Auto) 0.9 L [place] # (Auto) 0.5 Eos # (Auto) 0.1 Baso # (Auto) 0.0 Abs Immat Gran (auto) 0.04 H Absolute Neuts (auto) 5.2 Absolute Nucleated RBC 0.000 Nucleated RBC % (auto) 0.0 Anion Gap 11 L Estim Creat Clear Calc 183.4 Estimated GFR > 60 Fasting Glucose 113 H Calcium 8.3 L Magnesium 1.7 Total Bilirubin 0.5 AST 23 ALT 19 Alkaline Phosphatase 55 Total Protein 5.0 L Albumin 2.9 L Blood Type O Positive Antibody Screen NEGATIVE Assessment and Plan (1) Pneumonia: Status: Acute (2) Cystitis: Status: Acute Plan This is a 70-year-old male with history of left lower extremity wound, Guillain-Rankin syndrome, UTI, urinary retention, hyperlipidemia who was brought to the emergency department with altered mental status after being found encephalopathic and covered in stool admitted to the ICU for management of septic shock due to aspiration pneumonia and UTI, weaned off of pressors and downgraded to the medical floor on March 17. 1.Dysphagia -swallow eval>NDD1 with thin liquids -speech recommending modified barium-unremarkable 2. Urinary retention (by bladder scan) -continue Banegas 3.Pneumonia/UTI. -blood cultures negative to date -DC Maria Esyn(10)... 4.History of Guillain-Rankin -stable and well compensated -continue oral steroid dosing 5.Acute blood loss anemia -hematuria resolved -follow daily CBC 6.Acute thrombocytopenia (related to sepsis) -platelet count stable with minimal increase -follow daily CBC 7.HTN -acceptable control off therapies -add back when appropriate Pneumatics Full code Awaiting safe disposition Quality Stroke Does the patient have a stroke diagnosis?: No VTE Prior VTE?: No VTE Risk Level:: Medical - moderate - high VTE Device Contraindication: N/A - Device Ordered VTE Drug Contraindication: N/A - Med Ordered
[2025-03-25] MEDS: 0.9 % Sodium Chloride Flush 3 ML SYRINGE IVFLUSH ×3 (08:07→21:24)
[2025-03-25 11:48] VITALS: BP 118/56; PULSE 93; RESP 20; TEMP 37.2; O2SAT 95
[2025-03-25 15:45] VITALS: BP 108/57; PULSE 76; RESP 22; TEMP 36.9; O2SAT 97
[2025-03-25 19:29] VITALS: BP 126/64; PULSE 84; RESP 18; TEMP 36.6; O2SAT 95
[2025-03-25] MEDS: Tamsulosin HCL 0.4 MG CAPSULE PO (21:08)
[2025-03-25 23:28] VITALS: BP 149/66; PULSE 87; RESP 16; TEMP 36.4; O2SAT 96
[2025-03-26] MEDS: Piperacillin Sodium/Tazobactam 4.5 GM in 0.9 % Sodium Chloride 100 ML IV ×3 (00:59→13:19)
[2025-03-26 03:44] LABS: Cortisol, Free 1.67 mcg/dL
[2025-03-26 03:55] VITALS: BP 129/68; PULSE 85; RESP 16; TEMP 36.1; O2SAT 94
[2025-03-26] MEDS: Omeprazole/Na Bicarb Oral Susp 20 MG/10 ML UD Cup PO (05:30)
[2025-03-26 06:00] VITALS: BMI 38.3
[2025-03-26 08:00] VITALS: BP 117/67; PULSE 108; RESP 18; TEMP 36.5; O2SAT 95
[2025-03-26] MEDS: 0.9 % Sodium Chloride Flush 3 ML SYRINGE IVFLUSH ×3 (09:35→20:41)
[2025-03-26] MEDS: Finasteride 5 MG TABLET PO (09:35)
[2025-03-26] MEDS: predniSONE 20 MG TABLET PO (09:35)
[2025-03-26] MEDS: PARoxetine HCL 10 MG TABLET PO (09:35)
--- NOTE | 2025-03-26 10:25 | P.PNIM_ITS ---
Subjective Subjective Date of Service: 03/26/25 Interval History: Seen in follow-up for dysphagia, urinary retention, aspiration pneumonia Interval history:Refusing rehab, Review of Systems Review of Systems: Yes all other systems are reviewed and are negative Physical Exam 2 Vital Signs: Vital Signs: Last Vital Signs Temp 97.7 F 03/26/25 08:00 Pulse 108 H 03/26/25 08:00 Resp 18 03/26/25 08:00 BP 117/67 03/26/25 08:00 Pulse Ox 95 03/26/25 08:00 O2 Del Method Room Air 03/26/25 08:00 O2 Flow Rate 3 03/16/25 15:00 Oxygen Flow Rate 1 03/14/25 07:16 BMI result Body Mass Index 38.3 Const: Other: Gen: in no acute distress HEENT: sclera anicteric, moist mucus membranes Neck: supple Lungs: clear to auscultation bilaterally Heart: regular rate and rhythm, no murmurs Abd: soft, non-tender, non-distended Ext: no edema Skin: warm/well-perfused Neuro: alert and oriented x3, no focal findings Psych: appropriate affect Objective Data Active Medications Finasteride (Finasteride 5 Mg Tablet) 5 mg PO DAILY [facility] Last Admin: 03/26/25 09:35 Dose: 5 mg Documented By: GWEN Piperacillin Sod/Tazobactam (Sod 4.5 gm/ Sodium Chloride) 100 mls @ 200 mls/hr IV Q6H [facility] Last Infusion: 03/26/25 06:23 Dose: Infused Documented By: EDISON Lorazepam (Lorazepam 1 Mg Tablet) 1 mg PO Q6H PRN PRN Reason: Anxiety Last Admin: 03/23/25 08:21 Dose: 1 mg Documented By: INO Omeprazole (Omeprazole/Na Bicarb Oral Susp 20 Mg/10 Ml Ud Cup) 20 mg PO DAILY@0630 [facility] Last Admin: 03/26/25 05:30 Dose: 20 mg Documented By: EDISON Paroxetine HCl (Paroxetine Hcl 10 Mg Tablet) 10 mg PO DAILY [facility] Last Admin: 03/26/25 09:35 Dose: 10 mg Documented By: GWEN Prednisone (Prednisone 20 Mg Tablet) 20 mg PO DAILY [facility] Last Admin: 03/26/25 09:35 Dose: 20 mg Documented By: GWEN Sodium Chloride (0.9 % Sodium Chloride Flush 3 Ml Syringe) 3 ml IVFLUSH QSHIFT [facility] Last Admin: 03/26/25 09:35 Dose: 3 ml Documented By: GWEN Tamsulosin HCl (Tamsulosin Hcl 0.4 Mg Capsule) 0.4 mg PO BEDTIME [facility] Last Admin: 03/25/25 21:08 Dose: 0.4 mg Documented By: EDISON Labs 03/25/25 06:35 03/25/25 06:36 Labs: Laboratory Results - last 24 hr 03/17/25 04:52 Free Cortisol 1.67 H Assessment and Plan (1) Pneumonia: Status: Acute (2) Cystitis: Status: Acute Plan 70-year-old male with history of left lower extremity wound, Guillain-Sarona syndrome, UTI, urinary retention, hyperlipidemia who was brought to the emergency department with altered mental status after being found encephalopathic and covered in stool admitted to the ICU for management of septic shock due to aspiration pneumonia and UTI, weaned off of pressors and downgraded to the medical floor on March 17. Dysphagia -swallow eval>NDD1 with thin liquids -speech recommending modified barium-unremarkable Urinary retention (by bladder scan) -continue Banegas Pneumonia/UTI. -blood cultures negative to date -completed Zosyn x 10 days... History of Guillain-Sarona -stable and well compensated -continue oral steroid dosing Acute blood loss anemia -hematuria resolved -follow daily CBC Acute thrombocytopenia (related to sepsis) -platelet count stable with minimal increase -follow daily CBC HTN -acceptable control off therapies -add back when appropriate Pneumatics Full code Awaiting safe disposition Psych consult for competency assessment, has poor undersstanding of what's going and I don't think going home is a safe situation allyson light of conditions under which he was brought to the hospital and having been Quality Stroke Does the patient have a stroke diagnosis?: No VTE Prior VTE?: No VTE Risk Level:: Medical - moderate - high VTE Device Contraindication: N/A - Device Ordered VTE Drug Contraindication: N/A - Med Ordered
[2025-03-26 12:00] VITALS: BP 118/58; PULSE 100; RESP 16; TEMP 35.8; O2SAT 95
[2025-03-26 16:00] VITALS: BP 112/66; PULSE 99; RESP 18; TEMP 37.1; O2SAT 97
[2025-03-26 18:34] VITALS: BP 129/67; PULSE 96; RESP 17; TEMP 36.2; O2SAT 96
[2025-03-26] MEDS: Tamsulosin HCL 0.4 MG CAPSULE PO (20:40)
--- NOTE | 2025-03-26 23:31 | P.CNPS_ITS ---
History of Present Illness Date of Service: 03/26/25 Chief Complaint: septic shock Requesting physician: Ayo Vicente Discussed with referring provider: Yes Sources of Information: patient interviewed and chart reviewed HPI Medical Evaluation Reviewed: Yes [facility] Medical History Mixed hyperlipidemia 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 Vitamin D deficiency Benign essential hypertension Obesity (BMI 30-39.9) Neuropathy Hypertension, essential Anxiety Surgical History History of tonsillectomy and adenoidectomy Diagnostics Vital Signs (24Hr): Vital Signs - 24 hr 03/26/25 03:55 03/26/25 08:00 03/26/25 12:00 Temperature 96.9 F 97.7 F 96.5 F L Pulse Rate 85 108 H 100 Respiratory Rate 16 18 16 Blood Pressure 129/68 117/67 118/58 L Pulse Oximetry 94 95 95 Oxygen Delivery Method Room Air Room Air Room Air 03/26/25 16:00 03/26/25 18:34 Temperature 98.7 F 97.2 F Pulse Rate 99 96 Respiratory Rate 18 17 Blood Pressure 112/66 129/67 Pulse Oximetry 97 96 Oxygen Delivery Method Room Air Room Air BMI result Body Mass Index 38.3 Labs 03/25/25 06:35 03/25/25 06:36 Labs: Laboratory Results - last 48 hr 03/17/25 03/25/25 03/25/25 04:52 06:35 06:36 WBC 6.8 RBC 2.16 L Hgb 7.4 L Hct 23.0 L MCV 106.5 H MCH 34.3 H MCHC 32.2 RDW 14.4 Plt Count 243 MPV 10.0 Immature Gran % (Auto) 0.6 H Neut % (Auto) 76.8 H Lymph % (Auto) 13.3 L [place] % (Auto) 7.4 Eos % (Auto) 1.6 Baso % (Auto) 0.3 Lymph # (Auto) 0.9 L [place] # (Auto) 0.5 Eos # (Auto) 0.1 Baso # (Auto) 0.0 Abs Immat Gran (auto) 0.04 H Absolute Neuts (auto) 5.2 Absolute Nucleated RBC 0.000 Nucleated RBC % (auto) 0.0 Sodium 138 Potassium 3.6 Chloride 108 Carbon Dioxide 23 Anion Gap 11 L BUN 8 L Creatinine 0.49 L Estim Creat Clear Calc 183.4 Estimated GFR > 60 Fasting Glucose 113 H Calcium 8.3 L Magnesium 1.7 Total Bilirubin 0.5 AST 23 ALT 19 Alkaline Phosphatase 55 Total Protein 5.0 L Albumin 2.9 L Free Cortisol 1.67 H Imaging Radiology Impressions: ITS Impressions Chest X-Ray 03/14/25 10:00 IMPRESSION: 1. Stable left central venous catheter terminating in the SVC. 2. Enteric tube, tip just below the GE junction. This should be advanced slightly for optimal placement. 3. Pulmonary abnormalities with right basilar opacity, and right greater than left small effusions unchanged. No pneumothorax. Electronically signed by: Jose A Droado MD 03/14/2025 10:54 AM EDT RP Modified Barium Swallow 03/23/25 11:30 IMPRESSION: No laryngeal penetration, glottic or subglottic aspiration. Refer to the speech therapy report for further details. Electronically signed by: Jose A Dorado MD 03/23/2025 12:37 PM EDT RP Medications Medications Current Medications Finasteride (Finasteride 5 Mg Tablet) 5 mg PO DAILY [facility] Last Admin: 03/26/25 09:35 Dose: 5 mg Lorazepam (Lorazepam 1 Mg Tablet) 1 mg PO Q6H PRN PRN Reason: Anxiety Last Admin: 03/23/25 08:21 Dose: 1 mg Omeprazole (Omeprazole/Na Bicarb Oral Susp 20 Mg/10 Ml Ud Cup) 20 mg PO DAILY@0630 [facility] Last Admin: 03/26/25 05:30 Dose: 20 mg Paroxetine HCl (Paroxetine Hcl 10 Mg Tablet) 10 mg PO DAILY [facility] Last Admin: 03/26/25 09:35 Dose: 10 mg Prednisone (Prednisone 20 Mg Tablet) 20 mg PO DAILY [facility] Last Admin: 03/26/25 09:35 Dose: 20 mg Sodium Chloride (0.9 % Sodium Chloride Flush 3 Ml Syringe) 3 ml IVFLUSH QSHIFT [facility] Last Admin: 03/26/25 20:41 Dose: 3 ml Tamsulosin HCl (Tamsulosin Hcl 0.4 Mg Capsule) 0.4 mg PO BEDTIME [facility] Last Admin: 03/26/25 20:40 Dose: 0.4 mg Allergies Allergies Allergy/AdvReac Type Severity Reaction Status Date / Time atenolol [ATENOLOL] Allergy Unknown SEVERE Verified 03/13/25 17:13 BRADYCARDIA atenolol Allergy Unknown bradycardia Uncoded 03/13/25 17:13 zestril Allergy Unknown facial Uncoded 03/13/25 17:13 swelling Assessment & Plan Total time managing care of this patient today ____ minutes.
[2025-03-27 03:06] VITALS: BP 111/72; PULSE 87; RESP 18; TEMP 36.7; O2SAT 96
[2025-03-27 07:04] VITALS: BP 126/60; PULSE 85; RESP 16; TEMP 36.3; O2SAT 97
[2025-03-27] MEDS: PARoxetine HCL 10 MG TABLET PO (07:38)
[2025-03-27] MEDS: Finasteride 5 MG TABLET PO (07:38)
[2025-03-27] MEDS: predniSONE 20 MG TABLET PO (07:38)
[2025-03-27] MEDS: 0.9 % Sodium Chloride Flush 3 ML SYRINGE IVFLUSH ×2 (07:38→15:55)
--- NOTE | 2025-03-27 10:41 | MHC.CM.PN ---
Addendum entered by Ana Valderrama 03/27/25 14:30: IMM 03/27/25 Patient is discharge today. The bed offer received for STR @ [facility] has been accepted. Transportation is scheduled for 4:30pm picker feeder via BLS. All discharge information has been sent to the facility. Original Note: Per MD rounds patient is ready to discharge today. A few facilities are following for discharge. A VM has been left for the pt's son/Tristan. A request for a return call was made. The names of the SNFS following were provided. DP STR via BLS.
--- NOTE | 2025-03-27 11:54 | P.PNIM_ITS ---
Subjective Subjective Date of Service: 03/27/25 Interval History: Noted to be confused intermittently. Now willing to go to rehab at present time Review of Systems Denies chest pain Denies shortness of breath Denies nausea vomiting diarrhea Denies fever chills Physical Exam 2 Vital Signs: Vital Signs: Last Vital Signs Temp 97.4 F 03/27/25 07:04 Pulse 85 03/27/25 07:04 Resp 16 03/27/25 07:04 BP 126/60 03/27/25 07:04 Pulse Ox 97 03/27/25 07:04 O2 Del Method Room Air 03/27/25 07:04 O2 Flow Rate 3 03/16/25 15:00 Oxygen Flow Rate 1 03/14/25 07:16 BMI result Body Mass Index 38.3 Const: Other: Awake alert no acute distress Resp: Other: Clear to auscultation bilaterally no rales rhonchi or wheezes Cardio: Other: No S4; positive S1-S2; no S3 murmurs rubs or gallops GI: Other: Soft nontender nondistended normoactive bowel sounds Extrem: Other: No edema bilaterally Objective Data Active Medications Finasteride (Finasteride 5 Mg Tablet) 5 mg PO DAILY [facility] Last Admin: 03/27/25 07:38 Dose: 5 mg Documented By: CORNELIUS Lorazepam (Lorazepam 1 Mg Tablet) 1 mg PO Q6H PRN PRN Reason: Anxiety Last Admin: 03/23/25 08:21 Dose: 1 mg Documented By: INO Omeprazole (Omeprazole/Na Bicarb Oral Susp 20 Mg/10 Ml Ud Cup) 20 mg PO DAILY@0630 [facility] Last Admin: 03/27/25 05:44 Dose: Not Given Documented By: JEROMERISM Non-Admin Reason: Med Not Available Paroxetine HCl (Paroxetine Hcl 10 Mg Tablet) 10 mg PO DAILY [facility] Last Admin: 03/27/25 07:38 Dose: 10 mg Documented By: CORNELIUS Prednisone (Prednisone 20 Mg Tablet) 20 mg PO DAILY [facility] Last Admin: 03/27/25 07:38 Dose: 20 mg Documented By: CORNELIUS Sodium Chloride (0.9 % Sodium Chloride Flush 3 Ml Syringe) 3 ml IVFLUSH QSHIFT [facility] Last Admin: 03/27/25 07:38 Dose: 3 ml Documented By: CORNELIUS Tamsulosin HCl (Tamsulosin Hcl 0.4 Mg Capsule) 0.4 mg PO BEDTIME [facility] Last Admin: 03/26/25 20:40 Dose: 0.4 mg Documented By: ALLEN Labs 03/25/25 06:35 03/25/25 06:36 Assessment and Plan (1) Pneumonia: Status: Acute (2) Dysphagia: Status: Acute Plan This is a 70-year-old male with history of left lower extremity wound, Guillain- [place]awood syndrome, UTI, urinary retention, hyperlipidemia who was brought to the emergency department with altered mental status after being found encephalopathic and covered in stool admitted to the ICU for management of septic shock due to aspiration pneumonia and UTI, weaned off of pressors and downgraded to the medical floor on March 17. 1.Dysphagia -swallow eval>NDD1 with thin liquids -speech recommending modified barium. .. We will order 2. Urinary retention (by bladder scan) -insert Banegas -voiding trial at SNF 3.Pneumonia/UTI. -blood cultures negative to date -DC Zosyn(10)... 4.History of Guillain-[place]wood -stable and well compensated -continue oral steroid dosing 5.Acute blood loss anemia -hematuria resolved -follow daily CBC 6.Acute thrombocytopenia (related to sepsis) -platelet count stable with minimal increase -follow daily CBC 7.HTN -acceptable control off therapies -add back when appropriate Pneumatics Full code Quality Stroke Does the patient have a stroke diagnosis?: No VTE Prior VTE?: No VTE Risk Level:: Medical - moderate - high VTE Device Contraindication: N/A - Device Ordered VTE Drug Contraindication: N/A - Med Ordered
--- NOTE | 2025-03-27 13:14 | P.DS_ITS ---
DS: Providers Provider Date of Service: 03/27/25 Date of admission: 03/13/25 19:44 Date of discharge: 03/27/25 Primary care physician: Brandon Buck MD Consults: 03/14/25 02:12 Consult to Wound Care Routine Reason for consultation: multiple skin integrity concerns- see skin photos 03/14/25 06:24 Consult to Urology Stat Consulting Provider: [facility] [place] [facility] Reason for consultation: gross hematuria Has provider been notified: No 03/14/25 07:00 Consult to Nephrology Routine Consulting Provider: [facility] [place] [facility] Reason for consultation: ANTIONETTE Has provider been notified: No 03/26/25 10:29 Consult to Psychiatry Routine Consulting Provider: [facility] [place] [facility] Reason for consultation: assess compentency Has provider been notified: No DS: Diagnosis Discharge Diagnosis (1) Pneumonia: Status: Acute (2) Dysphagia: Status: Acute DS: Summary Hospital Course Hospital Course: 70-year-old patient with underlying history of morbid obesity, malnutrition, hypertension, left lower extremity wound, Guillain-[place] syndrome and lower extremity weakness, UTIs, urinary retention, hyperlipidemia, presented to the emergency room via EMS with reported complaints of acute mental status changes, shortness of breath blood glucose of 69 and possible bedbug infestation.? According to EMS personnel, the patient had mental status changes for the past 2 days and has now moved from the couch.? Upon arrival they noted the patient was sitting in his own stools and covered with sheets the had bedbugs in it.? The patient was found in concerning conditions. Workup in the emergency room revealed a confused patient, hypotensive intermittently hypoxic, white count of 24.6, H and H of 13.4 and 36.5 respectively.? 95% neutrophils.? Toxic vacuolation in the differential. ?Sodium 116, potassium 5.6 chloride 93, carbon dioxide 12 BUN 132 and creatinine of 5.95.? Calcium 6.6 albumin 1.9. ?Lactic acid 1.4.? Urinalysis positive for UTI.? U tox negative.? Initial chest x-ray showed under ventilated lungs without consolidation or effusion.? Head and neck CT showed limited evaluation with possible high-grade narrowing of the right carotid bulb and right internal proximal carotid artery.? Right pleural effusion right mastoiditis.? The patient has received 2.5 L of fluid, Zosyn and despite of this he has blood pressure did not improve, given the concern of fluid overload no more fluid was administered by the ER and the patient was placed on Levophed. ?Subsequently patient admitted to the ICU. Hospital Course Patient admitted to ICU on pressors. Patient was started on Zosyn for empiric coverage of UTI. Successfully weaned off of pressors and transferred to general medical floor. Patient was maintained on Zosyn however culture failed to demonstrate a single organism. Patient required multiple straight catheterization for urinary retention on the floor and a chronic indwelling Banegas was placed. He can undergo voiding trial at rehab. Initially patient very reluctant to go to rehab and was intermittently confused. Seen by Andriy chávez and this flex o writer operator and both in agreement that patient is not able to make decisions regarding his health and well-being therefore healthcare proxy has been invoked. He completed his 10 day course of Zosyn IV and at this point in time is medically acceptable for rehab Time Attestation Discharge Coordination Time (in mins): 35 Quality: Safe Use of Opioids Does Pt have an Active Cancer Diagnosis on the Problem List?: No Quality: Stroke Does the patient have a stroke diagnosis?: No Physical Exam Vital Signs: Vital Signs: Last Vital Signs Temp 97.4 F 03/27/25 07:04 Pulse 85 03/27/25 07:04 Resp 16 03/27/25 07:04 BP 126/60 03/27/25 07:04 Pulse Ox 97 03/27/25 07:04 O2 Del Method Room Air 03/27/25 07:04 O2 Flow Rate 3 03/16/25 15:00 Oxygen Flow Rate 1 03/14/25 07:16 BMI result Body Mass Index 38.3 Const: Other: Awake alert no acute distress Resp: Other: Clear to auscultation bilaterally no rales rhonchi or wheezes Cardio: Other: No S4; positive S1-S2; no S3 murmurs rubs or gallops GI: Other: Soft nontender nondistended normoactive bowel sounds Extrem: Other: No edema bilaterally DS: Data Data Completed and Pending Completed studies during hospitalization [Text1]: Procedures Drainage of Spinal Canal, Percutaneous Approach, Diagnostic (07/27/22) Discharge Plan Discharge Anticipated Discharge Date/Time: 03/27/25 13:06 Patient Disposition: [facility] Discharge Diagnosis: Acute septic shock secondary to urinary tract infection Referrals: [facility] [Outside] - 1 Week Brandon Buck MD [Primary Care Provider] - 1 Week Discharge Medications: Continued fenofibrate nanocrystallized 48 mg tablet 48 mg PO DAILY 30 Days Qty: 30 2RF cholecalciferol (vitamin D3) [Vitamin D3] 50 mcg (2,000 unit) capsule 50 mcg PO DAILY Qty: 90 0RF paroxetine HCl 10 mg tablet 10 mg PO DAILY 90 Days Qty: 90 0RF tamsulosin 0.4 mg capsule 0.4 mg PO BEDTIME Qty: 90 0RF Rx Instructions: Take 1 capsule by mouth at bedtime prednisone 20 mg tablet 20 mg PO BID Qty: 60 0RF finasteride [Proscar] 5 mg tablet 5 mg PO DAILY 90 Days Qty: 90 0RF irbesartan 75 mg tablet 75 mg PO DAILY 90 Days Qty: 90 0RF lorazepam 1 mg tablet 1 - 1.5 mg PO BEDTIME PRN (Reason: anxiety) Rx Instructions: Take 1 to 1.5 tablets orally at bedtime PRN for increased anxiety (DME) LIGHTWEIGHT WHEELCHAIR See Rx Instructions .Route .MEDSUPPLY Qty: 1 0RF Rx Instructions: As directed Discharge Orders: Discharge Order (Routine); Ordered 03/27/25 Ordered By: Matias Brown Diet: Advance to usual diet Activity on Discharge: As tolerated Stand Alone Forms: Patient Portal Discharge page Print Language: Guyanese Care Plan Goals: Continue all meds as outlined on discharge summary Health Concerns: Therapies and treatments as per receiving facility Plan of Treatment: As per receiving facility Assessment: See discharge summary
--- NOTE | 2025-03-27 13:18 | PM.EVENT ---
Event Note Date of Service: 03/27/25 Event Note: Patient seen examined and interviewed. Believe patient not to be capable of making decisions regarding his health and well-being. We will invoke the healthcare proxy Time Spent With Patient Time: Total time managing care of this patient today ____ minutes.
[2025-03-27] MEDS: LORazepam 1 MG TABLET PO (15:55)
[2025-03-27 16:03] VITALS: BP 145/81; PULSE 89; RESP 16; TEMP 36.3; O2SAT 96
[2025-03-27 19:23] VITALS: BP 129/79; PULSE 85; RESP 18; TEMP 36.1; O2SAT 98
== END 2025-03-27 19:50 | disposition skilled nursing facility (03) | DRG 871 ==
LOC: HO.ED 17:27 → HO.EDOVER 19:56 → HO.ICU 20:13 → HO.IMC 03-17 19:05 → HO.S3 03-26 17:51
PROVIDERS: Family Medicine; Internal Medicine Critical Care Medicine; Internal Medicine Hypertension Specialist; Physician Assistant Medical; Admitting Provider Physician Assistant Medical; Emergency Provider Emergency Medicine; PCP Internal Medicine; Visit Provider Hospitalist
DX: A41.9 Sepsis, unspecified organism (principal); G92.8 Other toxic encephalopathy; J69.0 Pneumonitis due to inhalation of food and vomit; R65.21 Severe sepsis with septic shock; N17.0 Acute kidney failure with tubular necrosis; G61.0 Guillain-Barre syndrome; T76.01XA Adult neglect or abandonment, suspected, initial encounter; E27.40 Unspecified adrenocortical insufficiency; D62 Acute posthemorrhagic anemia; N13.8 Other obstructive and reflux uropathy; I47.20 Ventricular tachycardia, unspecified; I65.21 Occlusion and stenosis of right carotid artery; N30.91 Cystitis, unspecified with hematuria; E66.01 Morbid (severe) obesity due to excess calories; E78.2 Mixed hyperlipidemia; N40.1 Benign prostatic hyperplasia with lower urinary tract symptoms; R33.8 Other retention of urine; I35.1 Nonrheumatic aortic (valve) insufficiency; E88.09 Other disorders of plasma-protein metabolism, not elsewhere classified; H70.91 Unspecified mastoiditis, right ear; L24.A0 Irritant contact dermatitis due to friction or contact with body fluids, unspecified; R13.10 Dysphagia, unspecified; D69.59 Other secondary thrombocytopenia; G47.33 Obstructive sleep apnea (adult) (pediatric); E87.5 Hyperkalemia; Z68.38 Body mass index [BMI] 38.0-38.9, adult; R68.0 Hypothermia, not associated with low environmental temperature; Z20.822 Contact with and (suspected) exposure to COVID-19; Z79.52 Long term (current) use of systemic steroids; Z79.899 Other long term (current) drug therapy
CPT/HCPCS: 0241U; 36415; 70496; 70498; 71045; 74176; 74230; 80048; 80053; 80076; 80307; 81001; 82140; 82436; 82530; 82607; 82746; 82803; 82947; 83605; 83735; 83880; 84100; 84443; 84484; 85007; 85025; 85027; 85610; 86850; 86900; 86901; 87040; 87086; 87640; 87641; 92526; 92610; 92611; 93005; 93306; 94660; 97110; 97162; 97530; 99284; J0613; J0696; J1171; J1644; J1720; J1938; J1940; J2470; J2543; J3475; J3480; J7120; P9047

== ENCOUNTER → 2025-03-13 15:56 | Outpatient (BNV) | payer MEDICARE, SELFPAY | PROVIDERS: Admitting Provider Physician Assistant Medical; Emergency Provider Emergency Medicine; Visit Provider Internal Medicine Cardiovascular Disease | DX: I49.1 Atrial premature depolarization (principal) | CPT/HCPCS: 93010 ==

== ENCOUNTER → 2025-03-13 15:56 | Outpatient (BNV) | payer MEDICARE, SELFPAY | PROVIDERS: Emergency Provider Emergency Medicine; Visit Provider Radiology Diagnostic Radiology | DX: J98.11 Atelectasis (principal) | CPT/HCPCS: 71045 ==

== ENCOUNTER 2025-03-13 19:44 | Outpatient (BNV) | payer MEDICARE, SELFPAY | END 2025-03-14 00:45 | PROVIDERS: Admitting Provider Physician Assistant Medical; Emergency Provider Emergency Medicine; Visit Provider Radiology Neuroradiology | DX: N32.89 Other specified disorders of bladder (principal); J90 Pleural effusion, not elsewhere classified; J98.11 Atelectasis; Z46.89 Encounter for fitting and adjustment of other specified devices | CPT/HCPCS: 71045 ==

== ENCOUNTER 2025-03-13 19:44 | Outpatient (BNV) | payer MEDICARE, SELFPAY | END 2025-03-14 07:00 | PROVIDERS: Admitting Provider Physician Assistant Medical; Emergency Provider Emergency Medicine; Visit Provider Internal Medicine Cardiovascular Disease | DX: I35.2 Nonrheumatic aortic (valve) stenosis with insufficiency (principal); I34.0 Nonrheumatic mitral (valve) insufficiency; I36.1 Nonrheumatic tricuspid (valve) insufficiency | CPT/HCPCS: 93306 ==

== ENCOUNTER 2025-03-13 19:44 | Outpatient (BNV) | payer MEDICARE, SELFPAY | END 2025-03-23 06:00 | PROVIDERS: Admitting Provider Physician Assistant Medical; Emergency Provider Emergency Medicine; PCP Internal Medicine; Visit Provider Radiology Diagnostic Radiology | DX: R13.10 Dysphagia, unspecified (principal) | CPT/HCPCS: 74230 ==

== ENCOUNTER → 2025-03-13 19:44 | Outpatient (BNV) | payer MEDICARE, SELFPAY | PROVIDERS: Admitting Provider Physician Assistant Medical; Emergency Provider Emergency Medicine; PCP Internal Medicine; Visit Provider Physician Assistant Medical | DX: J18.9 Pneumonia, unspecified organism (principal); N30.90 Cystitis, unspecified without hematuria | CPT/HCPCS: 99232; 99233; 99239; 99499 ==

== ENCOUNTER → 2025-03-13 19:44 | Outpatient (BNV) | payer MEDICARE, SELFPAY | PROVIDERS: Admitting Provider Physician Assistant Medical; Emergency Provider Emergency Medicine; PCP Internal Medicine; Visit Provider Internal Medicine Hypertension Specialist | DX: N17.9 Acute kidney failure, unspecified (principal) | CPT/HCPCS: 99223; 99232 ==

== ENCOUNTER → 2025-03-13 19:44 | Outpatient (BNV) | payer MEDICARE, SELFPAY | PROVIDERS: Admitting Provider Physician Assistant Medical; Emergency Provider Emergency Medicine; PCP Internal Medicine; Visit Provider Urology | DX: A41.9 Sepsis, unspecified organism (principal); R65.21 Severe sepsis with septic shock; N19 Unspecified kidney failure; N30.90 Cystitis, unspecified without hematuria; R31.0 Gross hematuria | CPT/HCPCS: 99222 ==

== ENCOUNTER → 2025-03-13 19:44 | Outpatient (BNV) | payer MEDICARE, SELFPAY | PROVIDERS: Admitting Provider Physician Assistant Medical; Emergency Provider Emergency Medicine; PCP Internal Medicine; Visit Provider Psychiatry & Neurology Psychiatry | DX: F29 Unspecified psychosis not due to a substance or known physiological condition (principal); R41.89 Other symptoms and signs involving cognitive functions and awareness | CPT/HCPCS: 99232 ==

== ENCOUNTER → 2025-03-13 19:44 | Outpatient (BNV) | payer MEDICARE, SELFPAY | PROVIDERS: Admitting Provider Physician Assistant Medical; Emergency Provider Emergency Medicine; Visit Provider Physician Assistant Medical | DX: N17.9 Acute kidney failure, unspecified (principal); E87.1 Hypo-osmolality and hyponatremia; G62.9 Polyneuropathy, unspecified; A41.9 Sepsis, unspecified organism; R65.21 Severe sepsis with septic shock | CPT/HCPCS: 36556; 99291; 99292 ==